=== PATIENT | male | born 1965 | race Two or more races ===

== ENCOUNTER 2023-09-23 20:26 | Inpatient (IN) | payer OTHER, SELFPAY ==
[2023-09-23] VITALS (20 sets, daily range): BP systolic 82–106; BP diastolic 59–81; BMI 43.1
[2023-09-23 14:37] LABS: % Basophils 0.1 % (0-2); % Eosinophils 0.1 % (0-6); % Immature Granulocytes 0.5 % (0-0.5); % Lymphocytes 7.1 % (20.5-51.1); % Monocytes 5.9 % (1.7-9.3); % Neutrophils 86.3 % (42.2-75.2); Absolute Immature Granulocytes 0.1 10^3/uL (0-0.05); Absolute Monocytes 0.9 10^3/uL (0.1-0.6); Absolute Neutrophils 12.4 10^3/uL (1.4-6.5); Hematocrit 46.1 % (39.0-52.0); Hemoglobin 15.3 g/dL (13.0-18.0); Mean Corp Hgb Conc. 33.2 g/dL (33.0-37.0); Mean Corpuscular Hgb 30.2 pg (27.0-31.0); Mean Corpuscular Volume 90.9 fL (80.0-94.0); Mean Platelet Volume 10.8 fL (7.4-10.4); Nucleated Red Blood Cells % 0 % (-); Platelet Count 313 10^3/uL (130-400); Red Blood Cell Count 5.07 10^6/uL (4.70-6.10); Red Cell Dist. Width 13.5 % (11.5-14.5); White Blood Cell Count 14.3 10^3/uL (4.8-10.8)
[2023-09-23 14:50] LABS: Lactic Acid 1.2 mmol/L (0.7-2.0)
[2023-09-23 14:53] LABS: ALT (SGPT) 23 U/L (0-50); AST (SGOT) 32 U/L (17-59); Albumin 4.8 g/dl (3.5-5.0); Alkaline Phosphatase 90 U/L (38-126); Blood Urea Nitrogen 22 mg/dl (9-20); Calcium 10.8 mg/dl (8.4-10.2); Carbon Dioxide 23 mmol/L (22-30); Chloride 104 mmol/L (98-107); Estimated Creatinine Clearance 49 ml/min; Glucose 158 mg/dl (70-99); Potassium 4.2 mmol/L (3.5-5.1); Sodium 140 mmol/L (135-145); Total Bilirubin 1.2 mg/dl (0.2-1.3); Total Protein 9.1 g/dl (6.3-8.2); eGFR 28.69
[2023-09-23 15:03] LABS: NT-proBNP 391 pg/ml; Troponin I < 0.012 ng/ml
[2023-09-23] MEDS: OMNIPAQUE 50 ML PO (15:54)
[2023-09-23] MEDS: ZOFRAN 4 MG IV ×2 (15:55→19:45)
[2023-09-23 16:15] LABS: Lipase 26 U/L (23-300)
[2023-09-23 18:11] LABS: Urine Albumin 2+ (Neg - Trace); Urine Bilirubin 1+ (Negative); Urine Character Very Cloudy (Clear); Urine Color Yellow; Urine Glucose Negative (Negative); Urine Ketone 1+ (Negative); Urine Leukocyte 2+ (Negative); Urine Nitrite Positive (Negative); Urine Occult Blood 4+ (Negative); Urine Specific Gravity 1.015 (<1.030); Urine Urobilinogen Negative (Neg - 1+)
--- NOTE | 2023-09-23 18:40 | ED.GENMED ---
History of Present Illness
General
Chief Complaint: Weakness
Source: patient, ambulance crew and [facility]
Exam Limitations: none
Time Seen by Provider: 09/23/23 15:22
Nursing documentation reviewed up to this point in time: agreed with
History of Present Illness
History of Present Illness:
Patient to ED from [facility] with report of vomiting, increased weakness. According to [facility] staff (jorge) patient had abdominal xray today that revealed constipation. He was given and enema and passed a large amt of stool however he continues with
vomiting. Sent to ED for eval. [facility] denies fever/chills.
Past History
Past History
ED Past Medical History: GERD, HTN, Hypercholesterolemia, NIDDM, Seizures, Psychiatric (Depression) and Other (obesitiy)
Review of Systems
Review of Systems
Allergies reviewed?: Yes
All Other Systems: ROS reviewed and negative except as documented in HPI and ROS
Constitutional: Reports fatigue
EENT: Reports no symptoms
Respiratory: Reports trouble breathing
Cardiac: Reports no symptoms
ABD/GI: Reports abdominal pain, nausea and vomiting
: Reports no symptoms
Musculoskeletal: Reports no symptoms
Skin: Reports no symptoms
Neurological: Reports weakness
Psychiatric: Reports no symptoms
Phy Exam
General Physical Exam
General Presentation: moderate distress
General age: appears stated age
General Skin: warm and dry
General Habitus: normal
General Mental: alert
Cardiovascular Exam
Cardiovascular Exam: regular rate/rhythm and no edema
Pulmonary Exam
Pulmonary Exam: decreased breath sounds
Gastrointestinal Exam
Gastrointestinal Exam: normal bowel sounds, soft, no organomegaly and distended
Palpation: generalized: Mild tenderness
Musculoskeletal Exam
Musculoskeletal Exam: neuro vasc intact
Skin Exam
Skin Exam: normal color, warm/dry and no rash
Psychiatric Exam
Psychiatric Exam: normal mood/affect
Course
Orders/Labs/Results
Orders:
Orders
09/23/23 Breakfast
NPO
Allow oral meds: No
Allow clear liquids: No
NPO with Ice Chips: Yes
09/23/23 14:26
Electrocardiogram (*1) Urgent
Reason for Study: Chest Pain
EKG- Treatment ONCE
09/23/23 14:28
Complete Blood Count/With Diff Urgent
Comprehensive Metabolic Panel Urgent
Lipase Urgent
Comment: LIPASE ADDED ON BY FLOOR 3:45PM 09-23-23
NT-proBNP Urgent
Troponin I Urgent
Blood Culture Urgent
ERIC Source: Blood/Venous
Specimen Description:
Date Specimen was Collected: 09/23/23
Time Specimen was Collected: 14:26
09/23/23 14:29
Lactic Acid Urgent
Urinalysis Reflex To Culture Urgent
Date Specimen was Collected: 09/23/23
Time Specimen was Collected: 14:26
Urine Microscopic Reflex Cult Urgent
Urine Culture Urgent
ERIC Source: U
Specimen Description:
Date Specimen was Collected: 09/23/23
Time Specimen was Collected: 14:26
09/23/23 15:37
Ondansetron Injectable [Zofran] 4 mg IV NOW STA
09/23/23 15:43
CT Abd/pel (oral only)-DH Only Urgent
Comment:
Reason For Exam: abdominal pain vomiting
Iohexol [Omnipaque] See Protocol PO NOW STA
09/23/23 15:44
Add On- LAB Urgent
Tests Added?: Lipase
09/23/23 18:48
0.9% Sodium Chloride 1000 ml [Nss] 1,000 ml IV BOLUS
09/23/23 18:53
Cefepime HCl [Maxipime] 2,000 mg IV NOW STA
09/23/23 19:00
Add On- LAB Urgent
Tests Added?: Depakote level
09/23/23 19:03
Gentamicin Sulfate [Gentamicin] 200 mg 0.9% Sodium Chloride [Nss] 50 ml IV NOW
09/23/23 19:16
Ondansetron Injectable [Zofran] 4 mg IV NOW STA
09/23/23 19:40
Chest X-ray Portable [CR Chest Portable - 1 View] Stat
Comment:
Reason For Exam: shortness of breath
Reason Study Needs to be Portable: Unable to Transport
09/23/23 19:43
Admit/Transfer Patient As Directed
Co-Sign Provider:
Level of Care: Inpatient admission
Assign to:: IMU- Intermediate Care
Physician / Group: Htay
Diagnosis: Severe Sepsis, SBO, UTI
Reason for Hospitalization: IVFs, IV abx, NG Tube
Expected length of stay greater than two midnights?: Yes
ELOS- Estimated Length of Stay in days: 3
I certify the patient meets the requirements for IP care: Yes
09/23/23 19:49
Code Status As Directed
Resuscitation Status: Do not resuscitate
Reached after discussion with pt or family/Healthcare POA: Yes
DNR Bracelet Application ONCE
09/23/23 20:06
Gastrointestinal Tubes As Directed
Type: [place] sump
To suction?: Yes
Type of suction: Low intermittent
Irrigate tube?: Yes
Irrigant: Tap Water
Frequency: Q4H
Amount in mls: 30
Irrigation Directions: Irrigate Q4H and PRN
09/23/23 20:12
Lactated Ringers [Lr] 1,000 ml IV BOLUS
09/23/23 21:23
Acetaminophen 1000MG/100Ml [Ofirmev] 1,000 mg in 100 ml IV Q6HPRN
Acetaminophen IV Indication:: Ileus/Delayed Bowel Func.
Dextrose 50%-Water [Dextrose 50% Syringe] 12.5 grams IV [id number] PRN
Glucagon [GlucaGen] 1 mg IM PRN PRN
Lactated Ringers [Lr] 1,000 ml IV 100 mls/hr
Ondansetron Injectable [Zofran] 4 mg IV Q6HPRN PRN
09/23/23 21:23
SURGICAL CONSULT Routine
Consulting Provider: Paulie Varghese
Was physician already notified: Yes
Activity As Directed
Activity Level: Bedrest
Bedside Glucose Monitoring As Directed
Frequency: AC&HS
Additional Instructions:: Change to q6h if pt on TPN, tube feeding or not eating
Gutierrez Catheter [Catheter- Indwelling] As Directed
Reason for insertion: Chronic Gutierrez on Admit
I&O [Intake/ Output] As Directed
Frequency: q12h
Nursing to Place Non Medication Order As Directed
Physician Order: Please exchange catheter upon arrival to the floor
Above order entered?: Yes
Vital Signs As Directed
Frequency: Per unit guidelines
Weight As Directed
Frequency: Daily
DX Deep Vein Thrombosis Video Routine
09/23/23 22:39
Blood Culture Urgent
ERIC Source: Blood/Venous
Specimen Description:
09/24/23 00:00
Heparin 5,000 units SC Q8
09/24/23 05:44
Basic Metabolic Panel IN AM
Complete Blood Count/No Diff IN AM
Glycohemoglobin (HgbA1c) IN AM
Magnesium IN AM
09/24/23 07:30
Insulin Aspart Corrective Low [Novolog Flexpen-Low Resistance] See Protocol SC AC
09/24/23 08:00
Cefepime HCl [Maxipime] 2,000 mg IV Q12H
Pantoprazole [Protonix IV] 40 mg IV DAILY
Abnormal Lab Results
09/23/23 09/23/23
14:28 14:29
WBC 14.3 H 10^3/uL
(4.8-10.8)
MPV 10.8 H fL
(7.4-10.4)
Abs Immat Gran (auto) 0.1 H 10^3/uL
(0-0.05)
Absolute Neuts (auto) 12.4 H 10^3/uL
(1.4-6.5)
Absolute Lymphs (auto) 1.0 L 10^3/uL
(1.2-3.4)
Absolute Monos (auto) 0.9 H 10^3/uL
(0.1-0.6)
Neutrophils % 86.3 H %
(42.2-75.2)
Lymphocytes % 7.1 L %
(20.5-51.1)
BUN 22 H mg/dl
(9-20)
Creatinine 2.5 H mg/dL
(0.7-1.3)
Glucose 158 H mg/dl
(70-99)
Calcium 10.8 H mg/dl
(8.4-10.2)
Total Protein 9.1 H g/dl
(6.3-8.2)
Urine Ketones 1+ A
(Negative)
Ur Occult Blood Reflex 4+ A
(Negative)
Urine Nitrite (Reflex) Positive A
(Negative)
Urine Bilirubin 1+ A
(Negative)
Leukocyte Esterase Rfl 2+ A
(Negative)
Urine RBC 16-20 A /HPF
(0-2)
Urine WBC (Reflex) 50-60 A /HPF
(0-5)
Urine Bacteria (Reflex) Moderate A
(Negative)
Urine Albumin (Reflex) 2+ A
(Neg - Trace)
09/23/23 14:28
09/23/23 14:28
Vital Signs
Initial and Last Documented VS:
Initial Vital Signs
Temp Pulse Resp BP Pulse Ox
98.4 F 108 18 98/68 94
09/23/23 14:13 09/23/23 14:13 09/23/23 14:13 09/23/23 14:13 09/23/23 14:13
Last Documented Vital Signs
Temp Pulse Resp BP Pulse Ox
97.7 F 85 17 115/56 94
09/25/23 15:05 09/25/23 12:00 09/25/23 12:00 09/25/23 12:00 09/25/23 12:00
*Critical Care Note
Total Time (30-74mins, 75-104mins- exclusive of procedures): Not Applicable
Update Note
Update Note:
Patient sent to ED from [facility] for increasing weakness, vomiting. Portable xxray at [facility] today: Severe gastrocolic ileus. [facility] staff report being told patient was constipated. Enema given at [facility] and he passed a large amt of stool. Conintued
with vomiting so he was sent toED. He had labs colected at [facility] on 09/21. Compared with labs completed here today. Creat 1.17 on the 19h, now 2.5, WBC 7.3, now 14. UA ttoday consistent with UTI. Antibiotics started in dept. He remains awake and
cooperative but weak. DNR
ED Attending Note
-
Portions of this chart may have been created with voice recognition software.� Occasional wrong word or��sound alike� substitutions may have occurred due to the inherent limitations of voice recognition software.
Discharge Plan
Departure
Patient Disposition: Admit
Date of Disposition: 09/23/23
Time of Disposition: 19:09
Presentation/result/management discussed w/ accepting MD/DO: Hospitalist
Condition: Fair
Covid-19: Not Applicable
Discharge Problem:
Acute UTI, CADY (acute kidney injury), SBO (small bowel obstruction)
Interventions
Interventions:
*Risk Screen - Suicide Last Done: 09/23/23 14:13
*General Assessment Last Done: 09/23/23 14:13
*Neglect/Abuse Screening Last Done: 09/23/23 14:13
ED- Fall Risk Assessment Last Done: 09/23/23 21:35
*ED COVID-19 Vaccine History Last Done: 09/23/23 23:55
*Nursing Disposition Last Done: 09/23/23 21:35
ED- Cardiac Assessment Last Done: 09/23/23 15:11
ED- Neurological Assessment Last Done: 09/23/23 15:11
ED- Pulmonary Assessment Last Done: 09/23/23 15:11
Discharge Date and Time
Discharge Date/Time: 09/23/23 21:37
[2023-09-23 18:49] LABS: Urine Bacteria Moderate (Negative)
[2023-09-23 18:50] LABS: Urine Red Blood Cell 16-20 /HPF (0-2); Urine White Cell 50-60 /HPF (0-5)
[2023-09-23] MEDS: NSS 1000 IV (18:55)
[2023-09-23] MEDS: MAXIPIME 2000 MG IV (19:00)
[2023-09-23] MEDS: GENTAMICIN 55 MG IV (19:44)
--- NOTE | 2023-09-23 19:45 | W.PN.UPDATE ---
Addendum entered and electronically signed by Dmitry Mathis MD 09/23/23 19:59:
Laboratory Tests
09/23/23 09/23/23
14:28 14:29
Lactic Acid 1.2
Troponin I < 0.012
Eao-E-Rhmdyxbyppc Pept 391
Original Note:
Update Note
Progress Note Update
I could only get partial information from the patient as he is soft spoken , answered yes or no and lethargic
Information gathered by chart review and speaking with the ER staff
This note serves as an addendum to the H&P by metallurgy laboratory technician ROCIO Briana MARQUES
HPI
58M Obese HV ID Res, Sz, DM, HTN sent to ER for N/V, weakness since this AM.
Evaluation of N/V
- acute onset since this AM- AXR at ID showed constipation
- S/P rectal emea yields large BMs
- Persistent emesis s/p BM
- NGT drained at least 1.5 L dark brown liquid at ER
ROS:
ID denies fever/chills.
PHX
GERD, HTN, Hypercholesterolemia, NIDDM, Seizures, Psychiatric (Depression) and Other (obesity)
Reviewed VS: Hypotensive BP 95/75 tachycardic 110s Tachypneic RR 26 Pox 93%
PE
Gen: Obese man who looks toxic and lethargic but interactive with appropriate response
HEENT: anicteric, no pallor
Neck: supple
Lungs: symmetric AE
Cor: Tachycardic, S1 S2
Abdomen: diffusely distended and firm large abdomen, quiet BS buit non tender , not guarded , NRT
WEAPONS OFFICER: Awake, Lt sided residual weakness UEx> MENA
MS: no edema
Psych:lethargic but interactive with appropriate response
Data
WCC 14s unremarkable Hgb and Platelet
BUN 22
Cr 2.5 - 1.1 yesterday at ID
Ca 10.8
BG 158
Unremarkable LFTs
Cath UA : POS Nitrites, 2+LE RBC 16-20, WCC 50-60
UCx sent
BCx sent
EKG report
SINUS TACHYCARDIA
RIGHT BUNDLE BRANCH BLOCK
ABNORMAL ECG
NO PREVIOUS ECGS AVAILABLE
CT Abd/pel (oral only)
1). Bowel gas pattern suggesting distal small bowel obstruction
2).There is gas in the left pelvicalyceal system such as may be seen with infection or following recent instrumentation. Correlation with the patient's urinalysis would be useful
3).There are several nonobstructing left-sided renal calculi measuring up to 16 mm
4.). Cholelithiasis
NO PRIOR hospitalist admission:
ASSESSMENT & PLAN
CT suggest distal SBO vs. ileus
S/p Large BM in response to rectal enema per NH
- cont. NGT drainage
- NPO and LR IVF
- Held all OP Meds
- GS consult
Presumed Sepsis( Hypotensive BP 95/75 tachycardic 110s Tachypnic) due to CAUTI
Associated CADY
- cont. chr F cath drainage - to place new cath
- f/u BCx sent
- Empiric IV CFP and f/u UCx
- LR IVF
- Held Lisinopril, Amlodipine, carvedilol and MgOH
- Trend RFTs and UO daily
- Renal consult in AM if Cr is not tending down appropraiely in AM
Several nonobstructing left-sided renal calculi measuring up to 16 mm
- f/u UO
Hyperglycemia due to acute medical illness
T2DM- diet conrol
- add ISS low
- check A1C
Hypotension 2/2 sepsis
Essential HTN
- held all Held Lisinopril, Amlodipine, carvedilol and MgOH
HX CVA Lt sided residual weakness
Bed bound and non ambulatory patient
- Held Eliquis for now
- held Atorvastatin
Depression
- Denied Sz disorder !!!
- Depakote is for Depression ??
DVT Px: SQH while
Code: DNR conformed by Patient at bed side
[facility]
--- NOTE | 2023-09-23 20:18 | HPS.HSE ---
Addendum entered and electronically signed by Dmitry Mathis MD 09/24/23 00:07:
I saw and examined the patient.
The RADIO INSTALLER or PA's note was reviewed and I agree with the note.
Comment: see my updated note
Original Note:
Family Physician
-
Family Physician: Elias Toledo, DO
Chief Complaint
-
Abdominal Pain and Vomiting
History of Present Illness
This is a 58 year old male with past medical history of hypertension, diabetes mellitus type 2, and CVA who presents to the emergency department today for weakness, nausea, and vomiting since this morning. He had an x-ray yesterday after complaining
of abdominal pain which revealed an gastrocolic ileus. While in the emergency department patient had a CT scan that revealed distal small bowel obstruction. NG tube was place with quickly drained 1.5L of dark colored liquid.
Medical History
Past Medical History
Past Medical History: Reports Other
Additional Past Medical History:
CVA with Residual Left Sided Weakness
Essential Hypertension
Hyperlipidemia
Diabetes Mellitus, Type II
Major Depressive Disorder
BPH with Chronic Urinary Retention
Past Surgical History: Reports None
Social History
Tobacco: Former Smoker (Quit in 2022)
Alcohol: Former
Family History
Family History: Not pertinent
Allergies / Home Medications
Allergies reflects when Allergies were last updated in [facility].
Home Medications with original date entered in [facility]
Allergy/Medication List:
Allergies
Allergy/AdvReac Type Severity Reaction Status Date / Time
No Known Allergies Allergy Unverified 09/23/23 14:13
Home Medications
Lactobac no.2-Bifidobac no.1-S. thermo 112.5 billion cell capsule (Visbiome) 1 cap PO DAILY 09/23/23
acetaminophen 325 mg tablet (Tylenol) 650 mg PO Q6HPRN PRN mild pain 09/23/23
amlodipine 10 mg tablet (Norvasc) 10 mg PO DAILY 09/23/23
apixaban 5 mg tablet (Eliquis) 5 mg PO BID 09/23/23
aspirin 81 mg tablet,delayed release 81 mg PO DAILY 09/23/23
atorvastatin 80 mg tablet (Lipitor) 80 mg PO HS 09/23/23
baclofen 5 mg tablet 5 mg PO TID 09/23/23
bisacodyl 5 mg tablet,delayed release (Dulcolax (bisacodyl)) 5 mg PO DAILYPRN PRN constipation 09/23/23
carvedilol 6.25 mg tablet (Coreg) 6.25 mg PO BID 09/23/23
cholecalciferol (vitamin D3) 50 mcg (2,000 unit) tablet (Vitamin D3) 50 mcg PO DAILY 09/23/23
cyclobenzaprine 10 mg tablet 10 mg PO TIDPRN PRN spasms 09/23/23
divalproex 125 mg tablet,delayed release 125 mg PO HS 09/23/23
lidocaine 5 % topical patch 1 patch topical DAILY right knee 09/23/23
lisinopril 20 mg tablet 20 mg PO DAILY 09/23/23
magnesium hydroxide 400 mg/5 mL oral suspension (Milk of Magnesia) 2,400 mg PO [id number] PRN if no bm on 3rd day 09/23/23
melatonin 5 mg tablet 8 mg PO HS 09/23/23
methyl salicylate 15 %-menthol 10 % topical cream (Muscle Rub) 1 applic topical Q6HPRN PRN mild pain 09/23/23
nortriptyline 25 mg capsule 25 mg PO HS 09/23/23
omeprazole 20 mg tablet,delayed release 20 mg PO DAILY 09/23/23
pantoprazole 40 mg tablet,delayed release 40 mg PO BID 09/23/23
polyethylene glycol 3350 17 gram oral powder packet (Miralax) 17 g PO BID 09/23/23
selenium sulfide 2.5 % lotion 1 applic topical Q8HPRN PRN area of skin 09/23/23
sennosides 8.6 mg tablet (senna) 17.2 mg PO BID 09/23/23
sertraline 150 mg capsule 150 mg PO DAILY 09/23/23
sodium phosphates 19 gram-7 gram/118 mL enema (Fleet Enema) 118 ml W[place] DAILYPRN PRN if no bm aftr dulcolax 09/23/23
tamsulosin 0.4 mg capsule (Flomax) 0.4 mg PO QPM 09/23/23
trazodone 150 mg tablet 150 mg PO HS 09/23/23
triamcinolone acetonide 0.1 % topical cream 1 applic topical BID atopic dermatitis 09/23/23
Review of Systems
-
A 12 point ROS was completed and negative except as noted: Yes
Constitutional: Denies Fever or Chills
Respiratory: Denies Cough or Trouble Breathing
Cardiac: Denies Chest Pain or Palpitations
Abdomen/GI: Reports See HPI
Physical Exam
Vital Signs
Vital Signs
Temp Pulse Resp BP Pulse Ox
98.3 F 113 26 99/61 93
09/23/23 18:06 09/23/23 18:48 09/23/23 18:48 09/23/23 18:48 09/23/23 18:53
Physical Exam
General: Well Developed and Well Nourished
HEENT: NormoCephalic, Anicteric and Other (NG Tube in place)
Respiratory: Clear and Non Labored Respirations
Cardiac: S1/S2, Regular Rhythm and Tachycardia
GI: Tender (Mild throughout), Distended and Other (Very hypoactive bowel sounds)
Genito-urinary: Gutierrez
Musculoskeletal: No Clubbing, No Cyanosis and Edema, Left Lower Extremity
Skin: Warm and Dry
Neuro: Awake, Alert, Oriented and Other (LUE Contracted at elbow and hand)
Psych: Calm
Laboratory Results
-
09/23/23 14:28
09/23/23 14:28
Laboratory Results
Lactic Acid 1.2 mmol/L (0.7-2.0) 09/23/23 14:29
Total Bilirubin 1.2 mg/dl (0.2-1.3) 09/23/23 14:28
AST 32 U/L (17-59) 09/23/23 14:28
ALT 23 U/L (0-50) 09/23/23 14:28
Alkaline Phosphatase 90 U/L (38-126) 09/23/23 14:28
Troponin I < 0.012 ng/ml 09/23/23 14:
Lipase 26 U/L (23-300) 09/23/23 14:
Data Reviewed
-
Lab Data: Labs Reviewed by me
Impression/Plan
-
Severe Sepsis secondary to Catheter Associated Urinary Tract Infection
-Continue Cefepime
-Await Urine and Blood Culture
-Replace Gutierrez Catheter
Distal Small Bowel Obstruction vs Ileus
-Consult General Surgery
-NG tube placed in ED with prompt drainage of 1.5L
-Continue NG Tube to low intermittent suction
Acute Kidney Injury
-Continue IVFs
-Recheck creatinine in AM
Hx CVA with Residual Left Sided Weakness
-Resume Eliquis when able to take oral meds
-Resume baclofen when able to take PO
Essential Hypertension
-BP running on the low side
-Hold all oral meds
Hyperlipidemia
-Hold statin
Diabetes Mellitus, Type II
-Monitor sugars and continue coverage insulin
Major Depressive Disorder
-Hold oral meds
BPH
-Continue Flomax
DVT Proph: SC Heparin
Code Status: DNR
[2023-09-23] MEDS: LR 1000 IV ×2 (21:08→23:08)
--- NOTE | 2023-09-23 21:42 | PTCARENOTE ---
Pt with NGT upon arrival to unit. Pt calm, ED Rn reports no attempts to remove NGT by Pt. Pt transferred over to bed by this RN. Pt reaches for nose and pulls on NGT, pulling it slightly out of place, while still in the nose, remaining to drain. RN
readvanced the NGT to its original placement. NGT conts to drain. ENERGY SALES CONSULTANT notified. RN questioned the need for CXR. ENERGY SALES CONSULTANT denies need for CXR, to verify placement, due to continuation of draining. order for mitts received.
[2023-09-23] MEDS: HEPARIN 5000 UNITS SC (23:17)
--- NOTE | 2023-09-23 23:30 | PTCARENOTE ---
Pt received from ED RN. Pt finished LR bolus. Pt getting 125 ml/hr of LR through R hand site. PT appears tired, however able to answer all orientation questions. Pt has ride sided arm contraction from hx of CVA. Pt satting 88% on RA, placed on 3L NC
02. satting 97% on the 02. RR elevated, 24. pt taking shallow breaths, denies difficulty breathing. admission question asked. call light in reach.
[2023-09-24] VITALS (11 sets, daily range): BP systolic 98–148; BP diastolic 30–98; BMI 46.8
--- NOTE | 2023-09-24 01:20 | PTCARENOTE ---
Pt with chronic 16G macedonian Gutierrez upon admission to floor. Nursing to place order for exchange of catheter upon arrival to floor. Gutierrez cath replaced with new 16G Vietnamese. Pt with 10ml of yellow cloudy urine post insertion. Stat lock applied to right
inner thigh.
[2023-09-24 01:46] LABS: Glucose - Point of Care 103 mg/dl (70-99)
[2023-09-24 05:58] LABS: Hematocrit 40.8 % (39.0-52.0); Hemoglobin 13.5 g/dL (13.0-18.0); Mean Corp Hgb Conc. 33.1 g/dL (33.0-37.0); Mean Corpuscular Hgb 30.8 pg (27.0-31.0); Mean Corpuscular Volume 92.9 fL (80.0-94.0); Mean Platelet Volume 10.6 fL (7.4-10.4); Platelet Count 225 10^3/uL (130-400); Red Blood Cell Count 4.39 10^6/uL (4.70-6.10); Red Cell Dist. Width 13.5 % (11.5-14.5); White Blood Cell Count 13.5 10^3/uL (4.8-10.8)
[2023-09-24] MEDS: LR 1000 IV ×2 (06:17→14:39)
[2023-09-24 06:20] LABS: Blood Urea Nitrogen 26 mg/dl (9-20); Calcium 9.5 mg/dl (8.4-10.2); Carbon Dioxide 22 mmol/L (22-30); Chloride 106 mmol/L (98-107); Estimated Creatinine Clearance 57 ml/min; Glucose 108 mg/dl (70-99); Magnesium 1.9 mg/dl (1.6-2.3); Potassium 4.2 mmol/L (3.5-5.1); Sodium 140 mmol/L (135-145)
[2023-09-24 06:26] LABS: Glucose - Point of Care 124 mg/dl (70-99)
[2023-09-24] MEDS: HEPARIN 5000 UNITS SC (09:05)
[2023-09-24] MEDS: NSS (PRESERVATIVE FREE) 10 ML IV (09:06)
[2023-09-24] MEDS: PROTONIX IV 40 MG IV (09:06)
[2023-09-24] MEDS: MAXIPIME 2000 MG IV ×2 (09:06→19:17)
[2023-09-24] MEDS: STERILE WATER FOR INJECTION 10 ML IV ×2 (09:06→19:17)
--- NOTE | 2023-09-24 09:26 | W.PN.HOSP.TC ---
Today's Communication/Plan
-
ngt; f/u gen surg recs
iv abx
f/u cultures
repeat blood cultures
stool cultures
hep ggt
Assessment / Plan
Assessment / Plan
Physical Exam
General: Well Developed and Well Nourished
HEENT: NormoCephalic, Anicteric and Other (NG Tube in place)
Respiratory: Clear and Non Labored Respirations
Cardiac: S1/S2, Regular Rhythm and Tachycardia
GI: Tender (Mild throughout), Distended and Other (Very hypoactive bowel sounds)
Genito-urinary: Gutierrez
Musculoskeletal: No Clubbing, No Cyanosis and Edema, Left Lower Extremity
Skin: Warm and Dry
Neuro: Awake, Alert, Oriented and Other (LUE Contracted at elbow and hand)
Psych: Calm
Severe Sepsis secondary to Catheter Associated Urinary Tract Infection, Bacteremia
-Continue Cefepime
-Await Urine and Blood Culture; repeat blood cultures
-Replace Gutierrez Catheter
-IVF
-Maintain MAP >65
Distal Small Bowel Obstruction vs Ileus
-Consult General Surgery
-NG tube placed in ED with prompt drainage of 1.5L
-Continue NG Tube to low intermittent suction
-NPO
Acute Kidney Injury
-Continue IVFs
-Improving
-Recheck creatinine in AM
Hx CVA with Residual Left Sided Weakness
-Resume Eliquis when able to take oral meds
-Resume baclofen when able to take PO
-Unclear why on Eliquis, without hx of afib, dvts
-Switch to hep ggt
Essential Hypertension
-BP running on the low side
-Hold all oral meds
Hyperlipidemia
-Hold statin
Diabetes Mellitus, Type II
-Monitor sugars and continue coverage insulin
Major Depressive Disorder
-Hold oral meds
BPH
-Continue Flomax
DVT Proph: SC Heparin
Code Status: DNR
Total time spent on today's encounter was 50 minutes which included time spent in counseling the patient/family regarding diagnosis and treatment plan as listed above, goals of care, and symptom management. Case was discussed with nursing staff,
specialists, and care coordinators/case management. All labs and imaging personally reviewed by me. Remainder the time spent in detailed review of previous records, lab data, imaging, and other medical provider documentation.
Anticipated Discharge: > 48 hours
Subjective/Interval History
-
Date of Service: September 24, 2023
No acute events, BP stabilized
Objective Data
-
Labs:
Laboratory Results
09/24/23
05:44
WBC 13.5 H
Hgb 13.5
Hct 40.8
Plt Count 225 D
Sodium 140
Potassium 4.2
Chloride 106
Carbon Dioxide 22
BUN 26 H
Creatinine 2.0 H
Glucose 108 H
Calcium 9.5
Vital Signs:
Vital Signs
Temp Pulse Resp BP Pulse Ox
98.2 F 86 14 120/84 98
09/24/23 07:49 09/24/23 05:45 09/24/23 05:45 09/24/23 04:00 09/24/23 05:45
I&O
09/23/23 09/24/23 09/25/23
06:59 06:59 06:59
Intake Total 1999
Output Total 1410 / 1410
Balance 590 / 590
Review of Systems
-
History Source: Patient
All other systems: Not reviewed unless documented
Data Reviewed
-
Diagnostic Radiology: Image personally visualized and interpreted and Report Reviewed by me
CT Scan: Image personally visualized and interpreted and Report Reviewed by me
Labs: Labs Reviewed by me
--- NOTE | 2023-09-24 10:03 | CON.GS ---
Addendum entered and electronically signed by Zack Ocampo MD 09/24/23 15:26:
Patient seen and examined this a.m. with nurse practitioner. Consultation note consistent with my simultaneous examination and evaluation.
HPI: 58-year-old male with recent history of ureteroscopy, nephrolithiasis and stent removal. Chronic indwelling Boggs. Presenting with nausea vomiting abdominal pain and now diarrhea which started overnight. He feels better with NG tube in
place. Abdominal pain is subsided. No further nausea.
No prior open abdominal surgical history. No previous history of bowel obstructions.
AFVSS
NAD, chronically ill-appearing, comfortably lying in hospital bed conversive for history taking
Abdomen: obese, diffusely distended but soft. Nontender. No rebound no rigidity no guarding.
Boggs catheter in place with pyuria noted in tubing
CT imaging personally reviewed. Diffuse small bowel dilation, colonic dilation with air and liquid stool throughout including sigmoid colon. Severe gastric distention. No free air. No free pneumatosis.
Assessment/plan: 58-year-old male with probable ileus in setting of recent intervention, chronic indwelling Boggs and gram-negative urinary tract infection. No strong radiographic findings suggestive of mechanical obstruction. Abdominal
examination benign.
Recommend continued medical management with NG tube decompression, IV fluid hydration and supportive care. Return of bowel function should improve with treatment of underlying medical illness. Will follow
Original Note:
Medical History
-
Chief Complaint: nausea/vomiting
History of Present Illness:
This is a 58 yo male with a h/o DM, HTN, recent ureteroscopy for nephrolithiasis (?approx 2 weeks ago), chronic boggs, CVA and residual left weakness residing in a NH who presented with acute onset of nausea and vomiting yesterday morning with
abdominal pain. He notes no BM for several days prior to this. He was reportedly given an enema at the facility which was productive of stool prior to EMS being called. He currently denies abdominal pain. NGT has been placed since presentation with
bilious/feculent outputs noted and interim resolution of nausea. Initial output of 1.5 liters in the ED with an additional 600ml noted in drainage canister at bedside. He has been passing liquid stool with flatus this morning x2 episodes. He notes
interim resolution of abdominal pain. Boggs in place which was exchanged per nursing staff with pyuria noted.
Past Medical History
Past Medical History: CVA (residual left weakness), HTN, Hypercholesterolemia, NIDDM, Psychiatric (major depressive disorder), Seizures and Other (BPH, chronic urinary retention with chronic boggs, obesity)
Past Surgical History: Urological (recent ureteroscopy for nephrolithiasis with stent and subsequent removal about 2 weeks ago)
Social History
Tobacco: Former Smoker (quit 2022)
Alcohol: Former
Living: Senior Living
Family History
Family History: Reviewed & Not Pertinent
Allergies / Home Medications
Allergy/AdvReac Type Severity Reaction Status Date / Time
No Known Allergies Allergy Unverified 09/23/23 14:13
�Medication �Instructions �Recorded �Confirmed �Type
Lactobac no.2-Bifidobac no.1-S. 1 cap PO DAILY Gastrointestinal 09/23/23 09/23/23 History
thermo 112.5 billion cell capsule Issue
(Visbiome)
acetaminophen 325 mg tablet 650 mg PO Q6HPRN PRN mild pain 09/23/23 09/23/23 History
(Tylenol)
amlodipine 10 mg tablet (Norvasc) 10 mg PO DAILY Blood Pressure 09/23/23 09/23/23 History
apixaban 5 mg tablet (Eliquis) 5 mg PO BID Blood Clot 09/23/23 09/23/23 History
Prevention/Tx
aspirin 81 mg tablet,delayed 81 mg PO DAILY Blood Clot 09/23/23 09/23/23 History
release Prevention/Tx
atorvastatin 80 mg tablet (Lipitor) 80 mg PO HS High Cholesterol 09/23/23 09/23/23 History
baclofen 5 mg tablet 5 mg PO TID Muscle Spasms 09/23/23 09/23/23 History
bisacodyl 5 mg tablet,delayed 5 mg PO DAILYPRN PRN constipation 09/23/23 09/23/23 History
release (Dulcolax (bisacodyl))
carvedilol 6.25 mg tablet (Coreg) 6.25 mg PO BID Blood Pressure 09/23/23 09/23/23 History
cholecalciferol (vitamin D3) 50 50 mcg PO DAILY Supplement 09/23/23 09/23/23 History
mcg (2,000 unit) tablet (Vitamin
D3)
cyclobenzaprine 10 mg tablet 10 mg PO TIDPRN PRN spasms 09/23/23 09/23/23 History
divalproex 125 mg tablet,delayed 125 mg PO HS Seizures 09/23/23 09/23/23 History
release
lidocaine 5 % topical patch 1 patch topical DAILY right knee 09/23/23 09/23/23 History
lisinopril 20 mg tablet 20 mg PO DAILY Blood Pressure 09/23/23 09/23/23 History
magnesium hydroxide 400 mg/5 mL 2,400 mg PO D34OSWS PRN if no bm 09/23/23 09/23/23 History
oral suspension (Milk of Magnesia) on 3rd day
melatonin 5 mg tablet 8 mg PO HS Sleep 09/23/23 09/23/23 History
methyl salicylate 15 %-menthol 10 1 applic topical Q6HPRN PRN mild 09/23/23 09/23/23 History
% topical cream (Muscle Rub) pain
nortriptyline 25 mg capsule 25 mg PO HS Depression 09/23/23 09/23/23 History
omeprazole 20 mg tablet,delayed 20 mg PO DAILY Gastrointestinal 09/23/23 09/23/23 History
release Issue
pantoprazole 40 mg tablet,delayed 40 mg PO BID Gastrointestinal Issue 09/23/23 09/23/23 History
release
polyethylene glycol 3350 17 gram 17 g PO BID Constipation 09/23/23 09/23/23 History
oral powder packet (Miralax)
selenium sulfide 2.5 % lotion 1 applic topical Q8HPRN PRN area 09/23/23 09/23/23 History
of skin
sennosides 8.6 mg tablet (senna) 17.2 mg PO BID Constipation 09/23/23 09/23/23 History
sertraline 150 mg capsule 150 mg PO DAILY Depression 09/23/23 09/23/23 History
sodium phosphates 19 gram-7 118 ml [place] DAILYPRN PRN if no bm 09/23/23 09/23/23 History
gram/118 mL enema (Fleet Enema) aftr dulcolax
tamsulosin 0.4 mg capsule (Flomax) 0.4 mg PO QPM Urinary Issue 09/23/23 09/23/23 History
trazodone 150 mg tablet 150 mg PO HS Depression 09/23/23 09/23/23 History
triamcinolone acetonide 0.1 % 1 applic topical BID atopic 09/23/23 09/23/23 History
topical cream dermatitis
Review of Systems
-
History Source: Patient
All other systems: Negative unless noted
A 10 point review of systems was completed, and was negative except as per HPI.
Physical Exam
Vital Signs
Temp Pulse Resp BP Pulse Ox
98.2 F 80 13 118/75 98
09/24/23 07:49 09/24/23 08:00 09/24/23 08:00 09/24/23 08:00 09/24/23 06:00
09/23/23 09/24/23 09/25/23
06:59 06:59 06:59
Actual Weight 148 kg
Body Mass Index (BMI) 46.8
Lab Results
09/24/23 05:44
09/24/23 05:44
WBC 13.5 10^3/uL (4.8-10.8) H 09/24/23 05:44
Hgb 13.5 g/dL (13.0-18.0) 09/24/23 05:44
Hct 40.8 % (39.0-52.0) 09/24/23 05:44
Plt Count 225 10^3/uL (130-400) D 09/24/23 05:44
Abs Immat Gran (auto) 0.1 10^3/uL (0-0.05) H 09/23/23 14:28
Neutrophils % 86.3 % (42.2-75.2) H 09/23/23 14:28
Physical Exam
General: Comfortable
HEENT: Normocephalic and Moist Mucous Membranes
Respiratory: Non Labored Respirations
GI: Soft, Non Tender, Distended (mild), Obese and Other (NGT with feculent/bilious outputs)
Skin: Warm and Dry
Neuro: Awake, Alert and AO x 3
Psych: Calm
Data Reviewed
-
CT Scan: Image Personally Visualized and interpreted, Report Reviewed by me, Discussed with Physician, Discussed with Nurse and Discussed with Patient
Labs: Labs Reviewed by me, Discussed with Physician and Discussed with Patient
Assessment / Plan
-
58 yo male with no prior intraabdominal surgeries and h/o DM, HTN, recent ureteroscopy for nephrolithiasis (?approx 2 weeks ago), chronic boggs, CVA and residual left weakness residing in a NH who presented with acute onset of nausea and vomiting
yesterday morning with abdominal pain. CT imaging noted with abnormal urologic findings of the left renal pelvis. Gas noted throughout colon without clear transition point for obstruction within the small bowel. Suspect ileus which is resolving.
No BM's for multiple days prior to admission. Now passing flatus/stools. NGT placed which was productive of bilious/feculent outputs now >2L with interim resolution of nausea. Leukocytosis improving on ABX for UTI. AFVSS.
Overall improving with decompression/bowel rest. No operative intervention warranted at this time.
--Follow NPO with NGT for decompression
--IVF while NPO
--ABX as per primary team
[2023-09-24 10:07] LABS: Glycohemoglobin (HgbA1c) 5.4 % (4.0-5.6)
--- NOTE | 2023-09-24 10:39 | PTCARENOTE ---
Addendum entered by Nadya Huff RN 09/24/23 11:28:
right hand mitt removed at 0800 during AM care. Pt expressed understanding regarding NGT
Original Note:
Rec'd pt this AM. NGT draining large amount of dark, foul smelling fluid. boggs catheter with low output. Notifiied Dr. Henao. vital signs stable. Pt oriented, expressed he pulled on NGT by mistake and will not do that again. pleasant and
cooperative
[2023-09-24 11:43] LABS: Glucose - Point of Care 92 mg/dl (70-99)
[2023-09-24 14:31] LABS: Hematocrit 36.3 % (39.0-52.0); Hemoglobin 12.1 g/dL (13.0-18.0); Mean Corp Hgb Conc. 33.3 g/dL (33.0-37.0); Mean Corpuscular Hgb 30.9 pg (27.0-31.0); Mean Corpuscular Volume 92.6 fL (80.0-94.0); Mean Platelet Volume 10.4 fL (7.4-10.4); Platelet Count 208 10^3/uL (130-400); Red Blood Cell Count 3.92 10^6/uL (4.70-6.10); Red Cell Dist. Width 13.7 % (11.5-14.5); White Blood Cell Count 11.7 10^3/uL (4.8-10.8)
[2023-09-24 14:46] LABS: APTT 26.6 Sec (23.4-35.0)
--- NOTE | 2023-09-24 15:29 | PTOTSP ---
orders received, chart reviewed. interviewed pt, reports that he is assisted with all ADLs, uses a mechanical lift for transfers. pt reports no therapy at [facility]; pt is LTC. no acute OT goals identified at this time, will sign off.
[2023-09-24] MEDS: HEPARIN 25000 UNITS/250 ML IV (15:46)
[2023-09-24 18:05] LABS: Glucose - Point of Care 73 mg/dl (70-99)
[2023-09-24] MEDS: FLUSH (NSS) 1 FLUSH IV (19:17)
[2023-09-24 22:28] LABS: APTT 81.2 Sec (23.4-35.0)
[2023-09-24] MEDS: DEXTROSE 50% SYRINGE 12.5 GRAMS IV (23:57)
[2023-09-25] VITALS (12 sets, daily range): BP systolic 90–140; BP diastolic 52–86; BMI 47.4
[2023-09-25 00:04] LABS: Glucose - Point of Care 59 mg/dl (70-99)
[2023-09-25 00:29] LABS: Glucose - Point of Care 79 mg/dl (70-99)
[2023-09-25] MEDS: LR 1000 IV ×2 (01:47→11:55)
[2023-09-25 02:26] LABS: Glucose - Point of Care 90 mg/dl (70-99)
[2023-09-25] MEDS: HEPARIN 25000 UNITS/250 ML IV ×2 (03:48→17:27)
[2023-09-25 04:27] LABS: Glucose - Point of Care 108 mg/dl (70-99)
[2023-09-25 04:48] LABS: Hematocrit 32.2 % (39.0-52.0); Hemoglobin 10.7 g/dL (13.0-18.0); Mean Corp Hgb Conc. 33.2 g/dL (33.0-37.0); Mean Corpuscular Volume 93.3 fL (80.0-94.0); Mean Platelet Volume 12.1 fL (7.4-10.4); Platelet Count 140 10^3/uL (130-400); Red Blood Cell Count 3.45 10^6/uL (4.70-6.10); Red Cell Dist. Width 13.8 % (11.5-14.5); White Blood Cell Count 9.4 10^3/uL (4.8-10.8)
[2023-09-25 05:09] LABS: APTT 92.5 Sec (23.4-35.0)
[2023-09-25 05:10] LABS: ALT (SGPT) 16 U/L (0-50); AST (SGOT) 22 U/L (17-59); Albumin 3.3 g/dl (3.5-5.0); Alkaline Phosphatase 59 U/L (38-126); Blood Urea Nitrogen 25 mg/dl (9-20); Calcium 8.8 mg/dl (8.4-10.2); Carbon Dioxide 25 mmol/L (22-30); Chloride 108 mmol/L (98-107); Estimated Creatinine Clearance 105 ml/min; Glucose 102 mg/dl (70-99); Magnesium 2.1 mg/dl (1.6-2.3); Potassium 4.1 mmol/L (3.5-5.1); Sodium 141 mmol/L (135-145); Total Bilirubin 0.7 mg/dl (0.2-1.3); Total Protein 6.6 g/dl (6.3-8.2); eGFR > 60.00
[2023-09-25] MEDS: STERILE WATER FOR INJECTION 10 ML IV (07:12)
[2023-09-25] MEDS: PROTONIX IV 40 MG IV (07:12)
[2023-09-25] MEDS: MAXIPIME 2000 MG IV (07:12)
[2023-09-25] MEDS: NSS (PRESERVATIVE FREE) 10 ML IV (07:13)
[2023-09-25] MEDS: DEXTROSE 50% SYRINGE 12.5 GRAMS IV ×5 (11:55→20:19)
[2023-09-25 12:04] LABS: Glucose - Point of Care 41 mg/dl (70-99)
[2023-09-25 12:28] LABS: Glucose - Point of Care 55 mg/dl (70-99)
[2023-09-25 12:58] LABS: Glucose - Point of Care 59 mg/dl (70-99)
[2023-09-25] MEDS: D5/0.45%NACL 1000 IV (13:10)
[2023-09-25 13:28] LABS: Glucose - Point of Care 68 mg/dl (70-99)
--- NOTE | 2023-09-25 13:46 | PTCARENOTE ---
Hypoglycemic event at noon with blood sugar = 41, Pt was Asymptomatic; 1/2 amp D50 given and rechecked BS after 15min = 55; 1/2 amp D50 given ; Provider contacted - Order obtained to change LR to D5 1/2NS @ 75ml/hr; Fluids started - rechecked BS
after 15min = 59; 1/2 amp D50 given and rechecked BS x 15 = 68; 1/2 amp D50 given and rechecked BS after 15min = 104; Will continue to monitor and assess.
[2023-09-25 13:58] LABS: Glucose - Point of Care 104 mg/dl (70-99)
--- NOTE | 2023-09-25 14:32 | W.PN.HOSP.TC ---
Today's Communication/Plan
-
switch to zosyn
NGT - monitor bowel function
D51/2NS
Hep ggt
Assessment / Plan
Assessment / Plan
Physical Exam
General: Well Developed and Well Nourished
HEENT: NormoCephalic, Anicteric and Other (NG Tube in place)
Respiratory: Clear and Non Labored Respirations
Cardiac: S1/S2, Regular Rhythm and Tachycardia
GI: Tender (Mild throughout), Distended and Other (Very hypoactive bowel sounds)
Genito-urinary: Gutierrez
Musculoskeletal: No Clubbing, No Cyanosis and Edema, Left Lower Extremity
Skin: Warm and Dry
Neuro: Awake, Alert, Oriented and Other (LUE Contracted at elbow and hand)
Psych: Calm
Severe Sepsis secondary to ?Catheter Associated Urinary Tract Infection, ESBL versus colonization
-Switch to Zosyn
-Await Urine and Blood Culture; repeat blood cultures; initial cultures appears to be contaminant
-Replace Gutierrez Catheter
-IVF
-Maintain MAP >65
Distal Small Bowel Obstruction vs Ileus
-Consult General Surgery
-NG tube placed in ED with prompt drainage of 1.5L
-Continue NG Tube to low intermittent suction
-NPO, still not passing flatus
Acute Kidney Injury
-Continue IVFs
-Resolved
-Recheck creatinine in AM
Hx CVA with Residual Left Sided Weakness
-Resume Eliquis when able to take oral meds
-Resume baclofen when able to take PO
-Unclear why on Eliquis, without hx of afib, dvts
-Switch to hep ggt
Essential Hypertension
-BP running on the low side
-Hold all oral meds
Hyperlipidemia
-Hold statin
Diabetes Mellitus, Type II
-Monitor sugars and continue coverage insulin
Major Depressive Disorder
-Hold oral meds
BPH
-Continue Flomax
DVT Proph: SC Heparin
Code Status: DNR
Anticipated Discharge: 24 - 48 hours
Subjective/Interval History
-
Date of Service: September 25, 2023
No acute vents overnight, still not passing flatus
Objective Data
-
Labs:
Laboratory Results
09/25/23
04:35
WBC 9.4
Hgb 10.7 L
Hct 32.2 L
Plt Count 140 D
APTT 92.5 H
Sodium 141
Potassium 4.1
Chloride 108 H
Carbon Dioxide 25
BUN 25 H
Creatinine 1.1
Glucose 102 H
Calcium 8.8
Total Bilirubin 0.7
AST 22
ALT 16
Alkaline Phosphatase 59
Vital Signs:
Vital Signs
Temp Pulse Resp BP Pulse Ox
97.6 F 85 17 115/56 94
09/25/23 11:32 09/25/23 12:00 09/25/23 12:00 09/25/23 12:00 09/25/23 12:00
I&O
09/24/23 09/25/23 09/26/23
06:59 06:59 06:59
Intake Total 1999 / 1999 3120 / 3120 120 / 120
Output Total 1410 / 1410 2150 / 2150
Balance 590 / 590 970 / 970 120 / 120
Review of Systems
-
History Source: Patient
All other systems: Not reviewed unless documented
Data Reviewed
-
Diagnostic Radiology: Image personally visualized and interpreted and Report Reviewed by me
CT Scan: Image personally visualized and interpreted and Report Reviewed by me
Labs: Labs Reviewed by me
--- NOTE | 2023-09-25 15:30 | W.PN.GS2 ---
Addendum entered and electronically signed by Pj Parra MD 09/25/23 16:22:
I saw and examined the patient.
The FRONT OFFICE DEVELOPER's note was reviewed and I agree with the note.
Comment:
NGT with 1.3 L output, but FMS with greater than 500 mL of stool
Abdomen soft, mildly distended/tympanitic, nontender, no R/G
�No acute surgical intervention; continue nonoperative measures
� Suspect ileus secondary to UTI; continue n.p.o. with NGT to LCS and IVF
� Antibiotics for UTI per primary
Original Note:
Today's Communication / Plan
-
Continue NGT
Assessment / Plan
-
Assessment/plan: 58-year-old male with probable ileus in setting of recent intervention, chronic indwelling Gutierrez and klebsiella-ESBL urinary tract infection. No strong radiographic findings suggestive of mechanical obstruction, suspect ileus
given UTI/Recent procedure
AFVSS
Leukocytosis resolved. CADY resolved
NGT outputs still bilious but no longer feculent
Rectal tube in place for liquid stools
--Recommend continued medical management with NG tube decompression, IV fluid hydration and supportive care.
--Return of bowel function should improve with treatment of underlying medical illness.
Medical management as per primary team
Subjective Data
-
Date of Service: September 25, 2023
Patient seen and examined at bedside with Dr. Parra. Denies n/v. Feeling a bit better overall. More alert today.
Objective Data
-
Intake and Output
09/24/23 09/25/23 09/26/23
06:59 06:59 06:59
Intake Total 1999 / 1999 3120 / 3120 120 / 120
Output Total 1410 / 1410 2150 / 2150 850 / 850
Balance 590 / 590 970 / 970 -730 / -730
Intake:
Oral fluids 100 / 100 120 / 120
IV fluids (Total) 1999 2700 / 2700
IV piggybacks 320 / 320
Output:
Gastrointestinal tube output ( 1300 / 1300 1350 / 1350
Total)
[place] Sump 1300 / 1300 1350 / 1350
Urine, Gutierrez 110 / 110 800 / 800 850 / 850
Vital Signs
Temp Pulse Resp BP Pulse Ox
97.6 F 85 17 115/56 94
09/25/23 11:32 09/25/23 12:00 09/25/23 12:00 09/25/23 12:00 09/25/23 12:00
Lab Results
09/25/23 04:35
09/25/23 04:35
Calcium 8.8 mg/dl (8.4-10.2) 09/25/23 04:35
Magnesium 2.1 mg/dl (1.6-2.3) 09/25/23 04:35
Total Bilirubin 0.7 mg/dl (0.2-1.3) 09/25/23 04:35
AST 22 U/L (17-59) 09/25/23 04:35
ALT 16 U/L (0-50) 09/25/23 04:35
Alkaline Phosphatase 59 U/L (38-126) 09/25/23 04:35
Total Protein 6.6 g/dl (6.3-8.2) D 09/25/23 04:35
Albumin 3.3 g/dl (3.5-5.0) L D 09/25/23 04:35
Physical Exam
-
NAD
ABD soft, nt, mild distention. NGT with light bilious outputs. Rectal tube with liquid brown stool
--- NOTE | 2023-09-25 15:42 | CM ---
Addendum entered by Pau Bennett RN 09/25/23 15:55:
Patient will need bariatric ambulance transport.
Original Note:
Patient from [facility] with Hx stroke with Residual Left Sided Weakness with Dx sepsis possibly due to CAUTI, SBO vs Ileus. NPO/NGT. Receiving IVF, Heparin gtt, IV Zosyn. PT & OT notes; Therapy not warranted.
Spoke with David, [facility];
the patient resides at [facility] in LTC since August 2023 - David is unsure if on a bed hold however has [place] insurance.
He is A/O at baseline and requires total care except that he can feed himself.
The patient requires max assist of 3 for transfers and falguni lift is used.
He has an old Fx tailbone that causes pain when sitting, and he doesn't like getting OOB to the [facility].
PT/OT were discontinued due to poor participation.
He is depressed due to his recent divorce - his sister is his primary contact and she lives in the [facility].
Plan follow up with [facility] for bed hold status.
Plan follow up with patient/sister about return to [facility].
Plan return to [facility] when medically ready.
[2023-09-25 16:01] LABS: Glucose - Point of Care 86 mg/dl (70-99)
--- NOTE | 2023-09-25 16:22 | PTCARENOTE ---
Pt reported worsening pain/pressure in rectum; Adjusted rectal trumpet and further cushioned tubing to prevent pressure against skin; Noted that tube was not draining; Pt repeated this claim several times; Attempted to adjust again but was
unable to advance tube. Rectal trumpet removed.
[2023-09-25] MEDS: ZOSYN 100 IV ×2 (16:53→21:38)
[2023-09-25] MEDS: CHLORASEPTIC/SORE THROAT SPRAY 1 SPRAY PO (16:53)
[2023-09-25 17:54] LABS: Glucose - Point of Care 52 mg/dl (70-99)
[2023-09-25 18:25] LABS: Glucose - Point of Care 71 mg/dl (70-99)
[2023-09-25] MEDS: STERILE WATER FOR INJECTION IV (20:19)
[2023-09-25 20:28] LABS: Glucose - Point of Care 67 mg/dl (70-99)
[2023-09-25 20:49] LABS: Glucose - Point of Care 90 mg/dl (70-99)
[2023-09-25 22:49] LABS: Glucose - Point of Care 119 mg/dl (70-99)
[2023-09-26] VITALS (11 sets, daily range): BP systolic 106–168; BP diastolic 57–100; BMI 47.4
--- NOTE | 2023-09-26 00:44 | PTCARENOTE ---
Upon assessment of pt jesus morel observed hanging off pt's bed. Abdominal secretions all over pt and on floor. Pt pulled out tube. With assist of another RN jesus morel replaced to right nare without difficulty with immediate output of gastric
contents. Pt agreed to not pull out tube again. Pt received complete CHG bath and linens changed. Pt had smear of BM during bath. Heparin gtt continues infusing at 20ml/hr. IVF's infusing as ordered. Call graham remains within reach. Will continue to
monitor.
[2023-09-26 00:54] LABS: Glucose - Point of Care 98 mg/dl (70-99)
[2023-09-26] MEDS: D5/0.45%NACL 1000 IV ×2 (00:55→16:28)
[2023-09-26 02:48] LABS: Glucose - Point of Care 76 mg/dl (70-99)
[2023-09-26] MEDS: ZOSYN 100 IV ×4 (03:22→21:19)
[2023-09-26 05:27] LABS: Glucose - Point of Care 84 mg/dl (70-99)
[2023-09-26 05:32] LABS: Hematocrit 33.9 % (39.0-52.0); Hemoglobin 11.1 g/dL (13.0-18.0); Mean Corp Hgb Conc. 32.7 g/dL (33.0-37.0); Mean Corpuscular Hgb 30.6 pg (27.0-31.0); Mean Corpuscular Volume 93.4 fL (80.0-94.0); Mean Platelet Volume 11.4 fL (7.4-10.4); Platelet Count 180 10^3/uL (130-400); Red Blood Cell Count 3.63 10^6/uL (4.70-6.10); Red Cell Dist. Width 13.5 % (11.5-14.5); White Blood Cell Count 8.2 10^3/uL (4.8-10.8)
[2023-09-26 05:40] LABS: APTT 67.6 Sec (23.4-35.0)
[2023-09-26] MEDS: HEPARIN 25000 UNITS/250 ML IV ×2 (05:43→17:23)
[2023-09-26 06:26] LABS: ALT (SGPT) 15 U/L (0-50); AST (SGOT) 23 U/L (17-59); Albumin 3.2 g/dl (3.5-5.0); Alkaline Phosphatase 48 U/L (38-126); Blood Urea Nitrogen 12 mg/dl (9-20); Calcium 8.6 mg/dl (8.4-10.2); Carbon Dioxide 31 mmol/L (22-30); Chloride 104 mmol/L (98-107); Estimated Creatinine Clearance > 125 ml/min; Glucose 123 mg/dl (70-99); Potassium 3.6 mmol/L (3.5-5.1); Sodium 140 mmol/L (135-145); Total Bilirubin 0.9 mg/dl (0.2-1.3); Total Protein 6.4 g/dl (6.3-8.2); eGFR > 60.00
[2023-09-26] MEDS: PROTONIX IV 40 MG IV (08:32)
[2023-09-26] MEDS: STERILE WATER FOR INJECTION IV ×2 (08:33→19:13)
[2023-09-26] MEDS: NSS (PRESERVATIVE FREE) 10 ML IV (08:38)
--- NOTE | 2023-09-26 09:16 | W.PN.HOSP.TC ---
Today's Communication/Plan
-
abx
ngt clamping trial
Assessment / Plan
Assessment / Plan
Physical Exam
General: Well Developed and Well Nourished
HEENT: NormoCephalic, Anicteric and Other (NG Tube in place)
Respiratory: Clear and Non Labored Respirations
Cardiac: S1/S2, Regular Rhythm and Tachycardia
GI: Tender (Mild throughout), Distended and Other (Very hypoactive bowel sounds)
Genito-urinary: Gutierrez
Musculoskeletal: No Clubbing, No Cyanosis and Edema, Left Lower Extremity
Skin: Warm and Dry
Neuro: Awake, Alert, Oriented and Other (LUE Contracted at elbow and hand)
Psych: Calm
Severe Sepsis secondary to ?Catheter Associated Urinary Tract Infection, ESBL versus colonization
-Switch to Zosyn, can switch to p.o. regimen once can tolerate PO
-Await Blood Culture; repeat blood cultures no growth today; initial cultures appears to be contaminant
-Replace Gutierrez Catheter
-IVF
-Maintain MAP >65
Distal Small Bowel Obstruction vs Ileus
-Consult General Surgery
-NG tube clamped today, assess for removal today
-NPO, passed flatus overnight
Acute Kidney Injury
-Continue IVFs
-Resolved
-Recheck creatinine in AM
Hx CVA with Residual Left Sided Weakness
-Resume Eliquis when able to take oral meds
-Resume baclofen when able to take PO
-Unclear why on Eliquis, without hx of afib, dvts
- hep ggt while npo
Essential Hypertension
-BP running on the low side
-Hold all oral meds
Hyperlipidemia
-Hold statin
Diabetes Mellitus, Type II
-Monitor sugars and continue coverage insulin
-Cont on D5 as patient has bouts of hypoglycemia - increase rate
Major Depressive Disorder
-Hold oral meds
BPH
-Continue Flomax
DVT Proph: Heparin ggt
Code Status: DNR
Anticipated Discharge: > 48 hours
Subjective/Interval History
-
Date of Service: September 26, 2023
No acute events; passed flatus
Objective Data
-
Labs:
Laboratory Results
09/26/23 09/26/23 09/26/23
04:03 05:41 11:45
WBC 8.2
Hgb 11.1 L
Hct 33.9 L
Plt Count 180 D
APTT 67.6 H Pending
Sodium Cancelled 140
Potassium Cancelled 3.6
Chloride Cancelled 104
Carbon Dioxide Cancelled 31 H
BUN Cancelled 12
Creatinine Cancelled 0.7
Glucose Cancelled 123 H
Calcium Cancelled 8.6
Total Bilirubin Cancelled 0.9
AST Cancelled 23
ALT Cancelled 15
Alkaline Phosphatase Cancelled 48
Vital Signs:
Vital Signs
Temp Pulse Resp BP Pulse Ox
98.2 F 81 18 145/100 100
09/26/23 07:10 09/26/23 08:00 09/26/23 08:00 09/26/23 08:00 09/26/23 08:00
I&O
09/25/23 09/26/23 09/27/23
06:59 06:59 06:59
Intake Total 3240 / 3240 1650 / 1650
Output Total 2150 / 2150 1900 / 1900
Balance 1090 / 1090 -250 / -250
Review of Systems
-
History Source: Patient
All other systems: Not reviewed unless documented
Data Reviewed
-
Diagnostic Radiology: Image personally visualized and interpreted and Report Reviewed by me
CT Scan: Image personally visualized and interpreted and Report Reviewed by me
Labs: Labs Reviewed by me
[2023-09-26] MEDS: DEXTROSE 50% SYRINGE 12.5 GRAMS IV ×2 (11:37→16:33)
[2023-09-26 11:44] LABS: Glucose - Point of Care 57 mg/dl (70-99)
[2023-09-26 12:11] LABS: APTT 71.6 Sec (23.4-35.0)
[2023-09-26 12:13] LABS: Glucose - Point of Care 76 mg/dl (70-99)
--- NOTE | 2023-09-26 13:07 | W.PN.GS2 ---
Addendum entered and electronically signed by Pj Parra MD 09/26/23 15:32:
I saw and examined the patient.
The MANAGER OF PLANNING's note was reviewed and I agree with the note.
Comment:
NGT with 500mL output, FMS removed overnight; patient passing flatus and feels less distended
Abdomen soft, mildly distended/tympanitic (slightly improved from yesterday), nontender, no R/G
�No acute surgical intervention; continue nonoperative measures
� Suspect ileus secondary to UTI; now with evidence of bowel function
-Clamp trial: if less than 150mL after 4hrs, ok to remove and start sips/chips
� Antibiotics for UTI per primary
Original Note:
Today's Communication / Plan
-
NGT clamp trial
Assessment / Plan
-
Assessment/plan: 58-year-old male with probable ileus in setting of recent intervention, chronic indwelling Boggs and klebsiella-ESBL urinary tract infection. No strong radiographic findings suggestive of mechanical obstruction, suspect ileus
given UTI/Recent procedure
AFVSS
Leukocytosis resolved. CADY resolved
NGT outputs minimal, gastric in nature
+flatus, last liquid stool was yesterday. Rectal tube now out.
--Clamp trial of ngt
--Keep NPO, will allow sips of clears/ice chips if does well with clamping trial
--Return of bowel function should continue to improve with treatment of underlying medical illness.
Medical management as per primary team
Subjective Data
-
Date of Service: September 26, 2023
Patient seen and examined at bedside with Dr. Parra. Feeling better overall. Rectal tube removed last night, he notes passage of flatus. Denies n/v.
Objective Data
-
Intake and Output
09/25/23 09/26/23 09/27/23
06:59 06:59 06:59
Intake Total 3240 / 3240 1650 / 1650 120 / 120
Output Total 2150 / 2150 1900 / 1900 450 / 450
Balance 1090 / 1090 -250 / -250 -330 / -330
Intake:
Oral fluids 100 / 100 120 / 120 120 / 120
IV fluids (Total) 2700 / 2700 1000 / 1000
IV piggybacks 320 / 320 440 / 440
Amount instilled into GI Tube ( 120 / 120 90 / 90
Total)
[place] Sump 120 / 120 90 / 90
Output:
Gastrointestinal tube output ( 1350 / 1350 500 / 500
Total)
[place] Sump 1350 / 1350 500 / 500
Urine, Boggs 800 / 800 1400 / 1400 450 / 450
Vital Signs
Temp Pulse Resp BP Pulse Ox
97.4 F 83 18 127/68 99
09/26/23 11:00 09/26/23 10:00 09/26/23 10:00 09/26/23 10:00 09/26/23 10:00
Lab Results
09/26/23 04:03
09/26/23 05:41
Calcium 8.6 mg/dl (8.4-10.2) 09/26/23 05:41
Magnesium 2.1 mg/dl (1.6-2.3) 09/25/23 04:35
Total Bilirubin 0.9 mg/dl (0.2-1.3) 09/26/23 05:41
AST 23 U/L (17-59) 09/26/23 05:41
ALT 15 U/L (0-50) 09/26/23 05:41
Alkaline Phosphatase 48 U/L (38-126) 09/26/23 05:41
Total Protein 6.4 g/dl (6.3-8.2) 09/26/23 05:41
Albumin 3.2 g/dl (3.5-5.0) L 09/26/23 05:41
Physical Exam
-
NAD
ABD soft, nt, nd. NGT with light minimal outputs
boggs with rod urine
[2023-09-26 14:09] LABS: Glucose - Point of Care 63 mg/dl (70-99)
[2023-09-26 14:28] LABS: Glucose - Point of Care 76 mg/dl (70-99)
--- NOTE | 2023-09-26 14:32 | PTCARENOTE ---
Pt with low blood sugars x2. notified Dr. Henao. Increase to D5 with half NS to 100ml/hr ordered. NGT clamped her order of GI. possible d.c. later today if low residual. vital signs stable.
--- NOTE | 2023-09-26 15:38 | PTCARENOTE ---
NGT removed per order. Pt tolerated removal.
[2023-09-26 16:47] LABS: Glucose - Point of Care 69 mg/dl (70-99)
[2023-09-26 16:58] LABS: Glucose - Point of Care 105 mg/dl (70-99)
[2023-09-26 17:51] LABS: APTT 60.3 Sec (23.4-35.0)
[2023-09-26 18:27] LABS: Glucose - Point of Care 93 mg/dl (70-99)
[2023-09-26 20:11] LABS: Glucose - Point of Care 103 mg/dl (70-99)
[2023-09-27] VITALS (9 sets, daily range): BP systolic 115–162; BP diastolic 60–104; BMI 47.6
[2023-09-27 00:06] LABS: Glucose - Point of Care 114 mg/dl (70-99)
[2023-09-27 00:15] LABS: APTT 94.9 Sec (23.4-35.0)
[2023-09-27] MEDS: D5/0.45%NACL 1000 IV (01:27)
[2023-09-27] MEDS: ZOSYN 100 IV ×2 (03:14→10:50)
[2023-09-27 04:14] LABS: Glucose - Point of Care 135 mg/dl (70-99)
[2023-09-27 04:31] LABS: Hematocrit 29.6 % (39.0-52.0); Mean Corp Hgb Conc. 33.8 g/dL (33.0-37.0); Mean Corpuscular Hgb 30.7 pg (27.0-31.0); Mean Corpuscular Volume 90.8 fL (80.0-94.0); Mean Platelet Volume 10.3 fL (7.4-10.4); Platelet Count 160 10^3/uL (130-400); Red Blood Cell Count 3.26 10^6/uL (4.70-6.10); Red Cell Dist. Width 13.1 % (11.5-14.5); White Blood Cell Count 6.6 10^3/uL (4.8-10.8)
[2023-09-27] MEDS: HEPARIN 25000 UNITS/250 ML IV (04:39)
[2023-09-27 04:49] LABS: ALT (SGPT) 13 U/L (0-50); AST (SGOT) 18 U/L (17-59); Albumin 3.1 g/dl (3.5-5.0); Alkaline Phosphatase 53 U/L (38-126); Blood Urea Nitrogen 7 mg/dl (9-20); Calcium 8.6 mg/dl (8.4-10.2); Carbon Dioxide 29 mmol/L (22-30); Chloride 102 mmol/L (98-107); Estimated Creatinine Clearance > 125 ml/min; Glucose 123 mg/dl (70-99); Potassium 3.2 mmol/L (3.5-5.1); Sodium 135 mmol/L (135-145); Total Bilirubin 0.9 mg/dl (0.2-1.3); Total Protein 6.2 g/dl (6.3-8.2); eGFR > 60.00
[2023-09-27 06:35] LABS: Glucose - Point of Care 126 mg/dl (70-99)
[2023-09-27 06:43] LABS: APTT 85.7 Sec (23.4-35.0)
--- NOTE | 2023-09-27 07:58 | W.PN.GS2 ---
Addendum entered and electronically signed by Paulie Varghese MD 09/27/23 16:04:
I saw and examined the patient independently.
The Workforce Manager's note was reviewed and I agree with the note, assessment and plan except where noted below.
Comment: 58-year-old male with ileus in the setting of a recent urinary tract infection. Resolving.
Clears today, advance to regular diet as tolerated.
General surgery will continue to follow.
Original Note:
Today's Communication / Plan
-
..
Assessment / Plan
-
Assessment/plan: 58-year-old male with probable ileus in setting of recent intervention, chronic indwelling Gutierrez and klebsiella-ESBL urinary tract infection. No strong radiographic findings suggestive of mechanical obstruction,
-suspect ileus given UTI/Recent procedure
-NGT Removed. Ileus resolved.
-Advance to clears, if tolerated advance to regular.
-Up and out of bed as often as possible
-Abx for UTI per primary.
Medical management as per primary team
Subjective Data
-
Examined patient at bedside. Reports passing flatus. patient reports no acute complaints. Denies nausea denies vomiting, denies abdominal pain. Feeling better overall
Objective Data
-
Intake and Output
09/26/23 09/27/23 09/28/23
06:59 06:59 06:59
Intake Total 1650 / 1650 1310 / 1310
Output Total 1900 / 1900 2000 / 2000
Balance -250 / -250 -690 / -690
Intake:
Oral fluids 120 / 120 360 / 360
IV fluids (Total) 1000 / 1000 950 / 950
IV piggybacks 440 / 440
Amount instilled into GI Tube ( 90 / 90
Total)
[place] Sump 90 / 90
Output:
Gastrointestinal tube output ( 500 / 500 150 / 150
Total)
[place] Sump 500 / 500 150 / 150
Urine, Gutierrez 1400 / 1400 1850 / 1850
Vital Signs
Temp Pulse Resp BP Pulse Ox
98.6 F 67 17 115/63 99
09/27/23 04:15 09/27/23 02:00 09/27/23 02:00 09/27/23 02:00 09/26/23 22:04
Lab Results
09/27/23 04:01
09/27/23 04:01
Calcium 8.6 mg/dl (8.4-10.2) 09/27/23 04:01
Magnesium 2.1 mg/dl (1.6-2.3) 09/25/23 04:35
Total Bilirubin 0.9 mg/dl (0.2-1.3) 09/27/23 04:01
AST 18 U/L (17-59) 09/27/23 04:01
ALT 13 U/L (0-50) 09/27/23 04:01
Alkaline Phosphatase 53 U/L (38-126) 09/27/23 04:01
Total Protein 6.2 g/dl (6.3-8.2) L 09/27/23 04:01
Albumin 3.1 g/dl (3.5-5.0) L 09/27/23 04:01
Physical Exam
-
Abdomen: Soft, nontender, mildly distended,
[2023-09-27] MEDS: PROTONIX IV 40 MG IV (08:46)
[2023-09-27] MEDS: NSS (PRESERVATIVE FREE) 10 ML IV (08:46)
[2023-09-27] MEDS: FLUSH (NSS) 1 FLUSH IV ×2 (08:47→10:50)
[2023-09-27] MEDS: STERILE WATER FOR INJECTION IV ×2 (10:49→19:56)
--- NOTE | 2023-09-27 11:28 | W.PN.HOSP.TC ---
Today's Communication/Plan
-
see bold
Assessment / Plan
Assessment / Plan
Gen: NAD, Awake and alert
Eyes: EOMI, PERRLA, no scleral icterus.
Neck: supple.
CV: RRR, +S1/S2, no m/r/g.
Resp: CTAB, no rales, wheezes, or rhonchi.
Abd: +BS, soft, NT, ND
Skin: No rashes.
Neuro: CN 2-12 intact, L-hemiparesis
Psych: Normal mood and affect.
09/24/23 14:34 Feces/Stool Salmonella/Shigella Culture - Final
No Salmonella, Shigella, Aeromonas or Plesiomonas species
isolated.
09/24/23 14:34 Feces/Stool Campylobacter Culture - Final
No Campylobacter species isolated.
09/24/23 14:34 Feces/Stool Shiga Toxin Test - Final
No E. coli Shiga Toxin 1 or 2 detected.
09/23/23 22:39 Blood/Venous Blood Culture - Preliminary
No Growth in 72 hours- Final report to follow
09/24/23 14:31 Blood/Venous Blood Culture - Preliminary
No Growth in 48 hours- Final report to follow
09/24/23 14:23 Blood/Venous Blood Culture - Preliminary
No Growth in 48 hours- Final report to follow
09/23/23 14:28 Blood/Venous Blood Culture - Final
Coagulase neg. staphylococcus
Additional testing on request
09/23/23 14:28 Blood/Venous Gram Stain - Final
09/23/23 14:29 Urine Urine Culture - Final
Klebsiella pneumoniae-ESBL
CT A/P w/PO 09/23/23: Bowel gas pattern suggesting distal small bowel obstruction. Gas in the left pelvicalyceal system such as may be seen with infection or following recent instrumentation. Correlation with the patient's urinalysis would be useful.
Several nonobstructing left-sided renal calculi measuring up to 16mm. Cholelithiasis.
Severe Sepsis secondary to CAUTI with ESBL Klebsiella vs colonization:
-boggs changed in ED as per discussion with nursing today
-currently on Zosyn
-BCxs NGTD
-suspect colonization, will c/s ID for opinion.
Distal Small Bowel Obstruction vs Ileus:
-surgery following
-NGT now removed, advanced to clears
Other problems:
Acute Kidney Injury, resolved with IVFs
h/o CVA with Residual L-Sided weakness: Resume Eliquis/Baclofen when able to take PO. Unclear why on Eliquis (no h/o afib, thromboembolic disease). Currently on heparin gtt, restart Eliquis this evening.
Essential Hypertension: Holding antihypertensives
Hyperlipidemia: resume statin when able to take PO
DM2: with hypoglycemia on D5 1/2NS
Major Depressive Disorder: Resume meds when able to take PO.
BPH: Resume Flomax when able to take PO.
Hypokalemia: IV K
DNR/Heparin gtt
Anticipated Discharge: 24 - 48 hours
Subjective/Interval History
-
Date of Service: September 27, 2023
Objective Data
-
Labs:
Laboratory Results
09/26/23 09/27/23 09/27/23
23:55 04:01 06:24
WBC 6.6
Hgb 10.0 L
Hct 29.6 L
Plt Count 160
APTT 94.9 H 85.7 H
Sodium 135
Potassium 3.2 L
Chloride 102
Carbon Dioxide 29
BUN 7 L
Creatinine 0.7
Glucose 123 H
Calcium 8.6
Total Bilirubin 0.9
AST 18
ALT 13
Alkaline Phosphatase 53
Vital Signs:
Vital Signs
Temp Pulse Resp BP Pulse Ox
97.9 F 80 19 132/82 96
06/24/24 07:00 09/27/23 08:00 09/27/23 08:00 09/27/23 06:00 09/27/23 08:40
I&O
09/26/23 09/27/23 09/28/23
06:59 06:59 06:59
Intake Total 1650 / 1650 1310 / 1310
Output Total 1900 / 1900 1999 800 / 800
Balance -250 / -250 -690 / -690 -800 / -800
[2023-09-27 11:44] LABS: Glucose - Point of Care 81 mg/dl (70-99)
--- NOTE | 2023-09-27 12:24 | PTCARENOTE ---
Patient tolerated clear liquid diet. Heparin drip infusing at 2300 units/23 mls/hr. Eliquis to be restarted this evening. Heparin drip to be d/c once eliquis is resumed. Patient AAO x 3. Uses call graham appropriately. Patient bed bound, needs
lift to get to chair. Flacid on left side from hx. of stroke.
--- NOTE | 2023-09-27 12:53 | CON.ID ---
Consultation
-
Date/Time Consultation Requested: September 27, 2023 1138
Date/Time Consultation Performed: September 27, 2023 1300
Requesting Provider: Dr. Ari Mccarthy
Performing Provider: Dr. Bria Powell
Reason for Consultation: ESBL in urine
Chief Complaint / Past History
Chief Complaint
Nausea and vomiting
History of Present Illness
58-year-old male with history of diabetes mellitus, CVA with residual left-sided weakness, BPH/chronic urinary retention, nephrolithiasis with history of left obstructive uropathy status post stent placement which was recently removed approximately
2 weeks ago. He is originally from [place] and now resides at [facility] for the past 2 months. Patient developed acute onset of nausea vomiting and abdominal pain for which she was sent to the hospital on September 22.
White count was 14.3. Imaging shows distal small bowel obstruction versus ileus. NG tube was placed and patient responded to decompression. NG tube removed. Patient also noted to have pyuria, Boggs changed in the ED, and was started on cefepime.
Urine culture resulted as ESBL Klebsiella and he currently is on Zosyn. Patient denies any flank pain. No further nausea vomiting or abdominal pain.
Past History
Additional Past Medical History:
Hyperlipidemia
Diabetes Mellitus, Type II
CVA with residual left Sided Weakness
Essential Hypertension
Major Depressive Disorder
Nephrolithiasis hx obstructive uropathy s/p left ureter stent, recently removed
BPH/chronic Urinary Retention
Class III obesity BMI 48
Past Surgical History: None
Allergy History:
No Known Allergies Allergy (Unverified 09/23/23 14:13)
Medications Reviewed: Yes
Current Antibiotics:
Zosyn day 3
Social History
Tobacco: Former Smoker
Alcohol: None
Drug: None
Living: Penitentiary
Family History
Family History: Not Pertinent
Review of Systems
Review of Systems
General: Negative Fever or Chills
HEENT: Negative Headache
Respiratory: Negative Dyspnea or Cough
Genital / Urological: Negative Flank Pain
Skin / Hair / Nails: Negative Rash
Neurological: Negative Headache or Dizziness
All systems: All other systems were reviewed and were negative
Vital Signs
Temp Pulse Resp BP Pulse Ox
97.9 F 84 19 132/104 98
09/27/23 07:00 09/27/23 12:00 09/27/23 12:00 09/27/23 12:00 09/27/23 12:00
Physical Exam
Physical Exam
Constitutional: No Acute Distress, Comfortable and Obese
Eyes: Sclera Anicteric and Erythema
Cardiovascular: Regular Rate and S1/S2
Pulmonary: Clear
Gastrointestinal: Soft, Non Tender, Non Distended and Decreased Bowel Sounds
Genito-Urinary: Boggs and Clear Urine
Extremities: Negative Edema
Lab / Diagnostic Study Results
09/27/23 04:01
09/27/23 04:01
Abs Immat Gran (auto) 0.1 10^3/uL (0-0.05) H 09/23/23 14:28
Absolute Neuts (auto) 12.4 10^3/uL (1.4-6.5) H 09/23/23 14:28
Absolute Lymphs (auto) 1.0 10^3/uL (1.2-3.4) L 09/23/23 14:28
Absolute Monos (auto) 0.9 10^3/uL (0.1-0.6) H 09/23/23 14:28
Absolute Basos (auto) 0.0 10^3/uL (0-0.2) 09/23/23 14:28
Immature Gran % 0.5 % (0-0.5) 09/23/23 14:28
Neutrophils % 86.3 % (42.2-75.2) H 09/23/23 14:28
Lymphocytes % 7.1 % (20.5-51.1) L 09/23/23 14:28
Monocytes % 5.9 % (1.7-9.3) 09/23/23 14:28
Eosinophils % 0.1 % (0-6) 09/23/23 14:28
Basophils % 0.1 % (0-2) 09/23/23 14:28
Lactic Acid 1.2 mmol/L (0.7-2.0) 09/23/23 14:29
Ur Squamous Epith Cells 11-15 /LPF (Few) 09/23/23 14:29
Microbiology Results
Micro:
09/24/23 14:34 Salmonella/Shigella Culture - Final
Feces/Stool No Salmonella, Shigella, Aeromonas or Plesiomonas species
isolated.
Campylobacter Culture - Final
No Campylobacter species isolated.
Shiga Toxin Test - Final
No E. coli Shiga Toxin 1 or 2 detected.
09/23/23 22:39 Blood Culture - Preliminary
Blood/Venous No Growth in 72 hours- Final report to follow
09/24/23 14:31 Blood Culture - Preliminary
Blood/Venous No Growth in 48 hours- Final report to follow
09/24/23 14:23 Blood Culture - Preliminary
Blood/Venous No Growth in 48 hours- Final report to follow
09/23/23 14:28 Blood Culture - Final
Blood/Venous Coagulase neg. staphylococcus
Additional testing on request
Gram Stain - Final
09/23/23 14:29 Urine Culture - Final
Urine Klebsiella pneumoniae-ESBL
09/23/23 CT a/p: Bowel gas pattern suggesting distal small bowel obstruction. There is gas in the left pelvicalyceal system such as may be seen with infection or following recent instrumentation. Correlation with the patient's urinalysis would be
useful. There are several nonobstructing left-sided renal calculi measuring up to 16 mm
09/25/23 AXR: Persistent dilatation of small bowel loops in the central abdomen.
Assessment / Plan
# Recent hx of obstructive uropathy s/p stent placement (in [place]), recent ureteroscopy, stent removal 2 weeks ago
# ESBL-Klebsiella CAUTI, boggs exchanged in ED
# BPH, Neurogenic bladder
- Can transition Zosyn to Bactrim DS 1 tab po bid through 10/01/23.
# Ileus - resolved
Care Review
Plan reviewed with: Physician (Dr. Mccarthy)
[2023-09-27] MEDS: KCL 40 MEQ PO (13:07)
--- NOTE | 2023-09-27 15:17 | PTCARENOTE ---
Report given to Nuvia TATE. Patient transferred to [address] [place] [address] in bed. All belongings with the patient.
--- NOTE | 2023-09-27 16:04 | CM ---
Reviewed the chart notes. CM left voice message with [facility] admissions regarding patient's status. Bed hold or not. CM continues to be available to patient/family and is monitoring medical plan for needs at discharge.
Plan: Discharge back to [facility] when medically stable.
[2023-09-27 17:22] LABS: Glucose - Point of Care 86 mg/dl (70-99)
[2023-09-27] MEDS: D5/0.45%NACL IV (17:56)
[2023-09-27] MEDS: ELIQUIS 5 MG PO (19:55)
[2023-09-27] MEDS: BACTRIM DS 800 MG/160 MG 1 TABLET PO (19:56)
[2023-09-27 21:39] LABS: Glucose - Point of Care 87 mg/dl (70-99)
[2023-09-28 06:00] VITALS: BMI 46.7
[2023-09-28 07:30] LABS: Glucose - Point of Care 77 mg/dl (70-99)
[2023-09-28 07:33] LABS: Hematocrit 34.5 % (39.0-52.0); Hemoglobin 11.2 g/dL (13.0-18.0); Mean Corp Hgb Conc. 32.5 g/dL (33.0-37.0); Mean Corpuscular Hgb 30.4 pg (27.0-31.0); Mean Corpuscular Volume 93.8 fL (80.0-94.0); Mean Platelet Volume 10.5 fL (7.4-10.4); Platelet Count 171 10^3/uL (130-400); Red Blood Cell Count 3.68 10^6/uL (4.70-6.10); Red Cell Dist. Width 12.8 % (11.5-14.5); White Blood Cell Count 5.1 10^3/uL (4.8-10.8)
--- NOTE | 2023-09-28 07:44 | W.PN.GS2 ---
Addendum entered and electronically signed by Elias Welch MD 09/28/23 10:52:
Patient seen and examined. Agree with assessment plan as documented below.
Denies worsening abdominal pain. No nausea or vomiting. Passing flatus and loose stools.
Gen: NAD
Abd: obese, soft, NT, non-peritoneal
Patient is a 58 yo M with probable ileus in setting of recent intervention, chronic indwelling Gutierrez and klebsiella-ESBL urinary tract infection.
No radiographic findings suggestive of mechanical obstruction. Clinical improvement.
-- No plans for surgery
-- LRD
-- OOB/ambulate
-- Call with questions or concerns
Original Note:
Today's Communication / Plan
-
.
Assessment / Plan
-
Assessment/plan: 58-year-old male with probable ileus in setting of recent intervention, chronic indwelling Gutierrez and klebsiella-ESBL urinary tract infection. No strong radiographic findings suggestive of mechanical obstruction,
-suspect ileus given UTI/Recent procedure
-Ileus resolving
-Tolerated clears, advance to low residue diet
-Up and out of bed as often as possible
-Abx for UTI per primary.
Medical management as per primary team
Subjective Data
-
Examined patient at bedside. Patient denies abdominal pain, denies nausea denies vomiting. Passing gas. Has had multiple BM. Tolerated clears.
Objective Data
-
Intake and Output
09/27/23 09/28/23 09/29/23
06:59 06:59 06:59
Intake Total 1310 / 1310 2800 / 2800
Output Total 2000 / 2000 3800 / 3800
Balance -690 / -690 -1000 / -1000
Intake:
Oral fluids 360 / 360 1500 / 1500
IV fluids (Total) 950 / 950 1200 / 1200
IV piggybacks 100 / 100
Output:
Gastrointestinal tube output ( 150 / 150
Total)
[place] Sump 150 / 150
Urine, Gutierrez 1850 / 1850 3800 / 3800
Vital Signs
Temp Pulse Resp BP Pulse Ox
98.4 F 77 18 162/86 96
09/27/23 23:30 09/27/23 23:30 09/27/23 23:30 09/27/23 23:30 09/28/23 02:36
Lab Results
09/28/23 06:47
Calcium 8.6 mg/dl (8.4-10.2) 09/27/23 04:01
Magnesium 2.1 mg/dl (1.6-2.3) 09/25/23 04:35
Total Bilirubin 0.9 mg/dl (0.2-1.3) 09/27/23 04:01
AST 18 U/L (17-59) 09/27/23 04:01
ALT 13 U/L (0-50) 09/27/23 04:01
Alkaline Phosphatase 53 U/L (38-126) 09/27/23 04:01
Total Protein 6.2 g/dl (6.3-8.2) L 09/27/23 04:01
Albumin 3.1 g/dl (3.5-5.0) L 09/27/23 04:01
Physical Exam
-
Abdomen: Soft, nontender, nondistended.
[2023-09-28 07:45] VITALS: BP 154/91
[2023-09-28 08:11] LABS: ALT (SGPT) 15 U/L (0-50); AST (SGOT) 19 U/L (17-59); Albumin 3.6 g/dl (3.5-5.0); Alkaline Phosphatase 57 U/L (38-126); Blood Urea Nitrogen 5 mg/dl (9-20); Calcium 8.9 mg/dl (8.4-10.2); Carbon Dioxide 28 mmol/L (22-30); Chloride 103 mmol/L (98-107); Estimated Creatinine Clearance > 125 ml/min; Glucose 87 mg/dl (70-99); Potassium 3.9 mmol/L (3.5-5.1); Sodium 139 mmol/L (135-145); Total Bilirubin 0.9 mg/dl (0.2-1.3); Total Protein 6.9 g/dl (6.3-8.2); eGFR > 60.00
[2023-09-28] MEDS: NSS (PRESERVATIVE FREE) 10 ML IV (08:37)
[2023-09-28] MEDS: BACTRIM DS 800 MG/160 MG 1 TABLET PO ×2 (08:37→20:51)
[2023-09-28] MEDS: ELIQUIS 5 MG PO ×2 (08:37→20:51)
[2023-09-28] MEDS: PROTONIX IV 40 MG IV (08:37)
[2023-09-28] MEDS: STERILE WATER FOR INJECTION IV ×2 (08:44→20:52)
--- NOTE | 2023-09-28 10:54 | W.PN.ID1 ---
Date of Service
Date of Service: September 28, 2023
Today's Communication
- Continue Bactrim DS 1 tab po bid through 10/01/23.
-ID will sign off.
Assessment / Plan
# Recent hx of obstructive uropathy s/p stent placement (in [place]), recent ureteroscopy, stent removal 2 weeks ago
# ESBL-Klebsiella CAUTI, boggs exchanged in ED
# BPH, Neurogenic bladder
- Continue Bactrim DS 1 tab po bid through 10/01/23.
-ID will sign off.
# Ileus - resolved
#Additional Past Medical History:
Hyperlipidemia
Diabetes Mellitus, Type II
CVA with residual left Sided Weakness
Essential Hypertension
Major Depressive Disorder
Nephrolithiasis hx obstructive uropathy s/p left ureter stent, recently removed
BPH/chronic Urinary Retention
Class III obesity BMI 48
SNF resident
Chief Complaint
-: UTI
Subjective / Review of Systems
Feeling better. No N/V.
Vital Signs / Physical Exam
Vital Signs
Vital Signs
Temp Pulse Resp BP Pulse Ox
98.0 F 74 16 154/91 97
09/28/23 07:45 09/28/23 07:45 09/28/23 07:45 09/28/23 07:45 09/28/23 07:45
Physical Exam
Constitutional: No Acute Distress and Obese
Gastrointestinal: Soft, Non Tender and Non Distended
Genito-Urinary: Boggs; Negative CVA Tenderness
Objective Data
Lab Data
Lab Results
09/28/23 06:47
09/28/23 06:47
APTT 85.7 Sec (23.4-35.0) H 09/27/23 06:24
Estimated Creat Clear > 125 ml/min 09/28/23 06:47
Lactic Acid 1.2 mmol/L (0.7-2.0) 09/23/23 14:29
Total Bilirubin 0.9 mg/dl (0.2-1.3) 09/28/23 06:47
AST 19 U/L (17-59) 09/28/23 06:47
ALT 15 U/L (0-50) 09/28/23 06:47
Alkaline Phosphatase 57 U/L (38-126) 09/28/23 06:47
Most recent labs reviewed.
Micro Results:
09/23/23 22:39 Blood Culture - Preliminary
Blood/Venous No Growth in 4 days- Final report to follow
09/24/23 14:31 Blood Culture - Preliminary
Blood/Venous No Growth in 72 hours- Final report to follow
09/24/23 14:23 Blood Culture - Preliminary
Blood/Venous No Growth in 72 hours- Final report to follow
09/24/23 14:34 Salmonella/Shigella Culture - Final
Feces/Stool No Salmonella, Shigella, Aeromonas or Plesiomonas species
isolated.
Campylobacter Culture - Final
No Campylobacter species isolated.
Shiga Toxin Test - Final
No E. coli Shiga Toxin 1 or 2 detected.
09/23/23 14:28 Blood Culture - Final
Blood/Venous Coagulase neg. staphylococcus
Additional testing on request
Gram Stain - Final
09/23/23 14:29 Urine Culture - Final
Urine Klebsiella pneumoniae-ESBL
09/23/23 CT a/p: Bowel gas pattern suggesting distal small bowel obstruction. There is gas in the left pelvicalyceal system such as may be seen with infection or following recent instrumentation. Correlation with the patient's urinalysis would be
useful. There are several nonobstructing left-sided renal calculi measuring up to 16 mm
09/25/23 AXR: Persistent dilatation of small bowel loops in the central abdomen.
--- NOTE | 2023-09-28 11:07 | W.PN.HOSP.TC ---
Today's Communication/Plan
-
see bold
Assessment / Plan
Assessment / Plan
Gen: NAD, Awake and alert
Eyes: EOMI, PERRLA, no scleral icterus.
Neck: supple.
CV: remains RRR, +S1/S2, no m/r/g.
Resp: remains CTAB, no rales, wheezes, or rhonchi.
Abd: remains +BS, soft, NT, ND
Skin: No rashes.
Neuro: CN 2-12 intact, L-hemiparesis
Psych: Normal mood and affect.
09/23/23 22:39 Blood/Venous Blood Culture - Preliminary
No Growth in 4 days- Final report to follow
09/24/23 14:31 Blood/Venous Blood Culture - Preliminary
No Growth in 72 hours- Final report to follow
09/24/23 14:23 Blood/Venous Blood Culture - Preliminary
No Growth in 72 hours- Final report to follow
09/24/23 14:34 Feces/Stool Salmonella/Shigella Culture - Final
No Salmonella, Shigella, Aeromonas or Plesiomonas species
isolated.
09/24/23 14:34 Feces/Stool Campylobacter Culture - Final
No Campylobacter species isolated.
09/24/23 14:34 Feces/Stool Shiga Toxin Test - Final
No E. coli Shiga Toxin 1 or 2 detected.
09/23/23 14:28 Blood/Venous Blood Culture - Final
Coagulase neg. staphylococcus
Additional testing on request
09/23/23 14:28 Blood/Venous Gram Stain - Final
09/23/23 14:29 Urine Urine Culture - Final
Klebsiella pneumoniae-ESBL
CT A/P w/PO 09/23/23: Bowel gas pattern suggesting distal small bowel obstruction. Gas in the left pelvicalyceal system such as may be seen with infection or following recent instrumentation. Correlation with the patient's urinalysis would be useful.
Several nonobstructing left-sided renal calculi measuring up to 16mm. Cholelithiasis.
Severe Sepsis secondary to CAUTI with ESBL Klebsiella vs colonization:
-boggs changed in ED as per discussion with nursing 09/27/23
-was on Zosyn, now on Bactrim DS 1 tab PO BID through 10/01/23 as per ID
-BCxs NGTD
Distal Small Bowel Obstruction vs Ileus:
-surgery following
-NGT now removed, advanced to LRD
Other problems:
Acute Kidney Injury, resolved with IVFs
h/o CVA with Residual L-Sided weakness: was on heparin gtt, now back on home Eliquis. Unclear why on Eliquis (no h/o afib, thromboembolic disease).
Essential Hypertension: resume antihypertensives
Hyperlipidemia: resume statin
DM2: a1c 5.4%, with hypoglycemia pt was on D5 1/2NS
Major Depressive Disorder: Resume meds
BPH: Resume Flomax
Hypokalemia, resolved
DNR/Eliquis
Medically cleared for discharge. Case management aware.
Anticipated Discharge: Today
Subjective/Interval History
-
Date of Service: September 28, 2023
Denies chest pain, shortness of breath, abdominal pain. Reports he had a large bowel movement this morning.
Objective Data
-
Labs:
Laboratory Results
09/28/23
06:47
WBC 5.1
Hgb 11.2 L
Hct 34.5 L
Plt Count 171
Sodium 139
Potassium 3.9
Chloride 103
Carbon Dioxide 28
BUN 5 L
Creatinine 0.7
Glucose 87
Calcium 8.9
Total Bilirubin 0.9
AST 19
ALT 15
Alkaline Phosphatase 57
Vital Signs:
Vital Signs
Temp Pulse Resp BP Pulse Ox
98.0 F 74 16 154/91 97
09/28/23 07:45 09/28/23 07:45 09/28/23 07:45 09/28/23 07:45 09/28/23 07:45
I&O
09/27/23 09/28/23 09/29/23
06:59 06:59 06:59
Intake Total 1310 / 1310 2800 / 2800
Output Total 1999 / 1999 3800 / 3800
Balance -690 / -690 -1000 / -1000
--- NOTE | 2023-09-28 11:38 | CM ---
Addendum entered by Jaki Ramsey RN 09/28/23 14:53:
Facility requesting a longterm auth from insurance. Auth started; clinicals faxed to [phone].
Addendum entered by Jaki Ramsey RN 09/28/23 11:43:
Plan: Discharge back to [facility]
Call report to: [phone]
Fax report to: [phone]
Medical necessity and transport forms on chart.
Original Note:
Reviewed the chart notes and spoke with the patient at bedside. IMM signed and placed on chart.
[2023-09-28] MEDS: NORVASC 10 MG PO (12:12)
[2023-09-28] MEDS: ASPIR LOW (ENTERIC COATED) 81 MG PO (12:12)
[2023-09-28] MEDS: COREG 6.25 MG PO ×2 (12:12→20:51)
[2023-09-28 12:14] LABS: Glucose - Point of Care 90 mg/dl (70-99)
[2023-09-28 15:15] VITALS: BP 154/79
[2023-09-28 16:41] LABS: Glucose - Point of Care 102 mg/dl (70-99)
[2023-09-28] MEDS: LIORESAL 5 MG PO ×2 (17:39→21:55)
[2023-09-28] MEDS: FLOMAX 0.400000000000000022 MG PO (17:39)
[2023-09-28] MEDS: PROTONIX 40 MG PO (20:51)
[2023-09-28] MEDS: DEPAKOTE (12 HR RELEASE) 125 MG PO (21:55)
[2023-09-28] MEDS: LIPITOR 80 MG PO (21:55)
[2023-09-28] MEDS: DESYREL 150 MG PO (21:55)
[2023-09-28] MEDS: PAMELOR 25 MG PO (21:55)
[2023-09-28 22:03] LABS: Glucose - Point of Care 98 mg/dl (70-99)
[2023-09-28 23:30] VITALS: BP 132/74
[2023-09-29 06:00] VITALS: BMI 46.3
[2023-09-29 06:36] LABS: Hematocrit 36.1 % (39.0-52.0); Hemoglobin 11.9 g/dL (13.0-18.0); Mean Corpuscular Hgb 30.4 pg (27.0-31.0); Mean Corpuscular Volume 92.3 fL (80.0-94.0); Mean Platelet Volume 10.3 fL (7.4-10.4); Platelet Count 190 10^3/uL (130-400); Red Blood Cell Count 3.91 10^6/uL (4.70-6.10); Red Cell Dist. Width 13.2 % (11.5-14.5); White Blood Cell Count 5.6 10^3/uL (4.8-10.8)
[2023-09-29 07:18] LABS: ALT (SGPT) 16 U/L (0-50); AST (SGOT) 19 U/L (17-59); Albumin 3.7 g/dl (3.5-5.0); Alkaline Phosphatase 56 U/L (38-126); Blood Urea Nitrogen 8 mg/dl (9-20); Calcium 9.3 mg/dl (8.4-10.2); Carbon Dioxide 27 mmol/L (22-30); Chloride 102 mmol/L (98-107); Estimated Creatinine Clearance > 125 ml/min; Glucose 122 mg/dl (70-99); Sodium 137 mmol/L (135-145); Total Bilirubin 0.6 mg/dl (0.2-1.3); Total Protein 7.1 g/dl (6.3-8.2); eGFR > 60.00
[2023-09-29 07:30] VITALS: BP 136/77
--- NOTE | 2023-09-29 07:48 | W.PN.HOSP.TC ---
Addendum entered and electronically signed by Ari Mccarthy MD 09/29/23 11:29:
Total time spent on d/c = 31 min. This included today's physical exam, progress note, review of laboratory and diagnostic data, preparation of discharge documents and prescriptions, and discussions about the pt's hospital course and discharge plan
with the patient and other emergency medical tech involved in the patient's care.
Original Note:
Today's Communication/Plan
-
d/c
Assessment / Plan
Assessment / Plan
Gen: NAD, Awake and alert
Eyes: EOMI, PERRLA, no scleral icterus.
Neck: supple.
CV: Continues to remain RRR, +S1/S2, no m/r/g.
Resp: Continues to remain CTAB, no rales, wheezes, or rhonchi.
Abd: Continues to remain +BS, soft, NT, ND
Skin: No rashes.
Neuro: CN 2-12 intact, L-hemiparesis
Psych: Normal mood and affect.
09/23/23 22:39 Blood/Venous Blood Culture - Final
No Growth - Final Report
09/24/23 14:31 Blood/Venous Blood Culture - Preliminary
No Growth in 4 days- Final report to follow
09/24/23 14:23 Blood/Venous Blood Culture - Preliminary
No Growth in 4 days- Final report to follow
09/24/23 14:34 Feces/Stool Salmonella/Shigella Culture - Final
No Salmonella, Shigella, Aeromonas or Plesiomonas species
isolated.
09/24/23 14:34 Feces/Stool Campylobacter Culture - Final
No Campylobacter species isolated.
09/24/23 14:34 Feces/Stool Shiga Toxin Test - Final
No E. coli Shiga Toxin 1 or 2 detected.
09/23/23 14:28 Blood/Venous Blood Culture - Final
Coagulase neg. staphylococcus
Additional testing on request
09/23/23 14:28 Blood/Venous Gram Stain - Final
09/23/23 14:29 Urine Urine Culture - Final
Klebsiella pneumoniae-ESBL
CT A/P w/PO 09/23/23: Bowel gas pattern suggesting distal small bowel obstruction. Gas in the left pelvicalyceal system such as may be seen with infection or following recent instrumentation. Correlation with the patient's urinalysis would be useful.
Several nonobstructing left-sided renal calculi measuring up to 16mm. Cholelithiasis.
Severe Sepsis secondary to CAUTI with ESBL Klebsiella vs colonization:
-boggs changed in ED as per discussion with nursing 09/27/23
-was on Zosyn, now on Bactrim DS 1 tab PO BID through 10/01/23 as per ID
-BCxs NGTD
Distal Small Bowel Obstruction vs Ileus:
-surgery following
-NGT now removed, advanced to LRD
Other problems:
Acute Kidney Injury, resolved with IVFs
h/o CVA with Residual L-Sided weakness: was on heparin gtt, now back on home Eliquis. Unclear why on Eliquis (no h/o afib, thromboembolic disease).
Essential Hypertension: resume antihypertensives
Hyperlipidemia: resume statin
DM2: a1c 5.4%, with hypoglycemia pt was on D5 1/2NS
Major Depressive Disorder: Resume meds
BPH: Resume Flomax
Hypokalemia, resolved
DNR/Eliquis
Remains medically cleared for discharge (since 09/28/23). Case management aware.
Anticipated Discharge: Today
Subjective/Interval History
-
Date of Service: September 29, 2023
No new complaints.
Objective Data
-
Labs:
Laboratory Results
09/29/23
06:10
WBC 5.6
Hgb 11.9 L
Hct 36.1 L
Plt Count 190
Sodium 137
Potassium 4.0
Chloride 102
Carbon Dioxide 27
BUN 8 L
Creatinine 0.9
Glucose 122 H
Calcium 9.3
Total Bilirubin 0.6
AST 19
ALT 16
Alkaline Phosphatase 56
Vital Signs:
Vital Signs
Temp Pulse Resp BP Pulse Ox
98.0 F 87 18 132/74 94
09/28/23 23:30 09/28/23 23:30 09/28/23 23:30 09/28/23 23:30 09/28/23 23:30
I&O
09/28/23 09/29/23 09/30/23
06:59 06:59 06:59
Intake Total 2800 / 2800 1700 / 1700
Output Total 3800 / 3800 900 / 900
Balance -1000 / -1000 800 / 800
[2023-09-29 08:03] LABS: Glucose - Point of Care 116 mg/dl (70-99)
[2023-09-29] MEDS: STERILE WATER FOR INJECTION IV (09:03)
[2023-09-29] MEDS: ZOLOFT 150 MG PO (09:04)
[2023-09-29] MEDS: ELIQUIS 5 MG PO (09:04)
[2023-09-29] MEDS: COREG 6.25 MG PO (09:04)
[2023-09-29] MEDS: LIORESAL 5 MG PO (09:04)
[2023-09-29] MEDS: PROTONIX 40 MG PO (09:04)
[2023-09-29] MEDS: BACTRIM DS 800 MG/160 MG 1 TABLET PO (09:04)
[2023-09-29] MEDS: ASPIR LOW (ENTERIC COATED) 81 MG PO (09:04)
[2023-09-29] MEDS: ZESTRIL 20 MG PO (09:05)
[2023-09-29] MEDS: NORVASC 10 MG PO (09:05)
--- NOTE | 2023-09-29 11:20 | CM ---
Reviewed the chart notes and called insurance. Per insurance, approved for 09/28-10/01/23, #[id number]. [facility] informed and able to accept the patient. Attending and RN updated.
Plan: Discharge back to [facility]
Call report to: [phone]
Fax report to: [phone]
Medical necessity and transport forms on chart.
--- NOTE | 2023-09-29 12:22 | W.DCSUMMARY ---
Discharge Summary
Discharge Data
Date of Admission: 09/23/23
Date of Discharge: 09/29/23
-
Pending Results: No
Hospital Course
Primary diagnoses:
Severe Sepsis secondary to catheter associated urinary tract infection
Distal small bowel obstruction versus ileus
Secondary diagnoses:
Acute Kidney Injury
h/o cerebrovascular accident with Residual Left-Sided weakness
Essential Hypertension
Hyperlipidemia
Type 2 diabetes mellitus
Major Depressive Disorder
Benign prostatic hypertrophy
Hypokalemia
Morbid obesity due to excess calories
Consultants:
Surgery
Infectious disease
Imaging:
CT A/P w/PO 09/23/23: Bowel gas pattern suggesting distal small bowel obstruction. Gas in the left pelvicalyceal system such as may be seen with infection or following recent instrumentation. Correlation with the patient's urinalysis would be useful.
Several nonobstructing left-sided renal calculi measuring up to 16mm. Cholelithiasis.
58-year-old male presented with chief complaint of abdominal pain and vomiting as outlined in the H&P done on admission. Hospital course by problem was:
Severe Sepsis secondary to CAUTI with ESBL Klebsiella vs colonization: Patient's Gutierrez catheter was changed. He was initially on Zosyn. Urine culture grew ESBL Klebsiella. Blood cultures were no growth. He was transitioned to Bactrim DS 1 tab PO
BID through 10/01/23 as per ID.
Distal Small Bowel Obstruction vs Ileus: Patient was initially n.p.o. with an NG tube in place. His NG tube was removed and his diet was slowly progressively advanced. He was tolerating low residue diet at the time of discharge.
Acute kidney injury: Resolved with IV fluids
Discharge Plan
-
Patient Disposition: Halfway/SNF
Discharge Diagnosis/Procedures: Severe Sepsis secondary to catheter associated urinary tract infection, distal small bowel obstruction versus ileus
Condition: Good
Diet: Low Residue
Activity: With assistance
Driving Restrictions: No driving
Referrals:
Elias Toledo, DO [Family Provider] - in less than 1 week
Prescriptions:
New
sulfamethoxazole-trimethoprim 800-160 mg Tablet
1 tab PO BID Qty: 0 0RF
Rx Instructions:
through 10/01/23
Continued
cyclobenzaprine 10 mg Tablet
10 mg PO TIDPRN PRN (Reason: spasms)
atorvastatin [Lipitor] 80 mg Tablet
80 mg PO HS
sennosides [senna] 8.6 mg Tablet
17.2 mg PO BID
acetaminophen [Tylenol] 325 mg Tablet
650 mg PO Q6HPRN PRN (Reason: mild pain)
carvedilol [Coreg] 6.25 mg Tablet
6.25 mg PO BID
polyethylene glycol 3350 [Miralax] 17 gram Powder In Packet
17 g PO BID
lisinopril 20 mg Tablet
20 mg PO DAILY
aspirin 81 mg Tablet,Delayed Release (Dr/Ec)
81 mg PO DAILY
triamcinolone acetonide 0.1 % Cream
1 applic TOPICAL BID
nortriptyline 25 mg Capsule
25 mg PO HS
magnesium hydroxide [Milk of Magnesia] 400 mg/5 mL Suspension
2,400 mg PO [id number] PRN (Reason: if no bm on 3rd day)
tamsulosin [Flomax] 0.4 mg Capsule
0.4 mg PO QPM
amlodipine [Norvasc] 10 mg Tablet
10 mg PO DAILY
pantoprazole 40 mg Tablet,Delayed Release (Dr/Ec)
40 mg PO BID
trazodone 150 mg Tablet
150 mg PO HS
lidocaine 5 % Adhesive Patch,Medicated
1 patch TOPICAL DAILY
divalproex 125 mg Tablet,Delayed Release (Dr/Ec)
125 mg PO HS
Fleet Enema 19-7 gram/118 mL Enema
118 ml [place] DAILYPRN PRN (Reason: if no bm aftr dulcolax)
bisacodyl [Dulcolax (bisacodyl)] 5 mg Tablet,Delayed Release (Dr/Ec)
5 mg PO DAILYPRN PRN (Reason: constipation)
Muscle Rub 15-10 % Cream
1 applic TOPICAL Q6HPRN PRN (Reason: mild pain)
Visbiome 112.5 billion cell Capsule
1 cap PO DAILY
melatonin 5 mg Tablet
8 mg PO HS
cholecalciferol (vitamin D3) [Vitamin D3] 50 mcg (2,000 unit) Tablet
50 mcg PO DAILY
Eliquis 5 mg Tablet
5 mg PO BID
selenium sulfide 2.5 % Lotion
1 applic TOPICAL Q8HPRN PRN (Reason: area of skin)
baclofen 5 mg Tablet
5 mg PO TID
sertraline 150 mg Capsule
150 mg PO DAILY
Discontinued
omeprazole 20 mg Tablet,Delayed Release (Dr/Ec)
20 mg PO DAILY
Discharge Orders:
Discharge Patient (As Directed); Ordered 09/29/23
Ordered By: Ari Mccarthy
Discharge Date and Time
Print Language: BURKINAN
[2023-09-29 12:50] LABS: Glucose - Point of Care 111 mg/dl (70-99)
[2023-09-29 12:56] VITALS: BP 160/86
== END 2023-09-29 13:15 | DRG 698 ==
LOC: 2 NORTH 20:26
PROVIDERS: Internal Medicine; Physician Assistant Medical; ADMITTING PHYSICIAN Internal Medicine; ATTENDING PHYSICIAN Internal Medicine; CONSULT PHYSICIAN Student in an Organized Health Care Education/Training Program; CONSULT PHYSICIAN Surgery; EMERGENCY PHYSICIAN Emergency Medicine; FAMILY PHYSICIAN Internal Medicine
DX: T83.511A Infection and inflammatory reaction due to indwelling urethral catheter, initial encounter (principal); R65.20 Severe sepsis without septic shock; I69.354 Hemiplegia and hemiparesis following cerebral infarction affecting left non-dominant side; N17.9 Acute kidney failure, unspecified; Z68.42 Body mass index [BMI] 45.0-49.9, adult; K56.7 Ileus, unspecified; Y73.8 Miscellaneous gastroenterology and urology devices associated with adverse incidents, not elsewhere classified; N39.0 Urinary tract infection, site not specified; B96.1 Klebsiella pneumoniae [K. pneumoniae] as the cause of diseases classified elsewhere; I10 Essential (primary) hypertension; E11.9 Type 2 diabetes mellitus without complications; E66.01 Morbid (severe) obesity due to excess calories; E87.6 Hypokalemia; Z66 Do not resuscitate
CPT/HCPCS: 71045; 74018; 74176; 80048; 80053; 81003; 81015; 82962; 83036; 83605; 83690; 83735; 83880; 84484; 85025; 85027; 85730; 87040; 87045; 87046; 87077; 87086; 87150; 87186; 87205; 87427; 93005; 96361; 96374; 96375; 99285

== ENCOUNTER 2024-05-04 18:22 | Inpatient (IN) | payer OTHER, SELFPAY ==
[2024-05-04] VITALS (25 sets, daily range): BP systolic 93–130; BP diastolic 52–91; BMI 41.0
[2024-05-04 14:10] LABS: % Basophils 0.3 % (0-2); % Eosinophils 0.3 % (0-6); % Immature Granulocytes 0.5 % (0-0.5); % Lymphocytes 8.9 % (20.5-51.1); % Monocytes 8.6 % (1.7-9.3); % Neutrophils 81.4 % (42.2-75.2); Absolute Immature Granulocytes 0.1 10^3/uL (0-0.05); Absolute Lymphocytes 1.4 10^3/uL (1.2-3.4); Absolute Monocytes 1.4 10^3/uL (0.1-0.6); Hematocrit 34.2 % (39.0-52.0); Hemoglobin 11.2 g/dL (13.0-18.0); Mean Corp Hgb Conc. 32.7 g/dL (33.0-37.0); Mean Corpuscular Hgb 28.2 pg (27.0-31.0); Mean Corpuscular Volume 86.1 fL (80.0-94.0); Mean Platelet Volume 9.7 fL (7.4-10.4); Nucleated Red Blood Cells % 0 % (-); Platelet Count 378 10^3/uL (130-400); Red Blood Cell Count 3.97 10^6/uL (4.70-6.10); Red Cell Dist. Width 15.9 % (11.5-14.5)
[2024-05-04 14:32] LABS: ALT (SGPT) 15 U/L (0-50); AST (SGOT) 26 U/L (17-59); Albumin 4.1 g/dl (3.5-5.0); Alkaline Phosphatase 67 U/L (38-126); Blood Urea Nitrogen 16 mg/dl (9-20); Calcium 8.8 mg/dl (8.4-10.2); Carbon Dioxide 29 mmol/L (22-30); Chloride 95 mmol/L (98-107); Estimated Creatinine Clearance 61 ml/min; Glucose 112 mg/dl (70-99); Potassium 4.2 mmol/L (3.5-5.1); Sodium 137 mmol/L (135-145); Total Bilirubin 1.3 mg/dl (0.2-1.3); Total Protein 8.1 g/dl (6.3-8.2)
--- NOTE | 2024-05-04 15:11 | ED.GENMED ---
History of Present Illness
General
Chief Complaint: Change in Mental Status
Source: patient
Exam Limitations: none
Time Seen by Provider: 05/04/24 15:04
History of Present Illness
History of Present Illness:
See MDM
Past History
Past History
ED Past Medical History: CVA, GERD, HTN, Hypercholesterolemia, NIDDM, Seizures, Psychiatric (Depression) and Other (obesitiy)
Phy Exam
Physical Exam
Physical Exam:
See MDM
Scores
NIH Stroke Score
Level of Consciousness: 0 - Alert
LOC Questions: 0-Answers both correctly
LOC Commands: 0-Performs both correctly
Best Horizontal Gaze: 0-Normal
Visual Cruz: 0=Normal, no visual loss
Facial Palsy: 0=Normal, symmetrical
Motor - Right Arm: 1=Drift < 10 seconds
Motor - Left Arm: 1=Drift < 10 seconds
Motor - Right Le-None vs. gravity
Motor - Left Le-No movement
Limb Ataxia: 0-Absent
Sensation: 0-Normal
Best Language: 0-No aphasia
Dysarthria: 0-Normal
Extinction and Inattention: 0-No abnormality
Total Score:: 9
Course
Orders/Labs/Results
Orders:
Orders
05/04/24 13:[address] [CT Head W/o Iv Contrast] Urgent
Comment:
Reason For Exam: drowsy
05/04/24 13:55
Complete Blood Count/With Diff Urgent
Comprehensive Metabolic Panel Urgent
05/04/24 15:58
COVID-19 Antigen Urgent
Source: Nasal Swab
Influenza A+B Rapid Molecular Urgent
ERIC Source: Nasal Swab
Specimen Description:
05/04/24 16:08
Urinalysis Reflex To Culture Urgent
Date Specimen was Collected: 05/04/24
Time Specimen was Collected: 16:07
Urine Microscopic Reflex Cult Urgent
Urine Culture Urgent
ERIC Source: U
Specimen Description:
Date Specimen was Collected: 05/04/24
Time Specimen was Collected: 16:07
05/04/24 17:05
LevoFLOXacin 500 MG/100 ML [Levaquin] 500 mg in 100 ml IV NOW
Abnormal Lab Results
05/04/24 05/04/24
13:55 16:08
WBC 16.0 H 10^3/uL
(4.8-10.8)
RBC 3.97 L 10^6/uL
(4.70-6.10)
Hgb 11.2 L g/dL
(13.0-18.0)
Hct 34.2 L %
(39.0-52.0)
MCHC 32.7 L g/dL
(33.0-37.0)
RDW 15.9 H %
(11.5-14.5)
Abs Immat Gran (auto) 0.1 H 10^3/uL
(0-0.05)
Absolute Neuts (auto) 13.0 H 10^3/uL
(1.4-6.5)
Absolute Monos (auto) 1.4 H 10^3/uL
(0.1-0.6)
Neutrophils % 81.4 H %
(42.2-75.2)
Lymphocytes % 8.9 L %
(20.5-51.1)
Chloride 95 L mmol/L
(98-107)
Creatinine 1.8 H mg/dL
(0.7-1.3)
Glucose 112 H mg/dl
(70-99)
Ur Occult Blood Reflex 1+ A
(Negative)
Leukocyte Esterase Rfl 3+ A
(Negative)
Urine RBC 3-6 A /HPF
(0-2)
Urine WBC (Reflex) 70-80 A /HPF
(0-5)
Urine Bacteria (Reflex) Many A
(Negative)
Urine Albumin (Reflex) 3+ A
(Neg - Trace)
05/04/24 13:55
05/04/24 13:55
Vital Signs
Initial and Last Documented VS:
Initial Vital Signs
Temp Pulse Resp Pulse Ox
98.1 F 70 16 98
05/04/24 13:34 05/04/24 13:34 05/04/24 13:34 05/04/24 13:34
Last Documented Vital Signs
Temp Pulse Resp BP Pulse Ox
98.1 F 69 18 105/52 98
05/04/24 13:34 05/04/24 16:45 05/04/24 16:45 05/04/24 16:45 05/04/24 13:34
MDM/Problems Addressed
Differential Diagnosis Includes:
HPI and MDM Narrative:
59-year-old male presenting with generalized weakness and fatigue. He presents from a nursing facility. Apparently, it was difficult to wake him up. He does acknowledge that he is very sleepy. Upon further questioning, it is appears that his
left arm is weaker than normal. He states his left side is weak from her prior stroke. On initial stroke assessment, patient has an NIH stroke scale of 9 but this is likely chronic. It is unsure when symptoms happened but he is not a TNK
candidate based on active Eliquis use. Blood work was done prior to my assessment. Patient found to have leukocytosis. Will obtain urinalysis and viral testing. Will obtain CT head
Physical exam
General: Lying in bed comfortably, weak, slow to respond
HEENT: protecting airway
Neck: supple
CV: No evidence of cyanosis. Regular rate and rhythm
Resp: No accessory muscle use
Abd: Non-distended and nontender
Extremities: No deformities
Neuro: Slow to respond. Weakness in both arms. No movement in left leg. Minimal movement of right leg
Psych: Flat affect
Skin: Intact
Problems Addressed including Acute and Chronic Conditions affecting care:
1. Generalized weakness
Acuity: acute
Prognosis: stable
Details: Potentially in the setting of stroke. He is not a TNK candidate. Will obtain CT head
2. UTI
Acuity: acute
Prognosis: stable
Details: Will start Levaquin based on prior susceptibilities to ESBL
Updates
Urinalysis concerning for UTI. Prior records indicate history of ESBL. Based on susceptibilities patient given dose of Levaquin.
Differential Diagnosis (but not limited to): UTI, stroke, viral syndrome
Testing considered: CT angiogram head and neck
Drug therapy (if applicable): OTC meds, please see d/c instruction regarding Rx drugs
Amount and/or Complexity of Data Reviewed
Clinical info obtained from: Patient
External data reviewed: N/A
Labs I independently reviewed (but not limited to): Leukocytosis
Radiology: N/A
Pulse Ox: not hypoxic
EKG independently reviewed: N/A
Salesperson Flowers: Sinus rhythm
Critical Care: N/A
Risk of Complication:
Social Determinants of health: Good social support
Discussed with other providers: Hospitalist
Escalation of Care includes Admit/Obs: Given generalized weakness and UTI, will admit
Occasional wrong word or 'sound a like' substitutions may have occurred due to the inherent limitations of voice recognition software. Read the chart carefully and recognize, using context, where substitutions have occurred.
*Critical Care Note
Total Time (30-74mins, 75-104mins- exclusive of procedures): Not Applicable
ED Attending Note
-
Portions of this chart may have been created with voice recognition software.� Occasional wrong word or��sound alike� substitutions may have occurred due to the inherent limitations of voice recognition software.
Discharge Plan
Departure
Patient Disposition: Admit
Date of Disposition: 05/04/24
Time of Disposition: 17:38
Admit to: Telemetry
Presentation/result/management discussed w/ accepting MD/DO: Hospitalist
Discharge Problem:
Acute UTI, Weakness
Prescriptions:
No Action
cyclobenzaprine 10 mg Tablet
10 mg PO TIDPRN PRN (Reason: spasms)
atorvastatin [Lipitor] 80 mg Tablet
80 mg PO HS
sennosides [senna] 8.6 mg Tablet
17.2 mg PO BID
acetaminophen [Tylenol] 325 mg Tablet
650 mg PO Q6HPRN PRN (Reason: mild pain)
carvedilol [Coreg] 6.25 mg Tablet
6.25 mg PO BID
polyethylene glycol 3350 [Miralax] 17 gram Powder In Packet
17 g PO BID
lisinopril 20 mg Tablet
40 mg PO DAILY
aspirin 81 mg Tablet,Delayed Release (Dr/Ec)
81 mg PO DAILY
triamcinolone acetonide 0.1 % Cream
1 applic TOPICAL BID
magnesium hydroxide [Milk of Magnesia] 400 mg/5 mL Suspension
2,400 mg PO [id number] PRN (Reason: if no bm on 3rd day)
tamsulosin [Flomax] 0.4 mg Capsule
0.4 mg PO QPM
amlodipine [Norvasc] 10 mg Tablet
10 mg PO DAILY
pantoprazole 40 mg Tablet,Delayed Release (Dr/Ec)
40 mg PO BID
divalproex 125 mg Tablet,Delayed Release (Dr/Ec)
125 mg PO HS
Fleet Enema 19-7 gram/118 mL Enema
118 ml [place] DAILYPRN PRN (Reason: if no bm aftr dulcolax)
bisacodyl [Dulcolax (bisacodyl)] 5 mg Tablet,Delayed Release (Dr/Ec)
5 mg PO DAILYPRN PRN (Reason: if no bm aftr mom)
Muscle Rub 15-10 % Cream
1 applic TOPICAL Q6HPRN PRN (Reason: mild pain)
Visbiome 112.5 billion cell Capsule
1 cap PO DAILY
melatonin 5 mg Tablet
8 mg PO HS
Eliquis 5 mg Tablet
5 mg PO BID
selenium sulfide 2.5 % Lotion
1 applic TOPICAL Q8HPRN PRN (Reason: area of skin)
sertraline 150 mg Capsule
150 mg PO DAILY
lidocaine 4 % Adhesive Patch,Medicated
1 patch TOPICAL DAILY
lidocaine 5 % Cream
1 applic TOPICAL BID PRN (Reason: left hand)
baclofen 20 mg Tablet
20 mg PO TID
trazodone 100 mg Tablet
200 mg PO HS
hydrocortisone 1 % Cream
1 applic TOPICAL BID
simethicone 125 mg Tablet
125 mg PO Q8HPRN PRN (Reason: gas pains)
Referrals:
Elias Toledo, DO [Family Provider] -
Interventions
Interventions:
*Risk Screen - Suicide Last Done: 05/04/24 13:34
*General Assessment Last Done: 05/04/24 13:34
*Neglect/Abuse Screening Last Done: 05/04/24 13:34
ED- Fall Risk Assessment Last Done: 05/04/24 13:34
*ED COVID-19 Vaccine History Last Done: 05/04/24 13:34
ED- Neurological Assessment Last Done: 05/04/24 13:34
ED Swallowing Screen Last Done: 05/04/24 13:34
Discharge Date and Time
Print Language: NORTH KOREAN
[2024-05-04 16:23] LABS: Urine Albumin 3+ (Neg - Trace); Urine Bilirubin Negative (Negative); Urine Character Cloudy (Clear); Urine Color Yellow; Urine Glucose Negative (Negative); Urine Ketone Negative (Negative); Urine Leukocyte 3+ (Negative); Urine Nitrite Negative (Negative); Urine Specific Gravity 1.015 (<1.030); Urine Urobilinogen 1+ (Neg - 1+)
[2024-05-04 16:25] LABS: Urine Occult Blood 1+ (Negative)
[2024-05-04 16:26] LABS: Urine Squamous Cell 0-2 /LPF (Few)
[2024-05-04 16:27] LABS: Urine Bacteria Many (Negative); Urine White Cell 70-80 /HPF (0-5)
[2024-05-04 17:10] LABS: COVID-19 Antigen Negative (Negative)
--- NOTE | 2024-05-04 17:41 | HPS.HSE ---
Family Physician
-
Family Physician: Elias Toledo, DO
Chief Complaint
-
Weakness, lethargic
History of Present Illness
59-year-old male with past medical history for CVA with left-sided weakness, hypertension, hyperlipidemia, type 2 diabetes, depression, BPH presented to us with generalized weakness and fatigue. Patient stated he was sleeping more than usual since
yesterday. He is not getting any physical therapy at [facility], which is worsening his left-sided weakness. Patient denied any headache, dizzy or syncope. Patient denied any blurry vision, numbness, tingling. Patient denied any chest pain or
short of breath. Patient denied any fever, chills, congestion, cough. Patient denied abdominal pain, nausea, vomiting, diarrhea. Patient denied dysuria hematuria. he is wheelchair bound.
Patient noted to have UTI he received a dose of Levaquin in ER. Admitted for further management
Medical History
Past Medical History
Past Medical History: Reports Other
Additional Past Medical History:
CVA with Residual Left Sided Weakness
Essential Hypertension
Hyperlipidemia
Diabetes Mellitus, Type II
Major Depressive Disorder
BPH with Chronic Urinary Retention
Past Surgical History: Reports None
Social History
Tobacco: Non-smoker
Alcohol: None
Drug: None
Living: Assisted Living
Family History
Family History: Not pertinent
Allergies / Home Medications
Allergies reflects when Allergies were last updated in [facility].
Home Medications with original date entered in [facility]
Allergy/Medication List:
Allergies
Allergy/AdvReac Type Severity Reaction Status Date / Time
No Known Allergies Allergy Unverified 09/23/23 14:13
Home Medications
Lactobac no.2-Bifidobac no.1-S. thermo 112.5 billion cell capsule (Visbiome) 1 cap PO DAILY Gastrointestinal Issue 09/23/23
acetaminophen 325 mg tablet (Tylenol) 650 mg PO Q6HPRN PRN mild pain 09/23/23
amlodipine 10 mg tablet (Norvasc) 10 mg PO DAILY Blood Pressure 09/23/23
apixaban 5 mg tablet (Eliquis) 5 mg PO BID Blood Clot Prevention/Tx 09/23/23
aspirin 81 mg tablet,delayed release 81 mg PO DAILY Blood Clot Prevention/Tx 09/23/23
atorvastatin 80 mg tablet (Lipitor) 80 mg PO HS High Cholesterol 09/23/23
bisacodyl 5 mg tablet,delayed release (Dulcolax (bisacodyl)) 5 mg PO DAILYPRN PRN if no bm aftr mom 09/23/23
carvedilol 6.25 mg tablet (Coreg) 6.25 mg PO BID Blood Pressure 09/23/23
cyclobenzaprine 10 mg tablet 10 mg PO TIDPRN PRN spasms 09/23/23
divalproex 125 mg tablet,delayed release 125 mg PO HS Seizures 09/23/23
lisinopril 20 mg tablet 40 mg PO DAILY Blood Pressure 09/23/23
magnesium hydroxide 400 mg/5 mL oral suspension (Milk of Magnesia) 2,400 mg PO [id number] PRN if no bm on 3rd day 09/23/23
melatonin 5 mg tablet 8 mg PO HS Sleep 09/23/23
methyl salicylate 15 %-menthol 10 % topical cream (Muscle Rub) 1 applic topical Q6HPRN PRN mild pain 09/23/23
pantoprazole 40 mg tablet,delayed release 40 mg PO BID Gastrointestinal Issue 09/23/23
polyethylene glycol 3350 17 gram oral powder packet (Miralax) 17 g PO BID Constipation 09/23/23
selenium sulfide 2.5 % lotion 1 applic topical Q8HPRN PRN area of skin 09/23/23
sennosides 8.6 mg tablet (senna) 17.2 mg PO BID Constipation 09/23/23
sertraline 150 mg capsule 150 mg PO DAILY Depression 09/23/23
sodium phosphates 19 gram-7 gram/118 mL enema (Fleet Enema) 118 ml MT DAILYPRN PRN if no bm aftr dulcolax 09/23/23
tamsulosin 0.4 mg capsule (Flomax) 0.4 mg PO QPM Urinary Issue 09/23/23
triamcinolone acetonide 0.1 % topical cream 1 applic topical BID atopic dermatitis 09/23/23
baclofen 20 mg tablet 20 mg PO TID 05/04/24
hydrocortisone 1 % topical cream 1 applic topical BID scalp 05/04/24
lidocaine 4 % topical patch 1 patch topical DAILY left knee 05/04/24
lidocaine 5 % topical cream 1 applic topical BID PRN left hand 05/04/24
simethicone 125 mg tablet 125 mg PO Q8HPRN PRN gas pains 05/04/24
trazodone 100 mg tablet 200 mg PO HS 05/04/24
Review of Systems
-
Constitutional: Reports Fatigue
EENT: Reports No Symptoms
Respiratory: Reports No Symptoms
Cardiac: Reports No Symptoms
Abdomen/GI: Reports No Symptoms
: Reports No Symptoms
Musculoskeletal: Reports No Symptoms
Skin: Reports No Symptoms
Neurological: Reports Weakness
Endocrine: Reports No Symptoms
Hematologic/Lymphatic: Reports No Symptoms
Psych: Reports No Symptoms
Physical Exam
Vital Signs
Vital Signs
Temp Pulse Resp BP Pulse Ox
98.1 F 69 18 105/52 98
05/04/24 13:34 05/04/24 16:45 05/04/24 16:45 05/04/24 16:45 05/04/24 13:34
Physical Exam
General: Well Developed, Well Nourished and No Apparent Distress
HEENT: NormoCephalic, Moist mucous membranes and Atraumatic
Respiratory: Clear
Cardiac: S1/S2 and Regular Rhythm; No Murmur or Rub
GI: Soft, Non Tender, Non Distended and Normal Bowel Sounds; No Organomegaly
Rectal: Deferred by Provider
Musculoskeletal: No Clubbing, No Cyanosis and No Edema
Skin: No Rash
Neuro: AO x 3 and Nonfocal/grossly intact
Psych: Calm
Laboratory Results
-
05/04/24 13:55
05/04/24 13:55
Laboratory Results
Total Bilirubin 1.3 mg/dl (0.2-1.3) 05/04/24 13:55
AST 26 U/L (17-59) 05/04/24 13:55
ALT 15 U/L (0-50) 05/04/24 13:55
Alkaline Phosphatase 67 U/L (38-126) 05/04/24 13:55
Data Reviewed
-
Lab Data: Labs Reviewed by me
Impression/Plan
-
# Worsening left-sided weakness likely from UTI
-History of ESBL
-IV meropenem continued
-Urine culture pending
-Tylenol as needed for fever or pain
-WBC 16.0
-CT of head with impression No evidence of acute intracranial abnormality.
# Anemia of chronic disease
-Hemoglobin stable at 11.2
-No active bleeding
-Continue to monitor
# History of CVA with left-sided weakness
-PT/OT consult
-Aspirin, Eliquis continued
Statin continued
# Muscle spasms
-Baclofen continued
# Acute kidney injury likely dehydration
-Creatinine 1.8
-Normal saline continued
-obtain US
-urine creatine and NA ordered
#Essential Hypertension
-Norvasc, Coreg continued with hold parameters
-Hold lisinopril due to CADY
#Hyperlipidemia
- statin
#Major Depressive Disorder
-Sertraline,divalproex continued
-Trazodone continued for sleep
#BPH
- Flomax
# DVT prophylaxis
-Eliquis
#CODE STATUS
-Patient is DNR
[2024-05-04] MEDS: LEVAQUIN 100 IV (17:43)
--- NOTE | 2024-05-04 17:55 | W.PN.UPDATE ---
Update Note
Progress Note Update
This is an addendum to H&P written by CLINICAL EDUCATION ACADEMIC COORDINATOR Malgorzata Puentes
I saw and examined the patient.
The CLINICAL EDUCATION ACADEMIC COORDINATOR's note was reviewed and I agree with the note.
Comment:
Mr. Maury Uriostegui is a 59 yo man with hx CVA with residual left-sided weakness, [place] resident, essential HTN, HLD, DM 2, MDD, BPH, morbid obesity who presents to the ER with worsening left sided weakness in setting of increasing fatigue. Patient
states he has not been getting PT at [facility]. He has not eaten and drank a lot today.
Triage VS: T 98.1, P 70, RR 16, SpO2 98%
On exam patient is laying in bed, in no acute distress but withdrawn, lungs clear, abdomen soft and non-tender; LLE swelling; left-sided weakness
LABS: WBC 16, Hg 11.2, PLT 378, Na 137, K+ 4.2, Cl 95, Cr 1.8
UA with 70-80 WBC
Covid and Flu negative
HEAD CT
IMPRESSION:
No evidence of acute intracranial abnormality.
Urinary Tract Infection
Leukocytosis
Weakness 2/2 Above
-given hx ESBL will start IV Meropenem (received Levaquin in ER)
-F/U final cultures
-PT/OT
CADY
-suspect dehydration
-F/U urine studies
-renal US and bladder scan
-hold Lisinopril
Hx CVA
Left-sided hemiparesis
-continue CONCRETE FENCE BUILDER asa/Eliquis/statin (patient states he is on Eliquis for CVA but denies hx afib)
-CONCRETE FENCE BUILDER Baclofen
Essential HTN
-CONCRETE FENCE BUILDER Regimen: Amlodipine, Coreg
-hold Lisinopril for CADY
BPH - CONCRETE FENCE BUILDER Flomax
Depression - CONCRETE FENCE BUILDER Zoloft, CONCRETE FENCE BUILDER Divalproex
Remainder of plan per CLINICAL EDUCATION ACADEMIC COORDINATOR note
DVT PPx Eliquis
DNR
[2024-05-04] MEDS: COREG PO (22:13)
[2024-05-04] MEDS: NSS 1000 IV (22:21)
[2024-05-04] MEDS: MERREM 500 MG IV (22:54)
[2024-05-04] MEDS: STERILE WATER FOR INJECTION 10 ML IV (22:56)
[2024-05-04] MEDS: FLOMAX PO (23:21)
[2024-05-04] MEDS: HYDROCORTISONE 1% CREAM TOPICAL (23:21)
[2024-05-04] MEDS: SENOKOT PO (23:21)
[2024-05-04] MEDS: PROTONIX PO (23:21)
[2024-05-04] MEDS: MIRALAX PO (23:21)
[2024-05-04] MEDS: LIORESAL PO (23:22)
[2024-05-04] MEDS: LIPITOR PO (23:22)
[2024-05-04] MEDS: DEPAKOTE (12 HR RELEASE) PO (23:22)
[2024-05-05] VITALS (30 sets, daily range): BP systolic 95–145; BP diastolic 45–75; BMI 39.8
[2024-05-05] MEDS: ELIQUIS PO (00:39)
[2024-05-05] MEDS: MERREM 500 MG IV ×3 (05:00→16:56)
[2024-05-05] MEDS: STERILE WATER FOR INJECTION 10 ML IV ×2 (05:00→14:10)
[2024-05-05 05:55] LABS: Hematocrit 26.7 % (39.0-52.0); Hemoglobin 8.5 g/dL (13.0-18.0); Mean Corp Hgb Conc. 31.8 g/dL (33.0-37.0); Mean Corpuscular Hgb 27.9 pg (27.0-31.0); Mean Corpuscular Volume 87.5 fL (80.0-94.0); Platelet Count 308 10^3/uL (130-400); Red Blood Cell Count 3.05 10^6/uL (4.70-6.10); Red Cell Dist. Width 15.9 % (11.5-14.5); White Blood Cell Count 12.2 10^3/uL (4.8-10.8)
[2024-05-05 06:34] LABS: Blood Urea Nitrogen 23 mg/dl (9-20); Calcium 8.1 mg/dl (8.4-10.2); Carbon Dioxide 28 mmol/L (22-30); Chloride 98 mmol/L (98-107); Estimated Creatinine Clearance 50 ml/min; Glucose 91 mg/dl (70-99); Potassium 3.9 mmol/L (3.5-5.1); Sodium 136 mmol/L (135-145); eGFR 33.24
--- NOTE | 2024-05-05 07:35 | W.PN.HOSP.TC ---
Today's Communication/Plan
-
Continue antibiotics
IV fluids
AM labs
Assessment / Plan
Assessment / Plan
Physical Exam
General: Well Developed, Well Nourished and No Apparent Distress
HEENT: NormoCephalic, Moist mucous membranes and Atraumatic
Respiratory: Clear
Cardiac: S1/S2 and Regular Rhythm
GI: Soft, Non Tender, Non Distended and Normal Bowel Sounds
Musculoskeletal: No Cyanosis and No Edema
Skin: Warm. Dry.
Neuro: AO x 3 and Nonfocal/grossly intact
Psych: Calm
Assessment/Plan
Mr. Maury Uriostegui is a 59 yo man with hx CVA with residual left-sided weakness, [place] resident, essential HTN, HLD, DM 2, MDD, BPH, morbid obesity who presented to the emergency room with worsening left sided weakness in setting of increasing fatigue.
Patient states he has not been getting PT at [facility]. He has not eaten and drank a lot today.
Triage VS: T 98.1, P 70, RR 16, SpO2 98%
On exam patient is laying in bed, in no acute distress but withdrawn, lungs clear, abdomen soft and non-tender; LLE swelling; left-sided weakness
LABS: WBC 16, Hg 11.2, PLT 378, Na 137, K+ 4.2, Cl 95, Cr 1.8
UA with 70-80 WBC
Covid and Flu negative
HEAD CT
IMPRESSION:
No evidence of acute intracranial abnormality.

Urinary Tract Infection
Leukocytosis
Weakness 2/2 Above
-given hx ESBL, IV Meropenem started (received Levaquin in ER)
-F/U final cultures
-PT/OT
Anemia of chronic disease
-No active bleeding
-Continue to monitor
History of CVA with left-sided weakness
Left-sided hemiparesis
-PT/OT consult
-Aspirin, Eliquis continued
-Statin continued
-FOOD COUNSELOR Baclofen
Muscle spasms
-Baclofen continued
CADY
-suspect dehydration
-F/U urine studies
-renal US and bladder scan
-hold Lisinopril
-IV fluids
Essential HTN
-FOOD COUNSELOR Regimen: Amlodipine, Coreg
-hold Lisinopril for CADY
#Hyperlipidemia
- statin
#Major Depressive Disorder
- FOOD COUNSELOR Zoloft, FOOD COUNSELOR Divalproex
-Trazodone continued for sleep
#BPH
- FOOD COUNSELOR Flomax
# DVT prophylaxis
-Eliquis
#CODE STATUS
-Patient is DNR
Anticipated Discharge: 24 - 48 hours
Subjective/Interval History
-
Date of Service: May 05, 2024
Patient was seen and examined. He reported no new symptoms or complaints.
Objective Data
-
Labs:
Laboratory Results
05/05/24
04:59
WBC 12.2 H
Hgb 8.5 L D
Hct 26.7 L
Plt Count 308
Sodium 136
Potassium 3.9
Chloride 98
Carbon Dioxide 28
BUN 23 H
Creatinine 2.2 H
Glucose 91
Calcium 8.1 L
Vital Signs:
Vital Signs
Temp Pulse Resp BP Pulse Ox
98.1 F 65 13 112/60 97
05/04/24 13:34 05/05/24 07:30 05/05/24 07:30 05/05/24 07:30 05/04/24 23:45
[2024-05-05] MEDS: ASPIR LOW (ENTERIC COATED) 81 MG PO (07:44)
[2024-05-05] MEDS: ELIQUIS 5 MG PO ×2 (07:45→19:45)
[2024-05-05] MEDS: COREG 6.25 MG PO ×2 (07:45→19:45)
[2024-05-05] MEDS: LIDOCAINE 4% PATCH 1 PATCH TOPICAL (07:45)
[2024-05-05] MEDS: MIRALAX 17 GRAMS PO ×2 (07:46→19:45)
[2024-05-05] MEDS: SENOKOT 17.2 MG PO ×2 (07:46→19:45)
[2024-05-05] MEDS: PROTONIX 40 MG PO ×2 (07:46→19:45)
[2024-05-05] MEDS: NORVASC 10 MG PO (07:46)
[2024-05-05] MEDS: HYDROCORTISONE 1% CREAM 1 APPLIC TOPICAL (09:22)
[2024-05-05] MEDS: LIORESAL 20 MG PO ×3 (09:23→23:08)
[2024-05-05] MEDS: ZOLOFT 150 MG PO (09:26)
--- NOTE | 2024-05-05 09:41 | PTOTSP ---
Received order for PT from the ED and reviewed chart, s/w pt and RN. Pt is a LTC resident at [facility] where he is nonambulatory and dependent on [employer] lift for transfers to wheelchair at baseline. No acute rehab needs as pt is at baseline and
nursing staff should use Harika lift here to get pt OOB. PT will sign off.
--- NOTE | 2024-05-05 10:01 | PTOTSP ---
chart reviewed, evaluation not warranted. pt is falguni lift at baseline into wheelchair, requires total assistance for all ADLs. pt is capable of feeding self. encouraged pt to complete tasks as able, pt agreeable. no acute OT needs identified at
this time, will sign off.
[2024-05-05] MEDS: FLOMAX 0.4 MG PO (18:36)
[2024-05-05] MEDS: LR 1000 IV (19:44)
[2024-05-05] MEDS: STERILE WATER FOR INJECTION IV (19:46)
--- NOTE | 2024-05-05 21:45 | PTCARENOTE ---
Patient admitted from the ED. Patient was a pullover. Patient is on contact precautions. Patient AAOx3. Patient is able to state needs. Call graham within reach. Patient is on a cholesterol lowering diet. Patient is on a bed alarm. Will continue with
current plan.
[2024-05-05] MEDS: DEPAKOTE (12 HR RELEASE) 125 MG PO (23:08)
[2024-05-05] MEDS: LIPITOR 80 MG PO (23:09)
[2024-05-06] MEDS: TYLENOL 650 MG PO ×2 (00:10→21:25)
[2024-05-06] MEDS: HYDROCORTISONE 1% CREAM 1 APPLIC TOPICAL ×3 (00:27→21:14)
[2024-05-06] MEDS: MERREM 500 MG IV ×4 (02:09→23:23)
[2024-05-06] MEDS: STERILE WATER FOR INJECTION 10 ML IV ×4 (02:09→23:24)
[2024-05-06 07:00] VITALS: BP 126/66
[2024-05-06] MEDS: MERREM IV (07:41)
[2024-05-06] MEDS: STERILE WATER FOR INJECTION IV (07:41)
[2024-05-06] MEDS: PROTONIX 40 MG PO ×2 (08:40→21:17)
[2024-05-06] MEDS: LIORESAL 20 MG PO ×3 (08:41→21:19)
[2024-05-06] MEDS: SENOKOT 17.2 MG PO ×2 (08:41→21:18)
[2024-05-06] MEDS: ZOLOFT 150 MG PO (08:45)
[2024-05-06] MEDS: ASPIR LOW (ENTERIC COATED) 81 MG PO (08:45)
[2024-05-06 08:56] LABS: Hematocrit 27.2 % (39.0-52.0); Hemoglobin 9.3 g/dL (13.0-18.0); Mean Corp Hgb Conc. 34.2 g/dL (33.0-37.0); Mean Corpuscular Hgb 27.8 pg (27.0-31.0); Mean Corpuscular Volume 81.2 fL (80.0-94.0); Mean Platelet Volume 11.2 fL (7.4-10.4); Platelet Count 166 10^3/uL (130-400); Red Blood Cell Count 3.35 10^6/uL (4.70-6.10); Red Cell Dist. Width 15.8 % (11.5-14.5); White Blood Cell Count 8.4 10^3/uL (4.8-10.8)
[2024-05-06] MEDS: COREG 6.25 MG PO ×2 (08:57→21:12)
[2024-05-06] MEDS: NORVASC 10 MG PO (08:58)
[2024-05-06] MEDS: LR 1000 IV ×2 (08:58→23:12)
[2024-05-06] MEDS: ELIQUIS 5 MG PO ×2 (08:58→21:13)
[2024-05-06] MEDS: MIRALAX 17 GRAMS PO ×2 (08:59→21:15)
[2024-05-06] MEDS: LIDOCAINE 4% PATCH 1 PATCH TOPICAL (08:59)
[2024-05-06 09:19] LABS: Blood Urea Nitrogen 23 mg/dl (9-20); Calcium 8.7 mg/dl (8.4-10.2); Carbon Dioxide 23 mmol/L (22-30); Chloride 100 mmol/L (98-107); Estimated Creatinine Clearance 71 ml/min; Glucose 102 mg/dl (70-99); Potassium 4.5 mmol/L (3.5-5.1); Sodium 133 mmol/L (135-145); eGFR 52.64
[2024-05-06 15:00] VITALS: BP 105/63
[2024-05-06] MEDS: FLOMAX 0.4 MG PO (17:22)
--- NOTE | 2024-05-06 18:07 | W.PN.HOSP.TC ---
Today's Communication/Plan
-
Await urine culture which is coming back positive
Continue antibiotics
Assessment / Plan
Assessment / Plan
Physical Exam
General: Well Developed, Well Nourished and No Apparent Distress
HEENT: NormoCephalic, Moist mucous membranes and Atraumatic
Respiratory: Clear
Cardiac: S1/S2 and Regular Rhythm
GI: Soft, Non Tender, Non Distended and Normal Bowel Sounds
: No CVA tenderness. No suprapubic tenderness.
Musculoskeletal: No Cyanosis and No Edema
Skin: Warm. Dry.
Neuro: AO x 3 and Nonfocal/grossly intact
Psych: Calm
Assessment/Plan
Mr. Maury Uriostegui is a 59 yo man with hx CVA with residual left-sided weakness, [place] resident, essential HTN, HLD, DM 2, MDD, BPH, morbid obesity who presented to the emergency room with worsening left sided weakness in setting of increasing fatigue.
Patient states he has not been getting PT at [facility]. He has not eaten and drank a lot today.
Triage VS: T 98.1, P 70, RR 16, SpO2 98%
On exam patient is laying in bed, in no acute distress but withdrawn, lungs clear, abdomen soft and non-tender; LLE swelling; left-sided weakness
LABS: WBC 16, Hg 11.2, PLT 378, Na 137, K+ 4.2, Cl 95, Cr 1.8
UA with 70-80 WBC
Covid and Flu negative
HEAD CT
IMPRESSION:
No evidence of acute intracranial abnormality.

Urinary Tract Infection
Leukocytosis
Weakness 2/2 Above
-given hx ESBL, IV Meropenem started (received Levaquin in ER)
-Urine culture now growing gram negative bacilli
-PT/OT
Anemia of chronic disease
-No active bleeding
-Continue to monitor
History of CVA with left-sided weakness
Left-sided hemiparesis
-PT/OT consult
-Aspirin, Eliquis continued
-Statin continued
-CARDIOPULMONARY SUPERVISOR Baclofen
Muscle spasms
-Baclofen continued
CADY - IMPROVED
-suspect dehydration
-F/U urine studies
-renal US and bladder scan results noted
-hold Lisinopril
-IV fluids given
Essential HTN
-CARDIOPULMONARY SUPERVISOR Regimen: Amlodipine, Coreg
-hold Lisinopril for CADY
#Hyperlipidemia
- statin
#Major Depressive Disorder
- CARDIOPULMONARY SUPERVISOR Zoloft, CARDIOPULMONARY SUPERVISOR Divalproex
-Trazodone continued for sleep
#BPH
- CARDIOPULMONARY SUPERVISOR Flomax
# DVT prophylaxis
-Eliquis
#CODE STATUS
-Patient is DNR
Anticipated Discharge: 24 - 48 hours
Subjective/Interval History
-
Date of Service: May 06, 2024
Patient was seen and examined. He denied any complaints.
Objective Data
-
Labs:
Laboratory Results
05/06/24 05/06/24
07:59 08:00
WBC 8.4
Hgb 9.3 L
Hct 27.2 L
Plt Count 166 D
Sodium 133 L
Potassium 4.5
Chloride 100
Carbon Dioxide 23
BUN 23 H
Creatinine 1.5 H
Glucose 102 H
Calcium 8.7
Vital Signs:
Vital Signs
Temp Pulse Resp BP Pulse Ox
98.1 F 76 18 105/63 100
05/06/24 15:00 05/06/24 15:00 05/06/24 15:00 05/06/24 15:00 05/06/24 15:00
I&O
05/05/24 05/06/24 05/07/24
06:59 06:59 06:59
Intake Total 1440 / 1440
Balance 1440 / 1440
--- NOTE | 2024-05-06 20:55 | PTCARENOTE ---
Pt complained of 5/10 left sided chest pain said it felt like pressure on his chest. Vital signs taken at 2054. Temperature 98.8, 97% O2 room air, blood pressure 113/69 pulse 98 and respirations 18. PLUMBING FOREMAN at bedside 2109. Patient received his scheduled
1999 medicine. EKG showed normal sinus rhythm with sinus arrhythmia. Right bundle branch block.
[2024-05-06] MEDS: DEPAKOTE (12 HR RELEASE) 125 MG PO (21:19)
[2024-05-06] MEDS: LIPITOR 80 MG PO (21:19)
[2024-05-06] MEDS: DESYREL PO ×2 (23:18→23:43)
[2024-05-06] MEDS: MELATONIN PO ×4 (23:22→23:44)
[2024-05-06 23:30] VITALS: BP 124/72
[2024-05-06 23:44] LABS: Glucose - Point of Care 133 mg/dl (70-99)
[2024-05-07] MEDS: MERREM 500 MG IV ×3 (05:49→17:05)
[2024-05-07] MEDS: STERILE WATER FOR INJECTION 10 ML IV ×3 (05:49→17:05)
--- NOTE | 2024-05-07 06:11 | PTCARENOTE ---
Patient is no longer complaining of chest pain. Patient slept through the night and patient is more awake this morning. No complaints at this time. Plan of care ongoing.
[2024-05-07 07:00] VITALS: BP 122/68
--- NOTE | 2024-05-07 08:15 | CM ---
CM met w/ pt bedside. Initial assessment completed. Admitted for weakness, lethargic.
Pt is a LTC resident at [facility]. Pt is non-ambulatory, dependent on [facility] for transfers to at baseline. No rehab needs, PT signed off.
Address, points of contact and insurance verified
PCP: Dr. Toledo
Pharmacy: [facility]
CM consulted for advanced directive, pt unsure of needing this at this time. Will offer again at another time.
Will need ambulance transport at d/c
Plan: Return to [facility] when stable
[2024-05-07 08:19] LABS: Hematocrit 28.9 % (39.0-52.0); Hemoglobin 9.5 g/dL (13.0-18.0); Mean Corp Hgb Conc. 32.9 g/dL (33.0-37.0); Mean Corpuscular Hgb 27.8 pg (27.0-31.0); Mean Corpuscular Volume 84.5 fL (80.0-94.0); Mean Platelet Volume 9.6 fL (7.4-10.4); Platelet Count 281 10^3/uL (130-400); Red Blood Cell Count 3.42 10^6/uL (4.70-6.10); Red Cell Dist. Width 15.9 % (11.5-14.5); White Blood Cell Count 6.4 10^3/uL (4.8-10.8)
[2024-05-07 08:43] LABS: Blood Urea Nitrogen 16 mg/dl (9-20); Calcium 8.5 mg/dl (8.4-10.2); Carbon Dioxide 29 mmol/L (22-30); Chloride 98 mmol/L (98-107); Estimated Creatinine Clearance 97 ml/min; Glucose 107 mg/dl (70-99); Potassium 4.2 mmol/L (3.5-5.1); Sodium 136 mmol/L (135-145); eGFR > 60.00
[2024-05-07] MEDS: MIRALAX 17 GRAMS PO (09:05)
[2024-05-07] MEDS: ELIQUIS 5 MG PO ×2 (09:06→21:01)
[2024-05-07] MEDS: ZOLOFT 150 MG PO (09:06)
[2024-05-07] MEDS: SENOKOT 17.2 MG PO (09:06)
[2024-05-07] MEDS: LIORESAL 20 MG PO ×3 (09:06→21:12)
[2024-05-07] MEDS: LIDOCAINE 4% PATCH 1 PATCH TOPICAL (09:07)
[2024-05-07] MEDS: ASPIR LOW (ENTERIC COATED) 81 MG PO (09:07)
[2024-05-07] MEDS: NORVASC 10 MG PO (09:07)
[2024-05-07] MEDS: PROTONIX 40 MG PO ×2 (09:07→21:01)
[2024-05-07] MEDS: HYDROCORTISONE 1% CREAM 1 APPLIC TOPICAL ×2 (09:07→21:05)
[2024-05-07] MEDS: COREG 6.25 MG PO ×2 (09:07→21:05)
[2024-05-07 12:09] VITALS: BMI 39.8
--- NOTE | 2024-05-07 13:09 | W.PN.HOSP.TC ---
Today's Communication/Plan
-
Continue antibiotics
Discharge planning to SNF
Assessment / Plan
Assessment / Plan
Physical Exam
General: Well Developed, Well Nourished and No Apparent Distress
HEENT: NormoCephalic, Moist mucous membranes and Atraumatic
Respiratory: Clear
Cardiac: S1/S2 and Regular Rhythm
GI: Soft, Non Tender, Non Distended and Normal Bowel Sounds
: No CVA tenderness. No suprapubic tenderness.
Musculoskeletal: No Cyanosis and No Edema
Skin: Warm. Dry.
Neuro: AO x 3 and Nonfocal/grossly intact
Psych: Calm
Assessment/Plan
Mr. Maury Uriostegui is a 59 yo man with hx CVA with residual left-sided weakness, [place] resident, essential HTN, HLD, DM 2, MDD, BPH, morbid obesity who presented to the emergency room with worsening left sided weakness in setting of increasing fatigue.
Patient states he has not been getting PT at [facility]. He has not eaten and drank a lot today.
Triage VS: T 98.1, P 70, RR 16, SpO2 98%
On exam patient is laying in bed, in no acute distress but withdrawn, lungs clear, abdomen soft and non-tender; LLE swelling; left-sided weakness
LABS: WBC 16, Hg 11.2, PLT 378, Na 137, K+ 4.2, Cl 95, Cr 1.8
UA with 70-80 WBC
Covid and Flu negative
HEAD CT
IMPRESSION:
No evidence of acute intracranial abnormality.

Urinary Tract Infection
Leukocytosis
Weakness 2/2 Above
-given hx ESBL, IV Meropenem started (received Levaquin in ER)
-Urine culture now growing gram negative bacilli, identification and sensitivities still pending
-PT/OT
Anemia of chronic disease
-No active bleeding
-Continue to monitor
History of CVA with left-sided weakness
Left-sided hemiparesis
-PT/OT consult
-Aspirin, Eliquis continued
-Statin continued
-STOREHOUSE CLERK Baclofen
Muscle spasms
-Baclofen continued
Acute Kidney Injury - RESOLVED
-suspect dehydration
-F/U urine studies
-US Renal with bladder cannot exclude tiny nonobstructing left renal calculi; no findings to suggest renal collecting system dilatation bilaterally; limited evaluation of the incompletely distended urinary bladder.
-hold Lisinopril
-IV fluids given with resolution of CADY
Essential Hypertension
-STOREHOUSE CLERK Regimen: Amlodipine, Coreg
-hold Lisinopril for CADY
#Hyperlipidemia
- statin
#Major Depressive Disorder
- STOREHOUSE CLERK Zoloft, STOREHOUSE CLERK Divalproex
-Trazodone continued for sleep
#BPH
- STOREHOUSE CLERK Flomax
# DVT prophylaxis
-Eliquis
#CODE STATUS
-Patient is DNR
Anticipated Discharge: 24 - 48 hours
Subjective/Interval History
-
Date of Service: May 07, 2024
Patient was seen and examined. He denied any symptoms or complaints.
Objective Data
-
Labs:
Laboratory Results
05/07/24
07:33
WBC 6.4
Hgb 9.5 L
Hct 28.9 L
Plt Count 281 D
Sodium 136
Potassium 4.2
Chloride 98
Carbon Dioxide 29
BUN 16
Creatinine 1.1
Glucose 107 H
Calcium 8.5
Vital Signs:
Vital Signs
Temp Pulse Resp BP Pulse Ox
97.5 F 57 14 122/68 97
05/07/24 07:00 05/07/24 07:00 05/07/24 07:00 05/07/24 07:00 05/07/24 07:00
I&O
05/06/24 05/07/24 05/08/24
06:59 06:59 06:59
Intake Total 4260 / 4260
Output Total 1650 / 1650
Balance 2610 / 2610
[2024-05-07 15:54] VITALS: BP 125/69
[2024-05-07] MEDS: FLOMAX 0.4 MG PO (17:05)
[2024-05-07] MEDS: SENOKOT PO (21:05)
[2024-05-07] MEDS: MIRALAX PO (21:05)
[2024-05-07] MEDS: DEPAKOTE (12 HR RELEASE) 125 MG PO (21:12)
[2024-05-07] MEDS: MELATONIN 5 MG PO (21:12)
[2024-05-07] MEDS: DESYREL 200 MG PO (21:12)
[2024-05-07] MEDS: LIPITOR 80 MG PO (21:12)
[2024-05-07] MEDS: MELATONIN 3 MG PO (21:12)
[2024-05-07 23:24] VITALS: BP 94/56
[2024-05-08] MEDS: MERREM 500 MG IV ×2 (00:01→05:06)
[2024-05-08] MEDS: STERILE WATER FOR INJECTION 10 ML IV ×2 (00:01→05:07)
[2024-05-08 00:05] VITALS: BP 114/57
[2024-05-08 07:26] VITALS: BP 147/82
[2024-05-08] MEDS: COREG 6.25 MG PO (09:04)
[2024-05-08] MEDS: ASPIR LOW (ENTERIC COATED) 81 MG PO (09:04)
[2024-05-08] MEDS: LIORESAL 20 MG PO ×2 (09:05→16:39)
[2024-05-08] MEDS: PROTONIX 40 MG PO (09:05)
[2024-05-08] MEDS: ELIQUIS 5 MG PO (09:05)
[2024-05-08] MEDS: HYDROCORTISONE 1% CREAM 1 APPLIC TOPICAL (09:05)
[2024-05-08] MEDS: LIDOCAINE 4% PATCH 1 PATCH TOPICAL (09:05)
[2024-05-08] MEDS: MIRALAX PO (09:06)
[2024-05-08] MEDS: ZOLOFT 150 MG PO (09:06)
[2024-05-08] MEDS: NORVASC 10 MG PO (09:06)
[2024-05-08] MEDS: SENOKOT PO (09:07)
[2024-05-08 09:13] LABS: Hematocrit 27.7 % (39.0-52.0); Hemoglobin 8.9 g/dL (13.0-18.0); Mean Corp Hgb Conc. 32.1 g/dL (33.0-37.0); Mean Corpuscular Hgb 27.4 pg (27.0-31.0); Mean Corpuscular Volume 85.2 fL (80.0-94.0); Mean Platelet Volume 9.8 fL (7.4-10.4); Platelet Count 266 10^3/uL (130-400); Red Blood Cell Count 3.25 10^6/uL (4.70-6.10)
[2024-05-08 09:52] LABS: Blood Urea Nitrogen 11 mg/dl (9-20); Calcium 8.4 mg/dl (8.4-10.2); Carbon Dioxide 30 mmol/L (22-30); Chloride 97 mmol/L (98-107); Estimated Creatinine Clearance 118 ml/min; Glucose 89 mg/dl (70-99); Magnesium 1.7 mg/dl (1.6-2.3); Potassium 4.3 mmol/L (3.5-5.1); Sodium 134 mmol/L (135-145); eGFR > 60.00
--- NOTE | 2024-05-08 11:06 | W.DS.TRANS ---
DC Summary - Fiber Optics Supervisor
-
Discharge Instructions:
Discharge Diagnosis/Procedures UTI
Diet Low Cholesterol,Low Fat
Activity As tolerated
Driving Restrictions As prior to admission
Bathing Restrictions None
Instructions:
Stand-Alone Forms:
Changes to Home Medications: No
Discharge Medications:
DC Medications w/original date entered in [facility]
Lactobac no.2-Bifidobac no.1-S. thermo 112.5 billion cell capsule (Visbiome) 1 cap PO DAILY Gastrointestinal Issue 09/23/23
acetaminophen 325 mg tablet (Tylenol) 650 mg PO Q6HPRN PRN mild pain 09/23/23
amlodipine 10 mg tablet (Norvasc) 10 mg PO DAILY Blood Pressure 09/23/23
apixaban 5 mg tablet (Eliquis) 5 mg PO BID Blood Clot Prevention/Tx 09/23/23
aspirin 81 mg tablet,delayed release 81 mg PO DAILY Blood Clot Prevention/Tx 09/23/23
atorvastatin 80 mg tablet (Lipitor) 80 mg PO HS High Cholesterol 09/23/23
bisacodyl 5 mg tablet,delayed release (Dulcolax (bisacodyl)) 5 mg PO DAILYPRN PRN if no bm aftr mom 09/23/23
carvedilol 6.25 mg tablet (Coreg) 6.25 mg PO BID Blood Pressure 09/23/23
cyclobenzaprine 10 mg tablet 10 mg PO TIDPRN PRN spasms 09/23/23
divalproex 125 mg tablet,delayed release 125 mg PO HS Seizures 09/23/23
lisinopril 20 mg tablet 40 mg PO DAILY Blood Pressure 09/23/23
magnesium hydroxide 400 mg/5 mL oral suspension (Milk of Magnesia) 2,400 mg PO [id number] PRN if no bm on 3rd day 09/23/23
melatonin 5 mg tablet 8 mg PO HS Sleep 09/23/23
methyl salicylate 15 %-menthol 10 % topical cream (Muscle Rub) 1 applic topical Q6HPRN PRN mild pain 09/23/23
pantoprazole 40 mg tablet,delayed release 40 mg PO BID Gastrointestinal Issue 09/23/23
polyethylene glycol 3350 17 gram oral powder packet (Miralax) 17 g PO BID Constipation 09/23/23
selenium sulfide 2.5 % lotion 1 applic topical Q8HPRN PRN area of skin 09/23/23
sennosides 8.6 mg tablet (senna) 17.2 mg PO BID Constipation 09/23/23
sertraline 150 mg capsule 150 mg PO DAILY Depression 09/23/23
sodium phosphates 19 gram-7 gram/118 mL enema (Fleet Enema) [address] DAILYPRN PRN if no bm aftr dulcolax 09/23/23
tamsulosin 0.4 mg capsule (Flomax) 0.4 mg PO QPM Urinary Issue 09/23/23
triamcinolone acetonide 0.1 % topical cream 1 applic topical BID atopic dermatitis 09/23/23
baclofen 20 mg tablet 20 mg PO TID Muscle Spasms 05/04/24
hydrocortisone 1 % topical cream 1 applic topical BID scalp 05/04/24
lidocaine 4 % topical patch 1 patch topical DAILY left knee 05/04/24
lidocaine 5 % topical cream 1 applic topical BID PRN left hand 05/04/24
simethicone 125 mg tablet 125 mg PO Q8HPRN PRN gas pains 05/04/24
trazodone 100 mg tablet 200 mg PO HS mental health/sleep 05/04/24
ciprofloxacin HCl 500 mg tablet 750 mg (1.5 x 500 mg) PO BID #6 tabs 05/08/24
Home Medication Changes
Pending Results: No
--- NOTE | 2024-05-08 11:07 | W.PN.HOSP.TC ---
Today's Communication/Plan
-
Discharge
Assessment / Plan
Assessment / Plan
Physical Exam
General: Well Developed, Well Nourished and No Apparent Distress
HEENT: NormoCephalic, Moist mucous membranes and Atraumatic
Respiratory: Clear
Cardiac: S1/S2 and Regular Rhythm
GI: Soft, Non Tender, Non Distended and Normal Bowel Sounds
: No CVA tenderness. No suprapubic tenderness.
Musculoskeletal: No Cyanosis and No Edema
Skin: Warm. Dry.
Neuro: AO x 3 and Nonfocal/grossly intact
Psych: Calm
Assessment/Plan
Mr. Maury Uriostegui is a 59 yo man with hx CVA with residual left-sided weakness, [place] resident, essential HTN, HLD, DM 2, MDD, BPH, morbid obesity who presented to the emergency room with worsening left sided weakness in setting of increasing fatigue.
Patient states he has not been getting PT at [facility]. He has not eaten and drank a lot today.
Triage VS: T 98.1, P 70, RR 16, SpO2 98%
On exam patient is laying in bed, in no acute distress but withdrawn, lungs clear, abdomen soft and non-tender; LLE swelling; left-sided weakness
LABS: WBC 16, Hg 11.2, PLT 378, Na 137, K+ 4.2, Cl 95, Cr 1.8
UA with 70-80 WBC
Covid and Flu negative
HEAD CT
IMPRESSION:
No evidence of acute intracranial abnormality.

Urinary Tract Infection
Leukocytosis
Weakness 2/2 Above
-given hx ESBL, IV Meropenem started (received Levaquin in ER)
-Urine culture now growing gram negative bacilli, will change meropenem to ciprofloxacin.
-PT/OT
Anemia of chronic disease
-No active bleeding
-Continue to monitor
History of CVA with left-sided weakness
Left-sided hemiparesis
-PT/OT consult
-Aspirin, Eliquis continued
-Statin continued
-SHOE TRIMMER Baclofen
Muscle spasms
-Baclofen continued
Acute Kidney Injury - RESOLVED
-suspect dehydration
-F/U urine studies
-US Renal with bladder cannot exclude tiny nonobstructing left renal calculi; no findings to suggest renal collecting system dilatation bilaterally; limited evaluation of the incompletely distended urinary bladder.
-hold Lisinopril
-IV fluids given with resolution of CADY
Essential Hypertension
-SHOE TRIMMER Regimen: Amlodipine, Coreg
-hold Lisinopril for CADY
#Hyperlipidemia
- statin
#Major Depressive Disorder
- SHOE TRIMMER Zoloft, SHOE TRIMMER Divalproex
-Trazodone continued for sleep
#BPH
- SHOE TRIMMER Flomax
# DVT prophylaxis
-Eliquis
#CODE STATUS
-Patient is DNR
Dispo -medically stable for discharge to senior living today. Case management aware. -
35 minutes spent in discharge process.
Anticipated Discharge: Today
Subjective/Interval History
-
Date of Service: May 08, 2024
Patient seen and examined. No complaints.
Objective Data
-
Labs:
Laboratory Results
05/08/24
07:18
WBC 5.0
Hgb 8.9 L
Hct 27.7 L
Plt Count 266
Sodium 134 L
Potassium 4.3
Chloride 97 L
Carbon Dioxide 30
BUN 11
Creatinine 0.9
Glucose 89
Calcium 8.4
Vital Signs:
Vital Signs
Temp Pulse Resp BP Pulse Ox
98.1 F 83 20 147/82 95
05/08/24 07:26 05/08/24 07:26 05/08/24 07:26 05/08/24 07:26 05/08/24 07:26
I&O
05/07/24 05/08/24 05/09/24
06:59 06:59 06:59
Intake Total 4260 / 4260 1440 / 1440
Output Total 1650 / 1650 1875 / 1875
Balance 2610 / 2610 -435 / -435
Review of Systems
-
History Source: Patient
All other systems: Reviewed and negative
--- NOTE | 2024-05-08 11:23 | CM ---
CM reviewed chart, reviewed with Hospitalist, patient for discharge today. Patient seen bedside, discussed return to [facility], ambulance transport requested. Updates sent to [facility]. CM will continue to follow for all discharge planning needs.
Plan; return to [facility] resident, ambulance transport
[facility]
Report: [phone] floor [phone]
[2024-05-08] MEDS: CIPRO 750 MG PO (12:04)
[2024-05-08 15:25] VITALS: BP 101/56
[2024-05-08 19:44] LABS: Hepatitis C Antibody Negative (Negative)
== END 2024-05-08 17:51 | DRG 683 ==
LOC: 4 WEST ACU 18:22
PROVIDERS: Emergency Medicine; Hospitalist; Registered Nurse; ADMITTING PHYSICIAN Student in an Organized Health Care Education/Training Program; ATTENDING PHYSICIAN Hospitalist; EMERGENCY PHYSICIAN Student in an Organized Health Care Education/Training Program; FAMILY PHYSICIAN Internal Medicine
DX: N17.9 Acute kidney failure, unspecified (principal); I69.354 Hemiplegia and hemiparesis following cerebral infarction affecting left non-dominant side; N39.0 Urinary tract infection, site not specified; D63.8 Anemia in other chronic diseases classified elsewhere; E86.0 Dehydration; N20.0 Calculus of kidney; I10 Essential (primary) hypertension; E78.00 Pure hypercholesterolemia, unspecified; F32.9 Major depressive disorder, single episode, unspecified; R33.8 Other retention of urine; N40.1 Benign prostatic hyperplasia with lower urinary tract symptoms; Z66 Do not resuscitate; E11.9 Type 2 diabetes mellitus without complications; E66.01 Morbid (severe) obesity due to excess calories; Z68.39 Body mass index [BMI] 39.0-39.9, adult; Z79.82 Long term (current) use of aspirin; Z86.19 Personal history of other infectious and parasitic diseases; K21.9 Gastro-esophageal reflux disease without esophagitis; R56.9 Unspecified convulsions; Z79.01 Long term (current) use of anticoagulants
CPT/HCPCS: 70450; 76770; 80048; 80053; 81003; 81015; 82962; 83735; 85025; 85027; 86803; 87077; 87086; 87186; 87502; 87811; 93005; 96365; 99285

== ENCOUNTER 2024-08-28 11:00 | Inpatient (IN) | payer OTHER, SELFPAY ==
[2024-08-28] VITALS (55 sets, daily range): BP systolic 68–165; BP diastolic 34–130; BMI 38.8
--- NOTE | 2024-08-28 07:05 | ED.GENMED ---
History of Present Illness
General
Chief Complaint: Breathing Problem
Source: patient
Exam Limitations: none
Time Seen by Provider: 08/28/24 06:52
History of Present Illness
History of Present Illness:
59-year-old male with history of stroke affecting left side of body presents from [facility]. Report from [facility] is that he was short of breath and had low oxygen readings. They are concerned about an underlying
infection. Patient denies shortness of breath currently but he remembers feeling short of breath. He also complains that he is unable to urinate. No reported fever. No chest pain. No other complaints at this time
Past History
Past History
ED Past Medical History: CVA, GERD, HTN, Hypercholesterolemia, NIDDM, Seizures, Psychiatric (Depression) and Other (obesitiy)
Phy Exam
Physical Exam
Physical Exam:
General: Well-appearing male no acute respiratory distress
HEENT: Normocephalic atraumatic
Heart: Regular rate and rhythm lungs: Clear no wheeze
Abdomen is soft nontender nondistended
Extremities: Mild pitting edema bilateral lower extremities
Skin is warm no rash
Scores
Heart Failure Risk
Heart Failure Risk Score: Not Applicable
Course
Orders/Labs/Results
Orders:
Orders
08/28/24 07:02
CR Chest Portable - 1 View Urgent
Comment:
Reason For Exam: sob
Reason Study Needs to be Portable: Unable to Transport
08/28/24 07:29
0.9% Sodium Chloride 1000 ml [Nss] 1,000 ml IV BOLUS
08/28/24 07:32
COVID-19 Antigen Urgent
Source: Nasal Swab
Complete Blood Count/With Diff Urgent
Comprehensive Metabolic Panel Urgent
NT-proBNP Urgent
Urinalysis Reflex To Culture Urgent
Date Specimen was Collected: 08/28/24
Time Specimen was Collected: 07:13
Urine Microscopic Reflex Cult Urgent
Influenza A+B Rapid Molecular Urgent
ERIC Source: Nasal Swab
Specimen Description:
Urine Culture Urgent
ERIC Source: U
Specimen Description:
Date Specimen was Collected: 08/28/24
Time Specimen was Collected: 07:13
08/28/24 07:34
Lactic Acid Urgent
Abnormal Lab Results
08/28/24
07:32
RBC 3.55 L 10^6/uL
(4.70-6.10)
Hgb 10.4 L g/dL
(13.0-18.0)
Hct 31.7 L %
(39.0-52.0)
MCHC 32.8 L g/dL
(33.0-37.0)
MPV 10.5 H fL
(7.4-10.4)
Absolute Neuts (auto) 7.2 H 10^3/uL
(1.4-6.5)
Absolute Lymphs (auto) 0.7 L 10^3/uL
(1.2-3.4)
Absolute Monos (auto) 0.8 H 10^3/uL
(0.1-0.6)
Neutrophils % 81.4 H %
(42.2-75.2)
Lymphocytes % 8.3 L %
(20.5-51.1)
BUN 33 H mg/dl
(9-20)
Creatinine 3.6 H mg/dL
(0.7-1.3)
Glucose 105 H mg/dl
(70-99)
Leukocyte Esterase Rfl 1+ A
(Negative)
Urine Bacteria (Reflex) Moderate A
(Negative)
Urine Albumin (Reflex) 2+ A
(Neg - Trace)
08/28/24 07:32
08/28/24 07:32
Vital Signs
Initial and Last Documented VS:
Initial Vital Signs
Pulse Resp Pulse Ox
64 12 98
08/28/24 06:54 08/28/24 06:54 08/28/24 06:54
Last Documented Vital Signs
Temp Pulse Resp BP Pulse Ox
98 F 55 11 92/55 97
08/28/24 07:07 08/28/24 07:30 08/28/24 07:30 08/28/24 07:30 08/28/24 07:36
MDM/Problems Addressed
Differential Diagnosis Includes:
Patient with shortness of and low oxygen readings at the skilled nursing. He is 98% on room air here. No respiratory distress. He is complaining of trouble urinating. Straight cath performed urinalysis pending chest x-ray ordered labs pending
*Critical Care Note
Total Time (30-74mins, 75-104mins- exclusive of procedures): Not Applicable
Update Note
Update Note:
Patient noted to be hypotensive on triage. Fluids ordered. Blood pressure was responding to fluids. Urinalysis with moderate bacteria but negative nitrites. Culture pending. Chest x-ray COVID and flu are negative. Creatinine is 3.6 today. In
May it was 1.1. I suspect acute dehydration causing acute kidney injury. Discussed with patient's sister and power of deputy attorney general over the telephone. Will admit to hospital
ED Attending Note
-
Portions of this chart may have been created with voice recognition software.� Occasional wrong word or��sound alike� substitutions may have occurred due to the inherent limitations of voice recognition software.
Discharge Plan
Departure
Patient Disposition: Admit
Date of Disposition: 08/28/24
Time of Disposition: 08:31
Presentation/result/management discussed w/ accepting MD/DO: Hospitalist
Discharge Problem:
Acute dehydration, CADY (acute kidney injury)
Prescriptions:
No Action
atorvastatin [Lipitor] 80 mg Tablet
80 mg PO HS
sennosides [senna] 8.6 mg Tablet
17.2 mg PO BID
acetaminophen [Tylenol] 325 mg Tablet
650 mg PO Q6HPRN PRN (Reason: mild pain)
carvedilol [Coreg] 6.25 mg Tablet
12.5 mg PO BID
polyethylene glycol 3350 [Miralax] 17 gram Powder In Packet
17 g PO BID
lisinopril 20 mg Tablet
40 mg PO DAILY
aspirin 81 mg Tablet,Delayed Release (Dr/Ec)
81 mg PO DAILY
triamcinolone acetonide 0.1 % Cream
1 applic TOPICAL BID
magnesium hydroxide [Milk of Magnesia] 400 mg/5 mL Suspension
2,400 mg PO [id number] PRN (Reason: if no bm on 3rd day)
tamsulosin [Flomax] 0.4 mg Capsule
0.4 mg PO QPM
amlodipine [Norvasc] 10 mg Tablet
10 mg PO DAILY
pantoprazole 40 mg Tablet,Delayed Release (Dr/Ec)
40 mg PO BID
divalproex 125 mg Tablet,Delayed Release (Dr/Ec)
125 mg PO HS
Fleet Enema 19-7 gram/118 mL Enema
[address] DAILYPRN PRN (Reason: if no bm aftr dulcolax)
bisacodyl [Dulcolax (bisacodyl)] 5 mg Tablet,Delayed Release (Dr/Ec)
5 mg PO DAILYPRN PRN (Reason: if no bm aftr mom)
Muscle Rub 15-10 % Cream
1 applic TOPICAL Q6HPRN PRN (Reason: mild pain)
melatonin 5 mg Tablet
8 mg PO HS
Eliquis 5 mg Tablet
5 mg PO BID
selenium sulfide 2.5 % Lotion
1 applic TOPICAL Q8HPRN PRN (Reason: area of skin)
sertraline 150 mg Capsule
150 mg PO DAILY
lidocaine 4 % Adhesive Patch,Medicated
1 patch TOPICAL DAILY
Rx Instructions:
lt knee
lidocaine 5 % Cream
1 applic TOPICAL BID PRN (Reason: left hand)
baclofen 20 mg Tablet
20 mg PO TID
trazodone 100 mg Tablet
200 mg PO HS
hydrocortisone 1 % Cream
1 applic TOPICAL BID
simethicone 125 mg Tablet
125 mg PO Q8HPRN PRN (Reason: gas pains)
torsemide 10 mg Tablet
10 mg PO DAILY
lidocaine 5 % Adhesive Patch,Medicated
1 patch TOPICAL DAILY
Rx Instructions:
rt knee
Referrals:
Elias Toledo, [Family Provider] -
Interventions
Interventions:
*Risk Screen - Suicide Last Done: 08/28/24 07:38
*General Assessment Last Done: 08/28/24 07:38
*Neglect/Abuse Screening Last Done: 08/28/24 07:38
*ED- Fall Risk Assessment Last Done: 08/28/24 07:30
*ED COVID-19 Vaccine History Last Done: 08/28/24 07:30
ED- Cardiac Assessment Last Done: 08/28/24 07:36
ED- Pulmonary Assessment Last Done: 08/28/24 07:36
Discharge Date and Time
Print Language: ICELANDIC
--- NOTE | 2024-08-28 07:35 | EDRN ---
Provider notified to update pt's sister
[2024-08-28] MEDS: NSS 1000 IV ×4 (07:38→23:41)
[2024-08-28 07:47] LABS: % Basophils 0.1 % (0-2); % Eosinophils 0.9 % (0-6); % Immature Granulocytes 0.3 % (0-0.5); % Lymphocytes 8.3 % (20.5-51.1); % Neutrophils 81.4 % (42.2-75.2); Absolute Eosinophils 0.1 10^3/uL (0-0.7); Absolute Lymphocytes 0.7 10^3/uL (1.2-3.4); Absolute Monocytes 0.8 10^3/uL (0.1-0.6); Absolute Neutrophils 7.2 10^3/uL (1.4-6.5); Hematocrit 31.7 % (39.0-52.0); Hemoglobin 10.4 g/dL (13.0-18.0); Mean Corp Hgb Conc. 32.8 g/dL (33.0-37.0); Mean Corpuscular Hgb 29.3 pg (27.0-31.0); Mean Corpuscular Volume 89.3 fL (80.0-94.0); Mean Platelet Volume 10.5 fL (7.4-10.4); Nucleated Red Blood Cells % 0 % (-); Platelet Count 195 10^3/uL (130-400); Red Blood Cell Count 3.55 10^6/uL (4.70-6.10); Red Cell Dist. Width 14.4 % (11.5-14.5); White Blood Cell Count 8.9 10^3/uL (4.8-10.8)
[2024-08-28 08:01] LABS: Urine Albumin 2+ (Neg - Trace); Urine Bilirubin Negative (Negative); Urine Character Clear (Clear); Urine Color Yellow; Urine Glucose Negative (Negative); Urine Ketone Negative (Negative); Urine Leukocyte 1+ (Negative); Urine Nitrite Negative (Negative); Urine Occult Blood Negative (Negative); Urine Specific Gravity 1.015 (<1.030); Urine Urobilinogen Negative (Neg - 1+)
[2024-08-28 08:02] LABS: Lactic Acid 1.1 mmol/L (0.7-2.0)
[2024-08-28 08:03] LABS: ALT (SGPT) 20 U/L (0-50); AST (SGOT) 23 U/L (17-59); Albumin 3.7 g/dl (3.5-5.0); Alkaline Phosphatase 55 U/L (38-126); Blood Urea Nitrogen 33 mg/dl (9-20); Calcium 9.1 mg/dl (8.4-10.2); Carbon Dioxide 30 mmol/L (22-30); Chloride 100 mmol/L (98-107); Estimated Creatinine Clearance 29 ml/min; Glucose 105 mg/dl (70-99); Sodium 138 mmol/L (135-145); Total Bilirubin 0.8 mg/dl (0.2-1.3); Total Protein 7.1 g/dl (6.3-8.2); eGFR 18.41
[2024-08-28 08:11] LABS: COVID-19 Antigen Negative (Negative)
[2024-08-28 08:17] LABS: Urine Bacteria Moderate (Negative); Urine Red Blood Cell 0-2 /HPF (0-2)
[2024-08-28] MEDS: OFIRMEV 100 IV (08:57)
[2024-08-28 09:43] LABS: NT-proBNP 493 pg/ml
--- NOTE | 2024-08-28 09:55 | HPS.HSE ---
Family Physician
-
Family Physician: Elias Toledo, DO
Chief Complaint
-
Shortness of breath
History of Present Illness
59-year-old male transferred from his retirement this morning for evaluation of shortness of breath.
He is a limited historian. Currently states his shortness of breath has improved in the emergency room.
Also complaining of chronic lower back pain. Has not ambulated in quite some time.
Patient complaining of shortness of breath on arrival but not hypoxic. He states shortness of breath improved in the emergency room.
Medical History
Past Medical History
Past Medical History: Reports Other
Additional Past Medical History:
History of stroke, left hemiparesis
essential hypertension
Hyperlipidemia
BPH with chronic urinary retention
Obesity
Major depression
Past Surgical History: Reports None
Social History
Tobacco: Former Smoker
Alcohol: Former
Drug: None
Living: [facility]
Employment: Not Employed
Family History
Family History: Not pertinent
Allergies / Home Medications
Allergies reflects when Allergies were last updated in [employer].
Home Medications with original date entered in [employer]
Allergy/Medication List:
Allergies
Allergy/AdvReac Type Severity Reaction Status Date / Time
No Known Allergies Allergy Unverified 09/23/23 14:13
Home Medications
acetaminophen 325 mg tablet (Tylenol) 650 mg PO Q6HPRN PRN mild pain 09/23/23
amlodipine 10 mg tablet (Norvasc) 10 mg PO DAILY Blood Pressure 09/23/23
apixaban 5 mg tablet (Eliquis) 5 mg PO BID Blood Clot Prevention/Tx 09/23/23
aspirin 81 mg tablet,delayed release 81 mg PO DAILY Blood Clot Prevention/Tx 09/23/23
atorvastatin 80 mg tablet (Lipitor) 80 mg PO HS High Cholesterol 09/23/23
bisacodyl 5 mg tablet,delayed release (Dulcolax (bisacodyl)) 5 mg PO DAILYPRN PRN if no bm aftr mom 09/23/23
divalproex 125 mg tablet,delayed release 125 mg PO HS Seizures 09/23/23
magnesium hydroxide 400 mg/5 mL oral suspension (Milk of Magnesia) 30 ml PO [id number] PRN if no bm on 3rd day 09/23/23
melatonin 5 mg tablet 8 mg PO HS Sleep 09/23/23
methyl salicylate 15 %-menthol 10 % topical cream (Muscle Rub) 1 applic topical Q6HPRN PRN mild pain on knees 09/23/23
pantoprazole 40 mg tablet,delayed release 40 mg PO BID Gastrointestinal Issue 09/23/23
polyethylene glycol 3350 17 gram oral powder packet (Miralax) 17 g PO BID Constipation 09/23/23
sennosides 8.6 mg tablet (senna) 17.2 mg PO BID Constipation 09/23/23
sertraline 150 mg capsule 150 mg PO DAILY Depression 09/23/23
sodium phosphates 19 gram-7 gram/118 mL enema (Fleet Enema) 118 ml VT DAILYPRN PRN if no bm aftr dulcolax 09/23/23
tamsulosin 0.4 mg capsule (Flomax) 0.4 mg PO QPM Urinary Issue 09/23/23
triamcinolone acetonide 0.1 % topical cream 1 applic topical BID atopic dermatitis, scalp 09/23/23
baclofen 20 mg tablet 20 mg PO TID Muscle Spasms 05/04/24
hydrocortisone 1 % topical cream 1 applic topical BID scalp 05/04/24
lidocaine 4 % topical patch 1 patch topical DAILY left knee 05/04/24
lidocaine 5 % topical cream 1 applic topical BID left hand 05/04/24
simethicone 125 mg tablet 125 mg PO Q8HPRN PRN gas pains 05/04/24
trazodone 100 mg tablet 200 mg PO HS mental health/sleep 05/04/24
Lactobacillus acidophilus 1 cap PO DAILY 08/28/24
bisacodyl 10 mg rectal suppository (Dulcolax (bisacodyl)) 10 mg VT DAILY PRN consipation, no relief from MoM 08/28/24
carvedilol 12.5 mg tablet 12.5 mg PO BID 08/28/24
lidocaine 5 % topical patch 1 patch topical DAILY r knee 08/28/24
lisinopril 40 mg tablet 40 mg PO DAILY Blood Clot Prevention/Tx 08/28/24
torsemide 10 mg tablet 10 mg PO DAILY 08/28/24
Review of Systems
-
History Source: Patient and Family
A 12 point ROS was completed and negative except as noted: Yes
Physical Exam
Vital Signs
Vital Signs
Temp Pulse Resp BP Pulse Ox
98 F 62 12 110/58 96
08/28/24 07:07 08/28/24 09:15 08/28/24 09:15 08/28/24 09:15 08/28/24 09:00
Physical Exam
General: Well Developed, Well Nourished, No Apparent Distress and Comfortable
HEENT: NormoCephalic, Anicteric and Moist mucous membranes
Respiratory: Clear
Cardiac: S1/S2 and Regular Rhythm
GI: Soft, Non Tender and Non Distended
Genito-urinary: Deferred by me
Musculoskeletal: No Clubbing, No Cyanosis and No Edema
Skin: Warm, Dry and Other ( No decubital wounds noted on patient's back or sacrum. Mild tenderness to palpation over sacrum)
Neuro: Awake and Alert
Hematologic/Lymphatic: No Lymphadenopathy
Psych: Calm
Laboratory Results
-
08/28/24 07:32
08/28/24 07:32
Laboratory Results
Lactic Acid 1.1 mmol/L (0.7-2.0) 08/28/24 07:34
Total Bilirubin 0.8 mg/dl (0.2-1.3) 08/28/24 07:32
AST 23 U/L (17-59) 08/28/24 07:32
ALT 20 U/L (0-50) 08/28/24 07:32
Alkaline Phosphatase 55 U/L (38-126) 08/28/24 07:32
Impression/Plan
-
CADY - suspect due to volume depletion. Presentation with hypotension, hypovolemic shock, improved with IV fluids.
Hold antihypertensives and diuretics. Hold KRISTOPHER inhibitor. Check bladder scan, rule out retention.
Monitor renal function daily.
Essential hypertension - currently hypotensive due to volume depletion. Hold meds as above.
Hyperlipidemia - Atorvastatin.
history of stroke - with left hemiparesis.
chronic normocytic anemia - hemoglobin at baseline.
BPH
morbid obesity due to excess calories
DNR
Updated patient's Sister Tejal on the phone. She is located in [place]. She is not happy with patient's retirement and wants to transfer him to [place] and has been trying to discuss this with the social service agency director and [facility] nursing
home. Social work at [facility] to assist.
[2024-08-28] MEDS: NSS 500 IV (11:15)
[2024-08-28 11:23] LABS: Glucose - Point of Care 91 mg/dl (70-99)
[2024-08-28] MEDS: LEVOPHED 250 IV (11:42)
[2024-08-28 14:55] LABS: Cortisol, Random 20.6 ug/dl; TSH 1.26 uIU/ml (0.47-4.68)
[2024-08-28] MEDS: LIORESAL 10 MG PO ×2 (16:44→22:23)
--- NOTE | 2024-08-28 17:30 | PTCARENOTE ---
Received patient by stretcher from ED. Levo infusing at 4mcg/min. BP and all other VSS. RA, 96%, patient reports no distress. Baseline left sided residuals noted, including left facial paralysis, left visual deficits, complete left sided decreased
sensation, LUE contracted, LLE flaccid. Patient AAOx3 with no complaints. Gutierrez draining rod urine. NSR on monitor. Patient able to make needs known. Bed alarm on for recent fall out of bed at [facility]. Patient expressed not wanting to go back
to [place]. Will continue to closely monitor patient.
[2024-08-28] MEDS: FLOMAX 0.4 MG PO (19:14)
[2024-08-28] MEDS: TRIAMCINOLONE ACETONIDE 0.1% CREAM 1 APPLIC TOPICAL (19:56)
[2024-08-28] MEDS: HYDROCORTISONE 1% CREAM 1 APPLIC TOPICAL (19:56)
[2024-08-28] MEDS: ELIQUIS 5 MG PO (19:56)
[2024-08-28] MEDS: SENOKOT 17.2 MG PO (19:57)
[2024-08-28] MEDS: PROTONIX 40 MG PO (19:57)
[2024-08-28] MEDS: MIRALAX 17 GRAMS PO (19:57)
[2024-08-28] MEDS: DEPAKOTE (12 HR RELEASE) 125 MG PO (22:22)
[2024-08-28] MEDS: DESYREL 200 MG PO (22:23)
[2024-08-28] MEDS: LIPITOR 80 MG PO (22:23)
[2024-08-28] MEDS: MELATONIN 3 MG PO (22:23)
[2024-08-28] MEDS: MELATONIN 5 MG PO (22:23)
--- NOTE | 2024-08-28 23:47 | PTCARENOTE ---
Assumed care for patient overnight, received report from antonio RN. Levophed currently at 2mcg/min BP 106/64 MAP 78. IVF cont. Pt on room air SpO2 98%. Lungs are clear. Pt denies any SOB, no notable increased WOB. Baseline left sided deficits,
contracted at the wrists and elbows. Gutierrez draining rod yellow urine. Full bed bath given pt states he 'hasn't had a bath in weeks'. Oral care done. Pt having slight discomfort to lower back. Waffle air cushion placed underneath sacral area. Pt
tolerating frequent turning and repositioning. Pt took pills whole in applesauce with no issues. Able to make needs known, call [facility] is within reach.
[2024-08-29] VITALS (31 sets, daily range): BP systolic 85–146; BP diastolic 43–120
[2024-08-29] MEDS: TYLENOL 650 MG PO ×2 (04:06→16:24)
[2024-08-29 04:21] LABS: % Basophils 0.3 % (0-2); % Eosinophils 1.4 % (0-6); % Immature Granulocytes 0.4 % (0-0.5); % Lymphocytes 12.1 % (20.5-51.1); % Monocytes 10.9 % (1.7-9.3); % Neutrophils 74.9 % (42.2-75.2); Absolute Eosinophils 0.1 10^3/uL (0-0.7); Absolute Lymphocytes 0.8 10^3/uL (1.2-3.4); Absolute Monocytes 0.8 10^3/uL (0.1-0.6); Absolute Neutrophils 5.2 10^3/uL (1.4-6.5); Hematocrit 29.4 % (39.0-52.0); Hemoglobin 9.5 g/dL (13.0-18.0); Mean Corp Hgb Conc. 32.3 g/dL (33.0-37.0); Mean Corpuscular Hgb 29.4 pg (27.0-31.0); Mean Platelet Volume 10.7 fL (7.4-10.4); Nucleated Red Blood Cells % 0 % (-); Platelet Count 180 10^3/uL (130-400); Red Blood Cell Count 3.23 10^6/uL (4.70-6.10); Red Cell Dist. Width 14.3 % (11.5-14.5)
[2024-08-29 04:50] LABS: ALT (SGPT) 17 U/L (0-50); AST (SGOT) 21 U/L (17-59); Albumin 3.1 g/dl (3.5-5.0); Alkaline Phosphatase 45 U/L (38-126); Blood Urea Nitrogen 24 mg/dl (9-20); Calcium 8.1 mg/dl (8.4-10.2); Carbon Dioxide 25 mmol/L (22-30); Chloride 108 mmol/L (98-107); Estimated Creatinine Clearance 66 ml/min; Glucose 94 mg/dl (70-99); Potassium 3.7 mmol/L (3.5-5.1); Sodium 140 mmol/L (135-145); Total Bilirubin 0.9 mg/dl (0.2-1.3); Total Protein 6.2 g/dl (6.3-8.2); eGFR 48.72
--- NOTE | 2024-08-29 07:21 | W.PN.HOSP.TC ---
Today's Communication/Plan
-
Continue IV fluids
Monitor urine output
Labs in the morning
Obtain records
Assessment / Plan
Assessment / Plan
Gen-AAOx3, NAD, obese
HEENT-NC, AT, anicteric, clear oral mm
Neck-supple
CV-reg, no M, +S1/S2
Lungs-clear B/L
Abd-soft, NT, ND
Ext-no edema
Musculoskeletal-no cyanosis, clubbing
Skin-warm and dry
Neuro-grossly non-focal
Psych-calm, cooperative
Hypovolemic shock -due to volume depletion. Requiring low-dose Levophed IV. Wean to off. Start midodrine.
CADY -multifactorial etiology including volume depletion, acute urinary retention, hypotension. Renal function improving. Gutierrez catheter inserted on day of admission. Urine output is brisk. Continue IV fluids at half-normal saline 100 cc/h.
Recheck labs in the morning. Voiding trial either prior to discharge or at [facility].
Hold lisinopril, torsemide.
Essential hypertension - currently hypotensive due to volume depletion. Hold carvedilol for bradycardia and hypotension, will reduce dose from 12.5 to 3.25 mg twice daily with hold parameters.
Hyperlipidemia - Atorvastatin.
History of stroke - with left hemiparesis. Unclear reason for apixaban, continue for now. Try to obtain records from [facility]. Discussed with nursing.
Chronic normocytic anemia - hemoglobin at baseline.
BPH -with acute on chronic urinary retention on presentation. Gutierrez catheter inserted. Continue tamsulosin.
Chronic low back pain -on baclofen.
Major depression
Morbid obesity due to excess calories
DNR
Dispo - back to [facility] when medically stable.
Anticipated Discharge: Within 24 hours
Subjective/Interval History
-
Date of Service: August 29, 2024
Patient seen and examined. No new complaints.
Objective Data
-
Labs:
Laboratory Results
08/29/24
04:05
WBC 7.0
Hgb 9.5 L
Hct 29.4 L
Plt Count 180
Sodium 140
Potassium 3.7
Chloride 108 H
Carbon Dioxide 25
BUN 24 H
Creatinine 1.6 H
Glucose 94
Calcium 8.1 L
Total Bilirubin 0.9
AST 21
ALT 17
Alkaline Phosphatase 45
Vital Signs:
Vital Signs
Temp Pulse Resp BP Pulse Ox
97.5 F 57 9 86/50 95
08/29/24 03:18 08/29/24 06:15 08/29/24 06:15 08/29/24 06:06 08/29/24 06:15
I&O
08/28/24 08/29/24 08/30/24
06:59 06:59 06:59
Intake Total 960 / 960
Output Total 2630 / 2630
Balance -1670 / -1670
Review of Systems
-
History Source: Patient
All other systems: Reviewed and negative
[2024-08-29] MEDS: 0.45%NACL 1000 IV ×2 (09:07→17:46)
[2024-08-29] MEDS: ELIQUIS 5 MG PO ×2 (09:09→19:53)
[2024-08-29] MEDS: SENOKOT 17.2 MG PO (09:09)
[2024-08-29] MEDS: ZOLOFT 150 MG PO (09:09)
[2024-08-29] MEDS: PROTONIX 40 MG PO ×2 (09:09→19:53)
[2024-08-29] MEDS: VISBIOME 1 CAP PO (09:09)
[2024-08-29] MEDS: LIORESAL 10 MG PO ×3 (09:09→22:04)
[2024-08-29] MEDS: LIDOCAINE 4% PATCH 1 PATCH TOPICAL ×2 (09:10)
[2024-08-29] MEDS: MIRALAX 17 GRAMS PO (09:10)
[2024-08-29] MEDS: ASPIR LOW (ENTERIC COATED) 81 MG PO (09:10)
[2024-08-29] MEDS: HYDROCORTISONE 1% CREAM 1 APPLIC TOPICAL ×2 (09:11→19:54)
[2024-08-29] MEDS: TRIAMCINOLONE ACETONIDE 0.1% CREAM 1 APPLIC TOPICAL ×2 (09:11→19:54)
[2024-08-29] MEDS: ProAmatine 5 MG PO ×3 (09:13→17:46)
--- NOTE | 2024-08-29 12:26 | CM ---
CM spoke with SNF Nursing
Patient is a LTC resident at [facility] since early 2023
Pt is bedbound, total care, falguni
Use of RUE but refuses to participate in any personal care tasks
Alert and oriented x2, no O2, good skin integrity
PCP: Elias Toledo, Pharmacy: [facility] in [place]
Return SNF referral sent to [facility] via [facility]
Per Thi in Admissions family has been requesting pt transfer to SNF in [place], pt has been denied
Additional SNF referrals to [facility] sent via [facility]
Updated sister Tejal, she is aware if transfer to [facility] cannot be arranged plan will be to return back to [facility]
Discharge plan: Anticipate return to [facility] for LTC
--- NOTE | 2024-08-29 12:43 | PTCARENOTE ---
Patient AAOx3. Baseline left sided residuals noted. See documentation. Patient had BM today. VSS, sinus arrythmia/bradycardia. Levo weaned OFF. Gutierrez draining rod urine. Patient with no complaints. Bed alarm on. Will closely monitor patient.
[2024-08-29] MEDS: FLOMAX 0.4 MG PO (17:46)
[2024-08-29] MEDS: MIRALAX PO (19:14)
[2024-08-29] MEDS: SENOKOT PO (19:14)
[2024-08-29] MEDS: DEPAKOTE (12 HR RELEASE) 125 MG PO (22:03)
[2024-08-29] MEDS: DESYREL 200 MG PO (22:03)
[2024-08-29] MEDS: MELATONIN 5 MG PO (22:03)
[2024-08-29] MEDS: LIPITOR 80 MG PO (22:04)
[2024-08-29] MEDS: MELATONIN 3 MG PO (22:04)
--- NOTE | 2024-08-29 22:27 | PTCARENOTE ---
Patient AAOx3, slow to speak. Baseline left sided residual, LUE contracted. Pt incontinent of multiple stools, held PM dose Maalox and Senokot. Pt remains off Levophed, BP soft 91/68 MAP 75. VSS. Sinus arrhythmia/bradycardia HR 49 on the monitor.
97% SpO2 97% on room air. Gutierrez remains, stat lock reinforced. Draining yellow urine. Full bed bath and oral care done. Pt complaining of pain in left side of head and low back. Pt requesting Tylenol but is not due for next dose yet. Pt tolerating
frequent turning and repositioning. Call [facility] within reach.
[2024-08-30] VITALS (7 sets, daily range): BP systolic 92–151; BP diastolic 53–88
[2024-08-30] MEDS: TYLENOL 650 MG PO (02:33)
[2024-08-30 04:56] LABS: Blood Urea Nitrogen 14 mg/dl (9-20); Calcium 8.2 mg/dl (8.4-10.2); Carbon Dioxide 26 mmol/L (22-30); Chloride 106 mmol/L (98-107); Estimated Creatinine Clearance 105 ml/min; Glucose 81 mg/dl (70-99); Potassium 4.1 mmol/L (3.5-5.1); Sodium 138 mmol/L (135-145); eGFR > 60.00
[2024-08-30 08:00] LABS: Glucose - Point of Care 75 mg/dl (70-99)
--- NOTE | 2024-08-30 08:06 | W.PN.HOSP.TC ---
Today's Communication/Plan
-
Discharge
Assessment / Plan
Assessment / Plan
Gen-AAOx3, NAD, obese
HEENT-NC, AT, anicteric, clear oral mm
Neck-supple
CV-reg, no M, +S1/S2
Lungs-clear B/L
Abd-soft, NT, ND
Ext-no edema
Musculoskeletal-no cyanosis, clubbing
Skin-warm and dry
Neuro-grossly non-focal
Psych-calm, cooperative
Hypovolemic shock -due to volume depletion. Shock resolved. Off Levophed. Hold further doses midodrine and observe blood pressure. Antihypertensives on hold.
CADY -multifactorial etiology including volume depletion, acute urinary retention, hypotension. Renal function improving. Gutierrez catheter inserted on day of admission. Urine output is brisk. Continue IV fluids at half-normal saline 100 cc/h.
Recheck labs in the morning. Voiding trial in [facility].
Hold lisinopril, torsemide.
Essential hypertension - currently hypotensive due to volume depletion. Hold carvedilol for bradycardia and hypotension, will reduce dose from 12.5 to 3.25 mg twice daily with hold parameters. So far has not received a dose.
Hyperlipidemia - Atorvastatin.
History of stroke - with left hemiparesis. Unclear reason for apixaban, continue for now. Try to obtain records from [facility]. Discussed with nursing.
Chronic normocytic anemia - hemoglobin at baseline.
BPH -with acute on chronic urinary retention on presentation. Gutierrez catheter inserted. Continue tamsulosin. Continue Gutierrez catheter on discharge, [facility] to do voiding trial tomorrow. Discussed with family.
Chronic low back pain -on baclofen.
Major depression
Morbid obesity due to excess calories
DNR
Dispo -medically stable for discharge back to [facility] today. Outpatient follow-up.
Updated patient's sister Tejal on the phone. All questions answered.
31 minutes spent in discharge process.
Anticipated Discharge: Today
Subjective/Interval History
-
Date of Service: August 30, 2024
Patient seen and examined. No complaints.
Objective Data
-
Labs:
Laboratory Results
08/30/24
04:17
Sodium 138
Potassium 4.1
Chloride 106
Carbon Dioxide 26
BUN 14
Creatinine 1.0
Glucose 81
Calcium 8.2 L
Vital Signs:
Vital Signs
Temp Pulse Resp BP Pulse Ox
97.5 F 48 10 122/65 95
08/30/24 03:13 08/30/24 07:46 08/30/24 06:00 08/30/24 06:00 08/30/24 06:00
I&O
08/29/24 08/30/24 08/31/24
06:59 06:59 06:59
Intake Total 960 / 960 1260 / 1260
Output Total 2630 / 2630 2525 / 2525
Balance -1670 / -1670 -1265 / -1265
Review of Systems
-
History Source: Patient
All other systems: Reviewed and negative
--- NOTE | 2024-08-30 08:19 | W.DS.TRANS ---
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
-
Discharge Instructions:
Discharge Diagnosis/Procedures Acute kidney injury, hypotension, urinary
retention
Diet Regular
Activity With assistance
Driving Restrictions No driving
Bathing Restrictions None
Blood Work BMP next week
Others Tests Bladder scan with voiding trial
Instructions:
Stand-Alone Forms:
Changes to Home Medications: Yes
Discharge Medications:
DC Medications w/original date entered in [employer]
acetaminophen 325 mg tablet (Tylenol) 650 mg PO Q6HPRN PRN mild pain 09/23/23
apixaban 5 mg tablet (Eliquis) 5 mg PO BID Blood Clot Prevention/Tx 09/23/23
aspirin 81 mg tablet,delayed release 81 mg PO DAILY Blood Clot Prevention/Tx 09/23/23
atorvastatin 80 mg tablet (Lipitor) 80 mg PO HS High Cholesterol 09/23/23
bisacodyl 5 mg tablet,delayed release (Dulcolax (bisacodyl)) 5 mg PO DAILYPRN PRN if no bm aftr mom 09/23/23
divalproex 125 mg tablet,delayed release 125 mg PO HS Seizures 09/23/23
magnesium hydroxide 400 mg/5 mL oral suspension (Milk of Magnesia) 30 ml PO [id number] PRN if no bm on 3rd day 09/23/23
melatonin 5 mg tablet 8 mg PO HS Sleep 09/23/23
methyl salicylate 15 %-menthol 10 % topical cream (Muscle Rub) 1 applic topical Q6HPRN PRN mild pain on knees 09/23/23
pantoprazole 40 mg tablet,delayed release 40 mg PO BID Gastrointestinal Issue 09/23/23
polyethylene glycol 3350 17 gram oral powder packet (Miralax) 17 g PO BID Constipation 09/23/23
sennosides 8.6 mg tablet (senna) 17.2 mg PO BID Constipation 09/23/23
sertraline 150 mg capsule 150 mg PO DAILY Depression 09/23/23
sodium phosphates 19 gram-7 gram/118 mL enema (Fleet Enema) 118 ml ND DAILYPRN PRN if no bm aftr dulcolax 09/23/23
tamsulosin 0.4 mg capsule (Flomax) 0.4 mg PO QPM Urinary Issue 09/23/23
triamcinolone acetonide 0.1 % topical cream 1 applic topical BID atopic dermatitis, scalp 09/23/23
hydrocortisone 1 % topical cream 1 applic topical BID scalp 05/04/24
lidocaine 4 % topical patch 1 patch topical DAILY left knee 05/04/24
lidocaine 5 % topical cream 1 applic topical BID left hand 05/04/24
simethicone 125 mg tablet 125 mg PO Q8HPRN PRN gas pains 05/04/24
trazodone 100 mg tablet 200 mg PO HS mental health/sleep 05/04/24
Lactobacillus acidophilus 1 cap PO DAILY Gastrointestinal Issue 08/28/24
bisacodyl 10 mg rectal suppository (Dulcolax (bisacodyl)) 10 mg ND DAILY PRN consipation, no relief from MoM 08/28/24
lidocaine 5 % topical patch 1 patch topical DAILY r knee 08/28/24
baclofen 10 mg tablet 10 mg PO TID #0 tabs 08/30/24
carvedilol 3.125 mg tablet (Coreg) 3.125 mg PO BID #60 tabs 08/30/24
Home Medication Changes
Stop amlodipine, lisinopril, torsemide
Carvedilol dose reduced to 3.125 mg twice daily
Pending Results: No
[2024-08-30] MEDS: LIDOCAINE 4% PATCH 1 PATCH TOPICAL ×2 (09:35)
[2024-08-30] MEDS: ELIQUIS 5 MG PO (09:36)
[2024-08-30] MEDS: VISBIOME 1 CAP PO (09:36)
[2024-08-30] MEDS: ZOLOFT 150 MG PO (09:36)
[2024-08-30] MEDS: LIORESAL 10 MG PO (09:36)
[2024-08-30] MEDS: PROTONIX 40 MG PO (09:37)
[2024-08-30] MEDS: ASPIR LOW (ENTERIC COATED) 81 MG PO (09:37)
[2024-08-30] MEDS: SENOKOT PO (09:37)
[2024-08-30] MEDS: HYDROCORTISONE 1% CREAM 1 APPLIC TOPICAL (09:37)
[2024-08-30] MEDS: MIRALAX PO (09:37)
[2024-08-30] MEDS: TRIAMCINOLONE ACETONIDE 0.1% CREAM 1 APPLIC TOPICAL (09:37)
--- NOTE | 2024-08-30 12:43 | PTCARENOTE ---
Pt for d/c to [facility]. Report called to receiving RN. IV and monitor equipment removed. Belongings collected from room. D/C via EMS.
--- NOTE | 2024-08-30 17:34 | CM ---
Patient from [facility] with Dx CADY and Hypotension, Urinary retention. Room air. Oriented x 2 per SNF, Oriented x3 per nurse.
SNF referrals from 08/29 reviewed; no accepting SNFs except [facility].
Spoke with Haleigh, [facility]; they are able to accept the patient back today. The phone for report [phone] 3rd floor nurses station, fax [phone].
Spoke with patient and his sister Tejal; provided update that there are no alternate accepting SNFs in the [facility]. Both agree to d/c today back to [facility]. Sister confirms that the patient does not have Medicare.
Plan return to [facility] today by ambulance.
== END 2024-08-30 12:45 | DRG 682 ==
LOC: IMU 11:00
PROVIDERS: Physician Assistant; ADMITTING PHYSICIAN Hospitalist; EMERGENCY PHYSICIAN Emergency Medicine; FAMILY PHYSICIAN Internal Medicine
DX: N17.9 Acute kidney failure, unspecified (principal); R57.1 Hypovolemic shock; I69.354 Hemiplegia and hemiparesis following cerebral infarction affecting left non-dominant side; E11.9 Type 2 diabetes mellitus without complications; E78.00 Pure hypercholesterolemia, unspecified; F32.9 Major depressive disorder, single episode, unspecified; E66.01 Morbid (severe) obesity due to excess calories; I95.9 Hypotension, unspecified; E86.0 Dehydration; G89.29 Other chronic pain; M54.50 Low back pain, unspecified; N40.1 Benign prostatic hyperplasia with lower urinary tract symptoms; R33.8 Other retention of urine; I10 Essential (primary) hypertension; K21.9 Gastro-esophageal reflux disease without esophagitis; D64.9 Anemia, unspecified; Z66 Do not resuscitate; Z68.38 Body mass index [BMI] 38.0-38.9, adult; Z11.52 Encounter for screening for COVID-19; Z87.891 Personal history of nicotine dependence; Z79.01 Long term (current) use of anticoagulants; Z79.82 Long term (current) use of aspirin
CPT/HCPCS: 71045; 80048; 80053; 81003; 81015; 82533; 82962; 83605; 83880; 84443; 85025; 87070; 87086; 87502; 87811; 96361; 96374; 99285

== ENCOUNTER 2024-09-16 15:34 | Inpatient (IN) | payer OTHER, SELFPAY ==
[2024-09-16] VITALS (62 sets, daily range): BP systolic 56–205; BP diastolic 33–179; BMI 37.2; BMI 36.2
--- NOTE | 2024-09-16 12:42 | ED.GENMED ---
History of Present Illness
General
Chief Complaint: Heart Rate Problem
Source: patient and [facility]
Time Seen by Provider: 09/16/24 12:27
History of Present Illness
History of Present Illness:
59-year-old male sent to the emergency room from [facility] for bradycardia, shortness of breath. Patient's been feeling unwell since this morning. He denies chest pain. He feels pretty short of breath. No cough. He is unaware of any fever.
Patient states he has not urinated since yesterday. 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 He has been at this facility for 2 years.
Past History
Past History
ED Past Medical History: CVA, GERD, HTN, Hypercholesterolemia, NIDDM, Seizures, Psychiatric (Depression) and Other (obesitiy)
Phy Exam
Physical Exam
Physical Exam:
General: Awake, Alert, Oriented X3. No acute distress.
Vitals: unremarkable
Head: Atraumatic
Eyes: Pupils equal, EOMI
Throat: Airway intact, no exudates, dry mucosa
Neck: Trachea midline
Lungs: Clear and equal b/l
Heart: Regular rate, no murmurs
Abd: Soft, no tenderness, suprapubic fullness, No pulsatile mass
Neuro: Left hemiparesis
Skin: Warm, dry, no rash
Extremities: pulses equal b/l, 1+ edema
Course
Orders/Labs/Results
Orders:
Orders
09/16/24 12:27
Electrocardiogram (*1) Urgent
Reason for Study: Chest Pain
EKG- Treatment ONCE
09/16/24 12:39
Cardiac Monitoring- Treatment ONCE
0.9% Sodium Chloride 1000 ml [Nss] 1,000 ml IV BOLUS
09/16/24 12:40
Electrocardiogram (*1) Urgent
Reason for Study: Other
Other Reason for Exam: sepsis
EKG- Treatment ONCE
Gutierrez [Gutierrez Placement- Treatment] ONCE
Reason for insertion: Acute Retention
CR Chest Portable - 1 View Urgent
Comment:
Reason For Exam: bradycardia
Reason Study Needs to be Portable: Patient Unstable
09/16/24 12:47
Complete Blood Count/With Diff Urgent
Lactic Acid Q4H
Comment: CANCEL 2nd LACTIC ACID IF 1st LACTIC ACID IS LESS THAN 2
Blood Culture Q30M
ERIC Source: Blood/Venous
Specimen Description:
09/16/24 13:08
Blood Culture Q30M
ERIC Source: Blood/Venous
Specimen Description:
09/16/24 13:29
Comprehensive Metabolic Panel Urgent
Urinalysis Reflex To Culture Urgent
Date Specimen was Collected: 09/16/24
Time Specimen was Collected: 13:14
Urine Microscopic Reflex Cult Urgent
Urine Culture Urgent
ERIC Source: U
Specimen Description:
Date Specimen was Collected: 09/16/24
Time Specimen was Collected: 13:14
09/16/24 14:33
Admit/Transfer Patient As Directed
Co-Sign Provider:
Level of Care: Inpatient admission
Assign to:: IVU
Physician / Group: Hospitalist
Diagnosis: Bradycardia
Reason for Hospitalization: .
Expected length of stay greater than two midnights?: Yes
ELOS- Estimated Length of Stay in days: 3
I certify the patient meets the requirements for IP care: Yes
PRN Pain Medication Management As Directed
May give lesser potent ordered pain med per pt: Yes
preference::
Protocol:: Medication orders for pain may be administered in a
manner that supports deferring to patient preference
when the pt is:
- Requesting an ordered lesser potent pain medication.
Least to most potent pain medications are defined
as: acetaminophen < NSAID < tramadol < opioids
(morphine, oxycodone, hydromorphone).
- Requesting a lesser dose of the same medication IF
ORDERED.
- Requesting a less intrusive route of administration
if both routes are prescribed by the provider (PO <
IV).
09/16/24 14:38
Code Status As Directed
Resuscitation Status: Do not resuscitate
Reached after discussion with pt or family/Healthcare POA: Yes
DNR Bracelet Application ONCE
09/16/24 16:45
Lactic Acid Q4H
Comment: CANCEL 2nd LACTIC ACID IF 1st LACTIC ACID IS LESS THAN 2
Abnormal Lab Results
09/16/24 09/16/24
12:47 13:29
WBC 4.4 L 10^3/uL
(4.8-10.8)
RBC 4.05 L 10^6/uL
(4.70-6.10)
Hgb 12.0 L g/dL
(13.0-18.0)
Hct 35.9 L %
(39.0-52.0)
MPV 10.5 H fL
(7.4-10.4)
Carbon Dioxide 33 H mmol/L
(22-30)
BUN 32 H mg/dl
(9-20)
Creatinine 2.7 H mg/dL
(0.7-1.3)
Lactic Acid 0.6 L mmol/L
(0.7-2.0)
Urine Ketones 1+ A
(Negative)
Ur Occult Blood Reflex 2+ A
(Negative)
Leukocyte Esterase Rfl 3+ A
(Negative)
Urine RBC 3-6 A /HPF
(0-2)
Urine WBC (Reflex) 70-80 A /HPF
(0-5)
Urine Bacteria (Reflex) Moderate A
(Negative)
Urine Albumin (Reflex) 1+ A
(Neg - Trace)
09/16/24 12:47
09/16/24 13:29
Vital Signs
Initial and Last Documented VS:
Initial Vital Signs
Resp Pulse Ox
0 67
09/16/24 12:26 09/16/24 12:26
Last Documented Vital Signs
Pulse Resp BP Pulse Ox
55 9 103/60 97
09/16/24 14:15 09/16/24 14:15 09/16/24 14:00 09/16/24 14:16
MDM/Problems Addressed
Differential Diagnosis Includes:
Hyperkalemia, renal failure, sepsis, adverse medication effect
MDM/Problems Addressed:
Patient found by medics to be bradycardic and hypotensive. He was treated with atropine. Upon arrival here his heart rate has improved to the 60s to 70s. He has a adequate blood pressure. He is complaining of shortness of breath and his pulse ox
was low on arrival however his chest x-ray does not show any acute abnormality. Renal function is elevated compared to baseline. Bladder scan reveals urinary retention for which a Gutierrez catheter was placed. Looks like he had similar presentation
just a couple weeks ago. Patient will require hospitalization for careful monitoring of his vital signs, renal function
*Radiology
Radiology exam reviewed: radiology read reviewed
*Pulse Oximetry
Patient hypoxic: yes
Comment: 88
*EKG
Interpreted by ED Provider?: Yes
Heart Rate: 69
Rate: normal
Rhythm: sinus
QRS Pattern: right bundle branch block
Ischemia: non-specific ST changes
*Human Resources Records Clerk Interpretation
Rate: normal
Rhythm: sinus
*Critical Care Note
Total Time (30-74mins, 75-104mins- exclusive of procedures): 35 min
comment:
Critical care statement: A total of 35 minutes of critical care time was provided for this patient. This includes management of unstable vital signs, evaluation of the patient at bedside, reviewing the patient's pertinent medical records, discussion
with consultants, review of old EKGs and review of pertinent medical records. This time with separate from time utilized to perform the aforementioned documented procedures
ED Attending Note
-
Portions of this chart may have been created with voice recognition software.� Occasional wrong word or��sound alike� substitutions may have occurred due to the inherent limitations of voice recognition software.
Discharge Plan
Departure
Patient Disposition: Admit
Date of Disposition: 09/16/24
Time of Disposition: 14:21
Admit to: IMU
Presentation/result/management discussed w/ accepting MD/DO: Hospitalist
Condition: Fair
Discharge Problem:
Acute renal failure, Acute on chronic urinary retention, Bradycardia
Prescriptions:
No Action
atorvastatin [Lipitor] 80 mg Tablet
80 mg PO HS
sennosides [senna] 8.6 mg Tablet
17.2 mg PO BID
acetaminophen [Tylenol] 325 mg Tablet
650 mg PO Q6HPRN PRN (Reason: mild pain)
polyethylene glycol 3350 [Miralax] 17 gram Powder In Packet
17 g PO BID
aspirin 81 mg Tablet,Delayed Release (Dr/Ec)
81 mg PO DAILY
triamcinolone acetonide 0.1 % Cream
1 applic TOPICAL BID
magnesium hydroxide [Milk of Magnesia] 400 mg/5 mL Suspension
30 ml PO [id number] PRN (Reason: if no bm on 3rd day)
tamsulosin [Flomax] 0.4 mg Capsule
0.4 mg PO QPM
pantoprazole 40 mg Tablet,Delayed Release (Dr/Ec)
40 mg PO BID
divalproex 125 mg Tablet,Delayed Release (Dr/Ec)
125 mg PO HS
Fleet Enema 19-7 gram/118 mL Enema
118 ml CA DAILYPRN PRN (Reason: if no bm aftr dulcolax)
bisacodyl [Dulcolax (bisacodyl)] 5 mg Tablet,Delayed Release (Dr/Ec)
5 mg PO DAILYPRN PRN (Reason: if no bm aftr mom)
Muscle Rub 15-10 % Cream
1 applic TOPICAL Q6HPRN PRN (Reason: mild pain on knees)
melatonin 5 mg Tablet
8 mg PO HS
Eliquis 5 mg Tablet
5 mg PO BID
sertraline 150 mg Capsule
150 mg PO DAILY
lidocaine 4 % Adhesive Patch,Medicated
1 patch TOPICAL DAILY
Rx Instructions:
lt knee
lidocaine 5 % Cream
1 applic TOPICAL BID
trazodone 100 mg Tablet
200 mg PO HS
hydrocortisone 1 % Cream
1 applic TOPICAL BID
simethicone 125 mg Tablet
125 mg PO Q8HPRN PRN (Reason: gas pains)
lidocaine 5 % Adhesive Patch,Medicated
1 patch TOPICAL DAILY
bisacodyl [Dulcolax (bisacodyl)] 10 mg Suppository
10 mg CA DAILY PRN (Reason: consipation, no relief from MoM)
Lactobacillus acidophilus Capsule
1 cap PO DAILY
baclofen 10 mg Tablet
10 mg PO TID Qty: 0 0RF
carvedilol [Coreg] 3.125 mg tablet
3.125 mg PO BID Qty: 60 0RF
Rx Instructions:
Hold for heart rate less than 60
Interventions
Interventions:
ED- Cardiac Assessment Last Done: 09/16/24 13:32
ED- Pulmonary Assessment Last Done: 09/16/24 13:32
Discharge Date and Time
Print Language: SWEDISH
[2024-09-16] MEDS: NSS 1000 IV ×3 (12:45→18:49)
[2024-09-16 12:55] LABS: % Basophils 0.5 % (0-2); % Eosinophils 2.1 % (0-6); % Immature Granulocytes 0.2 % (0-0.5); % Lymphocytes 32.5 % (20.5-51.1); % Monocytes 7.1 % (1.7-9.3); % Neutrophils 57.6 % (42.2-75.2); Absolute Eosinophils 0.1 10^3/uL (0-0.7); Absolute Lymphocytes 1.4 10^3/uL (1.2-3.4); Absolute Monocytes 0.3 10^3/uL (0.1-0.6); Absolute Neutrophils 2.5 10^3/uL (1.4-6.5); Hematocrit 35.9 % (39.0-52.0); Mean Corp Hgb Conc. 33.4 g/dL (33.0-37.0); Mean Corpuscular Hgb 29.6 pg (27.0-31.0); Mean Corpuscular Volume 88.6 fL (80.0-94.0); Mean Platelet Volume 10.5 fL (7.4-10.4); Nucleated Red Blood Cells % 0 % (-); Platelet Count 250 10^3/uL (130-400); Red Blood Cell Count 4.05 10^6/uL (4.70-6.10); Red Cell Dist. Width 14.2 % (11.5-14.5); White Blood Cell Count 4.4 10^3/uL (4.8-10.8)
[2024-09-16 13:24] LABS: Lactic Acid 0.6 mmol/L (0.7-2.0)
[2024-09-16 13:45] LABS: Urine Albumin 1+ (Neg - Trace); Urine Bilirubin Negative (Negative); Urine Character Clear (Clear); Urine Color Yellow; Urine Glucose Negative (Negative); Urine Ketone 1+ (Negative); Urine Leukocyte 3+ (Negative); Urine Nitrite Negative (Negative); Urine Occult Blood 2+ (Negative); Urine Urobilinogen Negative (Neg - 1+)
[2024-09-16 14:04] LABS: ALT (SGPT) 16 U/L (0-50); AST (SGOT) 21 U/L (17-59); Albumin 3.9 g/dl (3.5-5.0); Alkaline Phosphatase 65 U/L (38-126); Blood Urea Nitrogen 32 mg/dl (9-20); Calcium 9.3 mg/dl (8.4-10.2); Carbon Dioxide 33 mmol/L (22-30); Chloride 99 mmol/L (98-107); Estimated Creatinine Clearance 38 ml/min; Glucose 91 mg/dl (70-99); Sodium 139 mmol/L (135-145); Total Bilirubin 0.8 mg/dl (0.2-1.3); Total Protein 7.5 g/dl (6.3-8.2)
[2024-09-16 14:26] LABS: Urine Bacteria Moderate (Negative); Urine White Cell 70-80 /HPF (0-5)
--- NOTE | 2024-09-16 14:33 | HPS.HSE ---
Family Physician
-
Family Physician: NOT KNOW UNKNOWN - PT DOES
Chief Complaint
-
Sent for bradycardia / urinary retention
History of Present Illness
59-year-old male with past medical history for CVA with left-sided weakness, hypertension, hyperlipidemia, type 2 diabetes, depression, BPH presented to the emergency room from [place] for bradycardia, shortness of breath.
Per ER physician, patient looked short of breath upon arrival and he was not bradycardic. He looked dehydrated was given IV fluid with improvement in his blood pressure.
I saw the patient in the emergency room 5, he reported he was here for urinary retention ( I could not pee). He complained of pain in left knee and left elbow. He denied chest pain or shortness of breath to me. In the ER, he was found to have
creatinine around 2 and urinary retention, Gutierrez catheter was not placed. Patient did not have fever or leukocytosis. Creatinine around 2.7 with potassium 4.0. Heart rate on the monitor around 60.
Medical History
Past Medical History
Past Medical History: Reports Other (Strict stroke left hemiaplasia, hypertension, hyperlipidemia, diabetes, depression, BPH, history of chronic urinary retention, chronic back pain, obesity.)
Past Surgical History: Reports Other (No recent major surgery )
Social History
Tobacco: Former Smoker
Alcohol: Former
Drug: None
Personal: Single
Living: Group Home
Employment: Disabled
Family History
Family History: Not pertinent
Allergies / Home Medications
Allergies reflects when Allergies were last updated in [employer].
Home Medications with original date entered in [employer]
Allergy/Medication List:
Allergies
Allergy/AdvReac Type Severity Reaction Status Date / Time
No Known Allergies Allergy Verified 09/16/24 12:52
Home Medications
acetaminophen 325 mg tablet (Tylenol) 650 mg PO Q6HPRN PRN mild pain 09/23/23
apixaban 5 mg tablet (Eliquis) 5 mg PO BID Blood Clot Prevention/Tx 09/23/23
aspirin 81 mg tablet,delayed release 81 mg PO DAILY Blood Clot Prevention/Tx 09/23/23
atorvastatin 80 mg tablet (Lipitor) 80 mg PO HS High Cholesterol 09/23/23
bisacodyl 5 mg tablet,delayed release (Dulcolax (bisacodyl)) 5 mg PO DAILYPRN PRN if no bm aftr mom 09/23/23
divalproex 125 mg tablet,delayed release 125 mg PO HS Seizures 09/23/23
magnesium hydroxide 400 mg/5 mL oral suspension (Milk of Magnesia) 30 ml PO [id number] PRN if no bm on 3rd day 09/23/23
melatonin 5 mg tablet 8 mg PO HS Sleep 09/23/23
methyl salicylate 15 %-menthol 10 % topical cream (Muscle Rub) 1 applic topical Q6HPRN PRN mild pain on knees 09/23/23
pantoprazole 40 mg tablet,delayed release 40 mg PO BID Gastrointestinal Issue 09/23/23
polyethylene glycol 3350 17 gram oral powder packet (Miralax) 17 g PO BID Constipation 09/23/23
sennosides 8.6 mg tablet (senna) 17.2 mg PO BID Constipation 09/23/23
sertraline 150 mg capsule 150 mg PO DAILY Depression 09/23/23
sodium phosphates 19 gram-7 gram/118 mL enema (Fleet Enema) 118 ml GA DAILYPRN PRN if no bm aftr dulcolax 09/23/23
tamsulosin 0.4 mg capsule (Flomax) 0.4 mg PO QPM Urinary Issue 09/23/23
triamcinolone acetonide 0.1 % topical cream 1 applic topical BID atopic dermatitis, scalp 09/23/23
hydrocortisone 1 % topical cream 1 applic topical BID scalp 05/04/24
lidocaine 4 % topical patch 1 patch topical DAILY left knee 05/04/24
lidocaine 5 % topical cream 1 applic topical BID left hand 05/04/24
simethicone 125 mg tablet 125 mg PO Q8HPRN PRN gas pains 05/04/24
trazodone 100 mg tablet 200 mg PO HS mental health/sleep 05/04/24
Lactobacillus acidophilus 1 cap PO DAILY Gastrointestinal Issue 08/28/24
bisacodyl 10 mg rectal suppository (Dulcolax (bisacodyl)) 10 mg GA DAILY PRN consipation, no relief from MoM 08/28/24
lidocaine 5 % topical patch 1 patch topical DAILY r knee 08/28/24
baclofen 10 mg tablet 10 mg PO TID #0 tabs 08/30/24
carvedilol 3.125 mg tablet (Coreg) 3.125 mg PO BID #60 tabs 08/30/24
Review of Systems
-
History Source: Patient
A 12 point ROS was completed and negative except as noted: Yes
Constitutional: Denies Fever
EENT: Denies Sore Throat
Respiratory: Denies Cough
Cardiac: Denies Chest Pain
Abdomen/GI: Denies Abdominal Pain
: Reports Difficulty Voiding; Denies Bleeding
Musculoskeletal: Reports Joint Pain (left knee & elbow )
Endocrine: Denies Temp Intolerance
Hematologic/Lymphatic: Denies Bruising
Psych: Denies Panic Disorder
Physical Exam
Vital Signs
Vital Signs
Pulse Resp BP Pulse Ox
55 9 103/60 97
09/16/24 14:15 09/16/24 14:15 09/16/24 14:00 09/16/24 14:16
Physical Exam
General: No Apparent Distress, Comfortable, Appears Chronically Ill and Obese
HEENT: Moist mucous membranes and Atraumatic
Respiratory: Decreased Breath Sounds
Cardiac: S1/S2
GI: Soft and Non Tender
Genito-urinary: Clear Urine and Gutierrez
Musculoskeletal: No Cyanosis
Skin: No Jaundice
Neuro: AO x 3; No Slurred Speech, Facial Droop, Tremors or Sedated
Psych: Calm; No Agitated or Anxious
Laboratory Results
-
09/16/24 12:47
09/16/24 13:29
Laboratory Results
Lactic Acid 0.6 mmol/L (0.7-2.0) L 09/16/24 12:47
Total Bilirubin 0.8 mg/dl (0.2-1.3) 09/16/24 13:29
AST 21 U/L (17-59) 09/16/24 13:29
ALT 16 U/L (0-50) 09/16/24 13:29
Alkaline Phosphatase 65 U/L (38-126) 09/16/24 13:29
Impression/Plan
-
#CADY - suspect due to acute urinary retention with volume depletion. Presentation with hypotension, hypovolemic shock, improved with IV fluids.
Hold antihypertensives and diuretics. Hold KRISTOPHER inhibitor.
maintain Gutierrez
Monitor renal function daily.
# An episode of bradycardia and was given atropine by EMT. Currently he is in sinus rhythm. EKG with a chronic right bundle branch block
Troponin is negative. Potassium level is normal.
Hypotension shock could be hypovolemic, cannot rule out septic shock.
Could be also hypotension secondary to hypovolemia and taking blood pressure medications with diuretics.
Give IV fluid. Patient denies chest pain or shortness of breath.
Start Levophed drip for pressure pressure support
Empiric antibiotic, blood culture
Appreciate ICU/cardiology input
Essential hypertension - currently hypotensive due to volume depletion. Hold meds as above.
Hyperlipidemia - Atorvastatin.
history of stroke - with left hemiparesis.
chronic normocytic anemia - hemoglobin at baseline.
BPH
morbid obesity due to excess calories
DNR, per living will and records, confirmed with patient.
Addendum
I called both contact on chart, no response. Tejal's number seems not in service
Total critical time spent to see the patient, examine the patient, review data and lab result, discuss treatment plan with patient, ER doctor and nursing staff around 75 minutes
--- NOTE | 2024-09-16 15:49 | CM ---
Addendum entered by Margarita Cuevas 09/17/24 08:37:
Primary Care Physician: Elias Toledo, [address] [facility], [place], [place], [place]; phone # [phone]
Addendum entered by Margarita Cuevas 09/16/24 16:00:
Pharmacy: [facility] @ [address] [place] [address]
Original Note:
Patient resides at [facility] for 2 years
Per caregiver at facility, patient is bedridden and requires total care; able to feed himself; Harika Lift needed to get him out of bed
Plan: return to [facility] when medically stable; referral sent via [facility]
[2024-09-16 16:02] LABS: Troponin I 0.015 ng/ml
[2024-09-16] MEDS: LEVOPHED 250 IV (16:18)
[2024-09-16 16:34] LABS: Glucose - Point of Care 70 mg/dl (70-99)
--- NOTE | 2024-09-16 18:14 | PHA.VAN.IN ---
Assessment
- Assessment
Renal Function: SCR Appears Elevated from baseline
Concomitant Antimicrobials: piperacillin-tazobactam
Plan
- Plan
Initial / Loading Dose: 2000mg - pending administration
Maintenance Regimen: dose by level
Monitoring: random level6/15 am
MRSA Screen: Ordered per protocol (MRSA PCR)
Pharmacokinetics Vancomycin I
- -
Patient Age: 59
Patient Sex: Male
Vancomycin Day #: 1
Indication: Pulmonary/Respiratory
Requesting Provider: Dr Wood
Pertinent Antimicrobial Allergies:
no known allergies
Height / Weight:
Height 5 ft 11 in
Actual Weight 121 kg
Pertinent Past Medical History: CKD
- Vital Signs / Lab Results
Pulse Resp BP Pulse Ox
49 13 93/51 97
09/16/24 17:15 09/16/24 17:15 09/16/24 17:15 09/16/24 17:15
Lab Results - Hematology
09/16/24
12:47
WBC 4.4 L
Lab Results - Chemistry
09/16/24 09/16/24
12:47 13:29
BUN Cancelled 32 H
Creatinine Cancelled 2.7 H
Estimated Creat Clear Cancelled 38
Albumin Cancelled 3.9
09/16/24 09/16/24
12:47 16:45
Lactic Acid 0.6 L Cancelled
Lab Results - Urine
09/16/24
13:29
Urine Nitrite (Reflex) Negative
Leukocyte Esterase Rfl 3+ A
Urine WBC (Reflex) 70-80 A
Ur Squamous Epith Cells 3-5
Urine Bacteria (Reflex) Moderate A
[2024-09-16] MEDS: ZOSYN 50 IV ×2 (18:25→23:33)
[2024-09-16] MEDS: VANCOCIN 540 MG IV (18:53)
[2024-09-16] MEDS: ELIQUIS 2.5 MG PO (20:34)
[2024-09-16] MEDS: PROTONIX 40 MG PO (20:34)
[2024-09-16 21:34] LABS: Glucose - Point of Care 94 mg/dl (70-99)
[2024-09-16] MEDS: DEPAKOTE (12 HR RELEASE) 125 MG PO (23:33)
[2024-09-16] MEDS: LIPITOR 80 MG PO (23:33)
[2024-09-16 23:39] LABS: INR 1.35
[2024-09-16 23:40] LABS: APTT 28.8 Sec (23.4-35.0)
[2024-09-16 23:42] LABS: Phosphorus 3.5 mg/dl (2.5-4.5)
--- NOTE | 2024-09-16 23:43 | PTCARENOTE ---
Patient received in room 3364 on Levophed at 6 mcg/min, and Normal Saline at 150 ml/hr at ~2117-. Patient is AAOx3 and able to make his needs known. Left sided weakness with left arm contracted at the elbow and hand. Patient also has right arm
tremors/shaking that's intermittent and uncontrollable per the pt. Plan of care for the shift reviewed with the patient. Patient verbalized not feeling safe at current facility and requested case management. Sinus christoph to sinus rhythm on the
monitor with HR fluctuating between 50-60s. SpO2 at 89% on room air. Patient placed on 2L/o2 nc and improved to 90%. O2 increased to 4L. SpO2 at 100%. Diminished breath sounds. +BS. Abdomen is round and obese. Gutierrez catheter is intact and draining
yellow urine. Medications administered with applesauce. Labs drawn and sent. Patient repositioned. Call graham is within reach.
[2024-09-17] VITALS (65 sets, daily range): BP systolic 82–170; BP diastolic 27–123; BMI 36.9
[2024-09-17] MEDS: LEVOPHED 250 IV ×2 (01:50→14:29)
[2024-09-17] MEDS: NSS 1000 IV ×3 (02:06→20:26)
[2024-09-17 05:28] LABS: Hematocrit 35.2 % (39.0-52.0); Hemoglobin 11.7 g/dL (13.0-18.0); Mean Corp Hgb Conc. 33.2 g/dL (33.0-37.0); Mean Corpuscular Hgb 29.8 pg (27.0-31.0); Mean Corpuscular Volume 89.8 fL (80.0-94.0); Mean Platelet Volume 10.4 fL (7.4-10.4); Platelet Count 282 10^3/uL (130-400); Red Blood Cell Count 3.92 10^6/uL (4.70-6.10); White Blood Cell Count 7.8 10^3/uL (4.8-10.8)
[2024-09-17 05:51] LABS: Blood Urea Nitrogen 23 mg/dl (9-20); Calcium 9.1 mg/dl (8.4-10.2); Carbon Dioxide 27 mmol/L (22-30); Chloride 102 mmol/L (98-107); Estimated Creatinine Clearance 56 ml/min; Glucose 142 mg/dl (70-99); Sodium 140 mmol/L (135-145)
[2024-09-17] MEDS: ZOSYN 50 IV ×4 (05:56→23:36)
[2024-09-17 05:58] LABS: Vancomycin Random 13.9 ug/ml
--- NOTE | 2024-09-17 06:03 | PTCARENOTE ---
Patient reassessed. No changes. Turns and repositioning continued.
[2024-09-17] MEDS: ProAmatine 5 MG PO ×3 (07:25→17:35)
[2024-09-17] MEDS: LOW STRENGTH ASPIRIN 81 MG PO (07:25)
[2024-09-17] MEDS: ELIQUIS 2.5 MG PO ×2 (07:25→20:28)
[2024-09-17] MEDS: PROTONIX 40 MG PO ×2 (07:25→20:28)
--- NOTE | 2024-09-17 08:34 | PTCARENOTE ---
recd 0715 handoff at bedside, awake, conversant. neuro remains with L jose g and contractures. able to move R arm well, R leg as well. positioned for comfort. titrating levophed as noted. meds as ordered, recd dose midodrine this am. denies
pain. ordered breakfast, when tray delivered notes mild nausea and wishes to hold off eating for now. taking fluids well. meds in applesauce without diff. watching TV, call graham in hand.
--- NOTE | 2024-09-17 08:40 | CON.INTV ---
Consultation
Consultation Request
Date/Time Consultation Requested: 09/16/2024 - 1714
Date/Time Consultation Performed: 09/17/2024829
Requesting Provider: Dr. Wood
Performing Provider: Dr. Mercedes
Reason for Consultation: Sepsis
Medical History
-
Chief Complaint: Urinary retention + low heart rate
History of Present Illness:
59-year-old male with a past medical history of stroke with left hemiplegia, hypertension, hyperlipidemia, DM type II, depression, BPH, chronic urinary retention, chronic back pain, obesity, and former tobacco use who presented with bradycardia and
SOB with urinary retention. Patient resides at [facility] in [place]. At baseline he is bedridden and requires total care although he is able to feed himself and requires a Harika lift to get out of bed. In the ER he
was hypotensive to 57/33, heart rate 75, and saturating 97% on room air. Initial labs pertinent for WBC 4.4, Hb 12, creatinine 2.7, and urinalysis with +3 leukocyte esterase. Blood cultures and urine cultures collected. CXR shows chronic
retrocardiac opacification, and unable to tell if there is a opacity in the left midlung as his hand was over his midsternal region. In the ER he was given 1 L NS 0.9% and was started on Levophed due to hypotension and admitted to the ICU.
Dehydrator Tender services consulted for additional management/recommendations.
Pt was seen and evaluated this AM. HR 66, BP 114/27 and SpO2 91%. He is currently on Levophed at 2 mcg/min. He feels abdominal bloating with some left lower quadrant abdominal pain. He currently denies BUENROSTRO, nausea, fevers or chills.
PMHx: History of stroke with left hemiplegia, hypertension, hyperlipidemia, DM type II, depression, BPH, chronic urinary retention, chronic back pain, obesity, former tobacco use, history of seizures
PSHx: Renal stents
Past Medical History
Past Medical History: Other (Above as per HPI)
Past Surgical History: Other (Above as per HPI)
Social History
Tobacco: Former Smoker
Alcohol: Former
Drug: None
Personal: Single
Living: [facility]
Employment: Disabled
Family History
Family History: Reviewed & Not Pertinent
Allergies / Home Medications
Allergies
Allergy/AdvReac Type Severity Reaction Status Date / Time
No Known Allergies Allergy Verified 09/16/24 12:52
Home Medications
�Medication �Instructions �Recorded �Confirmed �Last Taken �Type
acetaminophen 325 mg tablet 650 mg PO Q6HPRN PRN mild 09/23/23 09/16/24 Unknown History
(Tylenol) pain/fever
apixaban 5 mg tablet (Eliquis) 5 mg PO BID Blood Clot 09/23/23 09/16/24 Unknown History
Prevention/Tx
atorvastatin 80 mg tablet (Lipitor) 80 mg PO HS High Cholesterol 09/23/23 09/16/24 Unknown History
bisacodyl 5 mg tablet,delayed 5 mg PO DAILYPRN PRN constipation 09/23/23 09/16/24 Unknown History
release (Dulcolax (bisacodyl))
divalproex 125 mg tablet,delayed 125 mg PO HS Seizures 09/23/23 09/16/24 Unknown History
release
magnesium hydroxide 400 mg/5 mL 30 ml PO DAILYPRN PRN if no bm in 09/23/23 09/16/24 Unknown History
oral suspension (Milk of Magnesia) 3 days
methyl salicylate 15 %-menthol 10 1 applic topical Q6HPRN PRN mild 09/23/23 09/16/24 Unknown History
% topical cream (Muscle Rub) pain
pantoprazole 40 mg tablet,delayed 40 mg PO BID Gastrointestinal Issue 09/23/23 09/16/24 Unknown History
release
polyethylene glycol 3350 17 gram 17 g PO BID Constipation 09/23/23 09/16/24 Unknown History
oral powder packet (Miralax)
sennosides 8.6 mg tablet (senna) 17.2 mg PO BID Constipation 09/23/23 09/16/24 Unknown History
sertraline 150 mg capsule 150 mg PO DAILY Depression 09/23/23 09/16/24 Unknown History
sodium phosphates 19 gram-7 118 ml AR DAILYPRN PRN if no bm 09/23/23 09/16/24 Unknown History
gram/118 mL enema (Fleet Enema) aftr dulcolax
tamsulosin 0.4 mg capsule (Flomax) 0.4 mg PO QPM Urinary Issue 09/23/23 09/16/24 Unknown History
triamcinolone acetonide 0.1 % 1 applic topical BID atopic 09/23/23 09/16/24 Unknown History
topical cream dermatitis
hydrocortisone 1 % topical cream 1 applic topical BID scalp 05/04/24 09/16/24 Unknown History
lidocaine 4 % topical patch 1 patch topical DAILY left knee 05/04/24 09/16/24 Unknown History
lidocaine 5 % topical cream 1 applic topical BID left hand 05/04/24 09/16/24 Unknown History
simethicone 125 mg tablet 125 mg PO Q8HPRN PRN gas pains 05/04/24 09/16/24 Unknown History
trazodone 100 mg tablet 200 mg PO HS mental health/sleep 05/04/24 09/16/24 Unknown History
Lactobacillus acidophilus 1 cap PO DAILY Gastrointestinal 08/28/24 09/16/24 Unknown History
Issue
bisacodyl 10 mg rectal suppository 10 mg AR DAILY PRN constipation if 08/28/24 09/16/24 Unknown History
(Dulcolax (bisacodyl)) MOM ineffective
lidocaine 5 % topical patch 1 patch topical DAILY right knee 08/28/24 09/16/24 Unknown History
amlodipine 10 mg tablet 10 mg PO DAILY Blood Pressure 09/16/24 09/16/24 Unknown History
aspirin 81 mg chewable tablet 81 mg PO DAILY Blood Clot 09/16/24 09/16/24 Unknown History
Prevention/Tx
baclofen 10 mg tablet 20 mg PO TID Skeletal Muscle 09/16/24 09/16/24 Unknown History
Relaxant
carvedilol 12.5 mg tablet 12.5 mg PO BID Blood Pressure 09/16/24 09/16/24 Unknown History
hydrochlorothiazide 25 mg tablet 25 mg PO DAILY Fluid 09/16/24 09/16/24 Unknown History
Retention/Swelling
lisinopril 40 mg tablet 40 mg PO DAILY Blood Pressure 09/16/24 09/16/24 Unknown History
melatonin 1 mg tablet 8 mg PO HS Sleep 09/16/24 09/16/24 Unknown History
selenium sulfide 2.5 % lotion 1 applic topical Q8HPRN PRN itching 09/16/24 09/16/24 Unknown History
torsemide 10 mg tablet 10 mg PO DAILY Fluid 09/16/24 09/16/24 Unknown History
Retention/Swelling
Review of Systems
-
History Source: Patient
All other systems: Negative unless noted
Vitals / Labs / Diagnostic Testing
Vital Signs
Temp Pulse Resp BP Pulse Ox
98.5 F 64 14 104/57 96
09/17/24 07:00 09/17/24 07:25 09/17/24 07:00 09/17/24 07:25 09/17/24 06:45
Lab Data
09/17/24 05:17
09/17/24 05:17
Laboratory Results
09/16/24
23:18
PT 17.0 H
INR 1.35
APTT 28.8
Microbiology
09/16/24 23:18 Nose Nasal Screen MRSA (PCR) - Final
MRSA not detected - performed by PCR methodology.
Diagnostic Testing:
Physical Exam
-
HEENT: Normocephalic and Anicteric
Cardiovascular: S1/S2 and Peripheral Edema (+1 lower extremity edema bilaterally)
Respiratory: Wheeze (negative), Rales (negative), Rhonchi (negative) and Non-Labored Respirations
GI: Soft, Distended (Abdominal obesity), Non Tender and Normal Bowel Sounds
Neurology: Awake, Alert and Tremors (negative)
Skin: Warm and Dry
General: Respiratory Distress (negative), Comfortable, Fever (negative) and Chills (negative)
Assessment
-
Assessment: 59-year-old male with a past medical history of stroke with left hemiplegia, hypertension, hyperlipidemia, DM type II, depression, BPH, chronic urinary retention, chronic back pain, obesity, and former tobacco use who presented with
bradycardia and SOB with urinary retention. Patient resides at [facility] in [place]. At baseline he is bedridden and requires total care although he is able to feed himself and requires a Harika lift to get out of
bed. In the ER he was hypotensive to 57/33, heart rate 75, and saturating 97% on room air. Initial labs pertinent for WBC 4.4, Hb 12, creatinine 2.7, and urinalysis with +3 leukocyte esterase. Blood cultures and urine cultures collected. CXR
shows chronic retrocardiac opacification, and unable to tell if there is a opacity in the left midlung as his hand was over his midsternal region. In the ER he was given 1 L NS 0.9% and was started on Levophed due to hypotension and admitted to the
ICU. Dehydrator Tender services consulted for additional management/recommendations.
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
Impression:
#Septic shock with suspected UTI as source
#Anemia
#Bradycardia
#CADY (baseline creatinine 0.9�1.1)
#Abnormal urinalysis with +2 leukocyte esterase, 70�80 urine WBC with moderate urine bacteria concern for UTI (urine culture has grown Enterococcus species)
#Chronic urinary retention
#Depression
#DM type II
#Hypertension
#History of CVA with left hemiplegia
Plan:
- Continue with Levophed, titrating to keep MAP >65
- Hold antihypertensives
- Midodrine started today � continue this to help wean off Levophed
- Check random cortisol level to assess for adrenal insufficiency
- Continue with IVF with NS 0.9% at 150 cc/h, although monitor for volume overload
- Maintain SpO2 >90-94%
- Continue aspiration precautions
- prn nebulized bronchodilators - not currently bronchospastic
- Continue with antibiotics (Vanc/Zosyn)
- Patient's urine culture has grown Enterococcus species � follow-up sensitivities; follow-up blood cultures x 2 (collected 09/16)
- Appears that Gutierrez was placed in the ER
- Cardiology consulted for bradycardia; recs appreciated
- Avoid any negative inotropic medications
- Goal HR >50�60 with MAP>65
- Check echo
- Continue with patient's home AEDs
- Replete electrolytes with K>4, Mg>2
- Maintain euglycemia with goal BG 140-180
- Trend H/H and transfuse if needed to keep Hb>7g/dL; keep plt>20k, unless there is concern for bleeding then keep plt>50k
- Incentive spirometer encouraged 10x per hour for at least 4 hrs a day
- DVT ppx: Eliquis
Code status: DNR/DNI
Continue ICU level of care for this critically ill patient.
Critical care statement: A total of 41 minutes of critical care time was provided for this patient today. This includes management of unstable vital signs, evaluation of the patient at bedside, reviewing the patient's pertinent medical records
including radiographs, microbiology, laboratory evaluations, and discussion with primary team, consultants, pharmacy, nutrition, physical therapy, case management, charge nurse, critical care nursing, and respiratory therapy.
--- NOTE | 2024-09-17 08:48 | W.PN.HOSP.TC ---
Today's Communication/Plan
-
.
Assessment / Plan
Assessment / Plan
Physical Exam
General: No Apparent Distress, Comfortable, Appears Chronically Ill and Obese
HEENT: Moist mucous membranes and Atraumatic
Respiratory: Decreased Breath Sounds
Cardiac: S1/S2
GI: Soft and Non Tender
Genito-urinary: Clear Urine and Gutierrez
Musculoskeletal: No Cyanosis
Skin: No Jaundice
Neuro: AO x 3; No Slurred Speech, Facial Droop, Tremors or Sedated
Psych: Calm; No Agitated or Anxious
# Sepsis POA/septic shock
Likely source urinary tract infection
Continue empiric antibiotic and follow-up with urine and blood culture
Titrate Levophed, low-dose midodrine
Appreciate ICU doctor input
#CADY - suspect due to acute urinary retention with volume depletion/ UTI.
#BPH
c/w IVF
Creatinine is coming down, no hematuria, no flank pain
Gutierrez for now. Patient has history of chronic retention. Previous admission with same issue and needed Gutierrez, he discharged with Gutierrez but was taken out in longterm. If to remove Gutierrez, would recommend straight cath schedule/close monitoring
to avoid worsening renal function/acute retention. Patient will need outpatient neurology follow-up for consideration of suprapubic catheter.
Hold antihypertensives and diuretics. Hold KRISTOPHER inhibitor.
Monitor renal function daily.
# An episode of Bradycardia noted by EMT in NH and given Atropin,
EKG: sinus rhythm with 1: 1 conduction, right bundle branch block
No changes recommended.
Appreciate cardiology input
# Essential hypertension - currently hypotensive due to volume depletion. Hold meds as above.
# Hyperlipidemia - Atorvastatin.
# history of stroke - with left hemiparesis.
Resume Baclofen but lower the dose due to kidney injury.
# Chronic constipation
Will add Dulcolax suppository.
chronic normocytic anemia - hemoglobin at baseline.
# morbid obesity due to excess calories
DNR, per living will and records, confirmed with patient.
Called 09/16 and 09/17 contact on chart, no response. Left VM.
Total time spent to see the patient, examine the patient, review data and lab result, discuss treatment plan with patient, and nursing staff around 55 minutes
Anticipated Discharge: > 48 hours
Subjective/Interval History
-
Date of Service: September 17, 2024
He reports pain in tail bone
Objective Data
-
Labs:
Laboratory Results
09/16/24 09/17/24
23:18 05:17
WBC 7.8
Hgb 11.7 L
Hct 35.2 L
Plt Count 282
PT 17.0 H
INR 1.35
APTT 28.8
Sodium 140
Potassium 4.0
Chloride 102
Carbon Dioxide 27
BUN 23 H
Creatinine 1.8 H
Glucose 142 H
Calcium 9.1
Vital Signs:
Vital Signs
Temp Pulse Resp BP Pulse Ox
98.5 F 64 14 104/57 96
09/17/24 07:00 09/17/24 07:25 09/17/24 07:00 09/17/24 07:25 09/17/24 06:45
I&O
09/16/24 09/17/24 09/18/24
06:59 06:59 06:59
Intake Total 4317.5 / 4490.0 737.5 / 737.5
Output Total 1500 / 1500
Balance 2817.5 / 2990.0 737.5 / 737.5
--- NOTE | 2024-09-17 08:50 | PHA.VAN.FU ---
Vancomycin Assessment / Plan
- Assessment
Renal Function: SCR Decreasing (2.7 (09/16) to 1.8 (09/17).)
WBC's are: Trending Up
In the past 24 hrs, patient has been: Afebrile
Concomitant Antimicrobials: Piperacillin-tazobactam
- Assessment - Therapeutic Drug Monitoring
Random Level: R = 13.9 ~ 11hrs post Vanc 2000mg
- Dosing Plan
Continue: Dose by level. If SCr improves again 09/18, will consider scheduled dosing
Dosing by Level: Re-dose today (Vanc 1250mg--10.4mg/kg)
- Monitoring Plan
Random Level: 09/18 AM
- Follow Up
Pharmacy will continue to follow.
Vancomycin Follow UP
- -
Patient Age: 59
Patient Sex: Male
Vancomycin Day #: 2
Indication: Pulmonary/Respiratory
Requesting Provider: Dr Wood
Pertinent Antimicrobial Allergies:
no known allergies
Height / Weight:
Height 5 ft 11 in
Actual Weight 120.1 kg
Pertinent Past Medical History: CKD
- Vital Signs / Lab Results
Temp Pulse Resp BP Pulse Ox
98.5 F 64 14 104/57 96
09/17/24 07:00 09/17/24 07:25 09/17/24 07:00 09/17/24 07:25 09/17/24 06:45
Lab Results - Hematology
09/16/24 09/17/24
12:47 05:17
WBC 4.4 L 7.8
Lab Results - Chemistry
09/16/24 09/16/24 09/17/24
12:47 13:29 05:17
BUN Cancelled 32 H 23 H
Creatinine Cancelled 2.7 H 1.8 H
Estimated Creat Clear Cancelled 38 56
Albumin Cancelled 3.9
09/16/24 09/16/24
12:47 16:45
Lactic Acid 0.6 L Cancelled
Lab Results - Urine
09/16/24
13:29
Urine Nitrite (Reflex) Negative
Leukocyte Esterase Rfl 3+ A
Ur Squamous Epith Cells 3-5
Microbiology Results
09/16/24 23:18 Nasal Screen MRSA (PCR) - Final
Nose MRSA not detected - performed by PCR methodology.
Therapeutic Drug Monitoring
Random Vancomycin 13.9 ug/ml 09/17/24 05:17
--- NOTE | 2024-09-17 09:07 | CM ---
Chart Reviewed: Patient reported to nursing on 09/16 @ 3488 that he did not feel safe at current facility
CM Consult completed: Case Management spoke with patient's sister/primary contact, (Tejal # [phone]) via phone this morning.
Sister reported that family does not want patient to return to [facility].
Per sisterTejal, an application for admission was submitted a month ago to [facility] @ [address] [place] [address].
Sister will call facility on Wednesday for application status.
Referral was sent via [facility]. Case Management will continue to monitor and support disposition plan
[2024-09-17] MEDS: VANCOCIN 275 MG IV (09:46)
[2024-09-17] MEDS: ZOFRAN 4 MG IV (11:01)
--- NOTE | 2024-09-17 11:47 | CON.CAR ---
Consultation
Consultation Request
Date/Time Consultation Requested: 09/16/2024 1559
Date/Time Consultation Performed: 09/17/2024 0830
Requesting Provider: Dr Wood
Performing Provider: Dr Bond
Reason for Consultation: Bradycardia
Medical History
-
Chief Complaint: SOB, Chills
History of Present Illness:
Patient is a pleasant 59-year-old male with a past medical history significant for CVA with chronic left-sided weakness, hypertension, hyperlipidemia, diabetes mellitus type 2, depression, BPH, obesity who initially presented due to shortness of
breath was found to be dehydrated and with concern for infection. Additionally, patient with urinary retention. Cardiology initially consulted due to shortness of breath and bradycardia. Patient's EKGs demonstrate sinus bradycardia/sinus rhythm
with 1�1 conduction with right bundle branch block. Review of patient's vital signs demonstrate heart rate variability from 40s to 90s beat per minute during this hospitalization and prior hospitalizations. In discussion with patient, he reports
experiencing some shortness of breath and fatigue along with fevers, chills, urinary retention, abdominal pain. Patient denies chest pain, lightheadedness, and dizziness, near-syncope, syncope, or weakness. EKG performed 09/16/2024 demonstrates
sinus bradycardia 47 bpm right bundle branch block. No prior cardiovascular testing or evaluation at this hospital. Patient resides in custodial facility due to chronic CVA.
Past Medical History
Past Medical History: Other (See HPI)
Past Surgical History: None
Social History
Tobacco: Former Smoker
Alcohol: None
Drug: None
Personal: Single
Living: Custodial
Employment: Disabled
Family History
Family History: Reviewed & Not Pertinent
Allergies / Home Medications
Allergy/AdvReac Type Severity Reaction Status Date / Time
No Known Allergies Allergy Verified 09/16/24 12:52
�Medication �Instructions �Recorded �Confirmed �Type
acetaminophen 325 mg tablet 650 mg PO Q6HPRN PRN mild 09/23/23 09/16/24 History
(Tylenol) pain/fever
apixaban 5 mg tablet (Eliquis) 5 mg PO BID Blood Clot 09/23/23 09/16/24 History
Prevention/Tx
atorvastatin 80 mg tablet (Lipitor) 80 mg PO HS High Cholesterol 09/23/23 09/16/24 History
bisacodyl 5 mg tablet,delayed 5 mg PO DAILYPRN PRN constipation 09/23/23 09/16/24 History
release (Dulcolax (bisacodyl))
divalproex 125 mg tablet,delayed 125 mg PO HS Seizures 09/23/23 09/16/24 History
release
magnesium hydroxide 400 mg/5 mL 30 ml PO DAILYPRN PRN if no bm in 09/23/23 09/16/24 History
oral suspension (Milk of Magnesia) 3 days
methyl salicylate 15 %-menthol 10 1 applic topical Q6HPRN PRN mild 09/23/23 09/16/24 History
% topical cream (Muscle Rub) pain
pantoprazole 40 mg tablet,delayed 40 mg PO BID Gastrointestinal Issue 09/23/23 09/16/24 History
release
polyethylene glycol 3350 17 gram 17 g PO BID Constipation 09/23/23 09/16/24 History
oral powder packet (Miralax)
sennosides 8.6 mg tablet (senna) 17.2 mg PO BID Constipation 09/23/23 09/16/24 History
sertraline 150 mg capsule 150 mg PO DAILY Depression 09/23/23 09/16/24 History
sodium phosphates 19 gram-7 118 ml TN DAILYPRN PRN if no bm 09/23/23 09/16/24 History
gram/118 mL enema (Fleet Enema) aftr dulcolax
tamsulosin 0.4 mg capsule (Flomax) 0.4 mg PO QPM Urinary Issue 09/23/23 09/16/24 History
triamcinolone acetonide 0.1 % 1 applic topical BID atopic 09/23/23 09/16/24 History
topical cream dermatitis
hydrocortisone 1 % topical cream 1 applic topical BID scalp 05/04/24 09/16/24 History
lidocaine 4 % topical patch 1 patch topical DAILY left knee 05/04/24 09/16/24 History
lidocaine 5 % topical cream 1 applic topical BID left hand 05/04/24 09/16/24 History
simethicone 125 mg tablet 125 mg PO Q8HPRN PRN gas pains 05/04/24 09/16/24 History
trazodone 100 mg tablet 200 mg PO HS mental health/sleep 05/04/24 09/16/24 History
Lactobacillus acidophilus 1 cap PO DAILY Gastrointestinal 08/28/24 09/16/24 History
Issue
bisacodyl 10 mg rectal suppository 10 mg TN DAILY PRN constipation if 08/28/24 09/16/24 History
(Dulcolax (bisacodyl)) MOM ineffective
lidocaine 5 % topical patch 1 patch topical DAILY right knee 08/28/24 09/16/24 History
amlodipine 10 mg tablet 10 mg PO DAILY Blood Pressure 09/16/24 09/16/24 History
aspirin 81 mg chewable tablet 81 mg PO DAILY Blood Clot 09/16/24 09/16/24 History
Prevention/Tx
baclofen 10 mg tablet 20 mg PO TID Skeletal Muscle 09/16/24 09/16/24 History
Relaxant
carvedilol 12.5 mg tablet 12.5 mg PO BID Blood Pressure 09/16/24 09/16/24 History
hydrochlorothiazide 25 mg tablet 25 mg PO DAILY Fluid 09/16/24 09/16/24 History
Retention/Swelling
lisinopril 40 mg tablet 40 mg PO DAILY Blood Pressure 09/16/24 09/16/24 History
melatonin 1 mg tablet 8 mg PO HS Sleep 09/16/24 09/16/24 History
selenium sulfide 2.5 % lotion 1 applic topical Q8HPRN PRN itching 09/16/24 09/16/24 History
torsemide 10 mg tablet 10 mg PO DAILY Fluid 09/16/24 09/16/24 History
Retention/Swelling
Review of Systems
-
History Source: Patient
All other systems: Negative unless noted
Constitutional: Fever and Chills
EENT: No Symptoms
Respiratory: Trouble Breathing
Cardiac: No Symptoms
Abdomen/GI: Abdominal Pain
: Difficulty Voiding
Musculoskeletal: No Symptoms
Skin: No Symptoms
Neurological: Weakness (Chronic)
Endocrine: No Symptoms
Hematologic/Lymphatic: No Symptoms
Physical Exam
Vital Signs
Temp Pulse Resp BP Pulse Ox
97.4 F 64 14 104/57 96
09/17/24 11:00 09/17/24 07:25 09/17/24 07:00 09/17/24 07:25 09/17/24 06:45
Lab Results
09/17/24 05:17
09/17/24 05:17
Troponin I 0.015 ng/ml 09/16/24 15:26
Physical exam:
GENERAL: no acute distress, obese
EYE: sclera anicteric
NECK: Supple, no JVD, no carotid bruit appreciated
ENT: normal nose, moist mucosal membranes
CARDIAC: Regular rate and rhythm, +S1/S2, no murmur, rubs, or gallops
CHEST/PULMONARY: Normal effort, distant clear breath sounds
ABDOMEN: Soft, no distention, mild tenderness to palpation
NEUROLOGICAL: Alert and oriented x3
SKIN: Warm and dry, no rash
PSYCH: Normal and appropriate interaction.
Telemetry shows sinus bradycardia, sinus rhythm without ectopy, AV block, or pauses
Impression / Plan
-
Impression:
Bradycardia, asymptomatic
� Chronic sinus rhythm with 1: 1 conduction, right bundle branch block
� Received atropine x 1 by EMS without change in clinical status
� Patient septic with concern for infection admitted to ICU
� EKG sinus rhythm/sinus bradycardia with 1: 1 conduction and right bundle branch block; telemetry shows no AV block, pauses
Right bundle branch block, chronic
Septic shock, managed by primary service, improving clinical status
� Undergoing treatment for presumed infection
� Receiving fluids
Hypertension, meds on hold due to hypotension in the setting of septic shock
History of stroke with chronic left-sided weakness
Dyslipidemia on statin
Obesity
BPH
Recommendations:
� Patient with chronic bradycardia as noted by vital signs from prior hospitalizations and during hospitalization thus far here. Patient's EKGs demonstrate sinus bradycardia/sinus rhythm without reported symptoms or change in symptoms per patient.
Additionally, EKG shows chronic right bundle branch block. At this time would recommend continued surveillance on telemetry monitoring and treatment of underlying conditions. No indication at this time for pacemaker.
� Check 2D echocardiogram
� Antibiotics, shock management per primary service
Discussed with nursing
Critical care time 30 minutes
Data Reviewed
-
EKG: Tracing Personally Visualized and interpreted
Radiology: Report Reviewed by me
Medical Tests (Nuc Med, Echo etc): Report Reviewed by me
Labs: Labs Reviewed by me
Old Records: Reviewed
--- NOTE | 2024-09-17 12:00 | PTCARENOTE ---
levophed as noted, off/on, up Dr. Wood updated, will schedule midodrine.
[2024-09-17] MEDS: TYLENOL 650 MG PO (12:09)
[2024-09-17] MEDS: LIDOCAINE 4% PATCH 2 PATCH TOPICAL (13:25)
[2024-09-17] MEDS: DULCOLAX 10 MG RECTAL (13:31)
[2024-09-17] MEDS: LIORESAL 2.5 MG PO ×2 (16:36→21:28)
--- NOTE | 2024-09-17 18:18 | PTCARENOTE ---
ate dinner, noted not hungry, ate 75% of tray. presently on bedpan. No other changes from earlier assessment.
--- NOTE | 2024-09-17 20:00 | PTCARENOTE ---
Rec'd pt resting in bed, left side flaccid, follows commands, SR w/ BBB, occas pac, weak distal pulses, levo at 2 artemio- to titrate keeping sbp > 90- see flow sheet for titrations, RA, lungs decr, sat 93, hypo bowel sounds, no bm, abd obese, soft, no
n/v, boggs draining yellow urine
[2024-09-17] MEDS: NSS IV (20:26)
[2024-09-17] MEDS: LIPITOR 80 MG PO (21:28)
[2024-09-17] MEDS: DEPAKOTE (12 HR RELEASE) 125 MG PO (21:29)
[2024-09-17] MEDS: DESYREL 100 MG PO (21:29)
[2024-09-17] MEDS: MELATONIN 10 MG PO (22:30)
[2024-09-18] VITALS (79 sets, daily range): BP systolic 75–141; BP diastolic 28–100; BMI 37.9
--- NOTE | 2024-09-18 | PTCARENOTE ---
sys reviewed, lungs unch, RA sat when sleeping was 89, 2 liters nc applied, CHG bath done, linens changed
[2024-09-18 03:46] LABS: Hematocrit 29.4 % (39.0-52.0); Hemoglobin 9.8 g/dL (13.0-18.0); Mean Corp Hgb Conc. 33.3 g/dL (33.0-37.0); Mean Corpuscular Hgb 29.4 pg (27.0-31.0); Mean Corpuscular Volume 88.3 fL (80.0-94.0); Mean Platelet Volume 10.1 fL (7.4-10.4); Platelet Count 217 10^3/uL (130-400); Red Blood Cell Count 3.33 10^6/uL (4.70-6.10); Red Cell Dist. Width 14.1 % (11.5-14.5); White Blood Cell Count 9.6 10^3/uL (4.8-10.8)
--- NOTE | 2024-09-18 04:00 | PTCARENOTE ---
sys reviewed, changes noted
[2024-09-18 04:08] LABS: Vancomycin Random 12.8 ug/ml
[2024-09-18 04:25] LABS: ALT (SGPT) 13 U/L (0-50); AST (SGOT) 22 U/L (17-59); Albumin 3.2 g/dl (3.5-5.0); Alkaline Phosphatase 58 U/L (38-126); Blood Urea Nitrogen 15 mg/dl (9-20); Calcium 8.3 mg/dl (8.4-10.2); Carbon Dioxide 24 mmol/L (22-30); Chloride 105 mmol/L (98-107); Estimated Creatinine Clearance 64 ml/min; Glucose 132 mg/dl (70-99); Potassium 3.8 mmol/L (3.5-5.1); Sodium 136 mmol/L (135-145); Total Bilirubin 1.4 mg/dl (0.2-1.3); Total Protein 6.4 g/dl (6.3-8.2); eGFR 48.72
[2024-09-18] MEDS: ZOSYN 50 IV ×3 (05:15→17:16)
[2024-09-18] MEDS: NSS 1000 IV ×2 (05:15→11:42)
[2024-09-18] MEDS: LEVOPHED 250 IV ×2 (05:21→15:07)
--- NOTE | 2024-09-18 08:00 | PTCARENOTE ---
Received patient from warehouse worker 2nd shift. patient is drowsy, somnolent, oriented x4 with flat affect. HE states '[place] is a hole'. He is on 2L nasal cannula, saturating 97%. He is sinus christoph on monitor with bundle branch, some trace edema noted
in lower extremities. Patient on Levophed at 8mcgs. He is ordered soft and bite sized diet, has needed assistance eating. Patient has Gutierrez catheter without urometer. His skin is intact, continue to turn and reposition q2. Will review orders.
PICC order placed for continued pressor requirement.
[2024-09-18] MEDS: LIORESAL 2.5 MG PO ×3 (08:19→22:35)
[2024-09-18] MEDS: ProAmatine 5 MG PO ×2 (08:20→17:16)
[2024-09-18] MEDS: ZOLOFT 150 MG PO (08:20)
[2024-09-18] MEDS: PROTONIX 40 MG PO ×2 (08:21→20:04)
[2024-09-18] MEDS: LIDOCAINE 4% PATCH 2 PATCH TOPICAL (08:21)
[2024-09-18] MEDS: ELIQUIS 2.5 MG PO ×2 (08:21→20:04)
[2024-09-18] MEDS: LOW STRENGTH ASPIRIN 81 MG PO (08:21)
[2024-09-18] MEDS: FLOMAX 0.4 MG PO (08:21)
--- NOTE | 2024-09-18 09:07 | W.PN.CARDCBS ---
Today's Communication / Plan
-
Echocardiogram planned today
Asymptomatic bradycardia and ectopy without high degree AV block; continue telemetry monitoring
Continue to support hemodynamics; wean Levophed as able
Treatment of sepsis/shock as per warehouse team leader
Impression / Plan
-
Commercial Accountant: None reported
Initial cardiology consult: Dr. Nicolas Ruiz
Impression:
Septic shock with suspected UTI as source
Anemia
Bradycardia
CADY (baseline creatinine 0.9�1.1)
Chronic urinary retention
Depression
DM type II
Hypertension
History of CVA with left hemiplegia
Patient resides at [facility] in [place]. At baseline he is bedridden and requires total care although he is able to feed himself and requires a Harika lift to get out of bed.
Plan:
Bradycardia, asymptomatic
� Chronic sinus rhythm with 1: 1 conduction, right bundle branch block
� Received atropine x 1 by EMS without change in clinical status
- Telemetry sinus rhythm/sinus bradycardia with PACs. Brief NSVT. No atrial fibrillation on library monitor
- TSH 08/28/2024 1.26.
� Continue telemetry monitoring.
- Avoid AV rae blocking agents at this time.
- 2D echocardiogram pending
Right bundle branch block, chronic
Septic shock secondary to UTI, managed by primary service, improving clinical status
-Continues to require Levophed; wean as able, keep MAP greater than 65
-Midodrine added by primary team.
� IV antibiotics
Hypertension, meds on hold due to hypotension in the setting of septic shock [amlodipine 10 mg daily, carvedilol 12.5 mg twice daily, Eliquis 5 mg twice daily, lisinopril 40 mg daily, torsemide 10 mg daily]
ARF in the setting of UTI/septic shock
- Creatinine 614 2.7 today 1.6. Baseline creatinine 0.9�1.1
History of stroke with chronic left-sided weakness
-Patient presented on Eliquis 5 mg twice daily currently on 2.5 mg twice daily? Unclear reason for apixaban, continue for now. No reported hx of AF. Try to obtain records from [facility].
- With improvement of renal function would resume Eliquis 5 mg twice daily but will defer to primary team
Dyslipidemia on statin
Obesity
BPH
Will follow with you
Progress Note - Commercial Accountant
Subjective
Date of Service: September 18, 2024
Objective
Labs:
09/18/24 03:31
09/18/24 03:31
Labs
Hgb 9.8 g/dL (13.0-18.0) L 09/18/24 03:31
Hct 29.4 % (39.0-52.0) L 09/18/24 03:31
Plt Count 217 10^3/uL (130-400) D 09/18/24 03:31
PT 17.0 Sec (11.4-14.6) H 09/16/24 23:18
INR 1.35 09/16/24 23:18
APTT 28.8 Sec (23.4-35.0) 09/16/24 23:18
Sodium 136 mmol/L (135-145) 09/18/24 03:31
Potassium 3.8 mmol/L (3.5-5.1) 09/18/24 03:31
BUN 15 mg/dl (9-20) 09/18/24 03:31
Creatinine 1.6 mg/dL (0.7-1.3) H 09/18/24 03:31
Glucose 132 mg/dl (70-99) H 09/18/24 03:31
Troponins
09/16/24
15:26
Troponin I 0.015
Vital Signs and I&O:
Vital Signs
Temp Pulse Resp BP Pulse Ox
99.2 F 54 15 118/72 98
09/18/24 08:31 09/18/24 08:30 09/18/24 08:30 09/18/24 08:30 09/18/24 08:39
Vital Signs
Temp Pulse Resp BP Pulse Ox
99.2 F 54 15 118/72 98
09/18/24 08:31 09/18/24 08:30 09/18/24 08:30 09/18/24 08:30 09/18/24 08:39
Intake & Output
09/16/24 09/17/24 09/18/24 09/19/24
06:59 06:59 06:59 06:59
Intake Total 4317.5 / 4490.0 5320.1 / 5500.1 532.5 / 532.5
Output Total 1500 / 1500 2325 / 2325
Balance 2817.5 / 2990.0 2995.1 / 3175.1 532.5 / 532.5
Physical Exam
Physical Exam
General: Awake alert and oriented on nasal cannula O2. Levophed drip
Neck: Negative JVD
Heart: Regular. Positive S1-S2. Ectopy. 2/6 SM
Lungs: CTA b/l, negative wheezes/rales/rhonchi
Abd: Positive BS, NT/ND
Ext: trace edema. Chronic venous stasis changes bl/LE. Left arm contracted
--- NOTE | 2024-09-18 09:45 | PHA.VAN.FU ---
Vancomycin Assessment / Plan
- Assessment
Renal Function: Stable
WBC's are: WNL
In the past 24 hrs, patient has been: Afebrile
Concomitant Antimicrobials: Zosyn
- Assessment - Therapeutic Drug Monitoring
Random Level: 12.8 ~18H post-1250 mg IV x1
- Dosing Plan
Dosing by Level: Re-dose today (1500 mg IV x1)
- Monitoring Plan
Random Level: 09/19/24 @0600
- Follow Up
Pharmacy will continue to follow.
Vancomycin Follow UP
- -
Patient Age: 59
Patient Sex: Male
Vancomycin Day #: 3
Indication: Genito-Urinary Tract
Requesting Provider: Dr. Esquivel
Pertinent Antimicrobial Allergies:
no known allergies
Height / Weight:
Height 5 ft 11 in
Actual Weight 123.1 kg
Pertinent Past Medical History: Chronic urinary retention, obesity (BMI 37)
- Vital Signs / Lab Results
Temp Pulse Resp BP Pulse Ox
99.2 F 54 15 118/72 98
09/18/24 08:31 09/18/24 08:30 09/18/24 08:30 09/18/24 08:30 09/18/24 08:39
Lab Results - Hematology
09/16/24 09/17/24 09/18/24
12:47 05:17 03:31
WBC 4.4 L 7.8 9.6
Lab Results - Chemistry
09/16/24 09/16/24 09/17/24
12:47 13:29 05:17
BUN Cancelled 32 H 23 H
Creatinine Cancelled 2.7 H 1.8 H
Estimated Creat Clear Cancelled 38 56
Albumin Cancelled 3.9
09/18/24
03:31
BUN 15
Creatinine 1.6 H
Estimated Creat Clear 64
Albumin 3.2 L
09/16/24 09/16/24
12:47 16:45
Lactic Acid 0.6 L Cancelled
Lab Results - Urine
09/16/24
13:29
Urine Nitrite (Reflex) Negative
Leukocyte Esterase Rfl 3+ A
Ur Squamous Epith Cells 3-5
Microbiology Results
09/16/24 12:47 Blood Culture - Preliminary
Blood/Venous No Growth in 24 hours- Final report to follow
09/16/24 13:08 Blood Culture - Preliminary
Blood/Venous No Growth in 24 hours- Final report to follow
09/16/24 13:29 Urine Culture - Preliminary
Urine Enterococcus species
09/16/24 23:18 Nasal Screen MRSA (PCR) - Final
Nose MRSA not detected - performed by PCR methodology.
Therapeutic Drug Monitoring
Random Vancomycin 12.8 ug/ml 09/18/24 03:31
--- NOTE | 2024-09-18 10:10 | PTCARENOTE ---
Picc line placed by VAT team.
--- NOTE | 2024-09-18 11:30 | PTCARENOTE ---
Patient alarming Afib, obtained ekg, said SR with PACs notified Dr. Mckeon.
[2024-09-18] MEDS: NSS IV (11:40)
[2024-09-18] MEDS: VANCOCIN 530 MG IV (11:41)
--- NOTE | 2024-09-18 11:58 | PTCARENOTE ---
right double lumen PICC placed, placement confirmed, all iv tubing changed and labeled. discontinued peripheral IV sites in right arm, turned patient to right side.
--- NOTE | 2024-09-18 12:32 | W.PN.INTV ---
Today's Communication / Plan
Recommendations
Transferred to IMU-wean off Levophed
Continue telemetry monitoring
Continue antibiotics, follow-up final cultures and sensitivities.
No additional recommendations.
Assessment
-
Assessment: 59-year-old male with a past medical history of stroke with left hemiplegia, hypertension, hyperlipidemia, DM type II, depression, BPH, chronic urinary retention, chronic back pain, obesity, and former tobacco use who presented with
bradycardia and SOB with urinary retention. Patient resides at [facility] in [place]. At baseline he is bedridden and requires total care although he is able to feed himself and requires a Harika lift to get out of
bed. In the ER he was hypotensive to 57/33, heart rate 75, and saturating 97% on room air. Initial labs pertinent for WBC 4.4, Hb 12, creatinine 2.7, and urinalysis with +3 leukocyte esterase. Blood cultures and urine cultures collected. CXR
shows chronic retrocardiac opacification, and unable to tell if there is a opacity in the left midlung as his hand was over his midsternal region. In the ER he was given 1 L NS 0.9% and was started on Levophed due to hypotension and admitted to the
ICU. Cardiology Physician services consulted for additional management/recommendations.
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
Impression:
#Septic shock with suspected UTI as source
#Anemia
#Bradycardia
#CADY (baseline creatinine 0.9�1.1)
#Abnormal urinalysis with +2 leukocyte esterase, 70�80 urine WBC with moderate urine bacteria concern for UTI (urine culture has grown Enterococcus species)
#Chronic urinary retention
#Depression
#DM type II
#Hypertension
#History of CVA with left hemiplegia
Plan:
-
Septic shock:
Remains critically ill-less vasopressor requirements. Will titrate
- Continue with Levophed, titrating to keep MAP >65
- Continue to hold antihypertensives
- Midodrine started 09/17/2024� continue this to help wean off Levophed-will titrate as able.
- Creatinine improving but not back to baseline.
- Lactic acid not elevated
- Reduce IV fluids to 80 cc an hour. 09/18/2024. Hopefully can wean off soon.
- Continue with IVF with NS 0.9% at 150 cc/h, although monitor for volume overload
- Maintain SpO2 >90-94%
- Continue aspiration precautions
- prn nebulized bronchodilators - not currently bronchospastic
- Continue with antibiotics (Vanc/Zosyn)
- Patient's urine culture has grown Enterococcus species � follow-up sensitivities; follow-up blood cultures x 2 (collected 09/16)
- Hopefully can discontinue Gutierrez soon.
- Cardiology consulted for bradycardia; recs appreciated
- Avoid any negative inotropic medications
- Goal HR >50�60 with MAP>65
- Check echo-pending. Discussed with cardiology. Continue support.
- Continue with patient's home AEDs
- Replete electrolytes with K>4, Mg>2
- Maintain euglycemia with goal BG 140-180
- Incentive spirometer encouraged 10x per hour for at least 4 hrs a day
- DVT ppx: Eliquis
Code status: DNR/DNI
Transfer to IMU status. No additional recommendation.
Hopefully can wean off Levophed.
Critical care statement: A total of 31 minutes of critical care time was provided for this patient today. This includes management of unstable vital signs, evaluation of the patient at bedside, reviewing the patient's pertinent medical records
including radiographs, microbiology, laboratory evaluations, and discussion with primary team, consultants, pharmacy, nutrition, physical therapy, case management, charge nurse, critical care nursing, and respiratory therapy.
Subjective Dataa
Subjective Data
Date of Service:
Date of Service: September 18, 2024
Chief Complaint: Cardiology Physician Follow Up (Septic shock due to urinary tract infection)
Subjective:
Overall he denies any specific complaints
Denies abdominal pain nausea or vomiting.
Review of Systems
Cardiopulmonary: Dyspnea (None at rest) and Cough (N)
GI: Abdominal Pain (N), Nausea (N) and Vomiting (N)
Objective Data
Data Reviewed
Vital Signs / I&O / Oxygen:
Vital Signs
Temp Pulse Resp BP Pulse Ox
98.4 F 51 17 95/51 97
09/18/24 11:30 09/18/24 11:45 09/18/24 11:45 09/18/24 11:45 09/18/24 11:45
Intake and Output
09/17/24 09/18/24 09/19/24
06:59 06:59 06:59
Intake Total 4317.5 / 4490.0 5320.1 / 5500.1 1510.0 / 1510.0
Output Total 1500 / 1500 2325 / 2325
Balance 2817.5 / 2990.0 2995.1 / 3175.1 1510.0 / 1510.0
SaO2 97
Nasal Cannula flow liters per 2
minute
Physical Exam
General: Comfortable
HEENT: Normocephalic
Cardiovascular: S1-S2
Respiratory: Clear and Non-Labored Respirations
GI: Distended (Obese)
Neurology: Awake and Alert
Skin: Warm
Labs/Micro/Reports
Lab Data
09/18/24 03:31
09/18/24 03:31
Microbiology
09/16/24 13:29 Urine Urine Culture - Final
Enterococcus faecalis
09/16/24 12:47 Blood/Venous Blood Culture - Preliminary
No Growth in 24 hours- Final report to follow
09/16/24 13:08 Blood/Venous Blood Culture - Preliminary
No Growth in 24 hours- Final report to follow
09/16/24 23:18 Nose Nasal Screen MRSA (PCR) - Final
MRSA not detected - performed by PCR methodology.
--- NOTE | 2024-09-18 12:51 | W.PN.HOSP.TC ---
Addendum entered and electronically signed by German Esquivel MD 09/18/24 14:32:
Updated patient's Sister Tejal over the phone in details.
Addendum entered and electronically signed by German Esquivel MD 09/18/24 13:36:
Patient was able to tolerate breakfast and lunch without any difficulty. Resolution of abdominal pain. Transient. Hold off on CAT scan for now.
If with repeat episode of fever abdominal pain we will yanes scan patient
Original Note:
Today's Communication/Plan
-
Okay to transfer out of ICU
Wean Levophed
Continue with midodrine
Check CT abdomen pelvis
Continue with broad-spectrum antibiotics and will de-escalate based on culture data
Assessment / Plan
Assessment / Plan
Physical Exam
General: No Apparent Distress, Comfortable, Appears Chronically Ill and Obese
HEENT: Moist mucous membranes and Atraumatic
Respiratory: Decreased Breath Sounds
Cardiac: S1/S2
GI: Soft and mild distention, tender to palpation left lower quadrant, no guarding or rigidity
Genito-urinary: Clear Urine and Gutierrez
Musculoskeletal: No Cyanosis
Skin: No Jaundice
Neuro: AO x 3; No Slurred Speech, Facial Droop, Tremors or Sedated
Psych: Calm; No Agitated or Anxious
# Sepsis POA/septic shock
Likely source urinary tract infection growing Enterococcus
Continue empiric antibiotic and follow-up with urine and blood culture
Titrate Levophed, low-dose midodrine
Started on IV fluids
#Left lower quadrant abdominal pain
In the setting of sepsis shock will obtain CT abdomen pelvis
#CADY - suspect due to acute urinary retention with volume depletion/ UTI.
#BPH
c/w IVF
Creatinine is coming down, no hematuria, no flank pain
Gutierrez for now. Patient has history of chronic retention. Previous admission with same issue and needed Gutierrez, he discharged with Gutierrez but was taken out in skilled nursing. If to remove Gutierrez, would recommend straight cath schedule/close monitoring
to avoid worsening renal function/acute retention. Patient will need outpatient urology follow-up for consideration of suprapubic catheter.
Hold antihypertensives and diuretics. Hold KRISTOPHER inhibitor.
Monitor renal function daily.
# An episode of Bradycardia noted by EMT in NH and given Atropin,
EKG: sinus rhythm with 1: 1 conduction, right bundle branch block
No changes recommended.
Echo pending for today
? Due to increased dose of carvedilol.
Appreciate cardiology input
# Essential hypertension - currently hypotensive due to volume depletion. Hold meds as above.
# Hyperlipidemia - Atorvastatin.
# history of stroke - with left hemiparesis.
Resume Baclofen but lower the dose due to kidney injury.
# Chronic constipation
Continue with bowel regimen
chronic normocytic anemia - hemoglobin at baseline.
# morbid obesity due to excess calories
DNR, per living will and records, confirmed with patient.
Anticipated Discharge: > 48 hours
Subjective/Interval History
-
Date of Service: September 18, 2024
Remains on Levophed
Passing flatulence. States abdominal bloating
No nausea or vomiting
States had bowel movement yesterday
States of left-sided abdominal pain
Objective Data
-
Labs:
Laboratory Results
09/18/24
03:31
WBC 9.6
Hgb 9.8 L
Hct 29.4 L
Plt Count 217 D
Sodium 136
Potassium 3.8
Chloride 105
Carbon Dioxide 24
BUN 15
Creatinine 1.6 H
Glucose 132 H
Calcium 8.3 L
Total Bilirubin 1.4 H
AST 22
ALT 13
Alkaline Phosphatase 58
Vital Signs:
Vital Signs
Temp Pulse Resp BP Pulse Ox
98.4 F 51 17 95/51 97
09/18/24 11:30 09/18/24 11:45 09/18/24 11:45 09/18/24 11:45 09/18/24 11:45
I&O
09/17/24 09/18/24 09/19/24
06:59 06:59 06:59
Intake Total 4317.5 / 4490.0 5320.1 / 5500.1 1510.0 / 1510.0
Output Total 1500 / 1500 2325 / 2325
Balance 2817.5 / 2990.0 2995.1 / 3175.1 1510.0 / 1510.0
Data Reviewed
-
Total Time Spent with Patient (in minutes): 55
[2024-09-18] MEDS: ProAmatine PO (13:19)
--- NOTE | 2024-09-18 14:10 | CM ---
Wean Levophed, IV/AB. Discharge POC: Return to [facility]. Sister seeking acceptance to [facility].
--- NOTE | 2024-09-18 20:00 | PTCARENOTE ---
Rec'd pt resting in bed, left side paralysis, oriented, cooperative, SR w/ BBB, freq pac's, weak distal pulses, skin warm/dry, levophed gtt to keep SBP > 90-presently decr to 1 artemio- see flow sheet for titrations,o2 2 liters nc, lungs decr, sat 99,
hypo bowel sounds, no bm, abd obese, soft, no n/v, austin diet, boggs draining yellow uirne
[2024-09-18] MEDS: DEPAKOTE (12 HR RELEASE) 125 MG PO (22:35)
[2024-09-18] MEDS: LIPITOR 80 MG PO (22:35)
[2024-09-18] MEDS: MELATONIN 9 MG PO (22:35)
[2024-09-18] MEDS: DESYREL 100 MG PO (22:35)
[2024-09-19] VITALS (22 sets, daily range): BP systolic 89–137; BP diastolic 31–77; BMI 38.5
--- NOTE | 2024-09-19 00:02 | PTCARENOTE ---
sys reviewed, CHG bath done, linens changed
[2024-09-19] MEDS: NSS 1000 IV ×2 (03:06→14:05)
[2024-09-19 03:29] LABS: % Basophils 0.2 % (0-2); % Eosinophils 1.2 % (0-6); % Immature Granulocytes 0.5 % (0-0.5); % Lymphocytes 9.8 % (20.5-51.1); % Monocytes 10.3 % (1.7-9.3); Absolute Eosinophils 0.1 10^3/uL (0-0.7); Absolute Lymphocytes 0.8 10^3/uL (1.2-3.4); Absolute Monocytes 0.8 10^3/uL (0.1-0.6); Absolute Neutrophils 6.4 10^3/uL (1.4-6.5); Hematocrit 26.1 % (39.0-52.0); Hemoglobin 8.9 g/dL (13.0-18.0); Mean Corp Hgb Conc. 34.1 g/dL (33.0-37.0); Mean Corpuscular Hgb 30.2 pg (27.0-31.0); Mean Corpuscular Volume 88.5 fL (80.0-94.0); Mean Platelet Volume 9.9 fL (7.4-10.4); Nucleated Red Blood Cells % 0 % (-); Platelet Count 162 10^3/uL (130-400); Red Blood Cell Count 2.95 10^6/uL (4.70-6.10); Red Cell Dist. Width 14.1 % (11.5-14.5); White Blood Cell Count 8.2 10^3/uL (4.8-10.8)
[2024-09-19 03:40] LABS: Blood Urea Nitrogen 10 mg/dl (9-20); Calcium 8.3 mg/dl (8.4-10.2); Carbon Dioxide 27 mmol/L (22-30); Chloride 104 mmol/L (98-107); Estimated Creatinine Clearance 80 ml/min; Glucose 87 mg/dl (70-99); Potassium 3.7 mmol/L (3.5-5.1); Sodium 135 mmol/L (135-145); eGFR > 60.00
[2024-09-19 03:43] LABS: Vancomycin Random 13.3 ug/ml
[2024-09-19] MEDS: ZOSYN 50 IV ×2 (05:05)
[2024-09-19] MEDS: MIRALAX 17 GRAMS PO ×2 (06:21→21:15)
--- NOTE | 2024-09-19 06:21 | PTCARENOTE ---
boggs dc'd per order, urinal at bedside, Mirilax given for abd cramping at pt request
[2024-09-19] MEDS: LIDOCAINE 4% PATCH 2 PATCH TOPICAL (08:25)
[2024-09-19] MEDS: LOW STRENGTH ASPIRIN 81 MG PO (08:26)
[2024-09-19] MEDS: LIORESAL 2.5 MG PO ×3 (08:26→21:15)
[2024-09-19] MEDS: FLOMAX 0.4 MG PO (08:26)
[2024-09-19] MEDS: ZOLOFT 150 MG PO (08:28)
[2024-09-19] MEDS: PROTONIX 40 MG PO ×2 (08:28→21:14)
[2024-09-19] MEDS: ProAmatine 5 MG PO ×3 (08:28→17:28)
[2024-09-19] MEDS: ELIQUIS 2.5 MG PO (08:32)
--- NOTE | 2024-09-19 09:25 | PTCARENOTE ---
pt is awake and oriented , NSR on monitor , 02 is 93% on room air , he continues with lower BPs has been off of Norepinephrine since 2329 , he is now on midodrine , will continue to monitor blood pressures , goal of SBP 90
--- NOTE | 2024-09-19 09:32 | W.PN.CARDCBS ---
Today's Communication / Plan
-
Echo September 18 2024: EF 55-60% with no significant valvular disease.
HR and bp stable.
Remains in sinus. RBBB is chronic.
Bp improved and he is off pressors.
Cont to hold meds for HTN given bp.
Can slowly bring back meds for HTN as bp marvin allow.
Cont supportive care and treatment of urosepsis including IV abx.
Impression / Plan
-
.
Automobile Service Station Attendant: None reported
Initial cardiology consult: Dr. Nicolas Ruiz
Impression:
Septic shock with suspected UTI as source
Anemia
Bradycardia
CADY (baseline creatinine 0.9�1.1)
Chronic urinary retention
Depression
DM type II
Hypertension
History of CVA with left hemiplegia
Patient resides at [facility] in [place]. At baseline he is bedridden and requires total care although he is able to feed himself and requires a Harika lift to get out of bed.
Plan:
Echo September 18 2024: EF 55-60% with no significant valvular disease.
HR and bp stable.
Remains in sinus. RBBB is chronic.
Bp improved and he is off pressors.
Cont to hold meds for HTN given bp.
Can slowly bring back meds for HTN as bp marivn allow.
On Midodrine for bp support
Cont supportive care and treatment of urosepsis including IV abx.
ARF in the setting of UTI/septic shock. Cr has improved.
Progress Note - Automobile Service Station Attendant
Subjective
Date of Service: September 19, 2024
Pt seen and examined. No cp
Objective
Labs:
09/19/24 03:15
09/19/24 03:15
Labs
Hgb 8.9 g/dL (13.0-18.0) L 09/19/24 03:15
Hct 26.1 % (39.0-52.0) L 09/19/24 03:15
Plt Count 162 10^3/uL (130-400) D 09/19/24 03:15
PT 17.0 Sec (11.4-14.6) H 09/16/24 23:18
INR 1.35 09/16/24 23:18
APTT 28.8 Sec (23.4-35.0) 09/16/24 23:18
Sodium 135 mmol/L (135-145) 09/19/24 03:15
Potassium 3.7 mmol/L (3.5-5.1) 09/19/24 03:15
BUN 10 mg/dl (9-20) 09/19/24 03:15
Creatinine 1.3 mg/dL (0.7-1.3) 09/19/24 03:15
Glucose 87 mg/dl (70-99) 09/19/24 03:15
Troponins
09/16/24
15:26
Troponin I 0.015
Vital Signs and I&O:
Vital Signs
Temp Pulse Resp BP Pulse Ox
98.9 F 73 13 89/31 90
09/19/24 08:00 09/19/24 09:00 09/19/24 09:00 09/19/24 09:00 09/19/24 09:00
Vital Signs
Temp Pulse Resp BP Pulse Ox
98.9 F 73 13 89/31 90
09/19/24 08:00 09/19/24 09:00 09/19/24 09:00 09/19/24 09:00 09/19/24 09:00
Intake & Output
09/17/24 09/18/24 09/19/24 09/20/24
06:59 06:59 06:59 06:59
Intake Total 4317.5 / 4490.0 5320.1 / 5500.1 3508.9 / 3588.9 490 / 490
Output Total 1500 / 1500 2325 / 2325 2074
Balance 2817.5 / 2990.0 2995.1 / 3175.1 1433.9 / 1513.9 490 / 490
Physical Exam
Physical Exam
General: No acute distress, AAOX3
Neck: Negative JVD
Heart: Regular, Negative S3 positive S1/S2, Negative S4, No murmur
Lungs: CTA b/l, negative wheezes/rales/rhonchi
Abd: Positive BS, NT/ND, neg rebound/rigidity/guarding
Ext: Negative cyanosis/clubbing/edema
Neuro: nonfocal
--- NOTE | 2024-09-19 09:50 | PN.CDI ---
CDI
- -
CDI:
Physician Documentation Request
Admit Date: 09/16/24 15:34
Dear Doctor Sierra,
Please review the following and provide your response in the progress notes.
Clinical Indicators:
Documentation in the record on __Sepsis ____ includes the diagnosis of sepsis. The following clinical information was noted in the record:
Documented per progress notes 09/17 &09/18,' Sepsis POA/septic shock Likely source urinary tract infection growing Enterococcus...#CADY - suspect due to acute urinary retention with volume depletion/ UTI....'
Pt is on Levophed
No documented fever, Tachycardia,tachypnea leukocytosis or leukopenia in the record
Recognized standard criteria for this condition and other associated definitions:
�Sepsis
-Systemic manifestations of infection, with 2 or more SIRS criteria which include:
-Fever > 100.9��F or hypothermia < 96.8��F
-Leukocytosis WBC > 12,000 or leukopenia, WBC < 4,000, or > 10% bands
-Tachycardia- > 90 beats/minute
-Tachypnea- RR > 20 breaths/minute or PaCO2 < 32mmHg
Source: Merck Manual 2012
-Documentation should include the known or suspected organism, and the underlying infection, such as UTI or
�Septic Shock
-Severe sepsis with associated with circulatory failure, evidenced by hypotension and hypoperfusion
Based on the above information and the recognized standard SIRS criteria, please clarify if sepsis is still an accurate diagnosis, and reflective of the patient�s condition, to ensure quality of the medical record.
Please clarify in the Progress Notes:
�Sepsis is/was present and is a clinical diagnosis based on (please include this additional support in the medical record)
�After study sepsis has been ruled out
�Other ( please specify)
Use of terms such as suspected, likely, concern for, or probable (associated with a specific diagnosis that is being evaluated, monitored, or treated as if it exists) are acceptable and can be coded in the inpatient setting, when documented at the
time of discharge.
Thank you,
Kallie Ríos RN
CDI Specialist
[place] [facility]
Please use your independent medical judgment in providing your response.
--- NOTE | 2024-09-19 10:31 | W.PN.INTV ---
Today's Communication / Plan
Recommendations
Continue antibiotics-adjust per primary team
Continue midodrine for now
No further IV fluids needed
Incentive spirometry encouraged
Monitor heart rate
Critical care team will sign off
Assessment
-
Assessment: 59-year-old male with a past medical history of stroke with left hemiplegia, hypertension, hyperlipidemia, DM type II, depression, BPH, chronic urinary retention, chronic back pain, obesity, and former tobacco use who presented with
bradycardia and SOB with urinary retention. Patient resides at [facility] in [place]. At baseline he is bedridden and requires total care although he is able to feed himself and requires a Harika lift to get out of
bed. In the ER he was hypotensive to 57/33, heart rate 75, and saturating 97% on room air. Initial labs pertinent for WBC 4.4, Hb 12, creatinine 2.7, and urinalysis with +3 leukocyte esterase. Blood cultures and urine cultures collected. CXR
shows chronic retrocardiac opacification, and unable to tell if there is a opacity in the left midlung as his hand was over his midsternal region. In the ER he was given 1 L NS 0.9% and was started on Levophed due to hypotension and admitted to the
ICU. Medical Record Coder services consulted for additional management/recommendations.
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
Impression:
#Septic shock with suspected UTI as source
#Anemia
#Bradycardia
#CADY (baseline creatinine 0.9�1.1)
#Abnormal urinalysis with +2 leukocyte esterase, 70�80 urine WBC with moderate urine bacteria concern for UTI (urine culture has grown Enterococcus species)
#Chronic urinary retention
#Depression
#DM type II
#Hypertension
#History of CVA with left hemiplegia
Plan:
-
Septic shock:
Off vasopressors this morning.
Does not appear toxic
Relatively asymptomatic.
Status post IV fluid resuscitation
Midodrine started for ongoing hypotension-likely low vascular tone. Mostly bedridden.
Not on oxygen supplementation.
Clear lung exam
Incentive spirometry encourage
- Continue with antibiotics (Vanc/Zosyn)
- Patient's urine culture has grown Enterococcus species �pansensitive. Ampicillin, tetracycline, levofloxacin.
- Deferred antibiotics to primary team.
- Cardiology consulted for bradycardia; hemodynamically stable
- Avoid any negative chronotropic medications
- Goal HR >50�60 with MAP>65
- echo 09/18/2024-reviewed, showed a technically difficult study. Normal LVEF. Mild LVH. Normal RV function. No valvular abnormalities. No pericardial effusion.
- Continue with patient's home AEDs
- Replete electrolytes with K>4, Mg>2
- Maintain euglycemia with goal BG 140-180
- DVT ppx: Eliquis
Code status: DNR/DNI
No additional recommendation from the critical care perspective.
Sign off
Subjective Dataa
Subjective Data
Date of Service:
Date of Service: September 19, 2024
Chief Complaint: Medical Record Coder Follow Up (Septic shock due to urinary tract infection)
Subjective:
No overnight issues
Denies any abdominal pain nausea or vomiting
Off vasopressors
Review of Systems
Cardiopulmonary: Dyspnea (none at rest), Cough (n) and Sputum Production (n)
GI: Abdominal Pain (n)
Objective Data
Data Reviewed
Vital Signs / I&O / Oxygen:
Vital Signs
Temp Pulse Resp BP Pulse Ox
98.9 F 73 13 89/31 90
09/19/24 08:00 09/19/24 09:00 09/19/24 09:00 09/19/24 09:00 09/19/24 09:00
Intake and Output
0609/19/24 09/20/24
06:59 06:59 06:59
Intake Total 5320.1 / 5500.1 3508.9 / 3588.9 490 / 490
Output Total 2325 / 2325 2074 / 2074
Balance 2995.1 / 3175.1 1433.9 / 1513.9 490 / 490
SaO2 90
Nasal Cannula flow liters per 2
minute
Physical Exam
General: Comfortable
HEENT: Normocephalic
Cardiovascular: S1-S2
Respiratory: Clear and Non-Labored Respirations
GI: Distended (Obese)
Neurology: Awake and Alert
Skin: Warm
Labs/Micro/Reports
Lab Data
09/19/24 03:15
09/19/24 03:15
Microbiology
09/16/24 13:08 Blood/Venous Blood Culture - Preliminary
No Growth in 48 hours- Final report to follow
09/16/24 12:47 Blood/Venous Blood Culture - Preliminary
No Growth in 48 hours- Final report to follow
09/16/24 13:29 Urine Urine Culture - Final
Enterococcus faecalis
09/16/24 23:18 Nose Nasal Screen MRSA (PCR) - Final
MRSA not detected - performed by PCR methodology.
--- NOTE | 2024-09-19 13:27 | W.PN.HOSP.TC ---
Today's Communication/Plan
-
Transfer out of ICU
Continue with midodrine
Monitor blood pressure and heart rate
Switch to p.o. antibiotics
Assessment / Plan
Assessment / Plan
Physical Exam
General: No Apparent Distress, Comfortable, Appears Chronically Ill and Obese
HEENT: Moist mucous membranes and Atraumatic
Respiratory: Decreased Breath Sounds
Cardiac: S1/S2
GI: Soft and mild distention, tender to palpation left lower quadrant, no guarding or rigidity
Genito-urinary: Clear Urine and Gutierrez
Musculoskeletal: No Cyanosis
Skin: No Jaundice
Neuro: AO x 3; No Slurred Speech, Facial Droop, Tremors or Sedated, left-sided hemiparesis
Psych: Calm; No Agitated or Anxious
# Urinary tract infection with Enterococcus
# Hypotension/shock likely secondary to infection versus multiple blood pressure medication related versus hypovolemia
Patient was not truly tachycardic as received metoprolol and came with bradycardia
Blood cultures remain negative.
De-escalate antibiotic from vancomycin/Zosyn to amoxicillin
Patient has been off Levophed since last night
Continue with dose of midodrine
Status post
#Left lower quadrant abdominal pain
Resolved tolerating diet.
#CADY - suspect due to acute urinary retention with volume depletion/ UTI.
#BPH
Status post fluids.
Creatinine is coming down, no hematuria, no flank pain
Gutierrez for now. Patient has history of chronic retention. Previous admission with same issue and needed Gutierrez, he discharged with Gutierrez but was taken out in senior care. If to remove Gutierrez, would recommend straight cath schedule/close monitoring
to avoid worsening renal function/acute retention. Patient will need outpatient urology follow-up for consideration of suprapubic catheter.
Hold antihypertensives and diuretics. Hold KRISTOPHER inhibitor.
Monitor renal function daily.
# An episode of Bradycardia noted by EMT in NH and given Atropin,
EKG: sinus rhythm with 1: 1 conduction, right bundle branch block
No changes recommended.
Echo
? Due to increased dose of carvedilol.
Appreciate cardiology input
# Essential hypertension - currently hypotensive due to volume depletion. Hold meds as above.
# Hyperlipidemia - Atorvastatin.
# history of stroke - with left hemiparesis.
Resume Baclofen but lower the dose due to kidney injury and hypotension
Can adjust dosing as tolerated further.
# Chronic constipation
Continue with bowel regimen
chronic normocytic anemia - hemoglobin at baseline.
# History of CVA x 2 with left-sided weakness
# morbid obesity due to excess calories
DNR, per living will and records, confirmed with patient.
Anticipated Discharge: 24 - 48 hours
Subjective/Interval History
-
Date of Service: September 19, 2024
States of mild abdominal bloating
No nausea or vomiting
Eating breakfast
Objective Data
-
Labs:
Laboratory Results
09/19/24
03:15
WBC 8.2
Hgb 8.9 L
Hct 26.1 L
Plt Count 162 D
Sodium 135
Potassium 3.7
Chloride 104
Carbon Dioxide 27
BUN 10
Creatinine 1.3
Glucose 87
Calcium 8.3 L
Vital Signs:
Vital Signs
Temp Pulse Resp BP Pulse Ox
99.1 F 68 15 114/65 90
09/19/24 11:26 09/19/24 11:00 09/19/24 11:00 09/19/24 11:00 09/19/24 09:00
I&O
09/18/24 09/19/24 09/20/24
06:59 06:59 06:59
Intake Total 5320.1 / 5500.1 3508.9 / 3588.9 650 / 650
Output Total 2325 / 2325 2074
Balance 2995.1 / 3175.1 1433.9 / 1513.9 650 / 650
--- NOTE | 2024-09-19 14:04 | CM ---
Discharge POC: Return to [facility] when medically appropriate.
[2024-09-19] MEDS: TYLENOL 650 MG PO (14:07)
--- NOTE | 2024-09-19 14:16 | PTCARENOTE ---
pt now written for telem status , his SBP 90s and above
[2024-09-19] MEDS: AMOXIL 500 MG PO ×2 (17:28→21:13)
--- NOTE | 2024-09-19 18:30 | PTCARENOTE ---
Patient transfer from ICU to . Vs documented. No s/s of distress noted at this time. call graham within reach. Plan of care ongoing.
--- NOTE | 2024-09-19 18:30 | PTCARENOTE ---
pt transferred to room 2136 , report given to receiving RN
[2024-09-19] MEDS: ELIQUIS 5 MG PO (21:14)
[2024-09-19] MEDS: LIPITOR 80 MG PO (21:14)
[2024-09-19] MEDS: SENOKOT 17.2 MG PO (21:14)
[2024-09-19] MEDS: DEPAKOTE (12 HR RELEASE) 125 MG PO (21:14)
[2024-09-19] MEDS: DESYREL 100 MG PO (21:14)
[2024-09-19] MEDS: MELATONIN 9 MG PO (21:15)
[2024-09-20] MEDS: NSS 1000 IV (02:50)
[2024-09-20 03:17] VITALS: BP 152/62
[2024-09-20] MEDS: BenGay-Like 1 APPLIC TOPICAL ×3 (04:21→22:06)
[2024-09-20 05:20] LABS: % Basophils 0.3 % (0-2); % Eosinophils 2.1 % (0-6); % Immature Granulocytes 0.5 % (0-0.5); % Lymphocytes 8.8 % (20.5-51.1); % Monocytes 8.3 % (1.7-9.3); Absolute Eosinophils 0.1 10^3/uL (0-0.7); Absolute Lymphocytes 0.6 10^3/uL (1.2-3.4); Absolute Monocytes 0.6 10^3/uL (0.1-0.6); Absolute Neutrophils 5.3 10^3/uL (1.4-6.5); Hematocrit 25.4 % (39.0-52.0); Hemoglobin 8.4 g/dL (13.0-18.0); Mean Corp Hgb Conc. 33.1 g/dL (33.0-37.0); Mean Corpuscular Hgb 29.3 pg (27.0-31.0); Mean Corpuscular Volume 88.5 fL (80.0-94.0); Mean Platelet Volume 10.6 fL (7.4-10.4); Nucleated Red Blood Cells % 0 % (-); Platelet Count 153 10^3/uL (130-400); Red Blood Cell Count 2.87 10^6/uL (4.70-6.10); Red Cell Dist. Width 14.2 % (11.5-14.5); White Blood Cell Count 6.6 10^3/uL (4.8-10.8)
[2024-09-20 05:53] LABS: Blood Urea Nitrogen 9 mg/dl (9-20); Calcium 8.4 mg/dl (8.4-10.2); Carbon Dioxide 26 mmol/L (22-30); Chloride 104 mmol/L (98-107); Estimated Creatinine Clearance 80 ml/min; Glucose 77 mg/dl (70-99); Potassium 3.9 mmol/L (3.5-5.1); Sodium 135 mmol/L (135-145); eGFR > 60.00
[2024-09-20 06:00] VITALS: BMI 38.6
[2024-09-20] MEDS: AMOXIL 500 MG PO ×3 (08:29→22:05)
[2024-09-20] MEDS: LIORESAL 2.5 MG PO (08:29)
[2024-09-20] MEDS: ELIQUIS 5 MG PO ×2 (08:30→20:12)
[2024-09-20] MEDS: PROTONIX 40 MG PO ×2 (08:30→20:12)
[2024-09-20] MEDS: VISBIOME 1 CAP PO (08:30)
[2024-09-20] MEDS: SENOKOT 17.2 MG PO ×2 (08:30→20:12)
[2024-09-20] MEDS: LOW STRENGTH ASPIRIN 81 MG PO (08:30)
[2024-09-20] MEDS: FLOMAX 0.4 MG PO (08:30)
[2024-09-20] MEDS: LIDOCAINE 4% PATCH 2 PATCH TOPICAL (08:31)
[2024-09-20] MEDS: MIRALAX 17 GRAMS PO ×2 (08:31→20:12)
[2024-09-20] MEDS: ProAmatine PO (08:46)
[2024-09-20 08:47] VITALS: BP 157/79
[2024-09-20] MEDS: ZOLOFT 150 MG PO (08:47)
--- NOTE | 2024-09-20 10:48 | W.PN.CARDCBS ---
Addendum entered and electronically signed by Kerwin Stone MD 09/20/24 13:02:
I saw and examined the patient.
The [facility]'s note was reviewed and I agree with the note.
Comment: Briefly, 59-year-old man PMHx CVA who resides in [facility] initially presenting with urosepsis
Found to be bradycardic for which cardiology is consulted
Telemetry overnight showing sinus rhythm with PACs�no significant pauses or high-grade AV block seen
Home antihypertensive meds including Coreg have been held and patient is now mildly hypertensive
Would stop midodrine
Consider stopping IV fluids as well
Monitor blood pressure going forward and add back home BP meds back stepwise
We will sign off, please recall as needed
Original Note:
Today's Communication / Plan
-
Stop midodrine w/ BP rising this AM.
Add back BP medications as able
HR stable on tele
Continue management of sepsis/UTI per primary service.
Impression / Plan
-
Acquisition Editor: None prior to admission, initially seen by Dr. Bond
Impression:
Septic shock w/ suspected UTI as source
Anemia
Bradycardia
CADY, improving
Chronic urinary retention
Depression
DM type II
Hypertension
h/o CVA with left hemiplegia
Patient resides at [facility] in [place]. At baseline he is bedridden and requires total care although he is able to feed himself and requires a Harika lift to get out of bed.
Echo 09/18/2024: EF 55-60%, mild cLVH, no significant valvular disease
Plan:
-Admitted with septic shock due to UTI. Continue abx per primary service.
-Cardiology following due to bradycardia and hypotension earlier in admission.
-Echo 09/18 as above w/ preserved EF, no significant valvular disease.
-HR stable. Remains in SR on tele. Coreg remains on hold.
-Now HTN noted. IVFs stopped. Has been on midodrine, but will stop this as well.
-Follow BP w/ discontinuation of midodrine and slowly add back OP medications as BP allows.
-Continue aspirin, Eliquis
-Continue high intensity statin.
HPI: Patient is a pleasant 59-year-old male with a past medical history significant for CVA with chronic left-sided weakness, hypertension, hyperlipidemia, diabetes mellitus type 2, depression, BPH, obesity who initially presented due to shortness
of breath was found to be dehydrated and with concern for infection. Additionally, patient with urinary retention. Cardiology initially consulted due to shortness of breath and bradycardia. Patient's EKGs demonstrate sinus bradycardia/sinus
rhythm with 1�1 conduction with right bundle branch block. Review of patient's vital signs demonstrate heart rate variability from 40s to 90s beat per minute during this hospitalization and prior hospitalizations. In discussion with patient, he
reports experiencing some shortness of breath and fatigue along with fevers, chills, urinary retention, abdominal pain. Patient denies chest pain, lightheadedness, and dizziness, near-syncope, syncope, or weakness. EKG performed 09/16/2024
demonstrates sinus bradycardia 47 bpm right bundle branch block. No prior cardiovascular testing or evaluation at this hospital. [facility] resides in [facility] due to chronic [facility]A.
Progress Note - Acquisition Editor
Subjective
Date of Service: September 20, 2024
Objective
Labs:
09/20/24 04:30
09/20/24 04:30
Labs
Hgb 8.4 g/dL (13.0-18.0) L 09/20/24 04:30
Hct 25.4 % (39.0-52.0) L 09/20/24 04:30
Plt Count 153 10^3/uL (130-400) 09/20/24 04:30
PT 17.0 Sec (11.4-14.6) H 09/16/24 23:18
INR 1.35 09/16/24 23:18
APTT 28.8 Sec (23.4-35.0) 09/16/24 23:18
Sodium 135 mmol/L (135-145) 09/20/24 04:30
Potassium 3.9 mmol/L (3.5-5.1) 09/20/24 04:30
BUN 9 mg/dl (9-20) 09/20/24 04:30
Creatinine 1.3 mg/dL (0.7-1.3) 09/20/24 04:30
Glucose 77 mg/dl (70-99) 09/20/24 04:30
Vital Signs and I&O:
Vital Signs
Temp Pulse Resp BP Pulse Ox
99 F 82 17 157/79 94
09/20/24 08:47 09/20/24 08:47 09/20/24 08:47 09/20/24 08:47 09/20/24 08:47
Vital Signs
Temp Pulse Resp BP Pulse Ox
99 F 82 17 157/79 94
09/20/24 08:47 09/20/24 08:47 09/20/24 08:47 09/20/24 08:47 09/20/24 08:47
Intake & Output
09/18/24 09/19/24 09/20/24 09/21/24
06:59 06:59 06:59 06:59
Intake Total 5320.1 / 5500.1 3508.9 / 3588.9 1939
Output Total 2325 / 2325 2075 / 207 850 / 850
Balance 2995.1 / 3175.1 1433.9 / 1513.9 1090 / 1090
Physical Exam
Physical Exam
GEN: No distress
LUNGS: On RA
CV: Reg, SR on tele
--- NOTE | 2024-09-20 10:52 | PN.CDI ---
CDI
- -
CDI:
Physician Documentation Request
Admit Date: 09/16/24 15:34
Dear Doctor Sierra,
Please review the following and provide your response in the progress notes.
Current documentation includes a diagnosis of hypotension.
Clinical Indicators:
Pt admitted with UTI/CADY
Documented per H&P,' CADY - suspect due to acute urinary retention with volume depletion. Presentation with hypotension, hypovolemic shock...'
Progress note 09/19, ' Hypotension/shock likely secondary to infection versus multiple blood pressure medication related versus hypovolemia..#CADY - suspect due to acute urinary retention with volume depletion/ UTI..'
Pt was treated with IVFs/Levophed/Midodrine
Please clarify which of the following is the most likely etiology of the above symptoms and treatment rendered:
Hypovolemic shock /Drug induced shock
Hypovolemic Shock
Drug induced Shock ( please specify)
Other ( please specify)
Use of terms such as suspected, likely, concern for, or probable (associated with a specific diagnosis that is being evaluated, monitored, or treated as if it exists) are acceptable and can be coded in the inpatient setting, when documented at the
time of discharge.
Thank you,
Kallie Ríos RN
CDI Specialist
[facility]
Please use your independent medical judgment in providing your response.
--- NOTE | 2024-09-20 10:55 | W.PN.HOSP.TC ---
Addendum entered and electronically signed by German Esquivel MD 09/20/24 13:23:
Updated patient sister over the phone in details.
Patient Gutierrez catheter removed and patient without any urinary retention. Patient voiding without any difficulty. Recommend outpatient urology follow-up.
Original Note:
Today's Communication/Plan
-
po abx
monitor BP
Restart BP meds slowly
Assessment / Plan
Assessment / Plan
Physical Exam
General: No Apparent Distress, Comfortable, Appears Chronically Ill and Obese
HEENT: Moist mucous membranes and Atraumatic
Respiratory: Decreased Breath Sounds
Cardiac: S1/S2
GI: Soft , +bs, non tender, non distended
Genito-urinary: Clear Urine and Gutierrez
Musculoskeletal: No Cyanosis
Skin: No Jaundice
Neuro: AO x 3; No Slurred Speech, Facial Droop, Tremors or Sedated, left-sided hemiparesis
Psych: Calm; No Agitated or Anxious
# Urinary tract infection with Enterococcus
# Hypotension/shock likely secondary to infection versus multiple blood pressure medication related versus hypovolemia
Patient was not truly tachycardic as received metoprolol and came with bradycardia
Blood cultures remain negative.
De-escalate antibiotic from vancomycin/Zosyn to amoxicillin
Patient has been off Levophed t
Continue with dose of midodrine-BP stabilized and on higher side now
s/p IVF-
#Left lower quadrant abdominal pain
Resolved tolerating diet. Having bm.
#CADY - suspect due to acute urinary retention with volume depletion/ UTI.
#BPH
Status post fluids.
Creatinine is coming down, no hematuria, no flank pain
Gutierrez for now. Patient has history of chronic retention. Previous admission with same issue and needed Gutierrez, he discharged with Gutierrez but was taken out in [facility]. If to remove Gutierrez, would recommend straight cath schedule/close monitoring
to avoid worsening renal function/acute retention. Patient will need outpatient urology follow-up for consideration of suprapubic catheter.
Hold antihypertensives and diuretics. Hold KRISTOPHER inhibitor.
Monitor renal function daily.
# An episode of Bradycardia noted by EMT in NH and given Atropin,
EKG: sinus rhythm with 1: 1 conduction, right bundle branch block
No changes recommended.
Echo
? Due to increased dose of carvedilol.
Appreciate cardiology input
# Essential hypertension - BP stabilized. Slowly restart BP meds
# Hyperlipidemia - Atorvastatin.
# history of stroke - with left hemiparesis.
Resume Baclofen but lower the dose due to kidney injury and hypotension
Can adjust dosing as tolerated further.
# Chronic constipation
Continue with bowel regimen
chronic normocytic anemia - hemoglobin at baseline.
# History of CVA x 2 with left-sided weakness
# morbid obesity due to excess calories
DNR, per living will and records, confirmed with patient.
Anticipated Discharge: 24 - 48 hours
Subjective/Interval History
-
Date of Service: September 20, 2024
denies abd pain
tolerating diet
states had bm yesterday and again today
bp stabilized
Objective Data
-
Labs:
Laboratory Results
09/20/24
04:30
WBC 6.6
Hgb 8.4 L
Hct 25.4 L
Plt Count 153
Sodium 135
Potassium 3.9
Chloride 104
Carbon Dioxide 26
BUN 9
Creatinine 1.3
Glucose 77
Calcium 8.4
Vital Signs:
Vital Signs
Temp Pulse Resp BP Pulse Ox
99 F 82 17 157/79 94
09/20/24 08:47 09/20/24 08:47 09/20/24 08:47 09/20/24 08:47 09/20/24 08:47
I&O
09/19/24 09/20/24 09/21/24
06:59 06:59 06:59
Intake Total 3508.9 / 3588.9 1939
Output Total 2074 850 / 850
Balance 1433.9 / 1513.9 1090 / 1090
[2024-09-20 11:06] VITALS: BP 145/77
--- NOTE | 2024-09-20 12:11 | CM ---
Reviewed the chart notes. CM spoke with [facility] Staging Technician. The will accept the patient back at discharge if no other facility found. Additional referrals to SNFs in the [facility] sent today. CM continues to be available to
patient/family and is monitoring medical plan for needs at discharge.
Plan: Discharge back to [facility] if no other facility found at time of discharge.
[2024-09-20 15:09] VITALS: BP 153/81
[2024-09-20] MEDS: LIORESAL 5 MG PO ×2 (16:43→22:06)
[2024-09-20] MEDS: BenGay-Like TOPICAL (16:43)
[2024-09-20 19:10] VITALS: BP 147/72
[2024-09-20] MEDS: LIPITOR 80 MG PO (22:05)
[2024-09-20] MEDS: DESYREL 100 MG PO (22:06)
[2024-09-20] MEDS: MELATONIN 9 MG PO (22:06)
[2024-09-20] MEDS: DEPAKOTE (12 HR RELEASE) 125 MG PO (22:06)
[2024-09-20 23:18] VITALS: BP 139/66
[2024-09-21 03:30] VITALS: BP 136/74
[2024-09-21 04:54] LABS: % Basophils 0.2 % (0-2); % Eosinophils 3.2 % (0-6); % Immature Granulocytes 0.4 % (0-0.5); % Lymphocytes 17.1 % (20.5-51.1); % Monocytes 11.1 % (1.7-9.3); Absolute Eosinophils 0.2 10^3/uL (0-0.7); Absolute Lymphocytes 0.9 10^3/uL (1.2-3.4); Absolute Monocytes 0.6 10^3/uL (0.1-0.6); Absolute Neutrophils 3.6 10^3/uL (1.4-6.5); Hematocrit 23.9 % (39.0-52.0); Hemoglobin 8.1 g/dL (13.0-18.0); Mean Corp Hgb Conc. 33.9 g/dL (33.0-37.0); Mean Corpuscular Hgb 29.9 pg (27.0-31.0); Mean Corpuscular Volume 88.2 fL (80.0-94.0); Mean Platelet Volume 10.1 fL (7.4-10.4); Nucleated Red Blood Cells % 0 % (-); Platelet Count 161 10^3/uL (130-400); Red Blood Cell Count 2.71 10^6/uL (4.70-6.10); Red Cell Dist. Width 14.2 % (11.5-14.5); White Blood Cell Count 5.3 10^3/uL (4.8-10.8)
[2024-09-21 05:10] LABS: Blood Urea Nitrogen 8 mg/dl (9-20); Calcium 8.3 mg/dl (8.4-10.2); Carbon Dioxide 25 mmol/L (22-30); Chloride 106 mmol/L (98-107); Estimated Creatinine Clearance 87 ml/min; Glucose 75 mg/dl (70-99); Potassium 3.9 mmol/L (3.5-5.1); Sodium 136 mmol/L (135-145); eGFR > 60.00
[2024-09-21 06:00] VITALS: BMI 38.6
[2024-09-21 08:02] VITALS: BP 142/62
[2024-09-21] MEDS: AMOXIL 500 MG PO ×3 (08:04→19:55)
[2024-09-21] MEDS: ORETIC 12.5 MG PO (08:04)
[2024-09-21] MEDS: FLOMAX 0.4 MG PO (08:05)
[2024-09-21] MEDS: PROTONIX 40 MG PO ×2 (08:05→19:54)
[2024-09-21] MEDS: ELIQUIS 5 MG PO ×2 (08:05→19:55)
[2024-09-21] MEDS: LIORESAL 5 MG PO ×3 (08:05→19:55)
[2024-09-21] MEDS: SENOKOT 17.2 MG PO (08:05)
[2024-09-21] MEDS: LOW STRENGTH ASPIRIN 81 MG PO (08:06)
[2024-09-21] MEDS: ZOLOFT 150 MG PO (08:06)
[2024-09-21] MEDS: LIDOCAINE 4% PATCH 2 PATCH TOPICAL (08:07)
[2024-09-21] MEDS: MIRALAX 17 GRAMS PO (08:08)
[2024-09-21] MEDS: VISBIOME 1 CAP PO (08:09)
[2024-09-21] MEDS: BenGay-Like 1 APPLIC TOPICAL (08:11)
[2024-09-21 11:22] VITALS: BP 138/77
--- NOTE | 2024-09-21 11:54 | W.PN.HOSP.TC ---
Today's Communication/Plan
-
cont w/po abx
monitor BP-restart meds
Assessment / Plan
Assessment / Plan
Physical Exam
General: No Apparent Distress, Comfortable, Appears Chronically Ill and Obese
HEENT: Moist mucous membranes and Atraumatic
Respiratory: Decreased Breath Sounds
Cardiac: S1/S2
GI: Soft , +bs, non tender, non distended
Genito-urinary: Clear Urine and Boggs (texas catheter)
Musculoskeletal: No Cyanosis
Skin: No Jaundice
Neuro: AO x 3; No Slurred Speech, Facial Droop, Tremors or Sedated, left-sided hemiparesis
Psych: Calm; No Agitated or Anxious
# Urinary tract infection with Enterococcus
# Hypotension/shock likely secondary to infection versus multiple blood pressure medication related versus hypovolemia
Patient was not truly tachycardic as received metoprolol and came with bradycardia
Blood cultures remain negative.
De-escalate antibiotic from vancomycin/Zosyn to amoxicillin
Patient has been off Levophed t
off midodrine.
s/p IVF-
#Left lower quadrant abdominal pain
Resolved tolerating diet. Having bm.
#CADY - suspect due to acute urinary retention with volume depletion/ UTI.
#BPH
Status post fluids.
Creatinine is coming down, no hematuria, no flank pain
Hold antihypertensives and diuretics. Hold KRISTOPHER inhibitor.
Monitor renal function daily.
s/p boggs catheter. not retaining. voiding without any difficulty.
# An episode of Bradycardia noted by EMT in NH and given Atropin,
EKG: sinus rhythm with 1: 1 conduction, right bundle branch block
No changes recommended.
Echo
? Due to increased dose of carvedilol. per cards, dc BB for now.
Appreciate cardiology input
# Essential hypertension - BP stabilized. Slowly restart BP meds HCTZ restarted at lower dose. can restart norvasc if needed.
# Hyperlipidemia - Atorvastatin.
# history of stroke - with left hemiparesis.
Resume Baclofen but lower the dose due to kidney injury and hypotension
Can adjust dosing as tolerated further.
# Chronic constipation
Continue with bowel regimen
chronic normocytic anemia - hemoglobin at 8.1 likely dilutional effects from aggressive IVF earlier on hospitalization.
# History of CVA x 2 with left-sided weakness
# morbid obesity due to excess calories
DNR, per living will and records, confirmed with patient.
updated sister over the phone in details on 09/20.
Dispo-back to [facility] tom. CM aware.
Anticipated Discharge: Within 24 hours
Subjective/Interval History
-
Date of Service: September 21, 2024
no abd pain
Objective Data
-
Labs:
Laboratory Results
09/21/24
04:30
WBC 5.3
Hgb 8.1 L
Hct 23.9 L
Plt Count 161
Sodium 136
Potassium 3.9
Chloride 106
Carbon Dioxide 25
BUN 8 L
Creatinine 1.2
Glucose 75
Calcium 8.3 L
Vital Signs:
Vital Signs
Temp Pulse Resp BP Pulse Ox
98.4 F 78 17 138/77 97
09/21/24 11:22 09/21/24 11:22 09/21/24 11:22 09/21/24 11:22 09/21/24 11:22
I&O
09/20/24 09/21/24 09/22/24
06:59 06:59 06:59
Intake Total 1939 / 0 1140 / 1140
Output Total 850 / 850 1440 / 1440
Balance 1090 / 1090 -300 / -300
--- NOTE | 2024-09-21 14:28 | CM ---
Reviewed the chart notes and spoke with the patient at the bedside. Explained to patient many referrals sent to SNFs in the [facility] and none have any LTC beds at this time. Explained he will need to return to [facility] where the social
worker there will continue the search. CM continues to be available to patient/family and is monitoring medical plan for needs at discharge.
Plan: Discharge back to [facility] when medically stable.
[2024-09-21 15:39] VITALS: BP 162/71
[2024-09-21] MEDS: BenGay-Like TOPICAL ×2 (17:15→19:47)
[2024-09-21 19:19] VITALS: BP 130/73
[2024-09-21] MEDS: MIRALAX PO (19:46)
[2024-09-21] MEDS: SENOKOT PO (19:47)
[2024-09-21] MEDS: DEPAKOTE (12 HR RELEASE) 125 MG PO (19:54)
[2024-09-21] MEDS: LIPITOR 80 MG PO (19:55)
[2024-09-21] MEDS: MELATONIN 9 MG PO (19:55)
[2024-09-21] MEDS: TYLENOL 650 MG PO (19:55)
[2024-09-21] MEDS: DESYREL 100 MG PO (19:55)
[2024-09-21 23:13] VITALS: BP 127/62
[2024-09-22 03:09] VITALS: BP 139/63
[2024-09-22 05:48] VITALS: BMI 37.2
[2024-09-22 06:28] LABS: % Basophils 0.2 % (0-2); % Eosinophils 2.8 % (0-6); % Immature Granulocytes 0.4 % (0-0.5); % Lymphocytes 20.1 % (20.5-51.1); % Monocytes 13.1 % (1.7-9.3); % Neutrophils 63.4 % (42.2-75.2); Absolute Eosinophils 0.1 10^3/uL (0-0.7); Absolute Lymphocytes 0.9 10^3/uL (1.2-3.4); Absolute Monocytes 0.6 10^3/uL (0.1-0.6); Absolute Neutrophils 2.9 10^3/uL (1.4-6.5); Hematocrit 26.6 % (39.0-52.0); Hemoglobin 8.8 g/dL (13.0-18.0); Mean Corp Hgb Conc. 33.1 g/dL (33.0-37.0); Mean Corpuscular Hgb 29.3 pg (27.0-31.0); Mean Corpuscular Volume 88.7 fL (80.0-94.0); Nucleated Red Blood Cells % 0 % (-); Platelet Count 190 10^3/uL (130-400); Red Cell Dist. Width 14.3 % (11.5-14.5); White Blood Cell Count 4.6 10^3/uL (4.8-10.8)
[2024-09-22 06:47] LABS: Blood Urea Nitrogen 9 mg/dl (9-20); Calcium 8.8 mg/dl (8.4-10.2); Carbon Dioxide 31 mmol/L (22-30); Chloride 103 mmol/L (98-107); Estimated Creatinine Clearance 73 ml/min; Glucose 89 mg/dl (70-99); Sodium 137 mmol/L (135-145); eGFR 57.18
[2024-09-22 07:45] VITALS: BP 140/64
[2024-09-22] MEDS: FLOMAX 0.4 MG PO (10:16)
[2024-09-22] MEDS: AMOXIL 500 MG PO ×2 (10:16→15:14)
[2024-09-22] MEDS: VISBIOME 1 CAP PO (10:16)
[2024-09-22] MEDS: PROTONIX 40 MG PO (10:16)
[2024-09-22] MEDS: LIORESAL 5 MG PO ×2 (10:16→15:14)
[2024-09-22] MEDS: ZOLOFT 150 MG PO (10:16)
[2024-09-22] MEDS: BenGay-Like 1 APPLIC TOPICAL (10:17)
[2024-09-22] MEDS: LIDOCAINE 4% PATCH 2 PATCH TOPICAL (10:17)
[2024-09-22] MEDS: LOW STRENGTH ASPIRIN 81 MG PO (10:17)
[2024-09-22] MEDS: ELIQUIS 5 MG PO (10:17)
[2024-09-22] MEDS: SENOKOT PO (10:18)
[2024-09-22] MEDS: MIRALAX PO (10:18)
[2024-09-22] MEDS: ORETIC PO (10:23)
--- NOTE | 2024-09-22 11:33 | W.PN.HOSP.TC ---
Today's Communication/Plan
-
dc to snf
dc bb
hold hctz for now
repeat bmp
cont abx
Assessment / Plan
Assessment / Plan
Physical Exam
General: No Apparent Distress, Comfortable, Appears Chronically Ill and Obese
HEENT: Moist mucous membranes and Atraumatic
Respiratory: Decreased Breath Sounds
Cardiac: S1/S2
GI: Soft , +bs, non tender, non distended
Genito-urinary: Clear Urine and Boggs (texas catheter)
Musculoskeletal: No Cyanosis
Skin: No Jaundice
Neuro: AO x 3; No Slurred Speech, Facial Droop, Tremors or Sedated, left-sided hemiparesis
Psych: Calm; No Agitated or Anxious
# Urinary tract infection with Enterococcus
# Hypotension/shock likely secondary to infection versus multiple blood pressure medication related versus hypovolemia
Patient was not truly tachycardic as received metoprolol and came with bradycardia
Blood cultures remain negative.
De-escalate antibiotic from vancomycin/Zosyn to amoxicillin
Patient has been off Levophed.
off midodrine.
s/p IVF-
#Left lower quadrant abdominal pain
Resolved tolerating diet. Having bm.
#CADY - suspect due to acute urinary retention with volume depletion/ UTI.
#BPH
Status post fluids.
Creatinine is coming down, no hematuria, no flank pain
Hold antihypertensives and diuretics. Hold KRISTOPHER inhibitor.
Monitor renal function daily.
s/p boggs catheter. not retaining. voiding without any difficulty.
Cr at 1.4- Seems Cr to be fluctuating in the past.
# An episode of Bradycardia noted by EMT in NH and given Atropin,
EKG: sinus rhythm with 1: 1 conduction, right bundle branch block
No changes recommended.
Echo
? Due to increased dose of carvedilol. per cards, dc BB for now.
Appreciate cardiology input
# Essential hypertension - BP stabilized. Slowly restart BP meds restart Norvasc. Continue to hold HCTZ's and torsemide. Can restart if needed
# Hyperlipidemia - Atorvastatin.
# history of stroke - with left hemiparesis.
Resume Baclofen but lower the dose due to kidney injury and hypotension
Can adjust dosing as tolerated further.
# Chronic constipation
Continue with bowel regimen
chronic normocytic anemia - hemoglobin at 8.1 likely dilutional effects from aggressive IVF earlier on hospitalization.
# History of CVA x 2 with left-sided weakness
# morbid obesity due to excess calories
DNR, per living will and records, confirmed with patient.
updated sister over the phone in details on 09/20.
Dispo-back to SNF today
More than 30 minutes spent in discharge including
Final examination of the patient
Summarizing hospital stay
Instructions for continuing care to all relevant caregivers
Preparation of discharge records, prescriptions, and referral forms
Total time spent (in minutes): 52
Anticipated Discharge: Today
Subjective/Interval History
-
Date of Service: September 22, 2024
tolerating diet
no abd pain
Objective Data
-
Labs:
Laboratory Results
09/22/24
06:03
WBC 4.6 L
Hgb 8.8 L
Hct 26.6 L
Plt Count 190
Sodium 137
Potassium 4.0
Chloride 103
Carbon Dioxide 31 H
BUN 9
Creatinine 1.4 H
Glucose 89
Calcium 8.8
Vital Signs:
Vital Signs
Temp Pulse Resp BP Pulse Ox
98.3 F 57 16 140/64 99
09/22/24 07:45 09/22/24 07:45 09/22/24 07:45 09/22/24 07:45 09/22/24 07:45
I&O
09/21/24 09/22/24 09/23/24
06:59 06:59 06:59
Intake Total 1140 / 1140 480 / 480
Output Total 1440 / 1440 2300 / 2300
Balance -300 / -300 -1820 / -1820
--- NOTE | 2024-09-22 11:50 | W.DCSUMMARY ---
Discharge Summary
Discharge Data
Date of Admission: 09/16/24
Date of Discharge: 09/22/24
-
Pending Results: No
Hospital Course
59-year-old male past medical history of hypertension, hyperlipidemia, history of stroke with left-sided hemiparesis, chronic constipation, chronic anemia, morbid obesity who is presented from long term and was found to have a hypotension,
urinary tract infection. Patient was monitored in the ICU. Patient was started on pressors. Patient was started on broad-spectrum antibiotic with vancomycin and Zosyn. Patient blood cultures were negative. Urine culture with Enterococcus.
Antibiotics were de-escalated to amoxicillin. Patient remained afebrile. Patient received IV fluid resuscitation. Midodrine was started. Patient was weaned off Levophed. Patient blood pressure stabilized and was transferred to medical floor.
Midodrine was discontinued as blood pressure stabilized. Patient also had CADY which resolved. Gutierrez catheter was removed and patient voiding without any difficulty and retention. Patient also with bradycardia and was taken off beta-toan.
Patient will have repeat BMP as outpatient and can be restarted on her diuretics regimen if needed. Patient was evaluated by critical care and cardiology.
Discharge Plan
-
Patient Disposition: Alf/SNF
Discharge Diagnosis/Procedures: Urinary tract infection with Enterococcus
Hypotension/shock
Left lower quadrant abdominal pain
Acute kidney injury
Bradycardia
Condition: Fair
Diet: Low Cholesterol
Activity: As tolerated
Driving Restrictions: No driving
Blood Work: Repeat blood work in 5 to 7 days for primary doctor
Activity Restrictions/Additional Instructions:
Recommend strict clean hygiene with frequent offloading to avoid further infection.
Referrals:
UNKNOWN - PT DOES,NOT KNOW [Family Provider]
Additional Discharge Medication Instructions: Carvedilol was discontinued due to bradycardia
Hydrochlorothiazide and torsemide was discontinued for now. Can eventually be restarted if creatinine stabilized and if needed for volume overload.
Prescriptions:
New
amoxicillin 500 mg Capsule
500 mg PO TID Qty: 26 0RF
Continued
atorvastatin [Lipitor] 80 mg Tablet
80 mg PO HS
sennosides [senna] 8.6 mg Tablet
17.2 mg PO BID
acetaminophen [Tylenol] 325 mg Tablet
650 mg PO Q6HPRN MDD 3000mg PRN (Reason: mild pain/fever)
triamcinolone acetonide 0.1 % Cream
1 applic TOPICAL BID
magnesium hydroxide [Milk of Magnesia] 400 mg/5 mL Suspension
30 ml PO DAILYPRN PRN (Reason: if no bm in 3 days)
tamsulosin [Flomax] 0.4 mg Capsule
0.4 mg PO QPM
pantoprazole 40 mg Tablet,Delayed Release (Dr/Ec)
40 mg PO BID
divalproex 125 mg Tablet,Delayed Release (Dr/Ec)
125 mg PO HS
bisacodyl [Dulcolax (bisacodyl)] 5 mg Tablet,Delayed Release (Dr/Ec)
5 mg PO DAILYPRN PRN (Reason: constipation)
Muscle Rub 15-10 % Cream
1 applic TOPICAL Q6HPRN PRN (Reason: mild pain )
Eliquis 5 mg Tablet
5 mg PO BID
sertraline 150 mg Capsule
150 mg PO DAILY
lidocaine 4 % Adhesive Patch,Medicated
1 patch TOPICAL DAILY
Rx Instructions:
left knee
lidocaine 5 % Cream
1 applic TOPICAL BID
hydrocortisone 1 % Cream
1 applic TOPICAL BID
simethicone 125 mg Tablet
125 mg PO Q8HPRN PRN (Reason: gas pains)
lidocaine 5 % Adhesive Patch,Medicated
1 patch TOPICAL DAILY
bisacodyl [Dulcolax (bisacodyl)] 10 mg Suppository
10 mg IN DAILY PRN (Reason: constipation if MOM ineffective)
Lactobacillus acidophilus Capsule
1 cap PO DAILY
amlodipine 10 mg tablet
10 mg PO DAILY
Rx Instructions:
hold for b/p <110/60
aspirin 81 mg Tablet,Chewable
81 mg PO DAILY
melatonin 1 mg Tablet
8 mg PO HS
selenium sulfide 2.5 % lotion
1 applic TOPICAL Q8HPRN PRN (Reason: itching)
Changed
polyethylene glycol 3350 [Miralax] 17 gram Powder In Packet
17 g PO DAILY PRN (Reason: Constipation) Qty: 0 0RF
trazodone 100 mg Tablet
100 mg PO HS Qty: 0 0RF
baclofen 10 mg tablet
5 mg PO TID Qty: 0 0RF
Discontinued
Fleet Enema 19-7 gram/118 mL Enema
118 ml IN DAILYPRN PRN (Reason: if no bm aftr dulcolax)
carvedilol 12.5 mg tablet
12.5 mg PO BID
torsemide 10 mg tablet
10 mg PO DAILY
hydrochlorothiazide 25 mg tablet
25 mg PO DAILY
lisinopril 40 mg tablet
40 mg PO DAILY
Rx Instructions:
hold if SBP is less or equal to 100 and/or DBP less or equal to 60
Discharge Orders:
Discharge Patient (As Directed); Ordered 09/22/24
Ordered By: German Esquivel
Discharge Date and Time
Print Language: MAORI
[2024-09-22 11:54] VITALS: BP 152/68
--- NOTE | 2024-09-22 12:35 | CM ---
Reviewed the chart notes. Attempted multiple times to contact patient's sister (Tejal). Someone would cook pickled meat the phone and not speak and other times would go to voice mailbox which was full. Patient is to be discharged back to [facility] today.
CM continues to be available to patient/family and is monitoring medical plan for needs at discharge.
Plan: Discharge back to [facility] today.
Call report to: [phone]
Fax report to: [phone]
Medical necessity and transport forms on chart.
[2024-09-22] MEDS: BenGay-Like TOPICAL (15:14)
[2024-09-22 15:16] VITALS: BP 129/58
== END 2024-09-22 18:10 | DRG 682 ==
LOC: 2 NORTH 15:34
PROVIDERS: Radiology Diagnostic Radiology; Registered Nurse; ADMITTING PHYSICIAN Internal Medicine; ATTENDING PHYSICIAN Hospitalist; CONSULT PHYSICIAN Internal Medicine Cardiovascular Disease; CONSULT PHYSICIAN Internal Medicine Critical Care Medicine; EMERGENCY PHYSICIAN Emergency Medicine
PROC: 0T9B70Z Drainage of Bladder with Drainage Device, Via Natural or Artificial Opening (ICD-10-PCS; 2024-09-16)
PROC: 02HV33Z Insertion of Infusion Device into Superior Vena Cava, Percutaneous Approach (ICD-10-PCS; 2024-09-18)
DX: N17.9 Acute kidney failure, unspecified (principal); R57.1 Hypovolemic shock; I69.354 Hemiplegia and hemiparesis following cerebral infarction affecting left non-dominant side; N39.0 Urinary tract infection, site not specified; N18.9 Chronic kidney disease, unspecified; E11.22 Type 2 diabetes mellitus with diabetic chronic kidney disease; E78.00 Pure hypercholesterolemia, unspecified; F32.A Depression, unspecified; I13.10 Hypertensive heart and chronic kidney disease without heart failure, with stage 1 through stage 4 chronic kidney disease, or unspecified chronic kidney disease; K21.9 Gastro-esophageal reflux disease without esophagitis; E66.01 Morbid (severe) obesity due to excess calories; R33.8 Other retention of urine; N40.1 Benign prostatic hyperplasia with lower urinary tract symptoms; I45.10 Unspecified right bundle-branch block; B95.2 Enterococcus as the cause of diseases classified elsewhere; D64.9 Anemia, unspecified; K59.09 Other constipation; M54.9 Dorsalgia, unspecified; G89.29 Other chronic pain; M25.562 Pain in left knee; Z66 Do not resuscitate; Z68.37 Body mass index [BMI] 37.0-37.9, adult; Z79.82 Long term (current) use of aspirin; Z79.01 Long term (current) use of anticoagulants; Z87.891 Personal history of nicotine dependence; Z74.01 Bed confinement status
CPT/HCPCS: 51702; 51798; 71045; 80048; 80053; 80202; 81003; 81015; 82962; 83605; 83735; 84100; 84484; 85025; 85027; 85610; 85730; 87040; 87070; 87077; 87086; 87186; 87641; 93005; 93306; 96361; 96365; 96366; 99291

== ENCOUNTER 2024-10-22 23:58 | Observation (INO) | payer OTHER, SELFPAY ==
[2024-10-22 20:27] VITALS: BP 108/61
[2024-10-22 20:32] VITALS: BMI 37.2
[2024-10-22 20:46] LABS: Urine Character Slightly Cloudy (Clear)
[2024-10-22 20:53] LABS: Urine Red Blood Cell >100 /HPF (0-2); Urine Squamous Cell 0-2 /LPF (Few)
[2024-10-22 21:00] VITALS: BP 104/64
[2024-10-22 21:59] LABS: Hematocrit 27.9 % (39.0-52.0); Hemoglobin 9.3 g/dL (13.0-18.0); Mean Corp Hgb Conc. 33.3 g/dL (33.0-37.0); Mean Corpuscular Volume 90.9 fL (80.0-94.0); Nucleated Red Blood Cells % 0 % (-); Platelet Count 156 10^3/uL (130-400); Red Cell Dist. Width 14.5 % (11.5-14.5)
[2024-10-22 22:00] VITALS: BP 121/68
[2024-10-22 22:09] LABS: INR 1.32; PT 16.6 Sec (11.4-14.6)
[2024-10-22 22:19] LABS: Blood Urea Nitrogen 14 mg/dl (9-20); Calcium 8.6 mg/dl (8.4-10.2); Carbon Dioxide 31 mmol/L (22-30); Chloride 102 mmol/L (98-107); Estimated Creatinine Clearance 93 ml/min; Glucose 102 mg/dl (70-99); Potassium 3.8 mmol/L (3.5-5.1); Sodium 135 mmol/L (135-145); eGFR > 60.00
[2024-10-22 23:00] VITALS: BP 154/71
--- NOTE | 2024-10-22 23:36 | ED.GENMED ---
History of Present Illness
General
Chief Complaint: Urinary Symptoms
Source: patient
Time Seen by Provider: 10/22/24 20:33
History of Present Illness
History of Present Illness:
Note:
CHIEF COMPLAINT(S)
Inability to void since yesterday.
HISTORY OF PRESENT ILLNESS
The patient is a 65-year-old male who presented with hematuria. He reports that he urinated a small amount of blood yesterday and today has. He denies any fever. The patient cannot recall any previous episodes of urinary retention or urinary tract
infections. He is currently taking apixaban (Eliquis), though the specific indication for its use was unspecified during the conversation. The patient understands the plan to perform catheterization to relieve bladder retention and possible
irrigation to clear any obstruction. Denies abdominal pain. Denies fevers
MEDICATIONS
Apixaban (Eliquis).
PHYSICAL EXAM
General: Alert, no acute distress.
Skin: Warm, dry.
Head: Normocephalic, atraumatic.
Neck: Supple, trachea midline.
Eye, Ears, Nose, Mouth, and Throat: Oral mucosa moist.
Cardiovascular: Normal peripheral perfusion, No edema.
Respiratory: Respirations are non-labored.
Gastrointestinal: Abdomen nondistended. No focal tenderness
Back: Normal range of motion, Normal alignment.
Musculoskeletal: No obvious edema.
Neurological: Left-sided weakness noted.
Psychiatric: Cooperative, appropriate mood & affect.
PLAN
1. Consider catheterization to relieve bladder retention and assess the urethra and bladder for any obstruction.
2. Perform blood work for further evaluation.
DIFFERENTIAL DIAGNOSIS
The Differential Diagnosis includes, in no particular order and is not limited to:
1. Acute urinary retention secondary to benign prostatic hyperplasia.
2. Urinary tract infection.
3. Bladder outlet obstruction.
4. Neurogenic bladder.
5. Medication side effects.
6. Bladder stones.
7. Prostate cancer.
8. Urethral stricture.
9. Pinched nerve or neurological disorder.
10. Medication-induced urinary retention.
Disposition:
SUMMARY OF ENCOUNTER
The patient is a 59-year-old male on apixaban who presented with hematuria. There is a history of stroke, seizures, and diabetes. Previous urine cultures reviewed indicated Enterococcus and Enterobacter infections, with the Enterobacter showing
resistance to penicillins. A history of Klebsiella was also noted. Given the review of his medical history and persistent hematuria, levofloxacin was initiated for coverage, along with DVI and placement of a three-way catheter. The patients case was
discussed with a hospitalist for admission, and a neurology consultation was suggested due to his neurological history.
DISPOSITION
Admission.
ASSESSMENT
The patient is experiencing persistent hematuria, potentially due to a urinary tract infection compounded by his anticoagulant medication and underlying conditions.
PLAN
1. Initiate levofloxacin for infection coverage.
2. Start DVI and insert a three-way catheter for bladder management.
3. Consult neurology for evaluation given patients history of stroke and seizures.
4. Discuss and arrange for hospital admission with the hospitalist team.
INDEPENDENT REVIEW OF LABS AND INTERPRETATION OF TESTS
- My independent review of CBC indicates a normal white blood cell count of 9.3, slightly above his baseline of 8.8.
- My independent review of urinary analysis shows 3+ leukocyte esterase and greater than 100 red blood cells per high power field, consistent with infection and hematuria.
PROCEDURES
1. Placement of a three-way catheter.
2. Initiation of direct vein infusion (DVI).
MEDICATION RECONCILIATION
- Levofloxacin prescribed for urinary tract infection coverage.
MEDICAL DECISION MAKING
- Number and Complexity of Problems Addressed: Chronic conditions affecting care include history of stroke, seizures, diabetes. Differential diagnoses considered are urinary tract infection, persistent hematuria secondary to anticoagulation, and
possible bladder outlet obstruction.
- Data:
- Category 1: Review of previous urine cultures indicating Enterococcus and resistant Enterobacter. Current urine analysis indicates infection.
- Category 3: Case discussed with a hospitalist for admission. Suggested consultation with neurology for further evaluation given neurological history.
- Risk: Consideration of Admission/Observation: Escalation of care including admission/observation was considered given the complexity and risk of the patients presenting complaint, exam findings, and underlying comorbidities. However, ultimately I
feel the patient is safe for inpatient management.
DIAGNOSIS
1. Urinary tract infection (UTI)
2. Hematuria
3. History of stroke
4. History of seizures
5. Diabetes mellitus
Past History
Past History
ED Past Medical History: CVA, GERD, HTN, Hypercholesterolemia, NIDDM, Seizures, Psychiatric (Depression) and Other (obesitiy)
Phy Exam
Physical Exam
Physical Exam:
.
Course
Orders/Labs/Results
Orders:
Orders
10/22/24 20:37
Urine Microscopic Reflex Cult Urgent
Urine Reflex Culture from UA [Urinalysis Reflex To Culture] Urgent
Date Specimen was Collected: 10/22/24
Time Specimen was Collected: 20:34
Urine Culture Urgent
ERIC Source: U
Specimen Description:
Date Specimen was Collected: 10/22/24
Time Specimen was Collected: 20:34
10/22/24 21:17
Gutierrez Placement- Treatment ONCE
Reason for insertion: Urology Determination
10/22/24 21:27
Basic Metabolic Panel Urgent
Complete Blood Count/With Diff Urgent
Prothrombin Time Urgent
10/22/24 23:35
LevoFLOXacin 500 mg IVPB NOW LevoFLOXacin 500 MG/100 ML [Levaquin] 500 mg in 100 ml IV NOW
Abnormal Lab Results
10/22/24 10/22/24
20:37 21:27
WBC 4.5 L 10^3/uL
(4.8-10.8)
RBC 3.07 L 10^6/uL
(4.70-6.10)
Hgb 9.3 L g/dL
(13.0-18.0)
Hct 27.9 L %
(39.0-52.0)
PT 16.6 H Sec
(11.4-14.6)
Carbon Dioxide 31 H mmol/L
(22-30)
Glucose 102 H mg/dl
(70-99)
Ur Occult Blood Reflex 4+ A
(Negative)
Leukocyte Esterase Rfl 3+ A
(Negative)
Urine RBC >100 A /HPF
(0-2)
Urine Bacteria (Reflex) Moderate A
(Negative)
Urine Albumin (Reflex) 3+ A
(Neg - Trace)
10/22/24 21:27
10/22/24 21:27
Vital Signs
Initial and Last Documented VS:
Initial Vital Signs
Temp Pulse Resp BP Pulse Ox
98.3 F 60 20 108/61 98
10/22/24 20:27 10/22/24 20:27 10/22/24 20:27 10/22/24 20:27 10/22/24 20:27
Last Documented Vital Signs
Temp Pulse Resp BP Pulse Ox
98.3 F 57 20 108/61 98
10/22/24 20:27 10/22/24 20:27 10/22/24 20:27 10/22/24 20:27 10/22/24 20:27
*Pulse Oximetry
SaO2: 98
Oxygen Mode of Delivery: Room air
Patient hypoxic: no
*Critical Care Note
Total Time (30-74mins, 75-104mins- exclusive of procedures): Not Applicable
ED Attending Note
-
Portions of this chart may have been created with voice recognition software.� Occasional wrong word or��sound alike� substitutions may have occurred due to the inherent limitations of voice recognition software.
Discharge Plan
Departure
Patient Disposition: Admit
Date of Disposition: 10/22/24
Time of Disposition: 23:37
Admit to: Med/Surg
Presentation/result/management discussed w/ accepting MD/DO: Hospitalist
Discharge Problem:
Hematuria, Anticoagulated on Eliquis
Prescriptions:
No Action
atorvastatin [Lipitor] 80 mg Tablet
80 mg PO HS
sennosides [senna] 8.6 mg Tablet
17.2 mg PO BID
acetaminophen [Tylenol] 325 mg Tablet
650 mg PO Q6HPRN MDD 3000mg PRN (Reason: mild pain/fever)
triamcinolone acetonide 0.1 % Cream
1 applic TOPICAL BID
magnesium hydroxide [Milk of Magnesia] 400 mg/5 mL Suspension
30 ml PO DAILYPRN PRN (Reason: if no bm in 3 days)
tamsulosin [Flomax] 0.4 mg Capsule
0.4 mg PO QPM
pantoprazole 40 mg Tablet,Delayed Release (Dr/Ec)
40 mg PO BID
divalproex 125 mg Tablet,Delayed Release (Dr/Ec)
125 mg PO HS
bisacodyl [Dulcolax (bisacodyl)] 5 mg Tablet,Delayed Release (Dr/Ec)
5 mg PO DAILYPRN PRN (Reason: constipation)
Muscle Rub 15-10 % Cream
1 applic TOPICAL Q6HPRN PRN (Reason: mild pain )
Eliquis 5 mg Tablet
5 mg PO BID
sertraline 150 mg Capsule
150 mg PO DAILY
lidocaine 4 % Adhesive Patch,Medicated
1 patch TOPICAL DAILY
Rx Instructions:
left knee
lidocaine 5 % Cream
1 applic TOPICAL BID
hydrocortisone 1 % Cream
1 applic TOPICAL BID
simethicone 125 mg Tablet
125 mg PO Q8HPRN PRN (Reason: gas pains)
lidocaine 5 % Adhesive Patch,Medicated
1 patch TOPICAL DAILY
bisacodyl [Dulcolax (bisacodyl)] 10 mg Suppository
10 mg [place] DAILY PRN (Reason: constipation if MOM ineffective)
Lactobacillus acidophilus Capsule
1 cap PO DAILY
amlodipine 10 mg tablet
10 mg PO DAILY
Rx Instructions:
hold for b/p <110/60
aspirin 81 mg Tablet,Chewable
81 mg PO DAILY
melatonin 1 mg Tablet
8 mg PO HS
selenium sulfide 2.5 % lotion
1 applic TOPICAL Q8HPRN PRN (Reason: itching)
amoxicillin 500 mg Capsule
500 mg PO TID Qty: 26 0RF
polyethylene glycol 3350 [Miralax] 17 gram Powder In Packet
17 g PO DAILY PRN (Reason: Constipation) Qty: 0 0RF
trazodone 100 mg Tablet
100 mg PO HS Qty: 0 0RF
baclofen 10 mg tablet
5 mg PO TID Qty: 0 0RF
Referrals:
Elias Toledo, DO [Family Provider, Internal Medicine]
Interventions
Interventions:
*Risk Screen - Suicide Last Done: 10/22/24 20:27
*General Assessment Last Done: 10/22/24 20:27
*Neglect/Abuse Screening Last Done: 10/22/24 20:27
*ED- Fall Risk Assessment Last Done: 10/22/24 20:27
*ED COVID-19 Vaccine History Last Done: 10/22/24 20:27
ED-Male Genitourinary Assessment Last Done: 10/22/24 21:17
Discharge Date and Time
Print Language: MACANESE
--- NOTE | 2024-10-22 23:38 | HPS.HSE ---
Family Physician
-
Family Physician: Elias Toledo, DO
Chief Complaint
-
Gross hematuria
History of Present Illness
59-year-old male with past medical history significant for CVA with left-sided hemiparesis, seizure disorder, on anticoagulation with Eliquis, morbid obesity, hypertension, hyperlipidemia, chronic constipation, recent urinary tract infection with
sepsis and now coming into the emergency department with gross hematuria.
When patient was last admitted he had urinary cath placed and had a successful voiding trial with removal of Gutierrez catheter.
Patient reported that he started having hematuria 1 day ago. He denies any dysuria. He denies abdominal pain. He denies any flank pain. He denies any nausea or vomiting. There has not been any fevers or chills. Patient denies any falls or
trauma. He denies any recent instrumentation. He has continued on his usual Eliquis and aspirin. Denies any other medication changes. He denies prior history of hematuria.
Blood pressure on arrival was 108/60 with a pulse rate of 57, temp of 98.3.
CBC was unremarkable. Electrolytes BUN/creatinine remained stable. CBI started.
Medical History
Past Medical History
Past Medical History: Reports Other (Strict stroke left hemiaplasia, hypertension, hyperlipidemia, diabetes, depression, BPH, history of chronic urinary retention, chronic back pain, obesity.)
Past Surgical History: Reports Other (No recent major surgery )
Social History
Tobacco: Former Smoker
Alcohol: Former
Drug: None
Personal: Single
Living: [facility]
Employment: Disabled
Family History
Family History: Not pertinent
Allergies / Home Medications
Allergies reflects when Allergies were last updated in [employer].
Home Medications with original date entered in [employer]
Allergy/Medication List:
Allergies
Allergy/AdvReac Type Severity Reaction Status Date / Time
No Known Allergies Allergy Verified 09/16/24 12:52
Home Medications
acetaminophen 325 mg tablet (Tylenol) 650 mg PO Q6HPRN PRN mild pain 09/23/23
apixaban 5 mg tablet (Eliquis) 5 mg PO BID Blood Clot Prevention/Tx 09/23/23
aspirin 81 mg tablet,delayed release 81 mg PO DAILY Blood Clot Prevention/Tx 09/23/23
atorvastatin 80 mg tablet (Lipitor) 80 mg PO HS High Cholesterol 09/23/23
bisacodyl 5 mg tablet,delayed release (Dulcolax (bisacodyl)) 5 mg PO DAILYPRN PRN if no bm aftr mom 09/23/23
divalproex 125 mg tablet,delayed release 125 mg PO HS Seizures 09/23/23
magnesium hydroxide 400 mg/5 mL oral suspension (Milk of Magnesia) 30 ml PO [id number] PRN if no bm on 3rd day 09/23/23
melatonin 5 mg tablet 8 mg PO HS Sleep 09/23/23
methyl salicylate 15 %-menthol 10 % topical cream (Muscle Rub) 1 applic topical Q6HPRN PRN mild pain on knees 09/23/23
pantoprazole 40 mg tablet,delayed release 40 mg PO BID Gastrointestinal Issue 09/23/23
polyethylene glycol 3350 17 gram oral powder packet (Miralax) 17 g PO BID Constipation 09/23/23
sennosides 8.6 mg tablet (senna) 17.2 mg PO BID Constipation 09/23/23
sertraline 150 mg capsule 150 mg PO DAILY Depression 09/23/23
sodium phosphates 19 gram-7 gram/118 mL enema (Fleet Enema) 118 ml [place] DAILYPRN PRN if no bm aftr dulcolax 09/23/23
tamsulosin 0.4 mg capsule (Flomax) 0.4 mg PO QPM Urinary Issue 09/23/23
triamcinolone acetonide 0.1 % topical cream 1 applic topical BID atopic dermatitis, scalp 09/23/23
hydrocortisone 1 % topical cream 1 applic topical BID scalp 05/04/24
lidocaine 4 % topical patch 1 patch topical DAILY left knee 05/04/24
lidocaine 5 % topical cream 1 applic topical BID left hand 05/04/24
simethicone 125 mg tablet 125 mg PO Q8HPRN PRN gas pains 05/04/24
trazodone 100 mg tablet 200 mg PO HS mental health/sleep 05/04/24
Lactobacillus acidophilus 1 cap PO DAILY Gastrointestinal Issue 08/28/24
bisacodyl 10 mg rectal suppository (Dulcolax (bisacodyl)) 10 mg [place] DAILY PRN consipation, no relief from MoM 08/28/24
lidocaine 5 % topical patch 1 patch topical DAILY r knee 08/28/24
baclofen 10 mg tablet 10 mg PO TID #0 tabs 08/30/24
carvedilol 3.125 mg tablet (Coreg) 3.125 mg PO BID #60 tabs 08/30/24
Review of Systems
-
History Source: Patient
A 12 point ROS was completed and negative except as noted: Yes
Constitutional: Denies Fever
EENT: Reports No Symptoms
Respiratory: Denies Cough
Cardiac: Denies Chest Pain
Abdomen/GI: Denies Abdominal Pain
: Reports Bleeding
Musculoskeletal: Reports Joint Pain (left knee & elbow )
Endocrine: Denies Temp Intolerance
Hematologic/Lymphatic: Denies Bruising
Psych: Denies Panic Disorder
Physical Exam
Vital Signs
Vital Signs
Temp Pulse Resp BP Pulse Ox
98.3 F 57 20 108/61 98
10/22/24 20:27 10/22/24 20:27 10/22/24 20:27 10/22/24 20:27 10/22/24 23:37
Physical Exam
General: No Apparent Distress, Comfortable, Appears Chronically Ill and Obese
HEENT: Moist mucous membranes and Atraumatic
Respiratory: Decreased Breath Sounds
Cardiac: S1/S2
GI: Soft and Non Tender
Genito-urinary: Bloody Urine and Gutierrez
Musculoskeletal: No Cyanosis
Skin: No Jaundice
Neuro: AO x 3; No Slurred Speech, Facial Droop, Tremors or Sedated
Psych: Calm; No Agitated or Anxious
Laboratory Results
-
10/22/24 21:27
10/22/24 21:27
Laboratory Results
PT 16.6 Sec (11.4-14.6) H 10/22/24 21:27
INR 1.32 10/22/24 21:27
Data Reviewed
-
Lab Data: Labs Reviewed by me
Old Records: Reviewed
Impression/Plan
-
IMPRESSION:
59-year-old with CVA and residual left-sided hemiparesis, hypertension, hyperlipidemia, who is on anticoagulation with Eliquis presenting to the emergency department with hematuria and urinary retention. Started on CBI in the emergency department.
He is afebrile, UA is notable for blood leukocyte esterase and moderate bacteria. Denies flank pain. Urinary function normal and at baseline. Hemoglobin is 9.3 similar to prior. Etiology of his hematuria is unclear at this time.
PLAN:
Hematuria -hemodynamically stable with stable hemoglobin. Patient on Eliquis and likely etiology. Cannot rule out an infection but no obvious sepsis.
-Admit to MedSurg
-Hold anticoagulation
-Continue CBI
-Urine cultures, IV levaquin based on past years urine cultures (patient currently on amoxicillin for tooth infection ending 10/25)
-Continue tamsulosin
-Urology consultation
CVA -
- Hold Eliquis, continue aspirin
-Continue his antihypertensives
-Continue statin
-Seizure treatment with valproic acid
DVT prophylaxis�SCDs
CODE STATUS�DNR
[2024-10-22] MEDS: LEVAQUIN 100 IV (23:55)
[2024-10-23] VITALS: BP 123/53
--- NOTE | 2024-10-23 03:00 | PTCARENOTE ---
Pt arrived to room 434-02 from ED, pullover assist x4. VSS, AAOx3, CBI infusing. Pt reports pressure in groin area where Gutierrez is located; BOARD FINISHER Harriett Krishnamurthy notified, order placed for 1x stat valium 2mg and provided to pt. Pt reports feeling
like he needs to have a BM; PRN PO dulcolax given to pt.
[2024-10-23] MEDS: VALIUM 2 MG PO (03:23)
[2024-10-23] MEDS: DULCOLAX 5 MG PO (03:24)
[2024-10-23 03:50] VITALS: BP 106/73
[2024-10-23 06:00] VITALS: BMI 36.3
[2024-10-23 07:35] VITALS: BP 125/63
--- NOTE | 2024-10-23 08:24 | CONS.URO ---
Consultation
-
Date/Time Consultation Performed: 10/23/24 0737
Performing Provider: Miguelangel
Reason for Consultation: hematuria
Medical History
History of Present Illness
59 yo AA male who resides in [place] with multiple recent hospitalizations was admitted via ED: 'he had urinary cath placed and had a successful voiding trial with removal of Gutierrez catheter.
Patient reported that he started having hematuria 1 day ago.'
h/o UTIs -- 09/16/2024 Enterococcus
09/2023 CT: numerous left renal stone including a ~ 1.7 cm in lower pole
Past Medical History
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
Allergies/Home Medications
Allergies
Allergy/AdvReac Type Severity Reaction Status Date / Time
No Known Allergies Allergy Verified 09/16/24 12:52
Home Medications
�Medication �Instructions �Recorded �Confirmed �Type
acetaminophen 325 mg tablet 650 mg PO Q6HPRN PRN mild 09/23/23 10/23/24 History
(Tylenol) pain/fever
apixaban 5 mg tablet (Eliquis) 5 mg PO BID Blood Clot 09/23/23 10/23/24 History
Prevention/Tx
atorvastatin 80 mg tablet (Lipitor) 80 mg PO HS High Cholesterol 09/23/23 10/23/24 History
bisacodyl 5 mg tablet,delayed 5 mg PO DAILYPRN PRN constipation 09/23/23 10/23/24 History
release (Dulcolax (bisacodyl))
divalproex 125 mg tablet,delayed 125 mg PO HS Seizures 09/23/23 10/23/24 History
release
magnesium hydroxide 400 mg/5 mL 30 ml PO DAILYPRN PRN if no bm in 09/23/23 10/23/24 History
oral suspension (Milk of Magnesia) 3 days
methyl salicylate 15 %-menthol 10 1 applic topical Q6HPRN PRN mild 09/23/23 09/16/24 History
% topical cream (Muscle Rub) pain
pantoprazole 40 mg tablet,delayed 40 mg PO BID Gastrointestinal Issue 09/23/23 10/23/24 History
release
sennosides 8.6 mg tablet (senna) 17.2 mg PO BID Constipation 09/23/23 10/23/24 History
sertraline 150 mg capsule 150 mg PO DAILY Depression 09/23/23 10/23/24 History
tamsulosin 0.4 mg capsule (Flomax) 0.4 mg PO QPM Urinary Issue 09/23/23 10/23/24 History
triamcinolone acetonide 0.1 % 1 applic topical BID atopic 09/23/23 10/23/24 History
topical cream dermatitis
hydrocortisone 1 % topical cream 1 applic topical BID scalp 05/04/24 10/23/24 History
lidocaine 4 % topical patch 1 patch topical DAILY left knee 05/04/24 10/23/24 History
lidocaine 5 % topical cream 1 applic topical BID left hand 05/04/24 09/16/24 History
simethicone 125 mg tablet 125 mg PO Q8HPRN PRN gas pains 05/04/24 10/23/24 History
Lactobacillus acidophilus 1 cap PO DAILY Gastrointestinal 08/28/24 10/23/24 History
Issue
bisacodyl 10 mg rectal suppository 10 mg IN DAILY PRN constipation if 08/28/24 10/23/24 History
(Dulcolax (bisacodyl)) MOM ineffective
lidocaine 5 % topical patch 1 patch topical DAILY right knee 08/28/24 09/16/24 History
amlodipine 10 mg tablet 10 mg PO DAILY Blood Pressure 09/16/24 09/16/24 History
aspirin 81 mg chewable tablet 81 mg PO DAILY Blood Clot 09/16/24 10/23/24 History
Prevention/Tx
melatonin 1 mg tablet 8 mg PO HS Sleep 09/16/24 10/23/24 History
selenium sulfide 2.5 % lotion 1 applic topical Q8HPRN PRN itching 09/16/24 09/16/24 History
amoxicillin 500 mg capsule 500 mg PO TID #26 caps 09/22/24 Rx
baclofen 10 mg tablet 5 mg (1/2 x 10 mg) PO TID Skeletal 09/22/24 10/23/24 Rx
Muscle Relaxant #0 tabs
polyethylene glycol 3350 17 gram 17 g PO DAILY PRN Constipation #0 09/22/24 10/23/24 Rx
oral powder packet (Miralax) ea
trazodone 100 mg tablet 100 mg PO HS mental health/sleep 09/22/24 10/23/24 Rx
#0 tabs
Physical Exam
Vital Signs
Vital Signs
Temp Pulse Resp BP Pulse Ox
97.9 F 66 14 106/73 97
10/23/24 03:50 10/23/24 03:50 10/23/24 03:50 10/23/24 03:50 10/23/24 03:50
Physical Exam
adult male in bed
GI: Soft
Genito-urinary: Bloody Urine (via Gutierrez)
Assessment / Plan
-
Gross hematuria: Prostatomegaly --> chronic retention --> Gutierrez --> CAUTI
Left nephrolithiais
Rec: Gutierrez change [if not already done during this admission]
tx UTI
CT to reassess stone burden
Data Reviewed
-
CT Scan: Image personally visualized and interpreted
Old Records: Reviewed
[2024-10-23] MEDS: ZOLOFT 150 MG PO (08:30)
[2024-10-23] MEDS: SENOKOT 17.2 MG PO ×2 (08:31→20:13)
[2024-10-23] MEDS: LOW STRENGTH ASPIRIN 81 MG PO (08:31)
[2024-10-23] MEDS: NORVASC 10 MG PO (08:31)
[2024-10-23] MEDS: VISBIOME 1 CAP PO (08:32)
[2024-10-23] MEDS: LIORESAL 5 MG PO ×3 (08:32→22:02)
[2024-10-23] MEDS: PROTONIX 40 MG PO ×2 (08:32→20:13)
[2024-10-23 08:35] VITALS: BP 125/63
[2024-10-23] MEDS: LIDOCAINE 4% PATCH 1 PATCH TOPICAL ×3 (08:35→08:37)
[2024-10-23] MEDS: HYDROCORTISONE 1% CREAM 1 APPLIC TOPICAL ×2 (08:35→20:13)
[2024-10-23 08:53] LABS: Hematocrit 29.7 % (39.0-52.0); Hemoglobin 9.7 g/dL (13.0-18.0); Mean Corp Hgb Conc. 32.7 g/dL (33.0-37.0); Mean Corpuscular Volume 91.7 fL (80.0-94.0); Platelet Count 170 10^3/uL (130-400); Red Cell Dist. Width 14.5 % (11.5-14.5)
[2024-10-23 09:04] LABS: INR 1.22; PT 15.7 Sec (11.4-14.6)
[2024-10-23 09:05] LABS: APTT 32.6 Sec (23.4-35.0)
[2024-10-23 09:25] LABS: Blood Urea Nitrogen 12 mg/dl (9-20); Calcium 8.4 mg/dl (8.4-10.2); Carbon Dioxide 28 mmol/L (22-30); Chloride 103 mmol/L (98-107); Estimated Creatinine Clearance 101 ml/min; Glucose 100 mg/dl (70-99); Potassium 4.0 mmol/L (3.5-5.1); Sodium 136 mmol/L (135-145); eGFR > 60.00
[2024-10-23] MEDS: TRIAMCINOLONE ACETONIDE 0.1% CREAM 1 APPLIC TOPICAL ×2 (09:35→20:13)
--- NOTE | 2024-10-23 13:12 | W.PN.HOSP.TC ---
Today's Communication/Plan
-
await urology input
continue cbi
Assessment / Plan
Assessment / Plan
59-year-old with CVA and residual left-sided hemiparesis, hypertension, hyperlipidemia, who is on anticoagulation with Eliquis presenting to the emergency department with hematuria and urinary retention. Started on CBI in the emergency department.
He is afebrile, UA is notable for blood leukocyte esterase and moderate bacteria. Denies flank pain. Urinary function normal and at baseline. Hemoglobin is 9.3 similar to prior. Etiology of his hematuria is unclear at this time.
PLAN:
Hematuria -hemodynamically stable with stable hemoglobin. Patient on Eliquis and likely etiology. Cannot rule out an infection but no obvious sepsis.
WBC 4.5k, afebrile
Ur C&S pending
-Admit to MedSurg
-Hold anticoagulation
-Continue CBI
-Urine cultures, IV levaquin based on past years urine cultures (patient currently on amoxicillin for tooth infection ending 10/25)
-Continue tamsulosin
-Urology consultation
CVA -
- Hold Eliquis, continue aspirin
-Continue his antihypertensives
-Continue statin
-Seizure treatment with valproic acid
DVT prophylaxis�SCDs
CODE STATUS�DNR
Anticipated Discharge: 24 - 48 hours
Subjective/Interval History
-
Date of Service: October 23, 2024
Awake, alert
Objective Data
-
Labs:
Laboratory Results
10/23/24
08:35
WBC 4.5 L
Hgb 9.7 L
Hct 29.7 L
Plt Count 170
PT 15.7 H
INR 1.22
APTT 32.6
Sodium 136
Potassium 4.0
Chloride 103
Carbon Dioxide 28
BUN 12
Creatinine 1.0
Glucose 100 H
Calcium 8.4
Vital Signs:
Vital Signs
Temp Pulse Resp BP Pulse Ox
98.3 F 68 16 125/63 100
10/23/24 07:35 10/23/24 07:35 10/23/24 07:35 10/23/24 08:31 10/23/24 08:00
I&O
10/22/24 10/23/24 10/24/24
06:59 06:59 06:59
Intake Total 120 / 120
Output Total 150 / 150
Balance -30 / -30
Review of Systems
-
History Source: Patient and Coordinated Provider
Constitutional: Denies Fever
EENT: Reports No Symptoms Reported
Respiratory: Reports No Symptoms
Cardiac: Reports No Symptoms
Abdomen/GI: Reports No Symptoms
Genitourinary: Reports Bleeding
Musculoskeletal: Reports No Symptoms
Neuro: Reports Other (left hemiparesis)
Physical Exam
-
General: Well Developed, Well Nourished, No Apparent Distress and Comfortable
HEENT: Normocephalic, Atraumatic and Moist Mucous Membranes
Respiratory: Clear to Auscultation; Negative Wheezes, Rales or Rhonchi
Cardiac: Regular Rhythm and S1/S2
GI: Soft, Nontender and Nondistended
Musculoskeletal: No Clubbing, No Cyanosis and No Edema
Neuro: Awake, Alert and Other (dense left hemiparesis)
--- NOTE | 2024-10-23 15:42 | CM ---
supermarket manager reviewed patient's chart patient admitted with hematuria, patient with history of CVA and left hemiparesis,patient was admitted under OBS, OBS letter signed at 3pm 10/23/24. Patient was admitted from [facility], per patient
he has been there 3 years, patient was trying to get closer to home, Patient requires total care at senior care is able to feed self [employer] for transfers, plan to return to [facility].
PCP: Dr. Toledo
Pharmacy: [facility]
Report [phone]

.
[2024-10-23 15:45] VITALS: BP 123/59
[2024-10-23] MEDS: FLOMAX 0.4 MG PO (17:03)
[2024-10-23] MEDS: LIPITOR 80 MG PO (22:02)
[2024-10-23] MEDS: DEPAKOTE (12 HR RELEASE) 125 MG PO (22:02)
[2024-10-23] MEDS: MELATONIN 10 MG PO (22:02)
[2024-10-23] MEDS: DESYREL 100 MG PO (22:02)
[2024-10-23 23:00] VITALS: BP 117/65
[2024-10-23] MEDS: LEVAQUIN 100 IV (23:27)
--- NOTE | 2024-10-24 02:26 | DOWNTIME ---
There was a [employer] Client Telegraphic Typewriter Mechanic Downtime on 10/24/2024 from 0100 to 10/24/2024 at 0220. Downtime documentation of patient's care, including medication administrations, has been reconciled in the electronic record per guidelines. Refer to the
patient's paper chart under the miscellaneous tab to see printed paper medication records and downtime forms.
[2024-10-24 07:52] VITALS: BP 106/65
[2024-10-24 08:01] LABS: Hematocrit 27.9 % (39.0-52.0); Hemoglobin 9.2 g/dL (13.0-18.0); Mean Corp Hgb Conc. 33.0 g/dL (33.0-37.0); Mean Corpuscular Volume 90.0 fL (80.0-94.0); Nucleated Red Blood Cells % 0 % (-); Platelet Count 156 10^3/uL (130-400); Red Cell Dist. Width 14.2 % (11.5-14.5)
[2024-10-24] MEDS: MILK OF MAGNESIA 30 ML PO (08:14)
[2024-10-24] MEDS: LIDOCAINE 4% PATCH 1 PATCH TOPICAL (08:16)
[2024-10-24] MEDS: LIORESAL 5 MG PO ×3 (08:16→22:07)
[2024-10-24] MEDS: PROTONIX 40 MG PO ×2 (08:16→19:55)
[2024-10-24] MEDS: LOW STRENGTH ASPIRIN 81 MG PO (08:17)
[2024-10-24] MEDS: VISBIOME 1 CAP PO (08:17)
[2024-10-24] MEDS: SENOKOT 17.2 MG PO ×2 (08:17→19:54)
[2024-10-24] MEDS: ZOLOFT 150 MG PO (08:17)
[2024-10-24] MEDS: NORVASC 10 MG PO (08:18)
[2024-10-24] MEDS: TRIAMCINOLONE ACETONIDE 0.1% CREAM 1 APPLIC TOPICAL ×2 (08:18→19:53)
[2024-10-24] MEDS: HYDROCORTISONE 1% CREAM 1 APPLIC TOPICAL ×2 (08:19→19:52)
--- NOTE | 2024-10-24 09:32 | W.PN.URO.CBU ---
Today's Communication / Plan
-
await urine cx
Assessment / Plan
-
Clinically stable, improving
Diagnosis
-
Date of Service: October 24, 2024
-
Patient Diagnosis:
Gross Hematuria -- likely CAUTI
Nephrolithiasis -- non-obstructive
Objective
-
Vital Signs
Temp Pulse Resp BP Pulse Ox
97.7 F 52 16 106/65 100
10/24/24 07:52 10/24/24 07:52 10/24/24 07:52 10/24/24 07:52 10/24/24 07:52
Intake and Output
10/23/24 10/24/24 10/25/24
06:59 06:59 06:59
Intake Total 120 / 120 660 / 660
Output Total 150 / 150 2450 / 2450
Balance -30 / -30 -1790 / -1790
Intake:
Oral fluids 120 / 120 660 / 660
Output:
True Urine Output from CBI 150 / 150 2450 / 2450
Laboratory Results
10/24/24 06:52
10/23/24 08:35
Urine Cx: pending
CT: signgificant, non-obstructive left renal stone burden
Physical Exam
-
General - well developed, well nourished, no acute distress
Chest - clear bilaterally
Abdomen - soft, non-tender, positive bowel sounds, no CVAT, no incisional pain or distention
Genitalia - normal
Rectal - normal
Skin - warm & dry with no rash
Neuro - AOx3, no motor deficits
Extremities - no clubbing, no cyanosis, no edema
Incision - clean, dry
Dressing - clean, dry, intact
--- NOTE | 2024-10-24 10:26 | W.PN.HOSP.TC ---
Today's Communication/Plan
-
await Ur C&S results
Assessment / Plan
Assessment / Plan
59-year-old with CVA and residual left-sided hemiparesis, hypertension, hyperlipidemia, who is on anticoagulation with Eliquis presenting to the emergency department with hematuria and urinary retention. Started on CBI in the emergency department.
He is afebrile, UA is notable for blood leukocyte esterase and moderate bacteria. Denies flank pain. Urinary function normal and at baseline. Hemoglobin is 9.2 similar to prior. Etiology of his hematuria is unclear at this time. Ur C&S still
pending
PLAN:
Hematuria -hemodynamically stable with stable hemoglobin. Patient on Eliquis and likely etiology. Cannot rule out an infection but no obvious sepsis.
WBC 4.5k, afebrile
Ur C&S pending
CT scan: Mild left hydronephrosis. No obstructing radiopaque stone noted. Mild collecting system wall enhancement suggesting infection.Similar findings present previously but both progressed.
Nonobstructing left renal stones. Only one new tiny stone. The rest are enlarged or stable.
Gallstones. Stable
Mild diffuse bladder wall thickening. Improved. This can be seen with cystitis or bladder outlet obstruction.
Gutierrez catheter in bladder as well as air probably due to recent instrumentation.
3 mm solid noncalcified right lower lobe pulmonary nodule. Incompletely imaged. This area not imaged previously
-Admit to MedSurg
-Hold anticoagulation
-Continue CBI
-Urine cultures, IV levaquin based on past years urine cultures (patient currently on amoxicillin for tooth infection ending 10/25)
-Continue tamsulosin
-Urology consultation appreciated
CVA -
- Hold Eliquis, continue aspirin
-Continue his antihypertensives
-Continue statin
-Seizure treatment with valproic acid
Call placed and updated, as per pt request, Tejal 10/24
DVT prophylaxis�SCDs
CODE STATUS�DNR
Anticipated Discharge: 24 - 48 hours
Subjective/Interval History
-
Date of Service: October 24, 2024
Awake, alert
Objective Data
-
Labs:
Laboratory Results
10/24/24
06:52
WBC 3.8 L
Hgb 9.2 L
Hct 27.9 L
Plt Count 156
Vital Signs:
Vital Signs
Temp Pulse Resp BP Pulse Ox
97.7 F 52 16 106/65 100
10/24/24 07:52 10/24/24 07:52 10/24/24 07:52 10/24/24 07:52 10/24/24 07:52
I&O
10/23/24 10/24/24 10/25/24
06:59 06:59 06:59
Intake Total 120 / 120 660 / 660
Output Total 150 / 150 2450 / 2450
Balance -30 / -30 -1790 / -1790
Review of Systems
-
History Source: Patient and Coordinated Provider
Constitutional: Denies Fever
EENT: Reports No Symptoms Reported
Respiratory: Reports No Symptoms
Cardiac: Reports No Symptoms
Abdomen/GI: Reports No Symptoms
Genitourinary: Reports Bleeding
Musculoskeletal: Reports No Symptoms
Neuro: Reports Other (left hemiparesis)
Physical Exam
-
General: Well Developed, Well Nourished, No Apparent Distress and Comfortable
HEENT: Normocephalic, Atraumatic and Moist Mucous Membranes
Respiratory: Clear to Auscultation; Negative Wheezes, Rales or Rhonchi
Cardiac: Regular Rhythm and S1/S2
GI: Soft, Nontender and Nondistended
Musculoskeletal: No Clubbing, No Cyanosis and No Edema
Neuro: Awake, Alert and Other (dense left hemiparesis)
--- NOTE | 2024-10-24 14:22 | CM ---
CM reviewed chart, patient seen bedside, reports no needs to CM at this time. Patient LTC resident [facility]. CM will continue to follow for all discharge planning needs.
Plan; return [facility]
Report [phone]
[2024-10-24 15:00] VITALS: BP 142/66
[2024-10-24] MEDS: FLOMAX 0.4 MG PO (15:56)
[2024-10-24] MEDS: TYLENOL 650 MG PO (19:55)
[2024-10-24] MEDS: DEPAKOTE (12 HR RELEASE) 125 MG PO (22:06)
[2024-10-24] MEDS: DESYREL 100 MG PO (22:06)
[2024-10-24] MEDS: MELATONIN 10 MG PO (22:06)
[2024-10-24] MEDS: LIPITOR 80 MG PO (22:06)
[2024-10-24 23:00] VITALS: BP 103/53
[2024-10-25] MEDS: LEVAQUIN 100 IV ×2 (00:11→23:19)
[2024-10-25 07:00] VITALS: BP 121/65
[2024-10-25] MEDS: LIORESAL 5 MG PO ×3 (10:00→21:11)
[2024-10-25] MEDS: ZOLOFT 150 MG PO (10:00)
[2024-10-25] MEDS: VISBIOME 1 CAP PO (10:00)
[2024-10-25] MEDS: SENOKOT 17.2 MG PO ×2 (10:00→20:23)
[2024-10-25] MEDS: NORVASC 10 MG PO (10:00)
[2024-10-25] MEDS: PROTONIX 40 MG PO ×2 (10:01→20:23)
[2024-10-25] MEDS: LOW STRENGTH ASPIRIN 81 MG PO (10:01)
[2024-10-25] MEDS: LIDOCAINE 4% PATCH 1 PATCH TOPICAL ×2 (10:01)
[2024-10-25] MEDS: HYDROCORTISONE 1% CREAM 1 APPLIC TOPICAL ×2 (10:02→20:22)
[2024-10-25] MEDS: TRIAMCINOLONE ACETONIDE 0.1% CREAM 1 APPLIC TOPICAL ×2 (10:02→20:24)
--- NOTE | 2024-10-25 11:01 | W.PN.URO.CBU ---
Today's Communication / Plan
-
will sign off
Assessment / Plan
-
resolved hematuria
asymptomatic nephrolithiasis
Diagnosis
-
Date of Service: October 25, 2024
-
Patient Diagnosis:
Gross Hematuria -- likely CAUTI
Nephrolithiasis -- non-obstructive
Objective
-
Vital Signs
Temp Pulse Resp BP Pulse Ox
97.4 F 59 17 121/65 100
10/25/24 07:00 10/25/24 10:00 10/25/24 07:00 10/25/24 10:00 10/25/24 07:00
Intake and Output
10/24/24 10/25/24 10/26/24
06:59 06:59 06:59
Intake Total 660 / 660
Output Total 2450 / 2450 6650 / 6650
Balance -1790 / -1790 -6650 / -6650
Intake:
Oral fluids 660 / 660
Output:
True Urine Output from CBI 2450 / 2450 6650 / 6650
Laboratory Results
10/24/24 06:52
10/23/24 08:35
urine cx did not confirm infection
Physical Exam
-
General - no acute distress
Genitalia - Gutierrez draining clear outflow
--- NOTE | 2024-10-25 11:32 | W.PN.HOSP.TC ---
Addendum entered and electronically signed by Timmy Farmer MD 10/25/24 17:28:
correction: call placed and discussed with staff at [facility]. Pt did not have a urinary catheter at the [facility], this was placed in the ER at time of admission
Original Note:
Today's Communication/Plan
-
resume Eliquis
recheck labs in AM
Assessment / Plan
Assessment / Plan
59-year-old with CVA and residual left-sided hemiparesis, hypertension, hyperlipidemia, who is on anticoagulation with Eliquis presenting to the emergency department with hematuria and urinary retention. Started on CBI in the emergency department.
He is afebrile, UA is notable for blood leukocyte esterase and moderate bacteria. Denies flank pain. Urinary function normal and at baseline. Hemoglobin is 9.2 similar to prior. Etiology of his hematuria is unclear at this time. Ur C&S no growth
CAUTI
hx of CVA in 2012
PLAN:
Hematuria -hemodynamically stable with stable hemoglobin. Patient on Eliquis and likely etiology. Cannot rule out an infection but no obvious sepsis.
WBC 4.5-->3.8k, afebrile
Ur C&S no growth
CT scan: Mild left hydronephrosis. No obstructing radiopaque stone noted. Mild collecting system wall enhancement suggesting infection.Similar findings present previously but both progressed.
Nonobstructing left renal stones. Only one new tiny stone. The rest are enlarged or stable.
Gallstones. Stable
Mild diffuse bladder wall thickening. Improved. This can be seen with cystitis or bladder outlet obstruction.
Gutierrez catheter in bladder as well as air probably due to recent instrumentation.
3 mm solid noncalcified right lower lobe pulmonary nodule. Incompletely imaged. This area not imaged previously
-Admit to MedSu
-Resume anticoagulation
-Continue CBI
-Urine cultures, IV levaquin based on past years urine cultures (patient currently on amoxicillin for tooth infection ending 10/25)
-Continue tamsulosin
-Urology consultation appreciated
CVA -
- Hold Eliquis, continue aspirin
-Continue his antihypertensives
-Continue statin
-Seizure treatment with valproic acid
Call placed and updated, as per pt request, Tejal 10/24
DVT prophylaxis�SCDs
CODE STATUS�DNR
call placed and discussed with sister, Sabina 10/25. She was made aware of plans to resume Eliquis, to avoid another CVA, but if bleeding recurs may need to be off the Eliquis for a longer period of time
Anticipated Discharge: 24 - 48 hours
Subjective/Interval History
-
Date of Service: October 25, 2024
awake, alert
Objective Data
-
Vital Signs:
Vital Signs
Temp Pulse Resp BP Pulse Ox
97.4 F 59 17 121/65 100
10/25/24 07:00 10/25/24 10:00 10/25/24 07:00 10/25/24 10:00 10/25/24 08:00
I&O
10/24/24 10/25/24 10/26/24
06:59 06:59 06:59
Intake Total 660 / 660
Output Total 2450 / 2450 6650 / 6650
Balance -1790 / -1790 -6650 / -6650
Review of Systems
-
History Source: Patient and Coordinated Provider
Constitutional: Denies Fever
EENT: Reports No Symptoms Reported
Respiratory: Reports No Symptoms
Cardiac: Reports No Symptoms
Abdomen/GI: Reports No Symptoms
Genitourinary: Reports Bleeding
Musculoskeletal: Reports No Symptoms
Neuro: Reports Other (left hemiparesis)
Physical Exam
-
General: Well Developed, Well Nourished, No Apparent Distress and Comfortable
HEENT: Normocephalic, Atraumatic and Moist Mucous Membranes
Respiratory: Clear to Auscultation; Negative Wheezes, Rales or Rhonchi
Cardiac: Regular Rhythm and S1/S2
GI: Soft, Nontender and Nondistended
Musculoskeletal: No Clubbing, No Cyanosis and No Edema
Neuro: Awake, Alert and Other (dense left hemiparesis)
[2024-10-25 15:25] VITALS: BP 121/58
[2024-10-25] MEDS: FLOMAX 0.4 MG PO (18:25)
[2024-10-25] MEDS: ELIQUIS 5 MG PO (20:22)
[2024-10-25] MEDS: LIPITOR 80 MG PO (21:10)
[2024-10-25] MEDS: DEPAKOTE (12 HR RELEASE) 125 MG PO (21:10)
[2024-10-25] MEDS: MELATONIN 10 MG PO (21:10)
[2024-10-25] MEDS: DESYREL 100 MG PO (21:10)
[2024-10-25 23:15] VITALS: BP 109/55
[2024-10-26 07:11] VITALS: BP 129/66
[2024-10-26] MEDS: ZOLOFT 150 MG PO (08:15)
[2024-10-26] MEDS: ELIQUIS 5 MG PO ×2 (08:15→20:17)
[2024-10-26] MEDS: SENOKOT 17.2 MG PO ×2 (08:15→20:18)
[2024-10-26] MEDS: NORVASC 10 MG PO (08:15)
[2024-10-26] MEDS: LIORESAL 5 MG PO ×3 (08:15→21:02)
[2024-10-26] MEDS: PROTONIX 40 MG PO ×2 (08:15→20:17)
[2024-10-26] MEDS: VISBIOME 1 CAP PO (08:15)
[2024-10-26] MEDS: LIDOCAINE 4% PATCH 1 PATCH TOPICAL ×2 (08:15)
[2024-10-26] MEDS: LOW STRENGTH ASPIRIN 81 MG PO (08:15)
[2024-10-26] MEDS: HYDROCORTISONE 1% CREAM 1 APPLIC TOPICAL ×2 (08:18→20:19)
[2024-10-26] MEDS: TRIAMCINOLONE ACETONIDE 0.1% CREAM 1 APPLIC TOPICAL ×2 (08:19→20:19)
[2024-10-26 08:53] LABS: Hematocrit 30.5 % (39.0-52.0); Hemoglobin 9.9 g/dL (13.0-18.0); Mean Corp Hgb Conc. 32.5 g/dL (33.0-37.0); Mean Corpuscular Volume 91.3 fL (80.0-94.0); Nucleated Red Blood Cells % 0 % (-); Platelet Count 176 10^3/uL (130-400); Red Cell Dist. Width 14.2 % (11.5-14.5)
[2024-10-26 09:43] LABS: Blood Urea Nitrogen 10 mg/dl (9-20); Calcium 9.0 mg/dl (8.4-10.2); Carbon Dioxide 27 mmol/L (22-30); Chloride 103 mmol/L (98-107); Estimated Creatinine Clearance 92 ml/min; Glucose 80 mg/dl (70-99); Potassium 4.1 mmol/L (3.5-5.1); Sodium 135 mmol/L (135-145); eGFR > 60.00
--- NOTE | 2024-10-26 12:29 | CM ---
CM reviewed chart, patient seen bedside, patient requesting additional referrals be placed in [facility], placed in [facility]. Patient is LTC resident at [facility] able to accept back if no other accepting facility found. CM will
continue to follow for all discharge planning needs.
Plan; additional referrals placed vs return to [facility]
Report [phone]
--- NOTE | 2024-10-26 12:37 | W.PN.HOSP.TC ---
Today's Communication/Plan
-
monitor urine output
plans discussed with BEBETO Orourke
Assessment / Plan
Assessment / Plan
59-year-old with CVA and residual left-sided hemiparesis, hypertension, hyperlipidemia, who is on anticoagulation with Eliquis presenting to the emergency department with hematuria and urinary retention. Started on CBI in the emergency department.
He is afebrile, UA is notable for blood leukocyte esterase and moderate bacteria. Denies flank pain. Urinary function normal and at baseline. Hemoglobin is 9.2 similar to prior. Etiology of his hematuria is unclear at this time. Ur C&S no growth
Call placed to [facility] and confirmed that pt did not have a catheter at the [facility]
hx of CVA in 2012
PLAN:
Hematuria -hemodynamically stable with stable hemoglobin. Patient on Eliquis and likely etiology. Cannot rule out an infection but no obvious sepsis.
UA 10/26 morning was clear, with no blood. If continues able to urinate and urine stays clear, potential dc tomorrow. Discussed with ONELIA Terrazas
WBC 4.5-->3.8-->4.1k, afebrile
Ur C&S no growth
CT scan: Mild left hydronephrosis. No obstructing radiopaque stone noted. Mild collecting system wall enhancement suggesting infection.Similar findings present previously but both progressed.
Nonobstructing left renal stones. Only one new tiny stone. The rest are enlarged or stable.
Gallstones. Stable
Mild diffuse bladder wall thickening. Improved. This can be seen with cystitis or bladder outlet obstruction.
Boggs catheter in bladder as well as air probably due to recent instrumentation.
3 mm solid noncalcified right lower lobe pulmonary nodule. Incompletely imaged. This area not imaged previously
-Admit to MedSurg
-Resumed anticoagulation 10/25
-Urine cultures neg, IV levaquin based on past years urine cultures (patient currently on amoxicillin for tooth infection ending 10/25)
-Continue tamsulosin
-Urology consultation appreciated
CVA -
- Resume Eliquis, continue aspirin
-Continue his antihypertensives
-Continue statin
-Seizure treatment with valproic acid
DVT prophylaxis�SCDs
CODE STATUS�DNR
call placed and discussed with sister, Sabina 10/25. She was made aware of plans to resume Eliquis, to avoid another CVA, but if bleeding recurs may need to be off the Eliquis for a longer period of time
Anticipated Discharge: 24 - 48 hours
Subjective/Interval History
-
Date of Service: October 26, 2024
Awake, alert
Objective Data
-
Labs:
Laboratory Results
10/26/24
07:57
WBC 4.1 L
Hgb 9.9 L
Hct 30.5 L
Plt Count 176
Sodium 135
Potassium 4.1
Chloride 103
Carbon Dioxide 27
BUN 10
Creatinine 1.1
Glucose 80
Calcium 9.0
Vital Signs:
Vital Signs
Temp Pulse Resp BP Pulse Ox
97.9 F 66 16 129/66 96
10/26/24 07:11 10/26/24 07:11 10/26/24 07:11 10/26/24 07:11 10/26/24 08:15
I&O
10/25/24 10/26/24 10/27/24
06:59 06:59 06:59
Intake Total 240 / 240
Output Total 6650 / 6650 850 / 850
Balance -6650 / -6650 -610 / -610
Review of Systems
-
History Source: Patient and Coordinated Provider (BEBETO Orourke)
Constitutional: Denies Fever
EENT: Reports No Symptoms Reported
Respiratory: Reports No Symptoms
Cardiac: Reports No Symptoms
Abdomen/GI: Reports No Symptoms
Genitourinary: Reports Bleeding
Musculoskeletal: Reports No Symptoms
Neuro: Reports Other (left hemiparesis)
Physical Exam
-
General: Well Developed, Well Nourished, No Apparent Distress and Comfortable
HEENT: Normocephalic, Atraumatic and Moist Mucous Membranes
Respiratory: Clear to Auscultation; Negative Wheezes, Rales or Rhonchi
Cardiac: Regular Rhythm and S1/S2
GI: Soft, Nontender and Nondistended
Genito-urinary: Other (boggs removed)
Musculoskeletal: No Clubbing, No Cyanosis and No Edema
Neuro: Awake, Alert and Other (dense left hemiparesis)
[2024-10-26 15:00] VITALS: BP 124/60
[2024-10-26] MEDS: FLOMAX 0.4 MG PO (17:21)
[2024-10-26] MEDS: LEVAQUIN 500 MG PO (20:22)
[2024-10-26] MEDS: TYLENOL 650 MG PO (20:32)
[2024-10-26] MEDS: LIPITOR 80 MG PO (21:01)
[2024-10-26] MEDS: MELATONIN 10 MG PO (21:01)
[2024-10-26] MEDS: DEPAKOTE (12 HR RELEASE) 125 MG PO (21:01)
[2024-10-26] MEDS: DESYREL 100 MG PO (21:02)
[2024-10-27 07:25] VITALS: BP 121/63
[2024-10-27] MEDS: LIDOCAINE 4% PATCH 1 PATCH TOPICAL ×2 (07:28→07:29)
[2024-10-27] MEDS: VISBIOME 1 CAP PO (07:30)
[2024-10-27] MEDS: LOW STRENGTH ASPIRIN 81 MG PO (07:30)
[2024-10-27] MEDS: PROTONIX 40 MG PO ×2 (07:30→21:51)
[2024-10-27] MEDS: SENOKOT 17.2 MG PO ×2 (07:30→21:51)
[2024-10-27] MEDS: ZOLOFT 150 MG PO (07:31)
[2024-10-27] MEDS: LIORESAL 5 MG PO ×3 (07:31→21:52)
[2024-10-27] MEDS: NORVASC 10 MG PO (07:32)
[2024-10-27] MEDS: ELIQUIS 5 MG PO ×2 (07:32→21:46)
[2024-10-27] MEDS: HYDROCORTISONE 1% CREAM 1 APPLIC TOPICAL ×2 (07:33→22:11)
[2024-10-27] MEDS: TRIAMCINOLONE ACETONIDE 0.1% CREAM 1 APPLIC TOPICAL ×2 (07:33→22:13)
--- NOTE | 2024-10-27 11:10 | CM ---
CM following for discharge planning to LTC. Pt admitted from [facility] where he is LTC.
Attempting to find alternate facilities in [place]; referrals sent in [facility] to [place] SNFS: [facility] (does not accept pt's insurance), [facility], [facility] in [place], [facility], [facility],
[facility], [facility] and [facility]; none of the above facilities have responded at this time.
CM will continue to follow for placement in [place], however pt is LTC at [facility] and can return there at discharge if no other facilities accept.
--- NOTE | 2024-10-27 13:33 | W.PN.HOSP.TC ---
Today's Communication/Plan
-
dc to [facility]
Assessment / Plan
Assessment / Plan
59-year-old with CVA and residual left-sided hemiparesis, hypertension, hyperlipidemia, who is on anticoagulation with Eliquis presenting to the emergency department with hematuria and urinary retention. Started on CBI in the emergency department.
He is afebrile, UA is notable for blood leukocyte esterase and moderate bacteria. Denies flank pain. Urinary function normal and at baseline. Hemoglobin is 9.2 similar to prior. Etiology of his hematuria is unclear at this time. Ur C&S no growth
Call placed to and confirmed that pt did not have a catheter at the
hx of CVA in 2012
PLAN:
Hematuria -hemodynamically stable with stable hemoglobin. Patient on Eliquis and likely etiology. Cannot rule out an infection but no obvious sepsis.
UA 10/26 morning was clear, with no blood. If continues able to urinate and urine stays clear, potential dc tomorrow. Discussed with ONELIA Terrazas
WBC 4.5-->3.8-->4.1k, afebrile
Ur C&S no growth, but high probability that this was a UTI that triggered the hematuria
CT scan: Mild left hydronephrosis. No obstructing radiopaque stone noted. Mild collecting system wall enhancement suggesting infection.Similar findings present previously but both progressed.
Nonobstructing left renal stones. Only one new tiny stone. The rest are enlarged or stable.
Gallstones. Stable
Mild diffuse bladder wall thickening. Improved. This can be seen with cystitis or bladder outlet obstruction.
Boggs catheter in bladder as well as air probably due to recent instrumentation.
3 mm solid noncalcified right lower lobe pulmonary nodule. Incompletely imaged. This area not imaged previously
-Resumed anticoagulation 10/25
-Urine cultures neg, IV levaquin based on past years urine cultures (patient currently on amoxicillin for tooth infection ending 10/25)
-Continue tamsulosin
-Urology consultation appreciated
CVA -
- Resume Eliquis, continue aspirin
-Continue his antihypertensives
-Continue statin
-Seizure treatment with valproic acid
DVT prophylaxis�SCDs
CODE STATUS�DNR
call placed and discussed with sister, Sabina 10/27. She was made aware of plans to resume Eliquis, to avoid another CVA, but if bleeding recurs may need to be off the Eliquis for a longer period of time
confirmed with nursing, no further bleeding, urinating well, no evidence of bladder outlet obstruction. Will dc
More than 30 minutes spent in discharge including
Final examination of the patient
Summarizing hospital stay
Instructions for continuing care to all relevant caregivers
Preparation of discharge records, prescriptions, and referral forms
Total time spent (in minutes): 45
see dictated note
Anticipated Discharge: Today
Subjective/Interval History
-
Date of Service: October 27, 2024
Pt states he is urinating without difficulty, nursing ([facility]) confirms
Objective Data
-
Vital Signs:
Vital Signs
Temp Pulse Resp BP Pulse Ox
97.4 F 63 18 121/63 98
10/27/24 07:25 10/27/24 07:25 10/27/24 07:25 10/27/24 07:25 10/27/24 07:35
I&O
10/26/24 10/27/24 10/28/24
06:59 06:59 06:59
Intake Total 240 / 240 420 / 420
Output Total 850 / 850 310 / 310 400 / 400
Balance -610 / -610 110 / 110 -400 / -400
Review of Systems
-
History Source: Patient and Coordinated Provider (BEBETO Orourke)
Constitutional: Denies Fever
EENT: Reports No Symptoms Reported
Respiratory: Reports No Symptoms
Cardiac: Reports No Symptoms
Abdomen/GI: Reports No Symptoms
Genitourinary: Reports Bleeding
Musculoskeletal: Reports No Symptoms
Neuro: Reports Other (left hemiparesis)
Physical Exam
-
General: Well Developed, Well Nourished, No Apparent Distress and Comfortable
HEENT: Normocephalic, Atraumatic and Moist Mucous Membranes
Respiratory: Clear to Auscultation; Negative Wheezes, Rales or Rhonchi
Cardiac: Regular Rhythm and S1/S2
GI: Soft, Nontender and Nondistended
Genito-urinary: Other (boggs removed)
Musculoskeletal: No Clubbing, No Cyanosis and No Edema
Neuro: Awake, Alert and Other (dense left hemiparesis)
[2024-10-27] MEDS: FLOMAX 0.4 MG PO (15:24)
[2024-10-27 15:35] VITALS: BP 129/77
--- NOTE | 2024-10-27 17:13 | W.DS.TRANS ---
DC Summary - [employer]
-
Discharge Instructions:
Discharge Diagnosis/Procedures Gross Hematuria with Bladder Outlet Obstruction
Diet Regular
Activity With assistance
Driving Restrictions No driving
Bathing Restrictions None
Blood Work CBC, CMP, Urine Analysis in 2 weeks
Instructions:
Stand-Alone Forms:
Changes to Home Medications: Yes
Discharge Medications:
DC Medications w/original date entered in [employer]
acetaminophen 325 mg tablet (Tylenol) 650 mg PO Q6HPRN PRN mild pain/fever 09/23/23
apixaban 5 mg tablet (Eliquis) 5 mg PO BID Blood Clot Prevention/Tx 09/23/23
atorvastatin 80 mg tablet (Lipitor) 80 mg PO HS High Cholesterol 09/23/23
bisacodyl 5 mg tablet,delayed release (Dulcolax (bisacodyl)) 5 mg PO DAILYPRN PRN constipation 09/23/23
divalproex 125 mg tablet,delayed release 125 mg PO HS Seizures 09/23/23
magnesium hydroxide 400 mg/5 mL oral suspension (Milk of Magnesia) 30 ml PO DAILYPRN PRN if no bm in 3 days 09/23/23
methyl salicylate 15 %-menthol 10 % topical cream (Muscle Rub) 1 applic topical Q6HPRN PRN mild pain 09/23/23
pantoprazole 40 mg tablet,delayed release 40 mg PO BID Gastrointestinal Issue 09/23/23
sennosides 8.6 mg tablet (senna) 17.2 mg PO BID Constipation 09/23/23
sertraline 150 mg capsule 150 mg PO DAILY Depression 09/23/23
tamsulosin 0.4 mg capsule (Flomax) 0.4 mg PO QPM Urinary Issue 09/23/23
triamcinolone acetonide 0.1 % topical cream 1 applic topical BID atopic dermatitis 09/23/23
hydrocortisone 1 % topical cream 1 applic topical BID scalp 05/04/24
lidocaine 4 % topical patch 1 patch topical DAILY left knee 05/04/24
lidocaine 5 % topical cream 1 applic topical BID left hand 05/04/24
simethicone 125 mg tablet 125 mg PO Q8HPRN PRN gas pains 05/04/24
Lactobacillus acidophilus 1 cap PO DAILY Gastrointestinal Issue 08/28/24
bisacodyl 10 mg rectal suppository (Dulcolax (bisacodyl)) 10 mg IA DAILY PRN constipation if MOM ineffective 08/28/24
lidocaine 5 % topical patch 1 patch topical DAILY right knee 08/28/24
amlodipine 10 mg tablet 10 mg PO DAILY Blood Pressure 09/16/24
aspirin 81 mg chewable tablet 81 mg PO DAILY Blood Clot Prevention/Tx 09/16/24
melatonin 1 mg tablet 8 mg PO HS Sleep 09/16/24
selenium sulfide 2.5 % lotion 1 applic topical Q8HPRN PRN itching 09/16/24
baclofen 10 mg tablet 5 mg (1/2 x 10 mg) PO TID Skeletal Muscle Relaxant #0 tabs 09/22/24
polyethylene glycol 3350 17 gram oral powder packet (Miralax) 17 g PO DAILY PRN Constipation #0 ea 09/22/24
trazodone 100 mg tablet 100 mg PO HS mental health/sleep #0 tabs 09/22/24
acetaminophen 325 mg tablet 650 mg (2 x 325 mg) PO Q4HPRN PRN mild pain/BUENROSTRO/temp> 100.4F #0 tabs 10/27/24
apixaban 5 mg tablet (Eliquis) 5 mg PO BID #60 tabs 10/27/24
levofloxacin 500 mg tablet 500 mg PO DAILY@2000 #5 tabs 10/27/24
Home Medication Changes
levaquin added for next 5 days
Pending Results: No
[2024-10-27] MEDS: LEVAQUIN 500 MG PO (21:51)
[2024-10-27] MEDS: DEPAKOTE (12 HR RELEASE) 125 MG PO (21:51)
[2024-10-27] MEDS: DESYREL 100 MG PO (21:52)
[2024-10-27] MEDS: LIPITOR 80 MG PO (21:53)
[2024-10-27] MEDS: MELATONIN 10 MG PO (21:53)
[2024-10-27 23:07] VITALS: BP 117/68
[2024-10-28 07:00] VITALS: BP 124/68
[2024-10-28] MEDS: VISBIOME 1 CAP PO (08:01)
[2024-10-28] MEDS: PROTONIX 40 MG PO (08:01)
[2024-10-28] MEDS: SENOKOT 17.2 MG PO (08:01)
[2024-10-28] MEDS: LOW STRENGTH ASPIRIN 81 MG PO (08:02)
[2024-10-28] MEDS: NORVASC 10 MG PO (08:02)
[2024-10-28] MEDS: ZOLOFT 150 MG PO (08:03)
[2024-10-28] MEDS: LIORESAL 5 MG PO ×2 (08:04→15:27)
[2024-10-28] MEDS: ELIQUIS 5 MG PO (08:04)
[2024-10-28] MEDS: LIDOCAINE 4% PATCH 1 PATCH TOPICAL ×2 (08:05)
[2024-10-28] MEDS: TRIAMCINOLONE ACETONIDE 0.1% CREAM 1 APPLIC TOPICAL (08:06)
[2024-10-28] MEDS: HYDROCORTISONE 1% CREAM 1 APPLIC TOPICAL (08:07)
--- NOTE | 2024-10-28 11:12 | CM ---
Chart reviewed. No responses at this time from additional LTC referrals
Patient is stable for d/c. Discussed w/ patient returning to [facility] and continuing to work w/ them on a transfer to another facility. Patient agreeable
Left message w/ Jasmina/admissions
Will need ambulance transport, forms given to to arrange
Several attempts to speak w/ nursing to make aware, no answers. Left CM's number w/ front of house manager rep to share w/ nursing for a nurse to call. desktop support manager will also attempt to connect w/ nurse station as well since CM is not getting through.
[facility]- [facility]
Report [phone]

Plan: Return to [facility] today
--- NOTE | 2024-10-28 13:43 | W.PN.HOSP.TC ---
Today's Communication/Plan
-
dc today
Assessment / Plan
Assessment / Plan
59-year-old with CVA and residual left-sided hemiparesis, hypertension, hyperlipidemia, who is on anticoagulation with Eliquis presenting to the emergency department with hematuria and urinary retention. Started on CBI in the emergency department.
He is afebrile, UA is notable for blood leukocyte esterase and moderate bacteria. Denies flank pain. Urinary function normal and at baseline. Hemoglobin is 9.2 similar to prior. Etiology of his hematuria is unclear at this time. Ur C&S no growth
Call placed to [facility] and confirmed that pt did not have a catheter at the [facility]
hx of CVA in 2012
PLAN:
Hematuria -hemodynamically stable with stable hemoglobin. Patient on Eliquis and likely etiology. Cannot rule out an infection but no obvious sepsis.
UA 10/26 morning was clear, with no blood. If continues able to urinate and urine remains clear
WBC 4.5-->3.8-->4.1k, afebrile
Ur C&S no growth, but high probability that this was a UTI that triggered the hematuria
CT scan: Mild left hydronephrosis. No obstructing radiopaque stone noted. Mild collecting system wall enhancement suggesting infection.Similar findings present previously but both progressed.
Nonobstructing left renal stones. Only one new tiny stone. The rest are enlarged or stable.
Gallstones. Stable
Mild diffuse bladder wall thickening. Improved. This can be seen with cystitis or bladder outlet obstruction.
Boggs catheter in bladder as well as air probably due to recent instrumentation.
3 mm solid noncalcified right lower lobe pulmonary nodule. Incompletely imaged. This area not imaged previously
-Resumed anticoagulation 10/25
-Urine cultures neg, IV levaquin based on past years urine cultures (patient currently on amoxicillin for tooth infection ending 10/25)
-Continue tamsulosin
-Urology consultation appreciated
CVA -
- Resume Eliquis, continue aspirin
-Continue his antihypertensives
-Continue statin
-Seizure treatment with valproic acid
DVT prophylaxis�SCDs
CODE STATUS�DNR
Pt to be dc now. Reviewed with CM
Anticipated Discharge: Today
Subjective/Interval History
-
Date of Service: October 28, 2024
Pt voiced concerns about returning to [facility] and dc was placed on hold. He is now agreeable and will be dc
Objective Data
-
Vital Signs:
Vital Signs
Temp Pulse Resp BP Pulse Ox
97.6 F 68 18 124/68 97
10/28/24 07:00 10/28/24 07:00 10/28/24 07:00 10/28/24 07:00 10/28/24 07:00
I&O
10/27/24 10/28/24 10/29/24
06:59 06:59 06:59
Intake Total 420 / 420
Output Total 310 / 310 875 / 875
Balance 110 / 110 -875 / -875
Review of Systems
-
History Source: Patient and Coordinated Provider (BEBETO Orourke)
Constitutional: Denies Fever
EENT: Reports No Symptoms Reported
Respiratory: Reports No Symptoms
Cardiac: Reports No Symptoms
Abdomen/GI: Reports No Symptoms
Genitourinary: Reports Bleeding
Musculoskeletal: Reports No Symptoms
Neuro: Reports Other (left hemiparesis)
Physical Exam
-
General: Well Developed, Well Nourished, No Apparent Distress and Comfortable
HEENT: Normocephalic, Atraumatic and Moist Mucous Membranes
Respiratory: Clear to Auscultation; Negative Wheezes, Rales or Rhonchi
Cardiac: Regular Rhythm and S1/S2
GI: Soft, Nontender and Nondistended
Genito-urinary: Other (boggs removed)
Musculoskeletal: No Clubbing, No Cyanosis and No Edema
Neuro: Awake, Alert and Other (dense left hemiparesis)
[2024-10-28 15:00] VITALS: BP 120/62
== END 2024-10-28 17:10 | disposition home or self-care (01) ==
LOC: 4 WEST ACU 23:58
PROVIDERS: ADMITTING PHYSICIAN Internal Medicine; ATTENDING PHYSICIAN Internal Medicine; CONSULT PHYSICIAN Specialist; EMERGENCY PHYSICIAN Emergency Medicine; FAMILY PHYSICIAN Internal Medicine
DX: N32.0 Bladder-neck obstruction (principal); R31.0 Gross hematuria; R91.1 Solitary pulmonary nodule; I69.354 Hemiplegia and hemiparesis following cerebral infarction affecting left non-dominant side; I10 Essential (primary) hypertension; Z66 Do not resuscitate; N40.1 Benign prostatic hyperplasia with lower urinary tract symptoms; R33.8 Other retention of urine; E11.9 Type 2 diabetes mellitus without complications; E66.01 Morbid (severe) obesity due to excess calories; Z68.36 Body mass index [BMI] 36.0-36.9, adult; F32.A Depression, unspecified; G40.909 Epilepsy, unspecified, not intractable, without status epilepticus; K80.20 Calculus of gallbladder without cholecystitis without obstruction; N13.30 Unspecified hydronephrosis; N20.0 Calculus of kidney; Z79.01 Long term (current) use of anticoagulants; Z79.899 Other long term (current) drug therapy; Z87.891 Personal history of nicotine dependence
CPT/HCPCS: 74176; 80048; 81003; 81015; 85025; 85027; 85610; 85730; 87070; 87086; 96374; 99285; G0378